=== PATIENT | female | born 1940 | race Caucasian/White ===

== ENCOUNTER 2017-12-30 12:26 | Inpatient (IN) | payer MEDICARE ==
[2017-12-30] MEDS ORDERED: cefTRIAXone IN SWFI 1,000 MG/10 ML SYRINGE IVP STA (12:41)
[2017-12-30] MEDS ORDERED: ACETAMINOPHEN TAB 500 MG TAB PO STA (12:41)
[2017-12-30] MEDS ORDERED: VANCOMYCIN IV PER PHARMACY 1 EACH MISC MISCELLANE PRN (12:41)
--- NOTE | 2017-12-30 13:04 | ED ---
General Adult HPI - General Chief complaint: Weakness Stated complaint: Leg Redness/Swelling Time Seen by Provider: 12/30/17 12:34 Source: patient, RN notes reviewed, old records reviewed Mode of arrival: wheelchair Limitations: no limitations - History of Present Illness Initial comments: 77-year-old female history of atrial fibrillation, diabetes presents with right lower extremity pain and swelling. Patient has history of cellulitis in her right leg. According to her and her legs have been doing quite well, on Sunday there was no sign of redness or swelling. Over the past 24 hours there has been significant erythema and pain in her right lower extremity traveling up her thigh. She has also had shaking chills and subjective fever. Patient is found to be febrile in the emergency department. Denies cough or URI symptoms. Denies abdominal pain. Denies nausea vomiting or diarrhea. - Related Data Home Medications Medication Instructions Recorded Confirmed Furosemide [Lasix] 20 mg PO DAILY 10/02/17 12/30/17 Insulin Glargine,Hum.rec.anlog 45 unit SQ HS 10/02/17 12/30/17 [Lantus Solostar] Lisinopril-Hctz 20-25 mg 1 tab PO DAILY 10/02/17 12/30/17 [Zestoretic 20-25] cloNIDine HCL [Catapres] 0.1 mg PO BID 10/02/17 12/30/17 metFORMIN HCL 1,000 mg PO BID 10/02/17 12/30/17 Insulin Lispro [humaLOG Kwikpen] 15 unit SQ AC-BRKFST 10/03/17 12/30/17 Insulin Lispro [humaLOG Kwikpen] 30 unit SQ AC-SUPPER 10/03/17 12/30/17 Calcium/Magnesium 1 tab PO DAILY 12/30/17 12/30/17 Cholecalciferol [Vitamin D3] 1,000 unit PO DAILY 12/30/17 12/30/17 Previous Rx's Medication Instructions Recorded Apixaban [Eliquis] 5 mg PO BID #0 tab 10/06/17 Diltiazem Cd [Cardizem CD] 240 mg PO DAILY #90 cap.er.24h 10/06/17 Insulin Lispro [humaLOG Kwikpen] 20 unit SQ AC-LUNCH #1 insuln.pen 10/06/17 Nadolol [Corgard] 20 mg PO BID #180 tab 10/06/17 Allergies Allergy/AdvReac Type Severity Reaction Status Date / Time Penicillins Allergy Rash/Hives Verified 12/30/17 13:15 Review of Systems ROS Statement: Those systems with pertinent positive or pertinent negative responses have been documented in the HPI. ROS Other: All systems not noted in ROS Statement are negative. Past Medical History Past Medical History: Atrial Fibrillation, Diabetes Mellitus, Hypertension Additional Past Medical History / Comment(s): Current "head cold", IDDM type II , lymphedema R lower leg. History of Any Multi-Drug Resistant Organisms: None Reported Past Surgical History: Section, Cholecystectomy, Hernia Repair Additional Past Surgical History / Comment(s): Abdominal hernia repair with mesh , benign lump removed right breast, bilateral cataract removal with lens implants. Past Anesthesia/Blood Transfusion Reactions: No Reported Reaction Past Psychological History: No Psychological Hx Reported Smoking Status: Former smoker Past Alcohol Use History: None Reported Past Drug Use History: None Reported - Past Family History Father Family Medical History: Coronary Artery Disease (CAD), Myocardial Infarction ([place] ) Additional Family Medical History / Comment(s): Father had several MIs with the first time being while he was in his 50s. He of a [place] at the age of 75 yrs. Mother Family Medical History: No Reported History Additional Family Medical History / Comment(s): Mother was healthy and lived to be 91 yrs old. General Exam Limitations: no limitations General appearance: alert, in no apparent distress, obese Head exam: Present: atraumatic, normocephalic Eye exam: Present: normal appearance, PERRL, EOMI ENT exam: Present: normal exam Neck exam: Present: normal inspection. Absent: tenderness, meningismus Respiratory exam: Present: decreased breath sounds. Absent: respiratory distress Cardiovascular Exam: Present: regular rate, normal rhythm GI/Abdominal exam: Present: soft. Absent: distended, tenderness, guarding, rebound Extremities exam: Present: pedal edema (Bilateral pedal edema), other (There is erythema in the right lower extremity, tracking up the medial thigh. There is induration below the knee. No focal fluctuance. No crepitus) Neurological exam: Present: alert, oriented X3, CN II-XII intact. Absent: motor sensory deficit Psychiatric exam: Present: normal affect, normal mood Skin exam: Present: warm. Absent: cyanosis, diaphoretic Course Vital Signs 12/30/17 12/30/17 12/30/17 12:28 12:49 13:40 Temperature 101.6 F H 101.1 F H Pulse Rate 61 75 64 Respiratory 24 16 16 Rate Blood Pressure 133/57 179/74 158/57 O2 Sat by Pulse 97 94 L 95 Oximetry 12/30/17 12/30/17 14:30 14:54 Temperature 98.8 F Pulse Rate 62 Respiratory 16 Rate Blood Pressure 128/58 O2 Sat by Pulse 95 Oximetry EKG Findings - EKG Comments: EKG Findings:: EKG normal sinus rhythm, minimal voltage criteria for LVH ventricular rate 69, MI interval 186, QRS duration 78, QTC [address] segment elevation Medical Decision Making - Medical Decision Making 77 yo female presenting with weakness, fever, and pain and swelling in her right lower extremity. Patient is febrile on initial presentation, blood pressure is stable. Patient has hot swollen right lower extremity with tenderness to palpation, beginning at the ankle and progressing to the proximal medial thigh. Laboratory studies are obtained, there is severe leukocytosis at 34.7, acute kidney injury with creatinine 1.4, lactic acidosis 5.0. CT is obtained to evaluate underlying structures, there is no evidence soft tissue gas , no focal abscess, there is soft tissue inflammation consistent with cellulitis. Ultrasound negative for DVT, chest x-ray negative for focal pneumonia. Patient is started on broad-spectrum antibiotics, she is given a dose ceftriaxone and started on vancomycin. Ceftriaxone and vancomycin. Blood cultures are pending. Patient will be admitted, infectious disease will be placed on consult. Lactic acid is down trending after fluid resuscitation. 5.0-3.3. - Lab Data Result diagrams: 12/30/17 13:00 12/30/17 13:00 Lab Results 12/30/17 12/30/17 12/30/17 Range/Units 13:00 13:00 13:00 WBC 34.7 H* (3.8-10.6) k/uL RBC 4.92 (3.80-5.40) m/uL Hgb 12.5 (11.4-16.0) gm/dL Hct 39.7 (34.0-46.0) % MCV 80.7 (80.0-100.0) fL MCH 25.5 (25.0-35.0) pg MCHC 31.6 (31.0-37.0) g/dL RDW 14.4 (11.5-15.5) % Plt Count 160 (150-450) k/uL Neutrophils % (Manual) 89 % Band Neutrophils % 5 % Lymphocytes % (Manual) 3 % Monocytes % (Manual) 3 % Neutrophils # (Manual) 32.60 H (1.3-7.7) k/uL Lymphocytes # (Manual) 1.04 (1.0-4.8) k/uL Monocytes # (Manual) 1.04 H (0-1.0) k/uL Nucleated RBCs 0 (0-0) /100 WBC Polychromasia Present PT (9.0-12.0) sec INR (<1.2) APTT (22.0-30.0) sec Sodium 138 (137-145) mmol/L Potassium 5.1 (3.5-5.1) mmol/L Chloride 97 L (98-107) mmol/L Carbon Dioxide 25 (22-30) mmol/L Anion Gap 16 mmol/L BUN 32 H (7-17) mg/dL Creatinine 1.40 H (0.52-1.04) mg/dL Est GFR (CKD-EPI)AfAm 42 (>60 ml/min/1.73 sqM) Est GFR (CKD-EPI)NonAf 36 (>60 ml/min/1.73 sqM) Glucose 296 H (74-99) mg/dL Plasma Lactic Acid Nacho 5.0 H* (0.7-2.0) mmol/L Calcium 9.9 (8.4-10.2) mg/dL Total Bilirubin 1.4 H (0.2-1.3) mg/dL AST 46 H (14-36) U/L ALT 13 (9-52) U/L Alkaline Phosphatase 98 (38-126) U/L Total Protein 7.9 (6.3-8.2) g/dL Albumin 4.2 (3.5-5.0) g/dL Urine Color Urine Appearance (Clear) Urine pH (5.0-8.0) Ur Specific Gipsy (1.001-1.035) Urine Protein (Negative) Urine Glucose (UA) (Negative) Urine Ketones (Negative) Urine Blood (Negative) Urine Nitrite (Negative) Urine Bilirubin (Negative) Urine Urobilinogen (<2.0) mg/dL Ur Leukocyte Esterase (Negative) Urine RBC (0-5) /hpf Urine WBC (0-5) /hpf Ur Squamous Epith Cells (0-4) /hpf Urine Mucus (None) /hpf 12/30/17 12/30/17 12/30/17 Range/Units 13:00 14:45 15:34 WBC (3.8-10.6) k/uL RBC (3.80-5.40) m/uL Hgb (11.4-16.0) gm/dL Hct (34.0-46.0) % MCV (80.0-100.0) fL MCH (25.0-35.0) pg MCHC (31.0-37.0) g/dL RDW (11.5-15.5) % Plt Count (150-450) k/uL Neutrophils % (Manual) % Band Neutrophils % % Lymphocytes % (Manual) % Monocytes % (Manual) % Neutrophils # (Manual) (1.3-7.7) k/uL Lymphocytes # (Manual) (1.0-4.8) k/uL Monocytes # (Manual) (0-1.0) k/uL Nucleated RBCs (0-0) /100 WBC Polychromasia PT 11.4 (9.0-12.0) sec INR 1.2 H (<1.2) APTT 20.8 L (22.0-30.0) sec Sodium (137-145) mmol/L Potassium (3.5-5.1) mmol/L Chloride (98-107) mmol/L Carbon Dioxide (22-30) mmol/L Anion Gap mmol/L BUN (7-17) mg/dL Creatinine (0.52-1.04) mg/dL Est GFR (CKD-EPI)AfAm (>60 ml/min/1.73 sqM) Est GFR (CKD-EPI)NonAf (>60 ml/min/1.73 sqM) Glucose (74-99) mg/dL Plasma Lactic Acid Nacho 3.3 H* (0.7-2.0) mmol/L Calcium (8.4-10.2) mg/dL Total Bilirubin (0.2-1.3) mg/dL AST (14-36) U/L ALT (9-52) U/L Alkaline Phosphatase (38-126) U/L Total Protein (6.3-8.2) g/dL Albumin (3.5-5.0) g/dL Urine Color Yellow Urine Appearance Clear (Clear) Urine pH 5.5 (5.0-8.0) Ur Specific Gipsy 1.016 (1.001-1.035) Urine Protein 1+ H (Negative) Urine Glucose (UA) Trace H (Negative) Urine Ketones Negative (Negative) Urine Blood Trace H (Negative) Urine Nitrite Negative (Negative) Urine Bilirubin Negative (Negative) Urine Urobilinogen <2.0 (<2.0) mg/dL Ur Leukocyte Esterase Negative (Negative) Urine RBC 4 (0-5) /hpf Urine WBC 2 (0-5) /hpf Ur Squamous Epith Cells 3 (0-4) /hpf Urine Mucus Rare H (None) /hpf Critical Care Time Critical Care Time: Yes Total Critical Care Time: 35 Disposition Clinical Impression: Sepsis, Cellulitis of right lower extremity Disposition: ADMITTED IP TO THIS [facility] Condition: Serious Referrals: Armaan Snyder MD [Primary Care Provider] - 1-2 days Decision to Admit Reason: Admit from EC Decision Date: 12/30/17 Decision Time: 15:06
[2017-12-30 13:22] LABS: HCT 39.7 % (34.0-46.0); HGB 12.5 gm/dL (11.4-16.0); MCH 25.5 pg (25.0-35.0); MCHC 31.6 g/dL (31.0-37.0); MCV 80.7 fL (80.0-100.0); Mean Platelet Volume 9.3; Platelet Count 160 k/uL (150-450); RBC 4.92 m/uL (3.80-5.40); RDW 14.4 % (11.5-15.5)
[2017-12-30 13:23] LABS: WBC 34.7 k/uL (3.8-10.6)
[2017-12-30 13:24] LABS: INR 1.2 (<1.2); Prothrombin Time 11.4 sec (9.0-12.0)
[2017-12-30] MEDS ORDERED: VANCOMYCIN 2,000 MG in SODIUM CHLORIDE 0.9% 500 ML IVPB ONE (13:30)
[2017-12-30 13:31] LABS: Albumin 4.2 g/dL (3.5-5.0); Band Neutrophils % 5 %; Calcium 9.9 mg/dL (8.4-10.2); Lymphocytes # (M) 1.04 k/uL (1.0-4.8); Monocytes # (M) 1.04 k/uL (0-1.0); Neutrophils % (M) 89 %; Nucleated Red Blood Cells 0 /100 WBC (0-0); Polychromasia Present; Potassium 5.1 mmol/L (3.5-5.1); Total Bilirubin 1.4 mg/dL (0.2-1.3); Total Cells Counted 100; Total Protein 7.9 g/dL (6.3-8.2)
[2017-12-30] MEDS ORDERED: SODIUM CHLORIDE 0.9% 2,000 ML IV ONE (13:32)
[2017-12-30] MEDS ORDERED: LEVOFLOXACIN 500MG-D5W PMX 500 MG in DEXTROSE/WATER 1 100ML.BAG IVPB STA (13:33)
[2017-12-30 13:42] LABS: Partial Thromboplastin Time 20.8 sec (22.0-30.0)
--- NOTE | 2017-12-30 14:15 | XR ---
EXAMINATION TYPE: XR chest 1V portable DATE OF EXAM: 12/30/2017 COMPARISON: 10/02/2017 HISTORY: Fever TECHNIQUE: Single frontal view of the chest is obtained. FINDINGS: There is no focal air space opacity, pleural effusion, or pneumothorax seen. The cardiac silhouette size is enlarged as seen on the prior. The osseous structures are intact. There is mild acromio clavicular arthropathy. IMPRESSION: No acute cardiopulmonary process.
--- NOTE | 2017-12-30 14:17 | US ---
EXAMINATION TYPE: US venous doppler duplex LE RT DATE OF EXAM: 12/30/2017 2:09 PM COMPARISON: NONE CLINICAL HISTORY: Pain. Redness that started last night. Swelling. On blood thinners. No hx of DVT. SIDE PERFORMED: Right TECHNIQUE: The lower extremity deep venous system is examined utilizing real time linear array sonog agnes with graded compression, doppler sonography and color-flow sonography. VESSELS IMAGED: External Iliac Vein (EIV) Common Femoral Vein Deep Femoral Vein Greater Saphenous Vein * Femoral Vein Popliteal Vein Small Saphenous Vein * Proximal Calf Veins (* superficial vessels) Limited exam due to patient body habitus and patient unable to tolerate exam well due to pain. Right Leg: Negative for DVT Grayscale, color doppler, spectral doppler imaging performed of the deep veins of the lower extremiti es. There is normal flow, compressibility, vascular waveforms. IMPRESSION: Slightly limited examination due to patient body habitus and inability to tolerate the ex am. However there is no gross evidence of deep venous thrombosis of the right lower extremity..
[2017-12-30] MEDS: SODIUM CHLORIDE 0.9% 1,000 ML IV SCH (14:30)
--- NOTE | 2017-12-30 14:55 | CT ---
EXAMINATION TYPE: CT lower extremity RT wo con DATE OF EXAM: 12/30/2017 COMPARISON: NONE HISTORY: Rt leg sepsis CT DLP: [id number] mGycm Automated exposure control for dose reduction was used. TECHNIQUE: Contiguous axial CT slices were obtained of the right lower extremity without intravenous contrast. This limits evaluation for abscess and other vasculature. FINDINGS: There is generalized subcutaneous edema of the visualized bilateral lower extremities, partially visu alized on the left aren't visualized on the right. This is right greater than left and extensive on t he right below the knee and only mild above the knee with no edema seen near the hip joint. There is no evidence of acute fracture or dislocation. Mild generalized extensor muscular atrophy. Trace supra patellar joint effusion is seen. No focal fluid collection. No subcutaneous emphysema as questioned c linically. There is partial visualization of a large ventral hernia. Visualized bowel is nonenlarged. Lack of intravenous contrast limits evaluation of the vascular structures. There is mild medial compartment joint space narrowing of the knee and of the femoral acetabular join t and cephalad location. Small acetabular osteophytes are also seen. No suspicious osseous lesion. No evidence of dislocation of the hip or knee. IMPRESSION: 1. NO EVIDENCE OF SUBCUTANEOUS EMPHYSEMA QUESTIONED CLINICALLY. 2. NO EVIDENCE OF ACUTE FRACTURE OR DISLOCATION OF THE RIGHT LOWER EXTREMITY. 3. GENERALIZED LOWER EXTREMITY EDEMA, SEVERE BELOW THE KNEE AND ONLY MILD ABOVE THE KNEE WITHOUT FOCA L FLUID COLLECTION TO SUGGEST ABSCESS. 4. MILD FEMORAL ACETABULAR ARTHROPATHY AND MEDIAL COMPARTMENT ARTHROPATHY OF THE RIGHT KNEE.
[2017-12-30 15:14] LABS: Appearance,Urine Clear (Clear); Bilirubin,Urine Negative (Negative); Blood,Urine Trace (Negative); Color,Urine Yellow; Glucose,Urine (UA) Trace (Negative); Ketones,Urine Negative (Negative); Leukocyte Esterase,Urine Negative (Negative); Mucus,Urine Rare /hpf; Nitrite,Urine Negative (Negative); PH, Urine 5.5 (5.0-8.0); Protein,Urine 1+ (Negative); RBC,Urine 4 /hpf (0-5); Specific Gravity,Urine 1.016 (1.001-1.035); Squamous Epithelial Cell,Urine 3 /hpf (0-4); Urobilinogen,Urine <2.0 mg/dL (<2.0); WBC,Urine 2 /hpf (0-5)
[2017-12-30] MEDS ORDERED: NALOXONE 0.4 MG/ML 1 ML VIAL IV PRN (15:53)
[2017-12-30] MEDS ORDERED: ACETAMINOPHEN TAB 325 MG TAB PO PRN (15:53)
[2017-12-30] MEDS ORDERED: MORPHINE SULFATE 4 MG/ML SYRINGE IV PRN (15:53)
[2017-12-30] MEDS ORDERED: SODIUM CHLORIDE 0.9% 1,000 ML IV ONE (15:55)
--- NOTE | 2017-12-30 20:47 | P.HPIM ---
History of Present Illness Chief complaint Increased redness of the right lower extremity. History of present illness The patient is a 77-year-old female who is a patient of Dr. Snyder for whom I am covering. Patient apparently late yesterday noticed increasing erythema of the leg and continued to develop fever and chills. Presented to the emergency room the temperature up 101.6. Apparently on Sunday she had some problem with her middle toe of the right foot and according to the patient had some antibiotic cream placed on the area. Otherwise everything was doing well until yesterday evening according to patient and . Patient did have a similar episode though back in September of last year. She has had problems with chronic lymphedema of the right lower extremity. Past medical history Positive for the lymphedema of the right lower extremity. Atrial fibrillation. Long history of hypertension History of type 2 diabetes with chronic kidney disease stage III History of obesity Past surgical history from records includes a previous cholecystectomy, section and hernia repair. ALLERGIES to penicillin with rash and hives. Home medications Metformin 1000 mg twice a day Catapres 0.1 mg twice a day Corgard 20 mg twice a day Lisinopril-hydrochlorothiazide 20-25 mg 1 daily Insulin lispro 20 units subcu before meals lunch Insulin lispro 30 units before meals supper Insulin and lispro 15 units before meals breakfast Lantus 45 units at at bedtime Lasix 20 mg daily Cardizem CD 240 mg daily Vitamin D3 at thousand units daily Calcium/magnesium 1 tablet daily Eliquis 5 mg twice a day Review of systems As mentioned in history present illness. No unusual headache or visual disturbances. No nausea or vomiting. No chest pain or shortness of breath. No unusual abdominal pain. No new urinary or bowel symptomatology. Family history Noncontributory. From records she has history of one son that of a malignancy. Unknown etiology. Social history A former smoker. Lives locally with her . Physical examination Patient sitting up in the chair at side of bed. Alert and oriented in no acute distress. Temperature in the emergency room was up to 101.6 but is presently down to 98.5 after receiving some Tylenol. Pulse of 54, respirations of 16, blood pressure 123/52, percent saturation 98 on room air. Head and neck exam unremarkable. Neck is supple without adenopathy or thyromegaly detected. Lungs clear to auscultation Heart tones were distant and slightly irregular but rate controlled. Abdomen obese. Breast and pelvic exam deferred. Right lower extremity is markedly edematous. Lymphedema. Middle toes are swollen with some bogginess but no definite discharge or drainage noted. There is a shade of erythema around most of the lower extremity with extension medially up into the left thigh. Neurologically she is alert and oriented. No cranial nerve deficits. No focal weakness noted. Laboratory White count was elevated at 34.7 with a hemoglobin 12.5 and a platelet count of 160. Left shifted with 32% neutrophils. INR 1.2 with a PTT of 20.8 Sodium 138 with potassium 5.1. CO2 content was 25. BUN of 32 with creatinine 1.4 giving her a GFR of 36. Blood sugar was 296. Initial lactic acid level was 5.0 and did decreased down to 3.3 but is presently 4.0. Total bilirubin is 1.4 with a AST of 46. Alk phos normal at 98. Albumin 4.2. Urinalysis revealed negative leukocyte esterase Chest x-ray revealed no acute process. Cardiomegaly. EKG showed a normal sinus rhythm no definite ischemic changes noted. In the emergency room patient had a venous Doppler study performed which was negative for DVT Also in the emergency room a CAT scan of the right lower extremity showed no evidence of subcu emphysema or acute fracture. Impressions 1. Acute cellulitis of the right lower extremity with indications for sepsis with presentation of fever and markedly elevated white count. This is superimposed on chronic lymphedema and venous stasis along with previous cellulitis secondary to previous methicillin sensitive staph aureus and strep infection. 2. Morbid obesity 3. Type 2 diabetes 4. Chronic kidney disease stage III 5. Atrial fibrillation 6. Other past medical history as stated above in the past medical history section. Plans Patient received antibiotics presently in the form of vancomycin and Rocephin. Continue with IV fluid administration. We will hold metformin in the face of her sepsis and acidosis. Continue her insulin administrations. Consultation with infectious disease. Further recommendations and treatment pending clinical response and results of above. Dr. Snyder to resume care of this patient tomorrow. Case discussed with patient and along with nursing staff at bedside this evening. Past Medical History Past Medical History: Atrial Fibrillation, Diabetes Mellitus, Hypertension Additional Past Medical History / Comment(s): Current "head cold", IDDM type II , lymphedema R lower leg. History of Any Multi-Drug Resistant Organisms: None Reported Past Surgical History: Section, Cholecystectomy, Hernia Repair Additional Past Surgical History / Comment(s): Abdominal hernia repair with mesh , benign lump removed right breast, bilateral cataract removal with lens implants. Past Anesthesia/Blood Transfusion Reactions: No Reported Reaction Past Psychological History: No Psychological Hx Reported Additional Psychological History / Comment(s): Pt resides with her spouse. She uses a cane or a walker when out. She drives. Smoking Status: Former smoker Past Alcohol Use History: None Reported Additional Past Alcohol Use History / Comment(s): Pt states she started smoking in and quit in 1967. Past Drug Use History: None Reported - Past Family History Father Family Medical History: Coronary Artery Disease (CAD), Myocardial Infarction ([place] ) Additional Family Medical History / Comment(s): Father had several MIs with the first time being while he was in his 50s. He of a [place] at the age of 75 yrs. Mother Family Medical History: No Reported History Additional Family Medical History / Comment(s): Mother was healthy and lived to be 91 yrs old. Medications and Allergies Home Medications Medication Instructions Recorded Confirmed Type Furosemide [Lasix] 20 mg PO DAILY 10/02/17 12/30/17 History Insulin Glargine,Hum.rec.anlog 45 unit SQ HS 10/02/17 12/30/17 History [Lantus Solostar] Lisinopril-Hctz 20-25 mg 1 tab PO DAILY 10/02/17 12/30/17 History [Zestoretic 20-25] cloNIDine HCL [Catapres] 0.1 mg PO BID 10/02/17 12/30/17 History metFORMIN HCL 1,000 mg PO BID 10/02/17 12/30/17 History Insulin Lispro [humaLOG Kwikpen] 15 unit SQ AC-BRKFST 10/03/17 12/30/17 History Insulin Lispro [humaLOG Kwikpen] 30 unit SQ AC-SUPPER 10/03/17 12/30/17 History Apixaban [Eliquis] 5 mg PO BID #0 tab 10/06/17 12/30/17 Rx Diltiazem Cd [Cardizem CD] 240 mg PO DAILY #90 cap.er.24h 10/06/17 12/30/17 Rx Insulin Lispro [humaLOG Kwikpen] 20 unit SQ AC-LUNCH #1 insuln.pen 10/06/1709/08 Rx Nadolol [Corgard] 20 mg PO BID #180 tab 10/06/17 12/30/17 Rx Calcium/Magnesium 1 tab PO DAILY 12/30/17 12/30/17 History Cholecalciferol [Vitamin D3] 1,000 unit PO DAILY 12/30/17 12/30/17 History Allergies Allergy/AdvReac Type Severity Reaction Status Date / Time Penicillins Allergy Rash/Hives Verified 12/30/17 13:15 Physical Exam Vitals: Vital Signs Temp Pulse Pulse Resp BP BP Pulse Ox 12/30/17 19:50 97.8 F 54 L 16 123/52 98 12/30/17 19:05 56 L 16 124/63 94 L 12/30/17 14:54 62 16 128/58 95 12/30/17 14:30 98.8 F 12/30/17 13:40 64 16 158/57 95 12/30/17 12:49 101.1 F H 75 16 179/74 94 L 12/30/17 12:28 101.6 F H 61 24 133/57 97 Intake and Output 12/30/17 12/30/17 12/30/17 06:59 14:59 22:59 Other: Weight 127.006 kg Patient Weight 12/31/17 06:59 Weight 127.006 kg Results CBC & Chem 7: 12/30/17 13:00 12/30/17 13:00 Labs: Abnormal Lab Results - Last 24 Hours (Table) 12/30/17 12/30/17 12/30/17 Range/Units 13:00 13:00 13:00 WBC 34.7 H* (3.8-10.6) k/uL Neutrophils # (Manual) 32.60 H (1.3-7.7) k/uL Monocytes # (Manual) 1.04 H (0-1.0) k/uL INR (<1.2) APTT (22.0-30.0) sec Chloride 97 L (98-107) mmol/L BUN 32 H (7-17) mg/dL Creatinine 1.40 H (0.52-1.04) mg/dL Glucose 296 H (74-99) mg/dL Plasma Lactic Acid Nacho 5.0 H* (0.7-2.0) mmol/L Total Bilirubin 1.4 H (0.2-1.3) mg/dL AST 46 H (14-36) U/L Urine Protein (Negative) Urine Glucose (UA) (Negative) Urine Blood (Negative) Urine Mucus (None) /hpf 12/30/17 12/30/17 12/30/17 Range/Units 13:00 14:45 15:34 WBC (3.8-10.6) k/uL Neutrophils # (Manual) (1.3-7.7) k/uL Monocytes # (Manual) (0-1.0) k/uL INR 1.2 H (<1.2) APTT 20.8 L (22.0-30.0) sec Chloride (98-107) mmol/L BUN (7-17) mg/dL Creatinine (0.52-1.04) mg/dL Glucose (74-99) mg/dL Plasma Lactic Acid Nacho 3.3 H* (0.7-2.0) mmol/L Total Bilirubin (0.2-1.3) mg/dL AST (14-36) U/L Urine Protein 1+ H (Negative) Urine Glucose (UA) Trace H (Negative) Urine Blood Trace H (Negative) Urine Mucus Rare H (None) /hpf 12/30/17 Range/Units 19:30 WBC (3.8-10.6) k/uL Neutrophils # (Manual) (1.3-7.7) k/uL Monocytes # (Manual) (0-1.0) k/uL INR (<1.2) APTT (22.0-30.0) sec Chloride (98-107) mmol/L BUN (7-17) mg/dL Creatinine (0.52-1.04) mg/dL Glucose (74-99) mg/dL Plasma Lactic Acid Nacho 4.0 H* (0.7-2.0) mmol/L Total Bilirubin (0.2-1.3) mg/dL AST (14-36) U/L Urine Protein (Negative) Urine Glucose (UA) (Negative) Urine Blood (Negative) Urine Mucus (None) /hpf Thrombosis Risk Factor Assmnt - Choose All That Apply Any of the Below Risk Factors Present?: Yes Each Factor Represents 1 point: Medical pt on bed rest, Obesity (BMI >25), Swollen legs (current) Other Risk Factors: Yes Other congenital or acquired thrombophilia - If yes, enter type in comment: No Thrombosis Risk Factor Assessment Total Risk Factor Score: 3 Thrombosis Risk Factor Assessment Level: Moderate Risk
[2017-12-30 20:56] LABS: Glucose,Whole Blood 284 mg/dL (75-99)
[2017-12-30] MEDS ORDERED: INSULIN DETEMIR 100 UNIT/ML 10 ML VIAL SQ SCH (21:00)
[2017-12-30] MEDS: INSULIN ASPART 100 UNIT/ML 1 ML 10 ML VIAL SQ SCH (21:19)
[2017-12-30] MEDS: APIXABAN 5 MG TAB PO SCH (22:09)
[2017-12-30] MEDS: cloNIDine HCL 0.1 MG TAB PO SCH (22:10)
[2017-12-30] MEDS: NADOLOL 20 MG TAB PO SCH (22:10)
[2017-12-31] MEDS: SODIUM CHLORIDE 0.9% 1,000 ML IV SCH ×2 (01:00→08:25)
[2017-12-31 07:28] LABS: Glucose,Whole Blood 184 mg/dL (75-99)
[2017-12-31] MEDS: cloNIDine HCL 0.1 MG TAB PO SCH ×2 (08:24→21:29)
[2017-12-31] MEDS: INSULIN ASPART 100 UNIT/ML 1 ML 10 ML VIAL SQ SCH ×3 (08:24→18:13)
[2017-12-31] MEDS: cefTRIAXone IN SWFI 1,000 MG/10 ML SYRINGE IVP SCH (08:24)
[2017-12-31] MEDS: FUROSEMIDE 20 MG TAB PO SCH (08:24)
[2017-12-31] MEDS: DILTIAZEM CD 240 MG CAP.ER.24H PO SCH (08:24)
[2017-12-31] MEDS: APIXABAN 5 MG TAB PO SCH ×2 (08:24→21:29)
[2017-12-31] MEDS: NADOLOL 20 MG TAB PO SCH ×3 (08:25→21:28)
[2017-12-31] MEDS: metFORMIN 500 MG TAB PO SCH ×2 (08:45→21:28)
[2017-12-31] MEDS: CHOLECALCIFEROL 1,000 UNIT TAB PO SCH (08:45)
[2017-12-31] MEDS: LISINOPRIL-HCTZ 20-25 MG 1 EACH TAB PO SCH (08:45)
[2017-12-31] MEDS ORDERED: NON-FORMULARY DRUG (Calcium/Magnesium 1 TAB) PO SCH (09:00)
[2017-12-31 09:56] LABS: Basophils % (A) 0 %; Eosinophils % (A) 0 %; HCT 30.8 % (34.0-46.0); Lymphocytes # (A) 0.8 k/uL (1.0-4.8); Lymphocytes % (A) 5 %; MCH 26.3 pg (25.0-35.0); MCHC 32.2 g/dL (31.0-37.0); MCV 81.8 fL (80.0-100.0); Mean Platelet Volume 8.4; Monocytes # (A) 0.5 k/uL (0-1.0); Monocytes % (A) 3 %; Neutrophils # (A) 15.6 k/uL (1.3-7.7); Neutrophils % (A) 91 %; Platelet Count 180 k/uL (150-450); RBC 3.76 m/uL (3.80-5.40); RDW 14.5 % (11.5-15.5); WBC 17.1 k/uL (3.8-10.6)
[2017-12-31 10:01] LABS: HGB 9.9 gm/dL (11.4-16.0)
[2017-12-31 10:09] LABS: Albumin 2.9 g/dL (3.5-5.0); Calcium 8.2 mg/dL (8.4-10.2); Magnesium 1.5 mg/dL (1.6-2.3); Potassium 3.9 mmol/L (3.5-5.1); Total Bilirubin 0.5 mg/dL (0.2-1.3); Total Protein 5.8 g/dL (6.3-8.2)
[2017-12-31] MEDS: MAGNESIUM SULFATE-D5W PMX 1 GM in DEXTROSE/WATER 1 100ML.BAG IVPB SCH ×2 (12:27→13:33)
[2017-12-31 12:28] LABS: Glucose,Whole Blood 166 mg/dL (75-99)
[2017-12-31] MEDS ORDERED: MORPHINE ORAL SOLN 10 MG/5 ML CUP PO PRN (13:54)
[2017-12-31 17:22] LABS: Glucose,Whole Blood 110 mg/dL (75-99)
[2017-12-31 20:50] LABS: Glucose,Whole Blood 136 mg/dL (75-99)
[2017-12-31] MEDS: INSULIN DETEMIR 100 UNIT/ML 10 ML VIAL SQ SCH (21:28)
--- NOTE | 2017-12-31 22:03 | PN ---
PROGRESS NOTE ATTENDING PHYSICIAN: Dr. Natalia Snyder. CHIEF COMPLAINT: Re-evaluation. HISTORY OF PRESENT ILLNESS: This elderly female, 77 years of age, was admitted on the weekend with complaints of fever, and swollen right leg. The patient said she did not feel too bad. However, due to the family's insistence, she presented to the emergency room. The patient noted to have evidence of chronic venous stasis on the right leg. I did see the patient on Sunday for a small ulcerated callus at the tip of his right 3rd toe. The patient had no evidence of cellulitis at that time. She had no tenderness, pain, swelling, or erythema. The patient was given Bactroban to apply to the ulcerated callus and instructed to call if she develops fever or progressive redness in the leg. She was seen in the emergency room in view of this, and subsequently admitted to the hospital. She does have underlying history of diabetes mellitus with chronic kidney disease, obesity, and hypertension. She had recently been hospitalized with cellulitis of the right lower leg and sepsis. At that time, she had both Staph aureus, methicillin sensitive and strep. The patient was treated with treatment with good resolution of her ailment. REVIEW OF SYSTEMS: NEURO: Denies any headaches or dizziness. Psych: No anxiety. Cardiovascular: No chest pain, angina or palpitations. Respiratory: No shortness of breath, cough. GI denies any nausea, vomiting, abdominal pain, diarrhea. : No symptoms of dysuria or hematuria. Extremities: Swelling right lower leg with no pain. The patient has a chronic edema. Constitutional: Fever and the patient did have chills and fever. Skin chronic stasis changes. Third toe ulcerative callus. PHYSICAL EXAMINATION: Pleasant female present in no distress. She is in a recliner chair, feeling fairly well. VITAL SIGNS: Temperature 99.5, pulse 52, respirations 16, blood pressure 123/60, pulse ox of 94% on room air. HEENT: Normocephalic. NECK: Supple. No JVD. CHEST: Clear to auscultation. Cardiac: Normal S1, S2 with no gallop. Systolic murmur 2/6 left sternal border. Irregularly, irregular rhythm. ABDOMEN: Soft. No palpable masses. Bowel sounds normal. No organomegaly. Obese. Extremities revealed edema chronic. Non pitting. Right lower leg edema is more significant. The patient also has chronic venous and lymphangitic stasis, right lower leg. Ulcerated callus dry. Neurological awake, alert, oriented x3 with well- coordinated movements. LABORATORY DATA: CT scan of the leg, which revealed no abscess. Patient's white count is markedly elevated at 34,700 at the time of admission. This morning is down to 17.1. Renal function is stable. Electrolytes normal. Blood sugars adequately controlled. ASSESSMENT: 1. Cellulitis right lower leg. 2. Chronic venous stasis and lymphangitic stasis, right lower leg. 3. Chronic kidney disease stage 3. 4. Diabetes mellitus with renal disease. 5. Obesity. 6. Hypertension. PLAN: Continue present medical regimen. The patient is on Rocephin. The patient's condition discussed with the patient. Prognosis guarded. We will await the culture results. MMODL / IJN: [id number] /
[2017-12-31 22:33] LABS: Hemoglobin A1C 6.7 % (4.0-6.0)
[2018-01-01] MEDS: SODIUM CHLORIDE 0.9% 1,000 ML IV SCH ×2 (05:04→08:14)
[2018-01-01 07:25] LABS: Glucose,Whole Blood 93 mg/dL (75-99)
[2018-01-01] MEDS: INSULIN ASPART 100 UNIT/ML 1 ML 10 ML VIAL SQ SCH ×3 (07:29→17:47)
[2018-01-01] MEDS ORDERED: VANCOMYCIN 2,000 MG in SODIUM CHLORIDE 0.9% 500 ML IVPB SCH (08:00)
[2018-01-01] MEDS: CHOLECALCIFEROL 1,000 UNIT TAB PO SCH (08:19)
[2018-01-01] MEDS: APIXABAN 5 MG TAB PO SCH ×2 (08:19→21:22)
[2018-01-01] MEDS: cefTRIAXone IN SWFI 1,000 MG/10 ML SYRINGE IVP SCH (08:19)
[2018-01-01] MEDS: cloNIDine HCL 0.1 MG TAB PO SCH ×2 (08:20→21:22)
[2018-01-01] MEDS: metFORMIN 500 MG TAB PO SCH ×2 (08:21→21:23)
[2018-01-01] MEDS: LISINOPRIL-HCTZ 20-25 MG 1 EACH TAB PO SCH (08:21)
[2018-01-01] MEDS: FUROSEMIDE 20 MG TAB PO SCH (08:21)
[2018-01-01] MEDS: NADOLOL 20 MG TAB PO SCH ×2 (08:21→21:23)
--- NOTE | 2018-01-01 09:52 | P.CONS ---
History of Present Illness - Reason for Consult Consult date: 12/31/17 - Chief Complaint fever - History of Present Illness 77-year-old female who suffers superobesity and a dislike of medical care is a history of significant cellulitis to her right leg in September 2017. At that time she benefited with avoiding going up to [place]. During the driveup entering the first day she was feeling very poorly that she was having chills and rigors. Her teeth were chattering and she really did not feel well. However did not understand that that was signs and symptoms of underlying significant infection. Eventually got so weak that her drove home from [place] imparted to the hospital. She was admitted with a significant cellulitis to the right lower extremity and was treated and had some improvement. At home and attempting to wrap the leg. The patient is somewhat uncooperative. She will not wear a stocking it's quite a bit of work for the asthma get it on and because Tio wrap or so much easier they've been utilize. Patient again started to have symptoms within the last few days of some chills and rigor and wasn't feeling very well. was concerned because the swelling to the right lower extremity but again it was a source of infection. The patient was resistant to medical care and eventually several family members and to convince her to come to Hospital, EMS was called and she refused to come to Hospital by EMS. They assisted her into the 's car so that she could be brought to hospital. She was found evidence of temperature 101.6 with chills and evidence of early sepsis and that she did have an elevated lactic acid and constantly she agreed to admission treatment of underlying cellulitis to her right leg. All data shows evidence of MSSA and strep on the leg and current ceftriaxone therapy is adequate. Review of Systems Somewhat cantankerous 77-year-old woman has superobesity, dislike for medical care HEENT:Denies headache or acute visual change. Denies sinus or mouth discomforts. Denies neck stiffness or pain. Denies significant oral cavity pain. Denies difficulty on swallowing. Lungs: Denies significant shortness of breath, cough, sputum production, or hemoptysis. Cardiovascular: Denies significant shortness of breath, chest pain, chest wall pain, orthopnea, dyspnea on exertion, syncope Gastrointestinal:Denies nausea, vomiting, diarrhea, constipation, hematemesis, melena, hematochezia. No no significant change of bowel habit noticed. Musculoskeletal: Has chronic difficulties with walking with her superobesity and chronic joint pains. No new joint swelling. Denies new back pain. Skin: As per the HPI has evidence of a significant swelling to the right lower extremity with the redness and tenderness especially posterior and anterior. She has very dry skin for which they apply some moisturizer Neuro: Denies headache or visual change. Denies any new onset weakness or difficulty with ambulation. Denies falls or seizures. Psychiatric:Denies anxiety or depression. Endocrine: Fatigue and continuous weight gain Past Medical History Past Medical History: Atrial Fibrillation, Diabetes Mellitus, Hypertension Additional Past Medical History / Comment(s): Current "head cold", IDDM type II , lymphedema R lower leg. History of Any Multi-Drug Resistant Organisms: None Reported Past Surgical History: Section, Cholecystectomy, Hernia Repair Additional Past Surgical History / Comment(s): Abdominal hernia repair with mesh , benign lump removed right breast, bilateral cataract removal with lens implants. Past Anesthesia/Blood Transfusion Reactions: No Reported Reaction Past Psychological History: No Psychological Hx Reported Additional Psychological History / Comment(s): Pt resides with her spouse. She uses a cane or a walker when out. She drives. 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 Stopped smoking in her early 20s. No alcohol use. experience. No current pets in the home. Only travel was to the [facility] in [place] no international travel Smoking Status: Former smoker Past Alcohol Use History: None Reported Additional Past Alcohol Use History / Comment(s): Pt states she started smoking in 89 and quit in 1967. Past Drug Use History: None Reported - Past Family History Father Family Medical History: Coronary Artery Disease (CAD), Myocardial Infarction (CA ) Additional Family Medical History / Comment(s): Father had several MIs with the first time being while he was in his 50s. He of a CA at the age of 75 yrs. Mother Family Medical History: No Reported History Additional Family Medical History / Comment(s): Mother was healthy and lived to be 91 yrs old. Medications and Allergies Home Medications and Allergies Comment(s): Current Medications Acetaminophen (Tylenol Tab) 650 mg PO Q6HR PRN PRN Reason: Mild Pain or Fever > 100.5 Last Admin: 12/30/17 23:48 Dose: 650 mg Apixaban (Eliquis) 5 mg PO BID [facility] Last Admin: 01/01/18 08:19 Dose: 5 mg Ceftriaxone Sodium (Rocephin) 1,000 mg IVP Q24HR [facility] Last Admin: 01/01/18 08:19 Dose: 1,000 mg Cholecalciferol (Vitamin D3) 1,000 unit PO DAILY [facility] Last Admin: 01/01/18 08:19 Dose: 1,000 unit Clonidine (Catapres) 0.1 mg PO BID [facility] Last Admin: 01/01/18 08:20 Dose: 0.1 mg Diltiazem HCl (Cardizem Cd) 240 mg PO DAILY [facility] Last Admin: 12/31/17 08:24 Dose: 240 mg Furosemide (Lasix) 20 mg PO DAILY [facility] Last Admin: 01/01/18 08:21 Dose: 20 mg Lisinopril/HCTZ (Zestoretic 20-25) 1 each PO DAILY [facility] Last Admin: 01/01/18 08:21 Dose: 1 each Sodium Chloride (Saline 0.9%) 1,000 mls @ 100 mls/hr IV .Q10H [facility] Last Admin: 01/01/18 08:14 Dose: Not Given Insulin Aspart (Novolog) 15 unit SQ AC-BRKFST [facility] Last Admin: 01/01/18 07:29 Dose: Not Given Insulin Aspart (Novolog) 20 unit SQ AC-LUNCH [facility] Last Admin: 12/31/17 13:33 Dose: 20 unit Insulin Aspart (Novolog) 30 unit SQ AC-SUPPER [facility] Last Admin: 12/31/17 18:13 Dose: 30 unit Insulin Detemir (Levemir) 45 unit SQ HS [facility] Last Admin: 12/31/17 21:28 Dose: 45 unit Metformin HCl (Glucophage) 1,000 mg PO BID [facility] Last Admin: 01/01/18 08:21 Dose: 1,000 mg Morphine Sulfate (Morphine Oral Tosin 2mg/Ml) 12 mg PO Q4HR PRN PRN Reason: Severe Pain Nadolol (Corgard) 20 mg PO BID [facility] Last Admin: 01/01/18 08:21 Dose: 20 mg Naloxone HCl (Narcan) 0.2 mg IV Q2M PRN PRN Reason: Opioid Reversal Silver Sulfadiazine (Silvadene Cream) 1 applic TOPICAL BID [facility] Last Admin: 01/01/18 08:22 Dose: 1 applic Home Medications Medication Instructions Recorded Confirmed Type Furosemide [Lasix] 20 mg PO DAILY 10/02/17 12/30/17 History Insulin Glargine,Hum.rec.anlog 45 unit SQ HS 10/02/17 12/30/17 History [Lantus Solostar] Lisinopril-Hctz 20-25 mg 1 tab PO DAILY 10/02/17 12/30/17 History [Zestoretic 20-25] cloNIDine HCL [Catapres] 0.1 mg PO BID 10/02/17 12/30/17 History metFORMIN HCL 1,000 mg PO BID 10/02/17 12/30/17 History Insulin Lispro [humaLOG Kwikpen] 15 unit SQ AC-BRKFST 10/03/17 12/30/17 History Insulin Lispro [humaLOG Kwikpen] 30 unit SQ AC-SUPPER 10/03/17 12/30/17 History Apixaban [Eliquis] 5 mg PO BID #0 tab 10/06/17 12/30/17 Rx Diltiazem Cd [Cardizem CD] 240 mg PO DAILY #90 cap.er.24h 10/06/17 12/30/17 Rx Insulin Lispro [humaLOG Kwikpen] 20 unit SQ AC-LUNCH #1 insuln.pen 10/06/1709/08 Rx Nadolol [Corgard] 20 mg PO BID #180 tab 10/06/17 12/30/17 Rx Calcium/Magnesium 1 tab PO DAILY 12/30/17 12/30/17 History Cholecalciferol [Vitamin D3] 1,000 unit PO DAILY 12/30/17 12/30/17 History Allergies Allergy/AdvReac Type Severity Reaction Status Date / Time Penicillins Allergy Rash/Hives Verified 12/30/17 13:15 Physical Exam Vitals: Vital Signs Temp Pulse Pulse Resp BP Pulse Ox 01/01/18 08:38 71 01/01/18 07:00 97.1 F L 46 L 16 155/85 96 12/31/17 23:00 99.3 F 72 20 139/74 96 12/31/17 14:51 96.7 F L 66 16 140/62 97 Intake and Output 12/31/17 01/01/1801/01/18 22:59 06:59 14:59 Other: # Voids 2 2 77-year-old female with superobesity HEENT: Anicteric conjunctiva are pink and moist nasal mucosa grossly intact without significant lesions, there is no thrush. Neck: The neck is supple without significant lymphadenopathy or thyromegaly. Lungs: Good bilateral air entry without significant crackles or wheezing. There is no significant bronchial sounds. There is no egophony or dullness. Heart: Mildly irregular with audible S1 and S2 soft S4 2/6 systolic murmur left sternal border PMI nondisplaced Abdomen: Obese with a large pannus Positive bowel sounds soft and nontender without palpable masses or organomegaly. There was no guarding or rebound. Extremities: The upper extremities have excellent pulses they are symmetric, no significant petechiae or telangiectasia. No splinter hemorrhages were noted. Lower extremities have the changes in her chronic venous stasis and chronic lipedema right lower extremity is much more involved than the left. She denies any history of deep venous thrombosis. Right lower extremity has evidence of the dense erythema dorsum of the foot all the way up to the medial aspect of the thigh tenderness in the area especially posterior and anterior in the lower part of the calf there are no blisters. The skin is dry peeling and she has poor nail care to the toes with some onychomycosis. Neuro: Awake alert oriented to person place and time. There are no acute new gross focal sensory motor deficits. Results CBC & Chem 7: 12/31/17 09:07 12/31/17 09:07 Labs: Abnormal Lab Results - Last 24 Hours (Table) 12/31/17 12/31/17 12/31/17 Range/Units 09:07 09:07 09:07 WBC 17.1 H (3.8-10.6) k/uL RBC 3.76 L (3.80-5.40) m/uL Hgb 9.9 L D (11.4-16.0) gm/dL Hct 30.8 L (34.0-46.0) % Neutrophils # 15.6 H (1.3-7.7) k/uL Lymphocytes # 0.8 L (1.0-4.8) k/uL BUN 31 H (7-17) mg/dL Creatinine 1.20 H (0.52-1.04) mg/dL Glucose 213 H (74-99) mg/dL POC Glucose (mg/dL) (75-99) mg/dL Hemoglobin A1c 6.7 H (4.0-6.0) % Calcium 8.2 L (8.4-10.2) mg/dL Magnesium 1.5 L (1.6-2.3) mg/dL Total Protein 5.8 L (6.3-8.2) g/dL Albumin 2.9 L (3.5-5.0) g/dL 12/31/17 12/31/17 12/31/17 Range/Units 11:45 17:11 20:49 WBC (3.8-10.6) k/uL RBC (3.80-5.40) m/uL Hgb (11.4-16.0) gm/dL Hct (34.0-46.0) % Neutrophils # (1.3-7.7) k/uL Lymphocytes # (1.0-4.8) k/uL BUN (7-17) mg/dL Creatinine (0.52-1.04) mg/dL Glucose (74-99) mg/dL POC Glucose (mg/dL) 166 H 110 H 136 H (75-99) mg/dL Hemoglobin A1c (4.0-6.0) % Calcium (8.4-10.2) mg/dL Magnesium (1.6-2.3) mg/dL Total Protein (6.3-8.2) g/dL Albumin (3.5-5.0) g/dL Microbiology - Last 24 Hours (Table) 12/30/17 14:45 Urine Culture - Final Urine,Voided 12/30/17 13:00 Blood Culture - Preliminary Blood No Growth after 24 hours Laboratory Results WBC 17.1 k/uL (3.8-10.6) H 12/31/17 09:07 RBC 3.76 m/uL (3.80-5.40) L 12/31/17 09:07 Hgb 9.9 gm/dL (11.4-16.0) L D 12/31/17 09:07 Hct 30.8 % (34.0-46.0) L 12/31/17 09:07 MCV 81.8 fL (80.0-100.0) 12/31/17 09:07 MCH 26.3 pg (25.0-35.0) 12/31/17 09:07 MCHC 32.2 g/dL (31.0-37.0) 12/31/17 09:07 RDW 14.5 % (11.5-15.5) 12/31/17 09:07 Plt Count 180 k/uL (150-450) 12/31/17 09:07 Neutrophils % 91 % 12/31/17 09:07 Neutrophils % (Manual) 89 % 12/30/17 13:00 Band Neutrophils % 5 % 12/30/17 13:00 Lymphocytes % 5 % 12/31/17 09:07 Lymphocytes % (Manual) 3 % 12/30/17 13:00 Monocytes % 3 % 12/31/17 09:07 Monocytes % (Manual) 3 % 12/30/17 13:00 Eosinophils % 0 % 12/31/17 09:07 Basophils % 0 % 12/31/17 09:07 Neutrophils # 15.6 k/uL (1.3-7.7) H 12/31/17 09:07 Neutrophils # (Manual) 32.60 k/uL (1.3-7.7) H 12/30/17 13:00 Lymphocytes # 0.8 k/uL (1.0-4.8) L 12/31/17 09:07 Lymphocytes # (Manual) 1.04 k/uL (1.0-4.8) 12/30/17 13:00 Monocytes # 0.5 k/uL (0-1.0) 12/31/17 09:07 Monocytes # (Manual) 1.04 k/uL (0-1.0) H 12/30/17 13:00 Eosinophils # 0.0 k/uL (0-0.7) 12/31/17 09:07 Basophils # 0.0 k/uL (0-0.2) 12/31/17 09:07 Nucleated RBCs 0 /100 WBC (0-0) 12/30/17 13:00 Polychromasia Present 12/30/17 13:00 PT 11.4 sec (9.0-12.0) 12/30/17 13:00 INR 1.2 (<1.2) H 12/30/17 13:00 APTT 20.8 sec (22.0-30.0) L 12/30/17 13:00 Sodium 138 mmol/L (137-145) 12/31/17 09:07 Potassium 3.9 mmol/L (3.5-5.1) 12/31/17 09:07 Chloride 103 mmol/L (98-107) 12/31/17 09:07 Carbon Dioxide 24 mmol/L (22-30) 12/31/17 09:07 Anion Gap 11 mmol/L 12/31/17 09:07 BUN 31 mg/dL (7-17) H 12/31/17 09:07 Creatinine 1.20 mg/dL (0.52-1.04) H 12/31/17 09:07 Est GFR (CKD-EPI)AfAm 51 (>60 ml/min/1.73 sqM) 12/31/17 09:07 Est GFR (CKD-EPI)NonAf 44 (>60 ml/min/1.73 sqM) 12/31/17 09:07 Glucose 213 mg/dL (74-99) H 12/31/17 09:07 POC Glucose (mg/dL) 93 mg/dL (75-99) 01/01/18 07:24 POC Glu [employer] ID Sariah Fernandez 01/01/18 07:[address] Glu mg/dL 146 12/31/17 09:07 Hemoglobin A1c 6.7 % (4.0-6.0) H 12/31/17 09:07 Lactic Ac Sepsis Rflx Y 12/30/17 15:50 Plasma Lactic Acid Nacho 1.8 mmol/L (0.7-2.0) 12/31/17 09:13 Calcium 8.2 mg/dL (8.4-10.2) L 12/31/17 09:07 Magnesium 1.5 mg/dL (1.6-2.3) L 12/31/17 09:07 Total Bilirubin 0.5 mg/dL (0.2-1.3) 12/31/17 09:07 AST 26 U/L (14-36) 12/31/17 09:07 ALT 24 U/L (9-52) 12/31/17 09:07 Alkaline Phosphatase 70 U/L (38-126) 12/31/17 09:07 Total Protein 5.8 g/dL (6.3-8.2) L 12/31/17 09:07 Albumin 2.9 g/dL (3.5-5.0) L 12/31/17 09:07 Urine Color Yellow 12/30/17 14:45 Urine Appearance Clear (Clear) 12/30/17 14:45 Urine pH 5.5 (5.0-8.0) 12/30/17 14:45 Ur Specific [place] 1.016 (1.001-1.035) 12/30/17 14:45 Urine Protein 1+ (Negative) H 12/30/17 14:45 Urine Glucose (UA) Trace (Negative) H 12/30/17 14:45 Urine Ketones Negative (Negative) 12/30/17 14:45 Urine Blood Trace (Negative) H 12/30/17 14:45 Urine Nitrite Negative (Negative) 12/30/17 14:45 Urine Bilirubin Negative (Negative) 12/30/17 14:45 Urine Urobilinogen <2.0 mg/dL (<2.0) 12/30/17 14:45 Ur Leukocyte Esterase Negative (Negative) 12/30/17 14:45 Urine RBC 4 /hpf (0-5) 12/30/17 14:45 Urine WBC 2 /hpf (0-5) 12/30/17 14:45 Ur Squamous Epith Cells 3 /hpf (0-4) 12/30/17 14:45 Urine Mucus Rare /hpf (None) H 12/30/17 14:45 Microbiology 12/30/17 14:45 Urine,Voided Urine Culture - Final 12/30/17 13:00 Blood Blood Culture - Preliminary No Growth after 24 hours Comments: Venous Doppler lower extremity without evidence of deep venous thrombosis, computed tomography scan lower extremity shows evidence of the cutaneous infection but no deep infection evidence of infection at the fascial planes. No abscess seen Assessment and Plan (1) Cellulitis of right lower extremity Narrative/Plan: 77-year-old woman presents to Hospital was taken fever and chills required significant coaxing to come to Hospital although similar episode in September 2010 she was quite ill. We discussed the cellulitis the right lower extremity and the fact that it is a serious infection involves a large area of her skin. Untreated results and sepsis which can result in septic shock and . Her is well aware that we'll hopefully be able to have further influence on her in the future if she has further events. At this time seems very dry and a Silvadene wrap will be applied from the foot to the knee with an Tio wrap for the whole area. She does not sleep in a bed she sleeps in a chair which we discussed is certainly part of her problems. The reason she can't lay flat is from her superobesity in the difficulties that he has on her pulmonary system. Possibly a hospital bed can be utilized that she would be able to have her head up and also have her legs up when she is trying to rest. She is not receptive to much change. For now and back therapy with Rocephin will be continued, local extremity care with elevation wrap. We discussed some options other than stockings at discharge was CircAid which may be somewhat more possible given her size and resistance to treatment. Her fever is starting to improve. Leukocytosis will be monitored. Multivitamin will be added to try to help her healing. Current Visit: Yes Status: Acute Code(s): L03.115 - CELLULITIS OF RIGHT LOWER LIMB SNOMED Code(s): 070387149 (2) Sepsis Current Visit: Yes Status: Acute Code(s): A41.9 - SEPSIS, UNSPECIFIED ORGANISM SNOMED Code(s): 51255755 (3) Obesity, Class III, BMI 40-49.9 (morbid obesity) Current Visit: Yes Status: Acute Code(s): E66.01 - MORBID (SEVERE) OBESITY DUE TO EXCESS CALORIES SNOMED Code(s): 058049448
[2018-01-01] MEDS ORDERED: cefTRIAXone IN SWFI 1,000 MG/10 ML SYRINGE IVP STA (09:53)
[2018-01-01] MEDS: DILTIAZEM CD 240 MG CAP.ER.24H PO SCH (10:48)
[2018-01-01 12:31] LABS: Glucose,Whole Blood 120 mg/dL (75-99)
[2018-01-01] MEDS: MULTIVITAMINS, THERA 1 EACH TAB PO SCH (13:32)
[2018-01-01 14:04] LABS: HGB 11.1 gm/dL (11.4-16.0); Hypochromasia Slight; MCH 26.1 pg (25.0-35.0); MCHC 31.7 g/dL (31.0-37.0); MCV 82.3 fL (80.0-100.0); Mean Platelet Volume 9.5; Platelet Count 102 k/uL (150-450); RBC 4.25 m/uL (3.80-5.40)
[2018-01-01 14:18] LABS: Magnesium 1.7 mg/dL (1.6-2.3); Potassium 3.8 mmol/L (3.5-5.1)
[2018-01-01 17:19] LABS: Glucose,Whole Blood 154 mg/dL (75-99)
--- NOTE | 2018-01-01 18:38 | P.PN ---
Subjective Progress Note Date: 01/01/18 Principal diagnosis: History present illness: This 77-year-old female admitted to the hospital for recurrent cellulitis right lower leg. Abscess has been ruled out. The patient fevers down white count is improved and she is feeling better. Patient denies any other associated symptoms. She has history of diabetes mellitus with adequately. Sugar control. She has chronic venous stasis and lymphangitic status right lower leg. Patient's been seen by ID. They have recommended Rocephin 2 g daily # white count is down to 11,000 today REVIEW OF SYSTEMS: Neuro: Denies any headaches dizziness. Psych: Denies anxiety depression feels oriented. Cardiac: Denies chest pain and angina palpitations. Respiratory: Denies shortness of breath cough. GI: Denies nausea vomiting or abdominal pain. No diarrhea or constipation, no bowel movement yet. : Denies dysuria hematuria. Extremities: Denies pain. Right lower leg edema. Skin: Chronic changes both lower legs right more than left. Dry ulcerated callus right third toe. Constitutional: No fever, chills. Endocrine: Blood sugars adequately controlled Objective - Vital Signs Vital signs: Vital Signs Temp 96.6 F L 01/01/18 15:00 Pulse 68 01/01/18 15:00 Resp 16 01/01/18 15:00 BP 123/75 01/01/18 15:00 Pulse Ox 95 01/01/18 15:00 Intake & Output 12/31/17 01/01/18 01/01/18 18:59 06:59 18:59 Other: # Voids 2 2 5 # Bowel Movements 1 PHYSICAL EXAMINATION: Cooperative, at present in no acute distress. HEENT: Neck supple. No JVD. Chest: Clear to auscultation percussion. Cardiac: Normal S1-S2, irregularly irregular heart rhythm with rate controlled no gallops no murmur . Abdomen: Soft bowel sounds present. Abdominal wall hernia nontender Extremities: Chronic edema bilateral lower extremities right greater than left still significant increased warmth right lower leg no tenderness Neurologically: Awake, alert, oriented with well-coordinated movements. - Labs CBC & Chem 7: 01/01/18 13:42 01/01/18 13:42 Labs: Abnormal Lab Results - Last 24 Hours (Table) 12/31/17 12/31/17 01/01/18 Range/Units 09:07 20:49 12:28 WBC (3.8-10.6) k/uL Hgb (11.4-16.0) gm/dL Plt Count (150-450) k/uL BUN (7-17) mg/dL Creatinine (0.52-1.04) mg/dL Glucose (74-99) mg/dL POC Glucose (mg/dL) 136 H 120 H (75-99) mg/dL Hemoglobin A1c 6.7 H (4.0-6.0) % 01/01/18 01/01/18 01/01/18 Range/Units 13:42 13:42 17:14 WBC 11.0 H (3.8-10.6) k/uL Hgb 11.1 L (11.4-16.0) gm/dL Plt Count 102 L (150-450) k/uL BUN 24 H (7-17) mg/dL Creatinine 1.10 H (0.52-1.04) mg/dL Glucose 150 H (74-99) mg/dL POC Glucose (mg/dL) 154 H (75-99) mg/dL Hemoglobin A1c (4.0-6.0) % Microbiology - Last 24 Hours (Table) 12/30/17 13:00 Blood Culture - Preliminary Blood No Growth after 48 hours 12/30/17 14:45 Urine Culture - Final Urine,Voided Assessment and Plan Assessment: ASSESSMENT: 1. Acute cellulitis right lower leg. 2. Chronic venous and lymphangitic status is right lower leg. 3. Diabetes mellitus with chronic kidney disease. 4. Chronic kidney disease stage III. 5. Hypertension, essential. 6. Obesity. 7. Chronic atrial fibrillation. 8. Anticoagulated status. 9. Ulcerated callus right third toe tip PLAN: Continue present medical regimen. Elevation and Tio wraps. Patient condition discussed with patient prognosis remains guarded potential discharge by or Sunday.
[2018-01-01 20:53] LABS: Glucose,Whole Blood 135 mg/dL (75-99)
[2018-01-01] MEDS: INSULIN DETEMIR 100 UNIT/ML 10 ML VIAL SQ SCH (21:23)
[2018-01-01] MEDS: SILVER sulfADIAZINE Cream 400 GM 1 APPLIC APPLIC TOPICAL SCH (23:31)
[2018-01-02 07:41] LABS: Glucose,Whole Blood 79 mg/dL (75-99)
[2018-01-02] MEDS: INSULIN ASPART 100 UNIT/ML 1 ML 10 ML VIAL SQ SCH ×3 (07:54→17:37)
[2018-01-02] MEDS: LISINOPRIL-HCTZ 20-25 MG 1 EACH TAB PO SCH (07:57)
[2018-01-02] MEDS: cloNIDine HCL 0.1 MG TAB PO SCH ×2 (07:57→21:24)
[2018-01-02] MEDS: metFORMIN 500 MG TAB PO SCH ×2 (07:57→22:10)
[2018-01-02] MEDS: NADOLOL 20 MG TAB PO SCH ×2 (07:57→21:24)
[2018-01-02] MEDS: FUROSEMIDE 20 MG TAB PO SCH (07:57)
[2018-01-02] MEDS: CHOLECALCIFEROL 1,000 UNIT TAB PO SCH (07:57)
[2018-01-02] MEDS: APIXABAN 5 MG TAB PO SCH ×2 (07:57→21:24)
[2018-01-02] MEDS: DILTIAZEM CD 240 MG CAP.ER.24H PO SCH (07:57)
[2018-01-02] MEDS: cefTRIAXone IN SWFI 2,000 MG/20 ML SYRINGE IVP SCH (07:59)
[2018-01-02] MEDS: SILVER sulfADIAZINE Cream 400 GM 1 APPLIC APPLIC TOPICAL SCH ×2 (08:05→21:24)
[2018-01-02] MEDS: MULTIVITAMINS, THERA 1 EACH TAB PO SCH (11:26)
[2018-01-02 11:41] VITALS: BMI 49.6
[2018-01-02 12:07] LABS: Glucose,Whole Blood 137 mg/dL (75-99)
[2018-01-02 17:02] LABS: Glucose,Whole Blood 172 mg/dL (75-99)
--- NOTE | 2018-01-02 21:23 | PN ---
PROGRESS NOTE ATTENDING PHYSICIAN: Dr. Natalia Snyder. CHIEF COMPLAINT: Re-evaluation. HISTORY OF PRESENT ILLNESS: This 77-year-old was admitted to the hospital with cellulitis right lower leg. The patient is on IV Rocephin. She is doing well with no fever, chills. The patient does still have significant increased warmth and erythema, which seems to be receding. The patient has had chronic venous and lymphangitic stasis lower legs. REVIEW OF SYSTEMS: NEURO: Denies any headaches, dizziness. Psych: No anxiety. Cardiac: No chest pain, angina or palpitation. Respiratory: Denies shortness of breath, cough. GI no nausea, vomiting, abdominal pain, diarrhea. : No symptoms of dysuria, hematuria. Extremities no pain, edema. Constitutional: No fever or chills. PHYSICAL EXAMINATION: Pleasant female in no distress. Vital signs revealed temperature 97.4, pulse 78, respirations 17, blood pressure 155/77, pulse ox 95% on room air. HEENT: Normocephalic. Neck no JVD. CHEST: Clear to auscultation. Cardiac: Normal S1, S2 with no gallops, murmurs. ABDOMEN: Soft. No palpable masses. Bowel sounds normal. No organomegaly. No abdominal bruits. Extremities revealed chronic edema right lower leg. Neurological awake, alert, oriented with well-coordinated movements. LABORATORY ASSESSMENT: Blood sugar is under adequate control. ASSESSMENT: 1. Cellulitis right lower leg. 2. Chronic venous and lymphangitic stasis. 3. Diabetes mellitus. 4. Chronic kidney disease. 5. Hypertension. 6. Obesity. 7. Chronic atrial fibrillation. PLAN: Continue present medical regimen. Patient's condition discussed with the patient. Prognosis is guarded. Potential discharge home by Sunday. MMODL / IJN: [id number] /
[2018-01-02] MEDS: INSULIN DETEMIR 100 UNIT/ML 10 ML VIAL SQ SCH (22:10)
[2018-01-02 22:15] LABS: Glucose,Whole Blood 73 mg/dL (75-99)
[2018-01-02 23:52] LABS: Glucose,Whole Blood 101 mg/dL (75-99)
--- NOTE | 2018-01-03 00:01 | P.PN ---
Subjective Progress Note Date: 01/02/18 77-year-old female who suffers superobesity and a dislike of medical care is a history of significant cellulitis to her right leg in September 2017. At that time she benefited with avoiding going up to [place]. During the driveup entering the first day she was feeling very poorly that she was having chills and rigors. Her teeth were chattering and she really did not feel well. However did not understand that that was signs and symptoms of underlying significant infection. Eventually got so weak that her drove home from [place] imparted to the hospital. She was admitted with a significant cellulitis to the right lower extremity and was treated and had some improvement. At home and attempting to wrap the leg. The patient is somewhat uncooperative. She will not wear a stocking it's quite a bit of work for the asthma get it on and because Tio wrap or so much easier they've been utilize. Patient again started to have symptoms within the last few days of some chills and rigor and wasn't feeling very well. was concerned because the swelling to the right lower extremity but again it was a source of infection. The patient was resistant to medical care and eventually several family members and to convince her to come to Hospital, EMS was called and she refused to come to Hospital by EMS. They assisted her into the 's car so that she could be brought to hospital. She was found evidence of temperature 101.6 with chills and evidence of early sepsis and that she did have an elevated lactic acid and constantly she agreed to admission treatment of underlying cellulitis to her right leg. All data shows evidence of MSSA and strep on the leg and current ceftriaxone therapy is adequate. 01/02/2018 reveals the patient to be feeling somewhat better. Her fevers improved. Leukocytosis is improving. Her pain and discomfort and improved. She has some difficulty with IV access was obtained by Dr. Snyder this morning. She denying diarrhea or other new skin lesions at this time. Objective - Vital Signs Vital signs: Vital Signs Temp 97.6 F 01/02/18 16:07 Pulse 95 01/02/18 16:07 Resp 16 01/02/18 16:07 BP 138/73 01/02/18 16:07 Pulse Ox 95 01/02/18 15:00 Intake & Output 01/02/18 01/02/1801/03/18 06:59 18:59 06:59 Intake Total 200 Balance 200 Weight 127.006 kg Intake: Oral 200 Other: Voiding Method Bedside Commode # Voids 5 1 # Bowel Movements 1 - Exam 77-year-old female with superobesity HEENT: Anicteric conjunctiva are pink and moist nasal mucosa grossly intact without significant lesions, there is no thrush. Neck: The neck is supple without significant lymphadenopathy or thyromegaly. Lungs: Good bilateral air entry without significant crackles or wheezing. There is no significant bronchial sounds. There is no egophony or dullness. Heart: Mildly irregular with audible S1 and S2 soft S4 2/6 systolic murmur left sternal border PMI nondisplaced Abdomen: Obese with a large pannus Positive bowel sounds soft and nontender without palpable masses or organomegaly. There was no guarding or rebound. Extremities: The upper extremities have excellent pulses they are symmetric, no significant petechiae or telangiectasia. No splinter hemorrhages were noted. Lower extremities have the changes in her chronic venous stasis and chronic lipedema right lower extremity is much more involved than the left. She denies any history of deep venous thrombosis. Right lower extremity has evidence of the improved erythema from the dorsum of the foot to the medial aspect of the thigh tenderness in the area especially posterior and anterior in the lower part of the calf there are no blisters. The skin is dry peeling and she has poor nail care to the toes with some onychomycosis. Neuro: Awake alert oriented to person place and time. There are no acute new gross focal sensory motor deficits. - Labs CBC & Chem 7: 01/01/18 13:42 01/01/18 13:42 Labs: Abnormal Lab Results - Last 24 Hours (Table) 01/02/18 01/02/18 01/02/18 Range/Units 11:56 16:59 22:06 POC Glucose (mg/dL) 137 H 172 H 73 L (75-99) mg/dL 01/02/18 Range/Units 23:31 POC Glucose (mg/dL) 101 H (75-99) mg/dL Microbiology - Last 24 Hours (Table) 12/30/17 13:00 Blood Culture - Preliminary Blood No Growth after 72 hours Laboratory Results WBC 11.0 k/uL (3.8-10.6) H 01/01/18 13:42 RBC 4.25 m/uL (3.80-5.40) 01/01/18 13:42 Hgb 11.1 gm/dL (11.4-16.0) L 01/01/18 13:42 Hct 35.0 % (34.0-46.0) 01/01/18 13:42 MCV 82.3 fL (80.0-100.0) 01/01/18 13:42 MCH 26.1 pg (25.0-35.0) 01/01/18 13:42 MCHC 31.7 g/dL (31.0-37.0) 01/01/18 13:42 RDW 15.0 % (11.5-15.5) 01/01/18 13:42 Plt Count 102 k/uL (150-450) L 01/01/18 13:42 Neutrophils % 91 % 12/31/17 09:07 Neutrophils % (Manual) 89 % 12/30/17 13:00 Band Neutrophils % 5 % 12/30/17 13:00 Lymphocytes % 5 % 12/31/17 09:07 Lymphocytes % (Manual) 3 % 12/30/17 13:00 Monocytes % 3 % 12/31/17 09:07 Monocytes % (Manual) 3 % 12/30/17 13:00 Eosinophils % 0 % 12/31/17 09:07 Basophils % 0 % 12/31/17 09:07 Neutrophils # 15.6 k/uL (1.3-7.7) H 12/31/17 09:07 Neutrophils # (Manual) 32.60 k/uL (1.3-7.7) H 12/30/17 13:00 Lymphocytes # 0.8 k/uL (1.0-4.8) L 12/31/17 09:07 Lymphocytes # (Manual) 1.04 k/uL (1.0-4.8) 12/30/17 13:00 Monocytes # 0.5 k/uL (0-1.0) 12/31/17 09:07 Monocytes # (Manual) 1.04 k/uL (0-1.0) H 12/30/17 13:00 Eosinophils # 0.0 k/uL (0-0.7) 12/31/17 09:07 Basophils # 0.0 k/uL (0-0.2) 12/31/17 09:07 Nucleated RBCs 0 /100 WBC (0-0) 12/30/17 13:00 Polychromasia Present 12/30/17 13:00 Hypochromasia Slight 01/01/18 13:42 PT 11.4 sec (9.0-12.0) 12/30/17 13:00 INR 1.2 (<1.2) H 12/30/17 13:00 APTT 20.8 sec (22.0-30.0) L 12/30/17 13:00 Sodium 139 mmol/L (137-145) 01/01/18 13:42 Potassium 3.8 mmol/L (3.5-5.1) 01/01/18 13:42 Chloride 100 mmol/L (98-107) 01/01/18 13:42 Carbon Dioxide 28 mmol/L (22-30) 01/01/18 13:42 Anion Gap 11 mmol/L 01/01/18 13:42 BUN 24 mg/dL (7-17) H 01/01/18 13:42 Creatinine 1.10 mg/dL (0.52-1.04) H 01/01/18 13:42 Est GFR (CKD-EPI)AfAm 56 (>60 ml/min/1.73 sqM) 01/01/18 13:42 Est GFR (CKD-EPI)NonAf 49 (>60 ml/min/1.73 sqM) 01/01/18 13:42 Glucose 150 mg/dL (74-99) H 01/01/18 13:42 POC Glucose (mg/dL) 101 mg/dL (75-99) H 01/02/18 23:31 POC Glu Tie Puller ID Vane Walker 01/02/18 23:[address] Glu mg/dL 146 12/31/17 09:07 Hemoglobin A1c 6.7 % (4.0-6.0) H 12/31/17 09:07 Lactic Ac Sepsis Rflx Y 12/30/17 15:50 Plasma Lactic Acid Nacho 1.8 mmol/L (0.7-2.0) 12/31/17 09:13 Calcium 9.0 mg/dL (8.4-10.2) 01/01/18 13:42 Magnesium 1.7 mg/dL (1.6-2.3) 01/01/18 13:42 Total Bilirubin 0.5 mg/dL (0.2-1.3) 12/31/17 09:07 AST 26 U/L (14-36) 12/31/17 09:07 ALT 24 U/L (9-52) 12/31/17 09:07 Alkaline Phosphatase 70 U/L (38-126) 12/31/17 09:07 Total Protein 5.8 g/dL (6.3-8.2) L 12/31/17 09:07 Albumin 2.9 g/dL (3.5-5.0) L 12/31/17 09:07 Urine Color Yellow 12/30/17 14:45 Urine Appearance Clear (Clear) 12/30/17 14:45 Urine pH 5.5 (5.0-8.0) 12/30/17 14:45 Ur Specific [place] 1.016 (1.001-1.035) 12/30/17 14:45 Urine Protein 1+ (Negative) H 12/30/17 14:45 Urine Glucose (UA) Trace (Negative) H 12/30/17 14:45 Urine Ketones Negative (Negative) 12/30/17 14:45 Urine Blood Trace (Negative) H 12/30/17 14:45 Urine Nitrite Negative (Negative) 12/30/17 14:45 Urine Bilirubin Negative (Negative) 12/30/17 14:45 Urine Urobilinogen <2.0 mg/dL (<2.0) 12/30/17 14:45 Ur Leukocyte Esterase Negative (Negative) 12/30/17 14:45 Urine RBC 4 /hpf (0-5) 12/30/17 14:45 Urine WBC 2 /hpf (0-5) 12/30/17 14:45 Ur Squamous Epith Cells 3 /hpf (0-4) 12/30/17 14:45 Urine Mucus Rare /hpf (None) H 12/30/17 14:45 Microbiology 12/30/17 13:00 Blood Blood Culture - Preliminary No Growth after 72 hours 12/30/17 14:45 Urine,Voided Urine Culture - Final Assessment and Plan (1) Cellulitis of right lower extremity Narrative/Plan: 77-year-old woman presents to Hospital was taken fever and chills required significant coaxing to come to Hospital although similar episode in September 2010 she was quite ill. We discussed the cellulitis the right lower extremity and the fact that it is a serious infection involves a large area of her skin. Untreated results and sepsis which can result in septic shock and . Her is well aware that we'll hopefully be able to have further influence on her in the future if she has further events. At this time seems very dry and a Silvadene wrap will be applied from the foot to the knee with an Tio wrap for the whole area. She does not sleep in a bed she sleeps in a chair which we discussed is certainly part of her problems. The reason she can't lay flat is from her superobesity in the difficulties that he has on her pulmonary system. Possibly a hospital bed can be utilized that she would be able to have her head up and also have her legs up when she is trying to rest. She is not receptive to much change. For now and back therapy with Rocephin will be continued, local extremity care with elevation wrap. We discussed some options other than stockings at discharge was CircAid which may be somewhat more possible given her size and resistance to treatment. Her fever is starting to improve. Leukocytosis will be monitored. Multivitamin will be added to try to help her healing. 01/02/2018 reveals this 77-year-old patient to much more comfortable. Pain swelling and erythema have improved. Her leukocytosis is improved from 34 to 11. Her fever has reduced down to 97.6. She fortunately is having an adequate response to treatment. Cultures are in process and the blood culture is negative so far. The importance of elevation is again stated. She however will not sleep in a bed but apparently will raise her legs with the recliner that she is in when she is trying to rest. The seriousness of her infection is again related and that she had significant sepsis at admission and if untreated could result in her . She seems to have some reluctant understanding. Current Visit: Yes Status: Acute Code(s): L03.115 - CELLULITIS OF RIGHT LOWER LIMB SNOMED Code(s): 174701564 (2) Sepsis Current Visit: Yes Status: Acute Code(s): A41.9 - SEPSIS, UNSPECIFIED ORGANISM SNOMED Code(s): 84079369 (3) Obesity, Class III, BMI 40-49.9 (morbid obesity) Current Visit: Yes Status: Acute Code(s): E66.01 - MORBID (SEVERE) OBESITY DUE TO EXCESS CALORIES SNOMED Code(s): 780258491
[2018-01-03 07:37] LABS: Glucose,Whole Blood 86 mg/dL (75-99)
[2018-01-03] MEDS: INSULIN ASPART 100 UNIT/ML 1 ML 10 ML VIAL SQ SCH ×3 (07:50→17:38)
[2018-01-03] MEDS: NADOLOL 20 MG TAB PO SCH ×2 (07:52→21:11)
[2018-01-03] MEDS: FUROSEMIDE 20 MG TAB PO SCH (07:53)
[2018-01-03] MEDS: cloNIDine HCL 0.1 MG TAB PO SCH ×2 (07:53→21:11)
[2018-01-03] MEDS: CHOLECALCIFEROL 1,000 UNIT TAB PO SCH (07:53)
[2018-01-03] MEDS: metFORMIN 500 MG TAB PO SCH ×2 (07:53→21:11)
[2018-01-03] MEDS: APIXABAN 5 MG TAB PO SCH (07:53)
[2018-01-03] MEDS: LISINOPRIL-HCTZ 20-25 MG 1 EACH TAB PO SCH (07:53)
[2018-01-03] MEDS: DILTIAZEM CD 240 MG CAP.ER.24H PO SCH (07:53)
[2018-01-03] MEDS: SILVER sulfADIAZINE Cream 400 GM 1 APPLIC APPLIC TOPICAL SCH ×2 (07:53→21:16)
[2018-01-03] MEDS: cefTRIAXone IN SWFI 2,000 MG/20 ML SYRINGE IVP SCH (08:54)
[2018-01-03] MEDS: MULTIVITAMINS, THERA 1 EACH TAB PO SCH (11:52)
[2018-01-03 12:35] LABS: Glucose,Whole Blood 163 mg/dL (75-99)
[2018-01-03 17:03] LABS: Glucose,Whole Blood 196 mg/dL (75-99)
[2018-01-03 21:44] LABS: Glucose,Whole Blood 104 mg/dL (75-99)
[2018-01-03] MEDS: INSULIN DETEMIR 100 UNIT/ML 10 ML VIAL SQ SCH (21:55)
--- NOTE | 2018-01-03 23:34 | P.PN ---
Subjective Progress Note Date: 01/03/18 77-year-old female who suffers superobesity and a dislike of medical care is a history of significant cellulitis to her right leg in September 2017. At that time she benefited with avoiding going up to [place]. During the driveup entering the first day she was feeling very poorly that she was having chills and rigors. Her teeth were chattering and she really did not feel well. However did not understand that that was signs and symptoms of underlying significant infection. Eventually got so weak that her drove home from [place] imparted to the hospital. She was admitted with a significant cellulitis to the right lower extremity and was treated and had some improvement. At home and attempting to wrap the leg. The patient is somewhat uncooperative. She will not wear a stocking it's quite a bit of work for the asthma get it on and because Tio wrap or so much easier they've been utilize. Patient again started to have symptoms within the last few days of some chills and rigor and wasn't feeling very well. was concerned because the swelling to the right lower extremity but again it was a source of infection. The patient was resistant to medical care and eventually several family members and to convince her to come to Hospital, EMS was called and she refused to come to Hospital by EMS. They assisted her into the 's car so that she could be brought to hospital. She was found evidence of temperature 101.6 with chills and evidence of early sepsis and that she did have an elevated lactic acid and constantly she agreed to admission treatment of underlying cellulitis to her right leg. All data shows evidence of MSSA and strep on the leg and current ceftriaxone therapy is adequate. 01/02/2018 reveals the patient to be feeling somewhat better. Her fevers improved. Leukocytosis is improving. Her pain and discomfort and improved. She has some difficulty with IV access was obtained by Dr. Snyder this morning. She denying diarrhea or other new skin lesions at this time. 01/03/2018 reveals the patient to be considerably improved. She is denying intermittent troubles at this time. Legs are feeling better. Her leukocytosis improving and she is looking forward to potential discharge home in a days' time. She has no other new acute complaints. No diarrhea or other difficulties related to the antimicrobial therapy. Objective - Vital Signs Vital signs: Vital Signs Temp 97.0 F L 01/03/18 15:00 Pulse 64 01/03/18 15:00 Resp 16 01/03/18 15:00 BP 140/69 01/03/18 15:00 Pulse Ox 97 01/03/18 15:00 Intake & Output 01/03/18 01/03/18 01/04/18 06:59 18:59 06:59 Intake Total 700 Balance 700 Intake: Oral 700 Other: # Voids 2 2 # Bowel Movements 1 - Exam 77-year-old female with superobesity HEENT: Anicteric conjunctiva are pink and moist nasal mucosa grossly intact without significant lesions, there is no thrush. Neck: The neck is supple without significant lymphadenopathy or thyromegaly. Lungs: Good bilateral air entry without significant crackles or wheezing. There is no significant bronchial sounds. There is no egophony or dullness. Heart: Mildly irregular with audible S1 and S2 soft S4 2/6 systolic murmur left sternal border PMI nondisplaced Abdomen: Obese with a large pannus Positive bowel sounds soft and nontender without palpable masses or organomegaly. There was no guarding or rebound. Extremities: The upper extremities have excellent pulses they are symmetric, no significant petechiae or telangiectasia. No splinter hemorrhages were noted. Lower extremities have the changes in her chronic venous stasis and chronic lipedema right lower extremity is much more involved than the left. She denies any history of deep venous thrombosis. Right lower extremity has evidence of the improved erythema from the dorsum of the foot to the medial aspect of the thigh tenderness in the area especially posterior and anterior in the lower part of the calf there are no blisters. The skin is dry peeling and she has poor nail care to the toes with some onychomycosis. Neuro: Awake alert oriented to person place and time. There are no acute new gross focal sensory motor deficits. - Labs CBC & Chem 7: 01/01/18 13:42 01/01/18 13:42 Labs: Abnormal Lab Results - Last 24 Hours (Table) 01/02/18 01/03/18 01/03/18 Range/Units 23:31 12:32 16:56 POC Glucose (mg/dL) 101 H 163 H 196 H (75-99) mg/dL 01/03/18 Range/Units 21:40 POC Glucose (mg/dL) 104 H (75-99) mg/dL Microbiology - Last 24 Hours (Table) 12/30/17 13:00 Blood Culture - Preliminary Blood No Growth after 96 hours Laboratory Results WBC 11.0 k/uL (3.8-10.6) H 01/01/18 13:42 RBC 4.25 m/uL (3.80-5.40) 01/01/18 13:42 Hgb 11.1 gm/dL (11.4-16.0) L 01/01/18 13:42 Hct 35.0 % (34.0-46.0) 01/01/18 13:42 MCV 82.3 fL (80.0-100.0) 01/01/18 13:42 MCH 26.1 pg (25.0-35.0) 01/01/18 13:42 MCHC 31.7 g/dL (31.0-37.0) 01/01/18 13:42 RDW 15.0 % (11.5-15.5) 01/01/18 13:42 Plt Count 102 k/uL (150-450) L 01/01/18 13:42 Neutrophils % 91 % 12/31/17 09:07 Neutrophils % (Manual) 89 % 12/30/17 13:00 Band Neutrophils % 5 % 12/30/17 13:00 Lymphocytes % 5 % 12/31/17 09:07 Lymphocytes % (Manual) 3 % 12/30/17 13:00 Monocytes % 3 % 12/31/17 09:07 Monocytes % (Manual) 3 % 12/30/17 13:00 Eosinophils % 0 % 12/31/17 09:07 Basophils % 0 % 12/31/17 09:07 Neutrophils # 15.6 k/uL (1.3-7.7) H 12/31/17 09:07 Neutrophils # (Manual) 32.60 k/uL (1.3-7.7) H 12/30/17 13:00 Lymphocytes # 0.8 k/uL (1.0-4.8) L 12/31/17 09:07 Lymphocytes # (Manual) 1.04 k/uL (1.0-4.8) 12/30/17 13:00 Monocytes # 0.5 k/uL (0-1.0) 12/31/17 09:07 Monocytes # (Manual) 1.04 k/uL (0-1.0) H 12/30/17 13:00 Eosinophils # 0.0 k/uL (0-0.7) 12/31/17 09:07 Basophils # 0.0 k/uL (0-0.2) 12/31/17 09:07 Nucleated RBCs 0 /100 WBC (0-0) 12/30/17 13:00 Polychromasia Present 12/30/17 13:00 Hypochromasia Slight 01/01/18 13:42 PT 11.4 sec (9.0-12.0) 12/30/17 13:00 INR 1.2 (<1.2) H 12/30/17 13:00 APTT 20.8 sec (22.0-30.0) L 12/30/17 13:00 Sodium 139 mmol/L (137-145) 01/01/18 13:42 Potassium 3.8 mmol/L (3.5-5.1) 01/01/18 13:42 Chloride 100 mmol/L (98-107) 01/01/18 13:42 Carbon Dioxide 28 mmol/L (22-30) 01/01/18 13:42 Anion Gap 11 mmol/L 01/01/18 13:42 BUN 24 mg/dL (7-17) H 01/01/18 13:42 Creatinine 1.10 mg/dL (0.52-1.04) H 01/01/18 13:42 Est GFR (CKD-EPI)AfAm 56 (>60 ml/min/1.73 sqM) 01/01/18 13:42 Est GFR (CKD-EPI)NonAf 49 (>60 ml/min/1.73 sqM) 01/01/18 13:42 Glucose 150 mg/dL (74-99) H 01/01/18 13:42 POC Glucose (mg/dL) 104 mg/dL (75-99) H 01/03/18 21:40 POC Glu It Business Process Architect ID Vane Walker 01/03/18 21:[address] Glu mg/dL 146 12/31/17 09:07 Hemoglobin A1c 6.7 % (4.0-6.0) H 12/31/17 09:07 Lactic Ac Sepsis Rflx Y 03/11/18 15:50 Plasma Lactic Acid Nacho 1.8 mmol/L (0.7-2.0) 12/31/17 09:13 Calcium 9.0 mg/dL (8.4-10.2) 01/01/18 13:42 Magnesium 1.7 mg/dL (1.6-2.3) 01/01/18 13:42 Total Bilirubin 0.5 mg/dL (0.2-1.3) 12/31/17 09:07 AST 26 U/L (14-36) 12/31/17 09:07 ALT 24 U/L (9-52) 12/31/17 09:07 Alkaline Phosphatase 70 U/L (38-126) 12/31/17 09:07 Total Protein 5.8 g/dL (6.3-8.2) L 12/31/17 09:07 Albumin 2.9 g/dL (3.5-5.0) L 12/31/17 09:07 Urine Color Yellow 12/30/17 14:45 Urine Appearance Clear (Clear) 12/30/17 14:45 Urine pH 5.5 (5.0-8.0) 12/30/17 14:45 Ur Specific [place] 1.016 (1.001-1.035) 12/30/17 14:45 Urine Protein 1+ (Negative) H 12/30/17 14:45 Urine Glucose (UA) Trace (Negative) H 12/30/17 14:45 Urine Ketones Negative (Negative) 12/30/17 14:45 Urine Blood Trace (Negative) H 12/30/17 14:45 Urine Nitrite Negative (Negative) 12/30/17 14:45 Urine Bilirubin Negative (Negative) 12/30/17 14:45 Urine Urobilinogen <2.0 mg/dL (<2.0) 12/30/17 14:45 Ur Leukocyte Esterase Negative (Negative) 12/30/17 14:45 Urine RBC 4 /hpf (0-5) 12/30/17 14:45 Urine WBC 2 /hpf (0-5) 12/30/17 14:45 Ur Squamous Epith Cells 3 /hpf (0-4) 12/30/17 14:45 Urine Mucus Rare /hpf (None) H 12/30/17 14:45 Microbiology 12/30/17 13:00 Blood Blood Culture - Preliminary No Growth after 96 hours 12/30/17 14:45 Urine,Voided Urine Culture - Final Assessment and Plan (1) Cellulitis of right lower extremity Narrative/Plan: 77-year-old woman presents to Hospital was taken fever and chills required significant coaxing to come to Hospital although similar episode in September 2010 she was quite ill. We discussed the cellulitis the right lower extremity and the fact that it is a serious infection involves a large area of her skin. Untreated results and sepsis which can result in septic shock and . Her is well aware that we'll hopefully be able to have further influence on her in the future if she has further events. At this time seems very dry and a Silvadene wrap will be applied from the foot to the knee with an Tio wrap for the whole area. She does not sleep in a bed she sleeps in a chair which we discussed is certainly part of her problems. The reason she can't lay flat is from her superobesity in the difficulties that he has on her pulmonary system. Possibly a hospital bed can be utilized that she would be able to have her head up and also have her legs up when she is trying to rest. She is not receptive to much change. For now and back therapy with Rocephin will be continued, local extremity care with elevation wrap. We discussed some options other than stockings at discharge was CircAid which may be somewhat more possible given her size and resistance to treatment. Her fever is starting to improve. Leukocytosis will be monitored. Multivitamin will be added to try to help her healing. 01/02/2018 reveals this 77-year-old patient to much more comfortable. Pain swelling and erythema have improved. Her leukocytosis is improved from 34 to 11. Her fever has reduced down to 97.6. She fortunately is having an adequate response to treatment. Cultures are in process and the blood culture is negative so far. The importance of elevation is again stated. She however will not sleep in a bed but apparently will raise her legs with the recliner that she is in when she is trying to rest. The seriousness of her infection is again related and that she had significant sepsis at admission and if untreated could result in her . She seems to have some reluctant understanding. 01/03/2018 reveals this patient to be considered more comfortable. The swelling erythema and tenderness in the leg is much improved. The sitting erythema on the thigh is now much improved and is no longer tender. She's had a marked improvement with the current antibiotic therapy of Rocephin. If she is ready for discharged home to be transitioned to cefuroxime 500 mg every 12 hours for 7 days to quit the treatment of her significant cellulitis. Current Visit: Yes Status: Acute Code(s): L03.115 - CELLULITIS OF RIGHT LOWER LIMB SNOMED Code(s): 388296997 (2) Sepsis Current Visit: Yes Status: Acute Code(s): A41.9 - SEPSIS, UNSPECIFIED ORGANISM SNOMED Code(s): 28153739 (3) Obesity, Class III, BMI 40-49.9 (morbid obesity) Current Visit: Yes Status: Acute Code(s): E66.01 - MORBID (SEVERE) OBESITY DUE TO EXCESS CALORIES SNOMED Code(s): 650191153
--- NOTE | 2018-01-03 23:39 | PN ---
PROGRESS NOTE CHIEF COMPLAINT: Re-evaluation. HISTORY OF PRESENT ILLNESS: This is a 77-year-old who was admitted to the hospital with significant cellulitis of her right lower leg. The patient has recurrent cellulitis. The patient has had a previous methicillin-sensitive Staph aureus. The patient is on Rocephin. She is doing well; has not had any fevers since admission. White count has been normal. The patient's erythema is decreasing. The warmth is decreasing. The patient does have an Tio wrap to the knee. Patient feels well. REVIEW OF SYSTEMS: NEURO: Denies any headaches, dizziness. PSYCH: No anxiety. CARDIAC: No chest pain, angina, palpitations. RESPIRATORY: No shortness of breath, cough. GI: No nausea, vomiting, abdominal pain, diarrhea. : No symptoms of dysuria or hematuria. EXTREMITIES: Denies pain. CONSTITUTIONAL: No fever or chills. PHYSICAL EXAMINATION: Pleasant female in no distress. Vital signs reveal temperature 96.3, pulse 64, respirations 16, blood pressure 162/74, pulse ox 97% on room air. HEENT: Normocephalic. NECK: No JVD. CHEST: Clear to auscultation. CARDIAC: Normal S1, S2 with no gallops or murmurs. ABDOMEN: Soft, protuberant, obese. Bowel sounds present. Extremities reveal edema, right greater than left. The patient has significant erythema but resolving. The patient has no tenderness. ASSESSMENT: 1. Cellulitis. 2. Diabetes mellitus. 3. Chronic kidney disease, stage III. 4. Hypertension. 5. Chronic atrial fibrillation. 6. Anticoagulated status. PLAN: Continue present medical regimen. Patient's condition discussed with the patient. Prognosis guarded. Potential discharge home tomorrow. MMODL / IJN: [id number] /
[2018-01-04 07:37] LABS: Glucose,Whole Blood 80 mg/dL (75-99)
[2018-01-04 07:44] VITALS: BP 148/73; PULSE 67; RESP 18; TEMP 97
[2018-01-04] MEDS: cefTRIAXone IN SWFI 2,000 MG/20 ML SYRINGE IVP SCH (07:58)
[2018-01-04] MEDS: INSULIN ASPART 100 UNIT/ML 1 ML 10 ML VIAL SQ SCH (07:58)
[2018-01-04] MEDS: LISINOPRIL-HCTZ 20-25 MG 1 EACH TAB PO SCH (07:59)
[2018-01-04] MEDS: NADOLOL 20 MG TAB PO SCH (07:59)
[2018-01-04] MEDS: FUROSEMIDE 20 MG TAB PO SCH (07:59)
[2018-01-04] MEDS: metFORMIN 500 MG TAB PO SCH (07:59)
[2018-01-04] MEDS: cloNIDine HCL 0.1 MG TAB PO SCH (07:59)
[2018-01-04] MEDS: CHOLECALCIFEROL 1,000 UNIT TAB PO SCH (07:59)
[2018-01-04] MEDS: DILTIAZEM CD 240 MG CAP.ER.24H PO SCH (07:59)
[2018-01-04] MEDS: SILVER sulfADIAZINE Cream 400 GM 1 APPLIC APPLIC TOPICAL SCH (10:56)
== END 2018-01-04 11:47 | disposition home health service (06) | DRG 872 ==
LOC: EC 12:26 → 4MS4W 15:53
PROVIDERS: ADMIT Internal Medicine; ATTEND Internal Medicine
DX: A41.9 Sepsis, unspecified organism (principal); E11.22 Type 2 diabetes mellitus with diabetic chronic kidney disease; E87.2 Acidosis; I48.2 Chronic atrial fibrillation; L03.115 Cellulitis of right lower limb; E66.01 Morbid (severe) obesity due to excess calories; I12.9 Hypertensive chronic kidney disease with stage 1 through stage 4 chronic kidney disease, or unspecified chronic kidney disease; I87.8 Other specified disorders of veins; I89.0 Lymphedema, not elsewhere classified; L84 Corns and callosities; N18.3 Chronic kidney disease, stage 3 (moderate); Z79.01 Long term (current) use of anticoagulants; Z79.4 Long term (current) use of insulin; Z82.49 Family history of ischemic heart disease and other diseases of the circulatory system; Z87.891 Personal history of nicotine dependence; Z88.0 Allergy status to penicillin; Z90.49 Acquired absence of other specified parts of digestive tract; Z96.1 Presence of intraocular lens; Z98.41 Cataract extraction status, right eye; Z98.42 Cataract extraction status, left eye
CPT/HCPCS: 36415; 71045; 80048; 80053; 81001; 83036; 83605; 83735; 85025; 85027; 85610; 85730; 87040; 87086; 93005; 96365; 96366; 96367; 96375; 99291

== ENCOUNTER 2018-05-24 13:54 | Inpatient (IN) | payer MEDICARE ==
--- NOTE | 2018-05-24 14:25 | ED ---
General Adult HPI - General Chief complaint: Recheck/Abnormal Lab/Rx Stated complaint: Leg Pain Time Seen by Provider: 05/24/18 14:24 Source: patient, RN notes reviewed, old records reviewed Mode of arrival: wheelchair Limitations: physical limitation - History of Present Illness Initial comments: This is a 70-year-old female the ER for evaluation. Patient is a for evaluation in regards to altered mental status and right lower extremity swelling redness and pain. Patient has multiple medical comorbidities. Patient 's brought in by son who states patient is significantly altered not acting appropriately. Patient is not currently taking Avelox, was given a Keflex prior to arrival she does get recurrent cellulitis of her lower right lower extremity and will take Keflex to try and keep it from getting worse but it is best that point is significantly swollen red and patient has been significantly altered this morning - Related Data Home Medications Medication Instructions Recorded Confirmed Furosemide [Lasix] 20 mg PO Q48H 10/02/17 05/24/18 Insulin Glargine,Hum.rec.anlog 45 unit SQ HS 10/02/17 05/24/18 [Lantus Solostar] Lisinopril-Hctz 20-25 mg 1 tab PO DAILY 10/02/17 05/24/18 [Zestoretic 20-25] cloNIDine HCL [Catapres] 0.1 mg PO BID 10/02/17 05/24/18 metFORMIN HCL 1,000 mg PO BID 10/02/17 05/24/18 Insulin Lispro [humaLOG Kwikpen] 15 unit SQ AC-BRKFST 10/03/17 05/24/18 Insulin Lispro [humaLOG Kwikpen] 30 unit SQ AC-SUPPER 10/03/17 05/24/18 Calcium/Magnesium 1 tab PO DAILY 12/30/17 05/24/18 Cholecalciferol [Vitamin D3] 1,000 unit PO DAILY 12/30/17 05/24/18 Furosemide [Lasix] 40 mg PO Q48H 05/24/18 05/24/18 Multivitamins, Thera [Multivitamin 1 tab PO DAILY 05/24/18 05/24/18 (formulary)] Previous Rx's Medication Instructions Recorded Apixaban [Eliquis] 5 mg PO BID #0 tab 10/06/17 Diltiazem Cd [Cardizem CD] 240 mg PO DAILY #90 cap.er.24h 10/06/17 Insulin Lispro [humaLOG Kwikpen] 20 unit SQ AC-LUNCH #1 insuln.pen 10/06/17 Nadolol [Corgard] 20 mg PO BID #180 tab 10/06/17 Allergies Allergy/AdvReac Type Severity Reaction Status Date / Time Penicillins Allergy Rash/Hives Verified 05/24/18 14:58 Review of Systems ROS Statement: Those systems with pertinent positive or pertinent negative responses have been documented in the HPI. ROS Other: All systems not noted in ROS Statement are negative. Past Medical History Past Medical History: Atrial Fibrillation, Diabetes Mellitus, Hypertension Additional Past Medical History / Comment(s): , IDDM type II, lymphedema R lower leg. History of Any Multi-Drug Resistant Organisms: None Reported Past Surgical History: Section, Cholecystectomy, Hernia Repair Additional Past Surgical History / Comment(s): Abdominal hernia repair with mesh , benign lump removed right breast, bilateral cataract removal with lens implants. Past Anesthesia/Blood Transfusion Reactions: No Reported Reaction Past Psychological History: No Psychological Hx Reported Smoking Status: Former smoker Past Alcohol Use History: None Reported Past Drug Use History: None Reported - Past Family History Father Family Medical History: Coronary Artery Disease (CAD), Myocardial Infarction ([place] ) Additional Family Medical History / Comment(s): Father had several MIs with the first time being while he was in his 50s. He of a [place] at the age of 75 yrs. Mother Family Medical History: No Reported History Additional Family Medical History / Comment(s): Mother was healthy and lived to be 91 yrs old. General Exam - General Exam Comments Initial Comments: Right lower extremity is significantly swollen and erythematous, warm to touch Limitations: physical limitation General appearance: alert, in no apparent distress Head exam: Present: atraumatic, normocephalic, normal inspection Eye exam: Present: normal appearance, PERRL, EOMI. Absent: scleral icterus, conjunctival injection, periorbital swelling ENT exam: Present: normal exam, mucous membranes moist Neck exam: Present: normal inspection. Absent: tenderness, meningismus, lymphadenopathy Respiratory exam: Present: normal lung sounds bilaterally. Absent: respiratory distress, wheezes, rales, rhonchi, stridor Cardiovascular Exam: Present: regular rate, normal rhythm, normal heart sounds. Absent: systolic murmur, diastolic murmur, rubs, gallop, clicks GI/Abdominal exam: Present: soft, normal bowel sounds. Absent: distended, tenderness, guarding, rebound, rigid Extremities exam: Present: normal inspection, full ROM, normal capillary refill. Absent: tenderness, pedal edema, joint swelling, calf tenderness Back exam: Present: normal inspection Neurological exam: Present: alert, oriented X3, CN II-XII intact Psychiatric exam: Present: normal affect, normal mood Skin exam: Present: warm, dry, intact, normal color. Absent: rash Course Vital Signs 05/24/18 05/24/18 14:11 16:57 Temperature 99.0 F Pulse Rate 76 70 Respiratory 19 18 Rate Blood Pressure 126/61 130/76 O2 Sat by Pulse 96 98 Oximetry - Reevaluation(s) Reevaluation #1: 05/24/18 15:09 Medical record is reviewed with multiple hospital admissions for similar complaint Medical Decision Making - Medical Decision Making 78 female the ER for evaluation she presents today for evaluation of altered mental state and cellulitis will be admitted for IV antibiotics Disposition Clinical Impression: Cellulitis of right lower extremity, Altered mental status Disposition: ADMITTED IP TO THIS HOSP Condition: Fair Is patient prescribed a controlled substance at d/c from ED?: No
[2018-05-24] MEDS ORDERED: SODIUM CHLORIDE 0.9% 1,000 ML IV STA (15:07)
[2018-05-24] MEDS ORDERED: cefTRIAXone 2,000 MG in SODIUM CHLORIDE 0.9% 100 ML IVPB STA (16:24)
[2018-05-24] MEDS ORDERED: cefTRIAXone IN SWFI 2,000 MG/20 ML SYRINGE IVP STA (16:28)
[2018-05-24 17:16] LABS: Appearance,Urine Clear (Clear); Bilirubin,Urine Negative (Negative); Blood,Urine Negative (Negative); Color,Urine Yellow; Glucose,Urine (UA) Negative (Negative); Ketones,Urine Negative (Negative); Leukocyte Esterase,Urine Negative (Negative); Nitrite,Urine Negative (Negative); Protein,Urine Negative (Negative); Urobilinogen,Urine <2.0 mg/dL (<2.0)
[2018-05-24 17:26] LABS: Albumin 4.2 g/dL (3.5-5.0); Calcium 9.8 mg/dL (8.4-10.2); Magnesium 1.4 mg/dL (1.6-2.3); Phosphorus 1.9 mg/dL (2.5-4.5); Potassium 4.4 mmol/L (3.5-5.1); Total Bilirubin 1.2 mg/dL (0.2-1.3); Total Protein 7.4 g/dL (6.3-8.2)
[2018-05-24] MEDS ORDERED: SODIUM CHLORIDE 0.9% 2,000 ML IV ONE (17:34)
[2018-05-24 17:36] LABS: Creatine Kinase 30 U/L (30-135)
[2018-05-24 17:48] LABS: Creatine Kinase MB 0.2 ng/mL (0.0-2.4); Troponin I <0.012 ng/mL (0.000-0.034)
[2018-05-24 17:57] LABS: HCT 42.8 % (34.0-46.0); HGB 13.2 gm/dL (11.4-16.0); MCH 25.1 pg (25.0-35.0); MCHC 30.9 g/dL (31.0-37.0); MCV 81.4 fL (80.0-100.0); Platelet Count 160 k/uL (150-450); RBC 5.26 m/uL (3.80-5.40); RDW 15.9 % (11.5-15.5); WBC 20.1 k/uL (3.8-10.6)
[2018-05-24 18:16] LABS: Band Neutrophils % 7 %; Lymphocytes # (M) 1.01 k/uL (1.0-4.8); Neutrophils % (M) 83 %; Nucleated Red Blood Cells 0 /100 WBC (0-0); Total Cells Counted 100; Toxic Granulation Present; Toxic Vacuolation Present
[2018-05-24 18:17] LABS: Polychromasia Present
[2018-05-24 20:35] LABS: Glucose,Whole Blood 139 mg/dL (75-99)
[2018-05-24] MEDS: cloNIDine HCL 0.1 MG TAB PO SCH (22:06)
[2018-05-24] MEDS: APIXABAN 5 MG TAB PO SCH (22:06)
[2018-05-24] MEDS: metFORMIN 500 MG TAB PO SCH (22:06)
[2018-05-24] MEDS: FUROSEMIDE 20 MG TAB PO SCH (22:06)
[2018-05-24] MEDS: INSULIN DETEMIR 100 UNIT/ML 10 ML VIAL SQ SCH (22:06)
[2018-05-24] MEDS: NADOLOL 20 MG TAB PO SCH (22:10)
[2018-05-24] MEDS ORDERED: SODIUM CHLORIDE 0.9% 1,000 ML IV ONE (22:24)
--- NOTE | 2018-05-24 22:59 | HP ---
HISTORY AND PHYSICAL CHIEF COMPLAINT: Chills and pain, right leg. HISTORY OF PRESENT ILLNESS: This is a 78-year-old female who started feeling unwell with sudden-onset chills, increased swelling and pain and redness of the right lower leg. She also had some increased confusion, according to her spouse. The patient actually this morning when her spouse left was in fairly good status. She suddenly started having some chills and noted increasing swelling in the right lower leg. The patient's when he returned home saw her in this status, gave her one Keflex. The patient had an episode of nausea and vomiting. He subsequently brought her into the emergency room. The patient has evidence of cellulitis, right leg. This is a recurrent episode, number 3. The patient has significant chronic venostasis. Last time the cultures were positive for methicillin-sensitive Staph aureus and enterococcus group D. The patient had been on Duricef. Her last admission was in January of this year. PAST MEDICAL HISTORY: 1. Chronic venostasis. 2. Diabetes mellitus. 3. Hypertension. 4. Obesity. 5. As mentioned above, previously at least 2 episodes of cellulitis, right lower leg. PAST SURGICAL HISTORY: 1. Cholecystectomy. 2. . 3. Abdominal hernia repair with still persistent hernia. PERSONAL HISTORY: Never a smoker. No alcohol. ALLERGIES: PENICILLIN, which causes a rash and hives. FAMILY MEDICAL HISTORY: The patient had a son who of malignancy. Other son is in good health. MEDICATIONS AT PRESENT: 1. Metformin 1000 mg b.i.d. 2. Catapres 0.1 mg b.i.d. 3. Cozaar 20 mg b.i.d. 4. Multivitamins daily. 5. Lisinopril/hydrochlorothiazide 20/25 one daily. 6. Insulin Humalog 20 units before lunch, 30 units before supper and 15 units before breakfast. 7. Lantus 45 units at bedtime. 8. Lasix 40 mg every other day, 20 mg every other day. 9. Cardizem CD 240 mg daily. 10.Vitamin D3 daily. 11.Calcium/magnesium 1 daily. 12.Eliquis 5 mg b.i.d. SOCIAL HISTORY: The patient is , lives with her spouse. REVIEW OF SYSTEMS: NEURO: Denies any headaches, dizziness. PSYCH: No anxiety, depression. CARDIAC: No chest pain, angina, palpitation. RESPIRATORY: No shortness of breath, cough, hemoptysis. GI: One episode of nausea, vomiting. No diarrhea, constipation. : No symptoms of dysuria, hematuria, urgency, frequency. EXTREMITIES: Present complaint of pain and swelling in right leg. CONSTITUTIONAL: Low-grade fever. Had chills. SKIN: Chronic venostasis, lower leg. PHYSICAL EXAMINATION: Pleasant female who is awake, alert, oriented but at times appears mildly confused, according to the nursing staff in the emergency room. Vital signs revealed temperature 99, pulse 76, respiration 19, blood pressure 126/61, pulse ox 96% on room air. HEENT: Normocephalic. Neck is supple. Pupils reactive. Nostrils clear. Oral cavity is moist. Ears reveal no drainage. Neck reveals no JVD, carotid bruits or thyromegaly. CHEST: Clear to auscultation and percussion. CARDIAC: Normal S1, S2 with no gallops. Systolic murmur 2/6, left sternal border. Regular rhythm. ABDOMEN: Soft, protuberant. Bowel sounds are active. Extremities reveal chronic edema of both lower legs with some chronic venostasis changes of the skin on the right leg. The patient has erythema, warmth, redness on the right leg extending to just above the knee. She has a callus on the third right toe at the tip which is dry with no drainage. NEUROLOGIC: Awake, alert, oriented, but as mentioned above, intermittently per Nursing she has shown some confusion. She moves both upper and lower extremities adequately. LABORATORY ASSESSMENT: Lactic acid of 3.1. White count 20,100, hemoglobin normal at 13.2, BUN 28, creatinine 1.2. Rest of the chemistry was unremarkable. Urinalysis unremarkable. ASSESSMENT: 1. Cellulitis, right lower leg. 2. Sepsis. 3. Diabetes mellitus. 4. Toxic encephalopathy. 5. Obesity. 6. Diabetes mellitus. PLAN: Continue present medical regimen. Patient's condition discussed with the patient and spouse. Prognosis guarded. MMODL / IJN: [id number] /
[2018-05-25 07:25] LABS: Glucose,Whole Blood 174 mg/dL (75-99)
[2018-05-25] MEDS ORDERED: VANCOMYCIN IV PER PHARMACY 1 EACH MISC MISCELLANE PRN (07:38)
[2018-05-25] MEDS ORDERED: ACETAMINOPHEN IV (For NPO) 1,000 MG in EMPTY BAG 1 BAG IVPB STA (07:40)
[2018-05-25 07:59] LABS: ABG Base Excess 3.3 mmol/L; ABG HCO3 27 mmol/L (21-25); ABG Oxygen Saturation 96.7 % (94-97); ABG PCO2 40 mmHg (35-45); ABG PH 7.44 (7.35-7.45); ABG PO2 80 mmHg (83-108); ABG TCO2 29 mmol/L (19-24)
[2018-05-25] MEDS ORDERED: VANCOMYCIN 2,250 MG in SODIUM CHLORIDE 0.9% 500 ML IVPB ONE (08:00)
[2018-05-25 08:24] LABS: Calcium 8.5 mg/dL (8.4-10.2); Potassium 3.5 mmol/L (3.5-5.1)
[2018-05-25 08:31] LABS: Anisocytosis Slight; HCT 34.5 % (34.0-46.0); HGB 11.1 gm/dL (11.4-16.0); Hypochromasia Slight; MCHC 32.3 g/dL (31.0-37.0); MCV 83.5 fL (80.0-100.0); Mean Platelet Volume 9.5; RBC 4.13 m/uL (3.80-5.40); RDW 16.1 % (11.5-15.5)
[2018-05-25 08:34] LABS: WBC 28.2 k/uL (3.8-10.6)
[2018-05-25 08:35] LABS: Appearance,Urine Clear (Clear); Bacteria,Urine Rare /hpf; Bilirubin,Urine Negative (Negative); Blood,Urine Negative (Negative); Color,Urine Yellow; Glucose,Urine (UA) Negative (Negative); Hyaline Casts,Urine 1 /lpf (0-2); Ketones,Urine Negative (Negative); Leukocyte Esterase,Urine Negative (Negative); Mucus,Urine Rare /hpf; Nitrite,Urine Negative (Negative); PH, Urine 5.5 (5.0-8.0); Protein,Urine 1+ (Negative); RBC,Urine 3 /hpf (0-5); Specific Gravity,Urine 1.014 (1.001-1.035); Squamous Epithelial Cell,Urine <1 /hpf (0-4); Urobilinogen,Urine <2.0 mg/dL (<2.0); WBC,Urine 1 /hpf (0-5)
[2018-05-25 08:47] LABS: Glucose,Whole Blood 156 mg/dL (75-99)
[2018-05-25] MEDS ORDERED: cefTRIAXone IN SWFI 2,000 MG/20 ML SYRINGE IVP SCH (09:00)
--- NOTE | 2018-05-25 09:08 | XR ---
EXAMINATION TYPE: XR chest 1V portable DATE OF EXAM: 05/25/2018 HISTORY: respiratory distress. REFERENCE: Previous study dated 12/30/2017. FINDINGS: The heart is enlarged. The lungs are clear. Pleural spaces are clear. IMPRESSION: CARDIOMEGALY.
[2018-05-25 09:14] LABS: Lymphocytes # (M) 0.28 k/uL (1.0-4.8); Monocytes # (M) 0.56 k/uL (0-1.0); Neutrophils # (M) 27.35 k/uL (1.3-7.7); Neutrophils % (M) 97 %; Nucleated Red Blood Cells 0 /100 WBC (0-0); Polychromasia Present; Total Cells Counted 100
[2018-05-25] MEDS: INSULIN ASPART 100 UNIT/ML 1 ML 10 ML VIAL SQ SCH ×3 (09:31→17:57)
[2018-05-25] MEDS: DILTIAZEM CD 240 MG CAP.ER.24H PO SCH (10:05)
[2018-05-25] MEDS: metFORMIN 500 MG TAB PO SCH ×2 (10:05→20:36)
[2018-05-25] MEDS: APIXABAN 5 MG TAB PO SCH ×2 (10:05→20:35)
[2018-05-25] MEDS: CHOLECALCIFEROL 1,000 UNIT TAB PO SCH (10:19)
[2018-05-25] MEDS: LISINOPRIL-HCTZ 20-25 MG 1 EACH TAB PO SCH (10:19)
[2018-05-25] MEDS: cloNIDine HCL 0.1 MG TAB PO SCH ×2 (10:19→20:35)
[2018-05-25] MEDS: NADOLOL 20 MG TAB PO SCH ×2 (10:20→20:35)
[2018-05-25 11:35] LABS: Glucose,Whole Blood 164 mg/dL (75-99)
--- NOTE | 2018-05-25 11:42 | P.CNPUL ---
History of Present Illness Consult date: 05/25/18 Chief complaint: Cellulitis of the right lower extremity History of present illness: A 78-year-old here patient was hospitalized yesterday because of recurrent Celexa the right lower extremity. Earlier this morning and emergency team was called as the patient was found to have still elevation in her lactic acid level which was up to 4.9. Also the white cell count was at 28.2. The patient was also having some diminished level of consciousness. At that point the patient got transferred to the intensive care unit. The patient was overall given a total of 3 L of IV fluids and currently she is on saline infusion rate of 1 50 mL an hour. She is on Rocephin 2 g every 24 hours. She had a follow- up lactic gas level and showed a drop in the lactic acid down to 1.8. She did improve here in the intensive care unit and she is alert and awake and following commands and answering questions. She is in nature fibrillation with a controlled rate. She is on Eliquis for long-term anticoagulation. She denies having any DVTs in the right lower extremity. She has had previous cellulitis involving the same leg with infections related to MSSA and enterococcus group D. The blood gas shows no significant metabolic acidosis. Function is stable to the creatinine of 1.1. Electrodes are all within normal limits. No respiratory distress. Blood sugars are well-controlled. No angina. No focal neurological deficits. No other complaints otherwise for now. Review of Systems Constitutional: Reports fatigue, Reports lethargy Eyes: denies blurred vision, denies bulging eye, denies decreased vision Ears: deny: decreased hearing, ear discharge, earache Ears, nose, mouth and throat: Denies headache, Denies sore throat Cardiovascular: Reports irregular heart beat Respiratory: Denies cough Gastrointestinal: Denies abdominal pain, Denies diarrhea, Denies nausea, Denies vomiting Genitourinary: Denies dysuria, Denies hematuria Musculoskeletal: Denies myalgias Musculoskeletal: right: ankle swelling, absent: ankle pain, ankle stiffness Integumentary: Reports as per HPI, Reports color changes, Reports darkening of skin, Reports dryness Neurological: Denies numbness, Denies weakness Psychiatric: Denies anxiety, Denies depression Past Medical History Past Medical History: Atrial Fibrillation, Diabetes Mellitus, Hypertension Additional Past Medical History / Comment(s): Obesity with a BMI of 49.6, hypertension, chronic atrial fibrillation, diabetes mellitus, recurrent Celexa the right lower extremity, lymphedema of the right lower extremity, osteoarthritis History of Any Multi-Drug Resistant Organisms: None Reported Past Surgical History: Section, Cholecystectomy, Hernia Repair Additional Past Surgical History / Comment(s): Abdominal hernia repair with mesh , benign lump removed right breast, bilateral cataract removal with lens implants. Past Anesthesia/Blood Transfusion Reactions: No Reported Reaction Past Psychological History: No Psychological Hx Reported Smoking Status: Former smoker Past Alcohol Use History: None Reported Past Drug Use History: None Reported - Past Family History Father Family Medical History: Coronary Artery Disease (CAD), Myocardial Infarction ([place] ) Additional Family Medical History / Comment(s): Father had several MIs with the first time being while he was in his 50s. He of a [place] at the age of 75 yrs. Mother Family Medical History: No Reported History Additional Family Medical History / Comment(s): Mother was healthy and lived to be 91 yrs old. Medications and Allergies Home Medications Medication Instructions Recorded Confirmed Type Furosemide [Lasix] 20 mg PO Q48H 10/02/17 05/24/18 History Insulin Glargine,Hum.rec.anlog 45 unit SQ HS 10/02/17 05/24/18 History [Lantus Solostar] Lisinopril-Hctz 20-25 mg 1 tab PO DAILY 10/02/17 05/24/18 History [Zestoretic 20-25] cloNIDine HCL [Catapres] 0.1 mg PO BID 10/02/17 05/24/18 History metFORMIN HCL 1,000 mg PO BID 10/02/17 05/24/18 History Insulin Lispro [humaLOG Kwikpen] 15 unit SQ AC-BRKFST 10/03/17 05/24/18 History Insulin Lispro [humaLOG Kwikpen] 30 unit SQ AC-SUPPER 10/03/17 05/24/18 History Apixaban [Eliquis] 5 mg PO BID #0 tab 10/06/17 05/24/18 Rx Diltiazem Cd [Cardizem CD] 240 mg PO DAILY #90 cap.er.24h 10/06/17 05/24/18 Rx Insulin Lispro [humaLOG Kwikpen] 20 unit SQ AC-LUNCH #1 insuln.pen 10/06/1701/06 Rx Nadolol [Corgard] 20 mg PO BID #180 tab 10/06/17 05/24/18 Rx Calcium/Magnesium 1 tab PO DAILY 12/30/17 05/24/18 History Cholecalciferol [Vitamin D3] 1,000 unit PO DAILY 12/30/17 05/24/18 History Furosemide [Lasix] 40 mg PO Q48H 05/24/18 05/24/18 History Multivitamins, Thera [Multivitamin 1 tab PO DAILY 05/24/18 05/24/18 History (formulary)] Allergies Allergy/AdvReac Type Severity Reaction Status Date / Time Penicillins Allergy Rash/Hives Verified 05/24/18 14:58 Physical Exam Vitals: Vital Signs Temp Pulse Pulse Resp BP BP Pulse Ox 05/25/18 10:00 60 22 109/37 100 05/25/18 09:30 54 L 23 108/46 99 05/25/18 09:20 55 L 31 H 108/46 99 05/25/18 09:10 68 21 114/53 100 05/25/18 09:00 56 L 30 H 122/46 99 05/25/18 08:50 99.4 F 63 29 H 122/46 99 05/25/18 08:41 68 34 H 05/25/18 07:40 95 05/25/18 05:00 98.0 F 78 16 154/69 91 L 05/24/18 22:55 99.0 F 75 16 135/95 92 L 05/24/18 19:11 99.0 F 71 22 147/63 97 05/24/18 18:51 71 22 147/63 97 05/24/18 18:40 71 22 147/63 97 05/24/18 18:01 73 18 158/65 99 05/24/18 16:57 70 18 130/76 98 05/24/18 14:11 99.0 F 76 19 126/61 96 Intake and Output 05/24/18 05/25/18 05/25/18 22:59 06:59 14:59 Intake Total 1190 800 Output Total 60 Balance 1190 740 Intake: IV 300 Sodium Chloride 0.9% 1, 300 000 ml @ 150 mls/hr IV . Q6H40M [facility] Rx#:[id number] Amount of Fluid Infused ( 600 ml) Intake, IV Titration 500 Amount Vancomycin 2,500 mg In 500 Sodium Chloride 0.9% 500 ml @ 167 mls/hr IVPB Q36H [facility] Rx#:[id number] Oral 590 Output: Urine 60 Other: Voiding Method Toilet # Voids 1 1 Obese, comfortable BMI 49.6 Head exam was generally normal. There was no scleral icterus or corneal arcus. Mucous membranes were moist. Neck was supple and without jugular venous distension, thyromegaly, or carotid bruits. Carotids were easily palpable bilaterally. There was no adenopathy. Lungs were clear to auscultation and percussion, and with normal diaphragmatic excursion. No wheezes or rales were noted. Heart sounds are irregular S1-S2, faint murmur grade 2/6 heard throughout the precordium Abdomen is obese soft nontender. There is a scar over the anterior abdominal wall related to previous abdominal surgery. No direct tenderness or rebound tensile guarding. Extremities revealed cellulitis of the right lower extremity extending below the knee involving the ankle along with +1 pitting edema. There is also trace edema in left lower extremity. Neurologically awake and alert and there is no focal neurological deficit Skin revealed cellulitis of the right lower extremity are discussed. No open wounds or sores or ulceration. Results - Laboratory Findings CBC and BMP: 05/25/18 08:04 05/25/18 08:04 ABG ABG pH 7.44 (7.35-7.45) 05/25/18 07:55 ABG pCO2 40 mmHg (35-45) 05/25/18 07:55 ABG pO2 80 mmHg (83-108) L 05/25/18 07:55 ABG O2 Saturation 96.7 % (94-97) 05/25/18 07:55 Abnormal lab findings: Abnormal Labs 05/24/18 05/24/18 05/24/18 16:50 16:50 16:50 WBC 20.1 H Hgb MCHC 30.9 L RDW 15.9 H Neutrophils # (Manual) 18.00 H Lymphocytes # (Manual) ABG pO2 ABG HCO3 ABG Total CO2 BUN 28 H Creatinine 1.20 H Glucose 140 H POC Glucose (mg/dL) Plasma Lactic Acid Nacho 3.1 H* Phosphorus 1.9 L Magnesium 1.4 L AST 74 H Urine Protein Urine Bacteria Urine Mucus 05/24/18 05/24/18 05/25/18 20:34 21:03 07:18 WBC Hgb MCHC RDW Neutrophils # (Manual) Lymphocytes # (Manual) ABG pO2 ABG HCO3 ABG Total CO2 BUN Creatinine Glucose POC Glucose (mg/dL) 139 H 174 H Plasma Lactic Acid Nacho 4.9 H* Phosphorus Magnesium AST Urine Protein Urine Bacteria Urine Mucus 05/25/18 05/25/18 05/25/18 07:55 08:00 08:04 WBC 28.2 H* Hgb 11.1 L MCHC RDW 16.1 H Neutrophils # (Manual) 27.35 H Lymphocytes # (Manual) 0.28 L ABG pO2 80 L ABG HCO3 27 H ABG Total CO2 29 H BUN Creatinine Glucose POC Glucose (mg/dL) Plasma Lactic Acid Nacho Phosphorus Magnesium AST Urine Protein 1+ H Urine Bacteria Rare H Urine Mucus Rare H 05/25/18 05/25/18 08:04 08:46 WBC Hgb MCHC RDW Neutrophils # (Manual) Lymphocytes # (Manual) ABG pO2 ABG HCO3 ABG Total CO2 BUN 25 H Creatinine 1.18 H Glucose 162 H POC Glucose (mg/dL) 156 H Plasma Lactic Acid Nacho Phosphorus Magnesium AST Urine Protein Urine Bacteria Urine Mucus Assessment and Plan Plan: Assessment 1 acute cellulitis of the right lower extremity. This is a recurrent event as the patient is chronic lymphedema involving the right lower extremity. Patient presented with leukocytosis, lactic acidosis, some altered mental status or related to sepsis probably just from underlying cellulitis. The patient was resuscitated IV fluids pH is also on IV Rocephin. Lactic acid level is on the decline and she is hemodynamically stable at this point. 2 lactic acidosis improving 3 leukocytosis secondary to above 4 diabetes mellitus on long-acting insulin 5 obesity with a BMI of 49 6 chronic atrial fibrillation maintained on anticoagulation with Eliquis on outpatient basis. 7 history of hypertension Plan Continue IV fluids with normal state rate of 150 mL an hour. No pressors. IV Rocephin. Awaiting blood cultures. Apply Tio wrap to the right lower extremity. Monitor cellulitis. Mental status is normalized. Lactic acid level has dropped. No significant metabolic acidosis this point. Hemodynamically stable. Atrial fibrillation is under good control. The patient can be transferred back to [facility] with telemetry monitoring. She is stable for the time being.
[2018-05-25] MEDS: MULTIVITAMINS, THERA 1 EACH TAB PO SCH (13:30)
[2018-05-25 17:32] LABS: Glucose,Whole Blood 98 mg/dL (75-99)
[2018-05-25] MEDS: ceFAZolin IN SWFI 2 GM/20 ML SYRINGE IVP SCH (18:33)
--- NOTE | 2018-05-25 19:45 | CONS ---
CONSULTATION DATE OF SERVICE: 05/25/2018 REASON FOR CONSULTATION: Right lower extremity cellulitis. HISTORY OF PRESENT ILLNESS: The patient is a 78-year-old female with past medical history significant for recurrent cellulitis, right lower extremity. She did have an episode in September and the 2nd one in November of 2017. The patient is presenting to the [facility] ER on yesterday morning with chief complaints of right lower extremity swelling and redness that apparently started that morning and has progressively increased throughout the day. With these symptoms, the patient presented to the hospital. On arrival to the ER, the patient did have a low-grade fever of 99. The patient did have elevated white count of 20,000. The patient has been diagnosed with right lower extremity cellulitis. She was started on vancomycin, Rocephin. The patient did have elevated white count 3.1, subsequent up to 4.9, and the patient was noticed to be less responsive. The patient subsequently has been admitted to ICU. She did receive 3 L of IV fluid and subsequent the lactic acid about 1.6. The patient has been out of the ICU. Infectious disease was consulted for further recommendation of antibiotic therapy. Currently on Rocephin and did receive a dose of vancomycin. The patient has been complaining of pain into the right leg, more of a dull aching pain about 3 to 4/10, and no radiation. Patient currently does not have any open wounds or any ulcers or any drainage. REVIEW OF SYSTEMS: Constitutional: Positive for weakness and low-grade fever. Eyes: No complaint. ENT no complaint. Respiratory no complaint. Cardiovascular no complaint. Genitourinary: No complaint. Gastrointestinal: No complaint. Musculoskeletal no complaint. Integumentary as per HPI. Psychological: No complaint. Endocrine no complaint. Neurological no complaint. PAST MEDICAL HISTORY: Significant for hypertension, diabetes mellitus, atrial fibrillation, obesity, and recurrent cellulitis of right lower extremity. PAST SURGICAL HISTORY: , cholecystectomy and hernia repair, abdominal repair with mesh, benign lump removed from the right breast, bilateral cataract surgery. SOCIAL HISTORY: Remote history of smoking. No drinking or drug use. FAMILY HISTORY: Father history of coronary artery disease. Mother was healthy and lived to be 91 years old. ALLERGY: TO PENICILLIN WITH A RASH. No history of anaphylaxis. Tolerated Rocephin without any problem. MEDICATION: Currently include the patient is on Eliquis, Rocephin, vitamin D3, Catapres, Cardizem, Lasix, lisinopril, hydrochlorothiazide, NovoLog, Levemir, Glucophage, Theragran, and vancomycin that was discussed subsequently. EXAMINATION: Blood pressure is 115/58 with a pulse of 55. Temperature 97.7, she is 98% on 3 L nasal cannula. General description is an elderly female up in the chair in no distress. No tachypnea or accessory muscles of respiration use. HEENT: Shows no pallor or scleral icterus. Oral mucosa membranes dry. No pharyngeal erythema or thrush. Neck trachea central. No thyromegaly. Lungs unlabored breathing. Clear to auscultation anteriorly. No wheeze or crackles. Heart S1, S2. Regular rate and rhythm. ABDOMEN: Soft, no tenderness. No guarding. No rigidity. Right leg with swelling and diffuse erythema. No blisters. No open wound. No drainage. The patient did have evidence of athlete's foot between the toes. Neurological: Patient is awake, alert, oriented times three. Mood and affect normal. LABS: BUN of 25, creatinine is 1.18, hemoglobin 11.9, white count 28.2. Electrolytes have been normal. Urine was negative. Chest x-ray negative for pneumonia. DIAGNOSTIC IMPRESSION AND PLAN: 1. Patient with acute right lower extremity cellulitis. The patient did have diffuse swelling and redness with evidence of athlete's foot likely pointing towards a streptococcal cellulitis. 2. Patient who does have a PENICILLIN ALLERGY that will limit the number of antibiotics that could be safely used. PLAN: 1. Discontinue the Rocephin. 2. Start the patient on cefazolin 2 g q.8 hours. 3. Nystatin cream in between the toes. 4. We will follow up on clinical condition and culture to further adjust medication if needed. Thank you for this consultation. We will follow the patient along with you. MMODL / IJN: [id number] /
[2018-05-25 20:08] LABS: Glucose,Whole Blood 126 mg/dL (75-99)
[2018-05-25] MEDS: INSULIN DETEMIR 100 UNIT/ML 10 ML VIAL SQ SCH (20:35)
[2018-05-25] MEDS: FUROSEMIDE 40 MG TAB PO SCH (20:35)
[2018-05-25] MEDS ORDERED: Acetaminophen-Codeine 300-30mg TAB PO PRN (20:39)
[2018-05-25] MEDS ORDERED: ACETAMINOPHEN TAB 325 MG TAB PO PRN (20:42)
[2018-05-25] MEDS: NYSTATIN 100,000UNIT/GM CREAM 30 GM TUBE TOPICAL SCH (22:05)
--- NOTE | 2018-05-25 23:54 | PN ---
PROGRESS NOTE ATTENDING PHYSICIAN: Dr. Emerson Snyder. CHIEF COMPLAINT: Re-evaluation. HISTORY OF PRESENT ILLNESS: This 78-year-old female was admitted to the hospital with cellulitis, right lower leg. The patient has had evidence of sepsis with an elevated lactic acid, which with fluids has improved. The patient this morning became febrile and tachypneic. In view of this, the A team decided to transfer the patient to the ICU. The patient has been in the ICU, doing fairly well. She is hemodynamically stable. The patient's temperature is down. She is feeling fairly well. The patient's cellulitis, the erythema and swelling has regressed from the demarcation line marked. The patient denies any other major symptoms. She has some mild confusional episodes, which is what happens whenever the patient gets febrile. REVIEW OF SYSTEMS: NEURO: Denies any headaches, dizziness. PSYCH: No anxiety. CARDIAC: Denies chest pain, angina, palpitation. RESPIRATORY: Denies shortness of breath, cough, hemoptysis. GI: Denies any nausea, vomiting, abdominal pain, diarrhea. : Denies symptoms of dysuria, hematuria, urgency, frequency. EXTREMITIES: Pain in the right leg. CONSTITUTIONAL: Fever and chills. PHYSICAL EXAMINATION: Pleasant female in no distress. VITAL SIGNS: Temperature is 99.4, pulse 66, respirations 29, blood pressure 122/46, pulse ox 95% on 3L. High-grade temperature was 103 degrees Fahrenheit. HEENT: Normocephalic. NECK: Supple. No JVD. Pupils are reactive. Nostrils clear. Oral cavity is moist. Lungs are clear to auscultation and percussion. CARDIAC: Normal S1, S2 with no gallops or murmurs. Abdomen is soft. Bowel sounds present. Extremities reveal receding erythema, tenderness with no point fluctuance on the stasis dermatitis she has. Adequate pulses. Neurologically, awake, alert, oriented, though mild lethargy than usual. Well-coordinated movements. LABORATORY ASSESSMENT: White count was 28.2, hemoglobin 11.1. Electrolytes normal. BUN 25, creatinine 1.18, glucose 162. ASSESSMENT: 1. Cellulitis, right lower leg. 2. Sepsis. 3. Chronic kidney disease stage 3. 4. Diabetes mellitus. PLAN: Continue present medical regimen. Patient's condition discussed with the patient. Prognosis guarded. ID to see the patient. MMODL / IJN: [id number] /
[2018-05-26] MEDS: ceFAZolin IN SWFI 2 GM/20 ML SYRINGE IVP SCH ×4 (00:20→23:51)
[2018-05-26 07:35] LABS: Glucose,Whole Blood 109 mg/dL (75-99)
[2018-05-26] MEDS: metFORMIN 500 MG TAB PO SCH ×2 (07:41→20:24)
[2018-05-26] MEDS: LISINOPRIL-HCTZ 20-25 MG 1 EACH TAB PO SCH (07:41)
[2018-05-26] MEDS: NYSTATIN 100,000UNIT/GM CREAM 30 GM TUBE TOPICAL SCH ×2 (07:41→20:20)
[2018-05-26] MEDS: NADOLOL 20 MG TAB PO SCH ×2 (07:41→20:20)
[2018-05-26] MEDS: DILTIAZEM CD 240 MG CAP.ER.24H PO SCH (07:41)
[2018-05-26] MEDS: cloNIDine HCL 0.1 MG TAB PO SCH ×2 (07:42→20:20)
[2018-05-26] MEDS: APIXABAN 5 MG TAB PO SCH ×2 (07:42→20:20)
[2018-05-26] MEDS: CHOLECALCIFEROL 1,000 UNIT TAB PO SCH (07:42)
[2018-05-26] MEDS: INSULIN ASPART 100 UNIT/ML 1 ML 10 ML VIAL SQ SCH ×4 (07:43→17:52)
[2018-05-26] MEDS ORDERED: VANCOMYCIN 2,500 MG in SODIUM CHLORIDE 0.9% 500 ML IVPB SCH (09:00)
[2018-05-26 11:46] LABS: Glucose,Whole Blood 128 mg/dL (75-99)
[2018-05-26] MEDS: SODIUM CHLORIDE 0.9% 1,000 ML IV SCH ×2 (12:17→23:51)
[2018-05-26] MEDS: MULTIVITAMINS, THERA 1 EACH TAB PO SCH (12:17)
--- NOTE | 2018-05-26 12:43 | P.PN ---
Subjective Progress Note Date: 05/26/18 A 78-year-old here patient was hospitalized yesterday because of recurrent Celexa the right lower extremity. Earlier this morning and emergency team was called as the patient was found to have still elevation in her lactic acid level which was up to 4.9. Also the white cell count was at 28.2. The patient was also having some diminished level of consciousness. At that point the patient got transferred to the intensive care unit. The patient was overall given a total of 3 L of IV fluids and currently she is on saline infusion rate of 1 50 mL an hour. She is on Rocephin 2 g every 24 hours. She had a follow- up lactic gas level and showed a drop in the lactic acid down to 1.8. She did improve here in the intensive care unit and she is alert and awake and following commands and answering questions. She is in nature fibrillation with a controlled rate. She is on Eliquis for long-term anticoagulation. She denies having any DVTs in the right lower extremity. She has had previous cellulitis involving the same leg with infections related to MSSA and enterococcus group D. The blood gas shows no significant metabolic acidosis. Function is stable to the creatinine of 1.1. Electrodes are all within normal limits. No respiratory distress. Blood sugars are well-controlled. No angina. No focal neurological deficits. No other complaints otherwise for now. This patient is being seen in follow-up on 05/26/2018. She is hemodynamic is stable. No hypotension. She is still on antibiotics. She is being treated for right lower axilla cellulitis. The right lower extremity is wrapped. No leg pain. No altered mentation. Producing adequate amount of urine output. Review blood work from today is pending. Blood cultures of been negative thus far. The patient is currently out of the intensive care unit. She is receiving normal saline at the rate of 75 mL an hour. She is on IV 2 g every 8 hours. Objective - Vital Signs Vital signs: Vital Signs Temp 97.0 F L 05/26/18 05:00 Pulse 50 L 05/26/18 05:00 Resp 16 05/26/18 05:00 BP 137/55 05/26/18 05:00 Pulse Ox 100 05/26/18 05:00 Intake & Output 05/25/18 05/26/18 05/26/18 18:59 06:59 18:59 Intake Total 950 590 Output Total 60 Balance 890 590 Intake: IV 450 Sodium Chloride 0.9% 1, 450 000 ml @ 150 mls/hr IV . Q6H40M [facility] Rx#:[id number] Intake, IV Titration 500 Amount Vancomycin 2,500 mg In 500 Sodium Chloride 0.9% 500 ml @ 167 mls/hr IVPB Q36H [facility] Rx#:[id number] Oral 590 Output: Urine 60 Other: Voiding Method Indwelling Catheter Bedside Commode Bedside Commode # Voids 1 - Exam Obese, comfortable BMI 49.6 Head exam was generally normal. There was no scleral icterus or corneal arcus. Mucous membranes were moist. Neck was supple and without jugular venous distension, thyromegaly, or carotid bruits. Carotids were easily palpable bilaterally. There was no adenopathy. Lungs were clear to auscultation and percussion, and with normal diaphragmatic excursion. No wheezes or rales were noted. Heart sounds are irregular S1-S2, faint murmur grade 2/6 heard throughout the precordium Abdomen is obese soft nontender. There is a scar over the anterior abdominal wall related to previous abdominal surgery. No direct tenderness or rebound tensile guarding. Extremities revealed cellulitis of the right lower extremity extending below the knee involving the ankle along with +1 pitting edema. There is also trace edema in left lower extremity. Neurologically awake and alert and there is no focal neurological deficit Skin revealed cellulitis of the right lower extremity are discussed. No open wounds or sores or ulceration. - Labs CBC & Chem 7: 05/25/18 08:04 05/25/18 08:04 Labs: Abnormal Lab Results - Last 24 Hours (Table) 05/25/18 05/26/18 05/26/18 Range/Units 20:07 07:33 11:39 POC Glucose (mg/dL) 126 H 109 H 128 H (75-99) mg/dL Microbiology - Last 24 Hours (Table) 05/25/18 07:45 Blood Culture - Preliminary Blood No Growth after 24 hours 05/25/18 07:59 Blood Culture - Preliminary Blood No Growth after 24 hours 05/25/18 08:00 Urine Culture - Preliminary Urine,Catheterized Assessment and Plan Plan: Assessment 1 acute cellulitis of the right lower extremity. This is a recurrent event as the patient is chronic lymphedema involving the right lower extremity. Patient presented with leukocytosis, lactic acidosis, some altered mental status or related to sepsis probably just from underlying cellulitis. The patient was resuscitated IV fluids pH is also on IV Kefzol. Hemodynamically stable. Lactic acidosis recovered. 2 lactic acidosis improving 3 leukocytosis secondary to above 4 diabetes mellitus on long-acting insulin 5 obesity with a BMI of 49 6 chronic atrial fibrillation maintained on anticoagulation with Eliquis on outpatient basis. 7 history of hypertension Plan Continue IV Kefzol. Monitor hemodynamics. Keep the leg wrapped. Follow-up on the cellulitis. Pulmonary critical care services we'll sign off and the rest of the management will be done by medicine.
[2018-05-26 17:19] LABS: Glucose,Whole Blood 77 mg/dL (75-99)
[2018-05-26] MEDS: FUROSEMIDE 20 MG TAB PO SCH (20:20)
[2018-05-26 20:35] LABS: Glucose,Whole Blood 69 mg/dL (75-99)
[2018-05-26] MEDS: INSULIN DETEMIR 100 UNIT/ML 10 ML VIAL SQ SCH (20:42)
[2018-05-26 20:56] LABS: Glucose,Whole Blood 70 mg/dL (75-99)
[2018-05-26 22:58] LABS: Glucose,Whole Blood 126 mg/dL (75-99)
--- NOTE | 2018-05-26 23:31 | PN ---
PROGRESS NOTE DATE OF SERVICE: 05/26/2018. REASON FOR FOLLOWUP: Acute right lower extremity cellulitis. INTERVAL HISTORY: The patient is currently afebrile. She is breathing comfortably. Denies having any chest pain or shortness of breath or cough. No abdominal pain. Right leg still have some swelling and redness, but no drainage. EXAMINATION: Blood pressure 145/63 with a pulse of 76, temperature 97.6, he is 98% on room air. GENERAL DESCRIPTION: Elderly female up in the bed in no distress. RESPIRATORY SYSTEM: Unlabored breathing. Clear to auscultation anteriorly. HEART: S1, S2. Regular rate and rhythm. ABDOMEN: Bowel sounds positive. EXTREMITIES: Redness but no drainage. LABS: No new labs been obtained today. Blood culture has been negative. DIAGNOSTIC IMPRESSION AND PLAN: Patient with acute right lower extremity cellulitis with diffuse swelling, redness, and evidence of athlete's foot, likely streptococcal disease. Detailed discussion with the patient. Tio wrap to keep the swelling down. We will give the patient Cefazolin. Repeat CBC tomorrow. Continue supportive care. MMODL / IJN: [id number] /
--- NOTE | 2018-05-26 23:55 | PN ---
PROGRESS NOTE DATE OF SERVICE: 05/26/2018. ATTENDING PHYSICIAN: Dr. Emerson Snyder. CHIEF COMPLAINT: Re-evaluation. HISTORY OF PRESENT ILLNESS: A 78-year-old female was admitted to the hospital with cellulitis of the right lower leg with septicemia. The patient is feeling much better. She is back to her baseline status. She is not confused. She is alert and feeling much stronger today. REVIEW OF SYSTEMS: NEURO: Denies any headaches or dizziness. PSYCH: No anxiety. CARDIAC: No chest pain, angina, palpitation. RESPIRATORY: No shortness of breath, cough, hemoptysis. GI: No nausea or vomiting, no abdominal pain or diarrhea. : No symptoms of dysuria, hematuria, urgency, frequency. EXTREMITIES: Decreased pain in the right leg. CONSTITUTIONAL: Did have a temperature yesterday, but feels much better today. PHYSICAL EXAMINATION: GENERAL: Pleasant elderly female, 78 years of age, in no distress at present. Alert, oriented. VITAL SIGNS: Temperature of 97, pulse 58, respirations 16, blood pressure 137/55, pulse ox of 100% on 3 L. HEENT: Normocephalic. NECK: No JVD. CHEST: Clear to auscultation. CARDIAC: Normal S1, S2 with no gallops. Regular rhythm. ABDOMEN: Soft, protuberant. Bowel sounds present. Abdominal wall hernia. EXTREMITIES: Edema bilateral, decreasing cellulitis right leg. No tenderness today. NEUROLOGIC: Awake, alert, oriented with well-coordinated movements. LABORATORY ASSESSMENT: Blood sugars which are in adequate range. ASSESSMENT: 1. Cellulitis, right lower leg. 2. Septicemia, improved. 3. Diabetes mellitus. 4. Morbid obesity. 5. Chronic venous stasis and venous hypertension with stasis dermatitis. 6. Hypertension. 7. Chronic kidney disease stage 3. PLAN: The patient is stable. Continue present medical regimen. Patient's condition discussed with the patient. Prognosis guarded. MMODL / IJN: [id number] /
[2018-05-27 07:02] LABS: Anisocytosis Slight; HCT 36.7 % (34.0-46.0); HGB 11.4 gm/dL (11.4-16.0); MCH 25.4 pg (25.0-35.0); Mean Platelet Volume 9.7; Platelet Count 111 k/uL (150-450); RBC 4.48 m/uL (3.80-5.40); WBC 10.7 k/uL (3.8-10.6)
[2018-05-27 07:10] LABS: Calcium 8.7 mg/dL (8.4-10.2); Potassium 3.1 mmol/L (3.5-5.1)
[2018-05-27 07:19] LABS: Glucose,Whole Blood 129 mg/dL (75-99)
[2018-05-27] MEDS: cloNIDine HCL 0.1 MG TAB PO SCH ×2 (07:41→21:02)
[2018-05-27] MEDS: LISINOPRIL-HCTZ 20-25 MG 1 EACH TAB PO SCH (07:41)
[2018-05-27] MEDS: NADOLOL 20 MG TAB PO SCH ×2 (07:41→21:05)
[2018-05-27] MEDS: NYSTATIN 100,000UNIT/GM CREAM 30 GM TUBE TOPICAL SCH ×2 (07:41→21:06)
[2018-05-27] MEDS: DILTIAZEM CD 240 MG CAP.ER.24H PO SCH (07:41)
[2018-05-27] MEDS: metFORMIN 500 MG TAB PO SCH ×2 (07:41→21:01)
[2018-05-27] MEDS: APIXABAN 5 MG TAB PO SCH ×2 (07:42→21:02)
[2018-05-27] MEDS: ceFAZolin IN SWFI 2 GM/20 ML SYRINGE IVP SCH ×2 (07:42→17:18)
[2018-05-27] MEDS: CHOLECALCIFEROL 1,000 UNIT TAB PO SCH (07:42)
[2018-05-27] MEDS: INSULIN ASPART 100 UNIT/ML 1 ML 10 ML VIAL SQ SCH ×3 (07:45→18:29)
[2018-05-27] MEDS ORDERED: NADOLOL 20 MG TAB PO SCH (09:00)
[2018-05-27] MEDS ORDERED: POTASSIUM CHLORIDE ER 20 MEQ TAB.ER PO STA (11:50)
[2018-05-27 12:02] LABS: Glucose,Whole Blood 110 mg/dL (75-99)
[2018-05-27] MEDS: MULTIVITAMINS, THERA 1 EACH TAB PO SCH (12:43)
[2018-05-27 16:35] LABS: Glucose,Whole Blood 116 mg/dL (75-99)
[2018-05-27 20:23] LABS: Glucose,Whole Blood 136 mg/dL (75-99)
[2018-05-27] MEDS: INSULIN DETEMIR 100 UNIT/ML 10 ML VIAL SQ SCH (21:02)
[2018-05-27] MEDS: FUROSEMIDE 40 MG TAB PO SCH (21:02)
--- NOTE | 2018-05-28 00:17 | PN ---
PROGRESS NOTE DATE OF SERVICE: 05/27/2018. REASON FOR FOLLOWUP: Acute right lower extremity cellulitis, athlete's foot. INTERVAL HISTORY: The patient is currently afebrile. She is breathing comfortably. Denies having any chest pain, cough, or abdominal pain. Unfortunately the patient has developed a blister on the right posterior thigh from moving around. EXAMINATION: Blood pressure 119/57, pulse of 65, temperature 97.9, 98% on room air. GENERAL DESCRIPTION: Elderly female up in the chair in no distress. RESPIRATORY SYSTEM: Unlabored breathing. Clear to auscultation anteriorly. HEART: S1, S2. Regular rate and rhythm. ABDOMEN: Bowel sounds positive. EXTREMITIES: Right leg swelling. Posterior thigh with superficial wound and minimal redness. DIAGNOSTIC IMPRESSION AND PLAN: Patient with acute right lower extremity cellulitis with diffuse swelling and redness, likely streptococcal disease. At this time the patient is to continue with Cefazolin. Will apply Aquacel silver dressing to the right posterior thigh followed by Tio to keep the swelling down. Continue supportive care. MMODL / IJN: [id number] /
[2018-05-28] MEDS: ceFAZolin IN SWFI 2 GM/20 ML SYRINGE IVP SCH ×4 (00:30→23:44)
--- NOTE | 2018-05-28 00:59 | PN ---
PROGRESS NOTE DATE OF SERVICE: 05/27/2018. ATTENDING PHYSICIAN: Dr. Natalia Snyder. CHIEF COMPLAINT: Re-evaluation. HISTORY OF PRESENT ILLNESS: This 78-year-old female was admitted to the hospital with fever and sepsis. The patient has cellulitis right lower leg, recurrent. The patient generally has methicillin staph as well as strep enterococcus previously. No drainage. The patient has no fluctuance. Pain is improved. Patient feels much better. REVIEW OF SYSTEMS: NEURO: Denies any headaches dizziness. PSYCH: No anxiety. CARDIAC: No chest pain, angina, palpitations. RESPIRATORY: No shortness of breath, cough, hemoptysis. GI: No nausea, vomiting, abdominal pain, diarrhea. : No symptoms of hematuria, urgency, frequency. EXTREMITIES: No pain. Some edema right leg. CONSTITUTIONAL: No fevers or chills. PHYSICAL EXAMINATION: Pleasant female in no distress. Vital signs reveal temperature 98, pulse is 75, respirations 16, blood pressure 150/85. HEENT: Normocephalic. NECK: No JVD. CHEST: Clear to auscultation and percussion. CARDIAC: Normal S1, S2 with no gallops or murmurs. ABDOMEN: Soft. Bowel sounds present. EXTREMITIES: Mild edema, right lower leg, with resolving erythema. NEUROLOGIC: Awake, alert, oriented, with well-coordinated movements. The patient's mental status is back to normal. LABORATORY ASSESSMENT: White count down to 10.7, hemoglobin 11.4, platelets 111,000, potassium down to 3.1. BUN 25, creatinine 0.95. ASSESSMENT: 1. Cellulitis, right lower leg. 2. Sepsis, improving. 3. Chronic thrombocytopenia. 4. Acute on chronic kidney failure. 5. Diabetes mellitus. 6. Obesity. 7. Chronic venous hypertension with venous stasis dermatitis, both lower legs, with no ulcerations. PLAN: Continue present medical regimen. Patient's condition discussed with the patient. Prognosis guarded. Potential discharge home tomorrow. MMODL / IJN: [id number] /
[2018-05-28 07:43] LABS: Glucose,Whole Blood 79 mg/dL (75-99)
[2018-05-28] MEDS ORDERED: FUROSEMIDE 10 MG/ML 2 ML VIAL IV ONE (08:02)
[2018-05-28] MEDS: INSULIN ASPART 100 UNIT/ML 1 ML 10 ML VIAL SQ SCH ×3 (09:21→18:47)
[2018-05-28] MEDS: APIXABAN 5 MG TAB PO SCH ×2 (09:35→21:21)
[2018-05-28] MEDS: NADOLOL 20 MG TAB PO SCH ×2 (09:35→21:20)
[2018-05-28] MEDS: CHOLECALCIFEROL 1,000 UNIT TAB PO SCH (09:35)
[2018-05-28] MEDS: cloNIDine HCL 0.1 MG TAB PO SCH ×2 (09:35→21:20)
[2018-05-28] MEDS: DILTIAZEM CD 240 MG CAP.ER.24H PO SCH (09:35)
[2018-05-28] MEDS: metFORMIN 500 MG TAB PO SCH ×2 (09:35→21:20)
[2018-05-28] MEDS: LISINOPRIL-HCTZ 20-25 MG 1 EACH TAB PO SCH (09:35)
[2018-05-28 12:45] LABS: Glucose,Whole Blood 138 mg/dL (75-99)
[2018-05-28] MEDS: MULTIVITAMINS, THERA 1 EACH TAB PO SCH (13:16)
[2018-05-28] MEDS: NYSTATIN 100,000UNIT/GM CREAM 30 GM TUBE TOPICAL SCH ×2 (13:17→21:22)
[2018-05-28 17:21] LABS: Glucose,Whole Blood 150 mg/dL (75-99)
[2018-05-28] MEDS: FUROSEMIDE 20 MG TAB PO SCH (18:47)
[2018-05-28] MEDS: INSULIN DETEMIR 100 UNIT/ML 10 ML VIAL SQ SCH (21:19)
[2018-05-28 22:17] LABS: Glucose,Whole Blood 70 mg/dL (75-99)
[2018-05-28 22:42] LABS: Glucose,Whole Blood 72 mg/dL (75-99)
--- NOTE | 2018-05-28 23:30 | PN ---
PROGRESS NOTE ATTENDING PHYSICIAN: Dr. Emerson Snyder. CHIEF COMPLAINT: Re-evaluation. HISTORY OF PRESENT ILLNESS: A 78-year-old female was admitted to the hospital for cellulitis right leg. The patient has significant edema in the leg and associated with that, she has some blistering. The patient has significant fluid drainage from that. The patient is no longer febrile and her mentation is back to normal. White count is back to normal. She is feeling much improved. REVIEW OF SYSTEMS: NEURO: Denies any headaches, dizziness. PSYCH: No anxiety, depression. CARDIAC: No chest pain, angina, palpitation. RESPIRATORY: No shortness of breath, cough. GI: No nausea, vomiting, abdominal pain, diarrhea. : No symptoms of dysuria, hematuria. EXTREMITIES: No pain. Does have edema of both lower legs, right much greater than left. The erythema is reduced. CONSTITUTIONAL: No fever or chills. SKIN: Blistering of the right lower leg. PHYSICAL EXAMINATION: Pleasant female, at present in no distress. Vital signs reveal temperature 97.3, pulse 79, respirations 18, blood pressure 141/76, pulse ox of 97% room air. HEENT: Normocephalic. NECK: Supple. No JVD. CHEST: Clear to auscultation and percussion. CARDIAC: Regular rhythm. Systolic murmur 2/6 left sternal border. ABDOMEN: Obese, soft. Bowel sounds present. Extremities reveal edema both lower legs, right leg more than the left. The patient's erythema is pretty much gone. The patient does have some chronic venous stasis changes in the skin, blisters with oozing clear fluid. The patient does have significant edema in the foot. There is no crepitus palpable. LABORATORY ASSESSMENT: Blood sugars which are well controlled. Sugar 79 this morning. It was 136 last night. ASSESSMENT: 1. Cellulitis, right lower leg. 2. Chronic venous stasis dermatitis. 3. Chronic venous hypertension, both lower legs. 4. Paroxysmal atrial fibrillation. 5. Diabetes mellitus with chronic kidney disease stage 3. 6. Chronic kidney disease stage 3. 7. Hypertension. 8. Obesity. PLAN: The patient is stable. Continue present medical regimen. Will continue the patient today. We will give Lasix IV. The patient potentially will be discharged home tomorrow. MMODL / IJN: [id number] /
[2018-05-29 01:50] LABS: Glucose,Whole Blood 130 mg/dL (75-99)
[2018-05-29 01:56] VITALS: TEMP 97.7
--- NOTE | 2018-05-29 06:58 | PN ---
PROGRESS NOTE DATE OF SERVICE: 05/28/2018. REASON FOR FOLLOWUP: Right lower extremity cellulitis. INTERVAL HISTORY: The patient is afebrile. She is breathing comfortably. Denies significant chest pain or cough. The patient's leg swelling and redness improved. with the right posterior thigh area with some new drainage. PHYSICAL EXAMINATION: On examination, blood pressure 135/68 with the pulse of 53, temperature of 97.5. She is 95% on room air. General description is an elderly female up in the chair in no distress. RESPIRATORY SYSTEM: Unlabored breathing, clear to auscultation anteriorly. HEART: S1, S2. Regular rate and rhythm. ABDOMEN: Soft, no tenderness. LABS: Wound culture so far negative. Blood culture negative. DIAGNOSTIC IMPRESSION AND PLAN: Patient with right lower extremity cellulitis in a patient who did have blister ruptured from the right posterior thigh. RN has been advised to apply Aquacel Silver dressing and Tio wrap to the area to keep the swelling down. Continue with cefazolin. Her white count has already normalized with the plan to finish therapy with oral antibiotics if the patient continued to improve. Continue supportive care. MMODL / IJN: [id number] /
[2018-05-29 07:46] LABS: Glucose,Whole Blood 107 mg/dL (75-99)
[2018-05-29 08:05] VITALS: BP 131/75; PULSE 59; RESP 16
[2018-05-29] MEDS ORDERED: FUROSEMIDE 10 MG/ML 2 ML VIAL IV ONE (08:05)
[2018-05-29] MEDS: metFORMIN 500 MG TAB PO SCH (08:22)
[2018-05-29] MEDS: MULTIVITAMINS, THERA 1 EACH TAB PO SCH (08:22)
[2018-05-29] MEDS: NADOLOL 20 MG TAB PO SCH (08:23)
[2018-05-29] MEDS: cloNIDine HCL 0.1 MG TAB PO SCH (08:23)
[2018-05-29] MEDS: CHOLECALCIFEROL 1,000 UNIT TAB PO SCH (08:23)
[2018-05-29] MEDS: LISINOPRIL-HCTZ 20-25 MG 1 EACH TAB PO SCH (08:23)
[2018-05-29] MEDS: APIXABAN 5 MG TAB PO SCH (08:23)
[2018-05-29] MEDS: DILTIAZEM CD 240 MG CAP.ER.24H PO SCH (08:23)
[2018-05-29] MEDS: INSULIN ASPART 100 UNIT/ML 1 ML 10 ML VIAL SQ SCH ×2 (08:23→14:47)
--- NOTE | 2018-05-29 14:31 | PN ---
PROGRESS NOTE DATE OF SERVICE: 06/08/2018 REASON FOR FOLLOWUP: Right lower extremity cellulitis. INTERVAL HISTORY: The patient is currently afebrile. She is breathing comfortably. Denies having any chest pain or shortness of breath. No cough. No abdominal pain. Did mention that the right leg overall swelling and drainage has decreased. She did receive and no diarrhea. PHYSICAL EXAMINATION: Blood pressure is 131/75, pulse of 59, temperature is 97.7, she is 96% on room air. General description is an elderly female, up in the chair in no distress. RESPIRATORY SYSTEM: Unlabored breathing, clear to auscultation anteriorly. HEART: S1, S2. Regular rate and rhythm. ABDOMEN: Soft, no tenderness. Right leg aspiration thigh, redness has decreased and no drainage was noticed. LABS: No new labs have been obtained today. DIAGNOSTIC IMPRESSION AND PLAN: Patient with right lower extremity cellulitis, more likely a streptococcal cellulitis responded very well to Cefazolin, Keflex 500 mg t.i.d. for 10 days. There have been no edema, no discharge. Local wound care continue with the Aquacel Silver and Tio wrap to keep the swelling down. MMODL / IJN: [id number] /
[2018-05-29] MEDS: NYSTATIN 100,000UNIT/GM CREAM 30 GM TUBE TOPICAL SCH (14:47)
[2018-05-29] MEDS: ceFAZolin IN SWFI 2 GM/20 ML SYRINGE IVP SCH (14:47)
== END 2018-05-29 14:52 | disposition home health service (06) | DRG 871 ==
LOC: EC 13:54 → 5MS5E 15:07 → 6ICU 05-25 08:29 → 5MS5E 05-25 13:00 → 4MS4W 05-27 21:43
PROVIDERS: ADMIT Internal Medicine; ATTEND Internal Medicine
DX: A40.9 Streptococcal sepsis, unspecified (principal); G92 Toxic encephalopathy; L03.115 Cellulitis of right lower limb; E87.2 Acidosis; Z68.42 Body mass index [BMI] 45.0-49.9, adult; N17.9 Acute kidney failure, unspecified; B35.3 Tinea pedis; D69.6 Thrombocytopenia, unspecified; E11.22 Type 2 diabetes mellitus with diabetic chronic kidney disease; E66.01 Morbid (severe) obesity due to excess calories; I12.9 Hypertensive chronic kidney disease with stage 1 through stage 4 chronic kidney disease, or unspecified chronic kidney disease; I48.2 Chronic atrial fibrillation; I87.2 Venous insufficiency (chronic) (peripheral); N18.3 Chronic kidney disease, stage 3 (moderate); I87.309 Chronic venous hypertension (idiopathic) without complications of unspecified lower extremity; I89.0 Lymphedema, not elsewhere classified; Z79.01 Long term (current) use of anticoagulants; Z79.4 Long term (current) use of insulin; Z82.49 Family history of ischemic heart disease and other diseases of the circulatory system; Z87.891 Personal history of nicotine dependence; Z88.0 Allergy status to penicillin; Z98.42 Cataract extraction status, left eye; Z98.41 Cataract extraction status, right eye; Z96.1 Presence of intraocular lens; Z79.899 Other long term (current) drug therapy; Z90.49 Acquired absence of other specified parts of digestive tract
CPT/HCPCS: 36600; 71045; 80048; 80053; 81001; 81003; 82550; 82553; 82805; 83605; 83735; 84100; 84484; 85025; 85027; 87040; 87070; 87086; 87205; 94760; 96361; 96374; 99284

== ENCOUNTER 2020-01-29 13:54 | Inpatient (IN) | payer MEDICARE ==
[2020-01-29] MEDS ORDERED: SODIUM CHLORIDE 0.9% 500 ML 500 ML IV STA (14:38)
[2020-01-29] MEDS ORDERED: ACETAMINOPHEN TAB 500 MG TAB PO STA (14:41)
--- NOTE | 2020-01-29 14:49 | ED ---
General Adult HPI - General Chief complaint: Extremity Problem,Nontraumatic Stated complaint: Leg pain Time Seen by Provider: 01/29/20 14:04 Source: patient, RN notes reviewed, old records reviewed Mode of arrival: EMS Limitations: no limitations - History of Present Illness Initial comments: 79-year-old female patient past history of atrial fibrillation, type 2 diabetes, hypertension, anticoagulated on [facility] ED for chief complaint of 2 days of right lower extremity erythema, cellulitis. Patient does also report that she has had a dry cough for the last 2 weeks. Denies any chest pain or shortness of breath. Denies any other complaints. Systemic: Pt denies fatigue, fever/chills, rash. Pt denies weakness, night sweats, weight loss. Neuro: Pt denies headache, visual disturbances, syncope or pre-syncope. HEENT: Pt denies ocular discharge or irritation, otalgia, rhinorrhea, pharyngitis or notable lymphadenopathy. Cardiopulmonary: Pt denies chest pain, SOB, heart palpitations, dyspnea on exertion. Abdominal/GI: Pt denies abdominal pain, n/v/d. : Pt denies dysuria, burning w/ urination, frequency/urgency. Denies new onset urinary or bowel incontinence. MSK: Pt denies myalgia, loss of strength or function in extremities. Neuro: Pt denies new onset weakness, paresthesias. - Related Data Home Medications Medication Instructions Recorded Confirmed Furosemide [Lasix] 20 mg PO Q48H 10/02/17 01/29/20 Insulin Glargine,Hum.rec.anlog 45 unit SQ HS 10/02/17 01/29/20 [Lantus Solostar] Lisinopril-Hctz 20-25 mg 1 tab PO DAILY 10/02/17 01/29/20 [Zestoretic 20-25] cloNIDine HCL [Catapres] 0.1 mg PO BID 10/02/17 01/29/20 Furosemide [Lasix] 40 mg PO Q48H 05/24/18 01/29/20 Multivitamins, Thera [Multivitamin 1 tab PO DAILY 05/24/18 01/29/20 (formulary)] Insulin Aspart [NovoLOG Flexpen] 15 units SQ W/BRKFST 01/29/20 01/29/20 Insulin Aspart [NovoLOG Flexpen] 20 units SQ W/LUNCH 01/29/20 01/29/20 Insulin Aspart [NovoLOG Flexpen] 25 units SQ W/SUPPER 01/29/20 01/29/20 Previous Rx's Medication Instructions Recorded Apixaban [Eliquis] 5 mg PO BID #0 tab 10/06/17 Diltiazem Cd [Cardizem CD] 240 mg PO DAILY #90 cap.er.24h 10/06/17 Nadolol [Corgard] 20 mg PO BID #180 tab 10/06/17 Allergies Allergy/AdvReac Type Severity Reaction Status Date / Time Penicillins Allergy Rash/Hives Verified 01/29/20 17:16 Review of Systems ROS Statement: Those systems with pertinent positive or pertinent negative responses have been documented in the HPI. ROS Other: All systems not noted in ROS Statement are negative. Past Medical History Past Medical History: Atrial Fibrillation, Diabetes Mellitus, Hypertension Additional Past Medical History / Comment(s): Obesity with a BMI of 49.6, hypertension, chronic atrial fibrillation, diabetes mellitus, recurrent Celexa the right lower extremity, lymphedema of the right lower extremity, osteoarthritis History of Any Multi-Drug Resistant Organisms: None Reported Past Surgical History: Section, Cholecystectomy, Hernia Repair Additional Past Surgical History / Comment(s): Abdominal hernia repair with mesh, benign lump removed right breast, bilateral cataract removal with lens implants. Past Anesthesia/Blood Transfusion Reactions: No Reported Reaction Past Psychological History: No Psychological Hx Reported Smoking Status: Former smoker Past Alcohol Use History: None Reported Past Drug Use History: None Reported - Past Family History Father Family Medical History: Coronary Artery Disease (CAD), Myocardial Infarction (ME) Additional Family Medical History / Comment(s): Father had several MIs with the first time being while he was in his 50s. He of a ME at the age of 75 yrs. Mother Family Medical History: No Reported History Additional Family Medical History / Comment(s): Mother was healthy and lived to be 91 yrs old. General Exam - General Exam Comments Initial Comments: Constitutional: NAD, AOX3, Pt has pleasant affect. HEENT: NC/AT, trachea midline, neck supple, no lymphadenopathy. Posterior pharynx non erythematous, without exudates. External ears appear normal, without discharge. Mucous membranes moist. Eyes PERRLA, EOM intact. There is no scleral icterus. No pallor noted. Cardiopulmonary: RRR, no murmurs, rubs or gallops, no JVD noted. Lungs CTAB in anterior and posterior manuel. No peripheral edema. Abdominal exam: Abdomen soft and non-distended. Abdomen non-tender to palpation in all 4 quadrants. Bowel sounds active in LLQ. No hepatosplenomegaly. No ecchy mosis Neuro: CN II-XII grossly intact. No nuchal rigidity. No raccon eyes, no ford sign, no hemotympanum. No cervical spinal tenderness. MSK: No posterior calf tenderness bilaterally, homans sign negative bilaterally. Posterior tibialis and radial pulse +2 bilaterally. Sensation intact in upper a nd lower extremities. Cellulitis noted anterior aspect of right lower extremity, no crepitus. Limitations: no limitations Course Vital Signs 01/29/20 01/29/20 01/29/20 14:00 16:31 18:01 Temperature 101.4 F H 100.2 F H 99.9 F H Pulse Rate 67 67 60 Respiratory 18 20 18 Rate Blood Pressure 118/45 112/48 98/55 O2 Sat by Pulse 98 96 96 Oximetry Medical Decision Making - Medical Decision Making 79-year-old female patient presents to ED for evaluation of right lower extremity cellulitis. Reports of vomiting last 2 days. Denies any other complaints. Patient vital signs displayed fever, patient administered antipyretic. Laboratory investigations revealed lekocytosis of 32.5, lactic acid of 4.2, anion gap of 16, CXR revealed minimal pulmonary vascular congestion. Coronavirus is negative. Pt will be admitted, started on ceftriaxone and vancomycin. Case discussed with Dr. Wahl. - Lab Data Result diagrams: 01/29/20 14:25 01/29/20 14:25 Lab Results 01/29/20 01/29/20 01/29/20 Range/Units 14:25 14:25 14:25 WBC 32.5 H (3.8-10.6) k/uL RBC 4.60 (3.80-5.40) m/uL Hgb 12.4 (11.4-16.0) gm/dL Hct 38.5 (34.0-46.0) % MCV 83.7 (80.0-100.0) fL MCH 26.9 (25.0-35.0) pg MCHC 32.2 (31.0-37.0) g/dL RDW 14.3 (11.5-15.5) % Plt Count 179 (150-450) k/uL Neutrophils % Not Reportable Neutrophils % (Manual) 85 % Band Neutrophils % 7 % Lymphocytes % Not Reportable Lymphocytes % (Manual) 4 % Monocytes % Not Reportable Monocytes % (Manual) 4 % Eosinophils % Not Reportable Basophils % Not Reportable Neutrophils # Not Reportable Neutrophils # (Manual) 29.90 H (1.3-7.7) k/uL Lymphocytes # Not Reportable Lymphocytes # (Manual) 1.30 (1.0-4.8) k/uL Monocytes # Not Reportable Monocytes # (Manual) 1.30 H (0-1.0) k/uL Eosinophils # Not Reportable Basophils # Not Reportable Nucleated RBCs 0 (0-0) /100 WBC Manual Slide Review Performed Toxic Granulation Present RBC Morphology Normal Sodium 132 L (137-145) mmol/L Potassium 4.4 (3.5-5.1) mmol/L Chloride 88 L (98-107) mmol/L Carbon Dioxide 28 (22-30) mmol/L Anion Gap 16 mmol/L BUN 34 H (7-17) mg/dL Creatinine 1.80 H (0.52-1.04) mg/dL Est GFR (CKD-EPI)AfAm 30 (>60 ml/min/1.73 sqM) Est GFR (CKD-EPI)NonAf 26 (>60 ml/min/1.73 sqM) Glucose 261 H (74-99) mg/dL Plasma Lactic Acid Nacho 4.2 H* (0.7-2.0) mmol/L Calcium 10.7 H (8.4-10.2) mg/dL Total Bilirubin 2.0 H (0.2-1.3) mg/dL AST 65 H (14-36) U/L ALT 21 (4-34) U/L Alkaline Phosphatase 130 H (38-126) U/L Total Protein 7.4 (6.3-8.2) g/dL Albumin 4.0 (3.5-5.0) g/dL Coronavirus (PCR) (Not Detectd) 01/29/20 Range/Units 16:50 WBC (3.8-10.6) k/uL RBC (3.80-5.40) m/uL Hgb (11.4-16.0) gm/dL Hct (34.0-46.0) % MCV (80.0-100.0) fL MCH (25.0-35.0) pg MCHC (31.0-37.0) g/dL RDW (11.5-15.5) % Plt Count (150-450) k/uL Neutrophils % Neutrophils % (Manual) % Band Neutrophils % % Lymphocytes % Lymphocytes % (Manual) % Monocytes % Monocytes % (Manual) % Eosinophils % Basophils % Neutrophils # Neutrophils # (Manual) (1.3-7.7) k/uL Lymphocytes # Lymphocytes # (Manual) (1.0-4.8) k/uL Monocytes # Monocytes # (Manual) (0-1.0) k/uL Eosinophils # Basophils # Nucleated RBCs (0-0) /100 WBC Manual Slide Review Toxic Granulation RBC Morphology Sodium (137-145) mmol/L Potassium (3.5-5.1) mmol/L Chloride (98-107) mmol/L Carbon Dioxide (22-30) mmol/L Anion Gap mmol/L BUN (7-17) mg/dL Creatinine (0.52-1.04) mg/dL Est GFR (CKD-EPI)AfAm (>60 ml/min/1.73 sqM) Est GFR (CKD-EPI)NonAf (>60 ml/min/1.73 sqM) Glucose (74-99) mg/dL Plasma Lactic Acid Nacho (0.7-2.0) mmol/L Calcium (8.4-10.2) mg/dL Total Bilirubin (0.2-1.3) mg/dL AST (14-36) U/L ALT (4-34) U/L Alkaline Phosphatase (38-126) U/L Total Protein (6.3-8.2) g/dL Albumin (3.5-5.0) g/dL Coronavirus (PCR) Not Detected (Not Detectd) - EKG Data -: EKG Interpreted by Me EKG Comments: Ventricular rate 71 SD interval 146, QRS 80, QT/QTC 414/449. Sats rhythm with marked sinus arrhythmia. Nonspecific T-wave abnormalities. Disposition Clinical Impression: Cellulitis Disposition: ADMITTED IP TO THIS HOSP Condition: Stable Is patient prescribed a controlled substance at d/c from ED?: No Referrals: Armaan Snyder MD [Primary Care Provider] - 1-2 days
[2020-01-29 15:14] LABS: HCT 38.5 % (34.0-46.0); HGB 12.4 gm/dL (11.4-16.0); MCH 26.9 pg (25.0-35.0); MCHC 32.2 g/dL (31.0-37.0); MCV 83.7 fL (80.0-100.0); Mean Platelet Volume 10.1; Platelet Count 179 k/uL (150-450); RDW 14.3 % (11.5-15.5); WBC 32.5 k/uL (3.8-10.6)
[2020-01-29 15:18] LABS: Calcium 10.7 mg/dL (8.4-10.2); Total Protein 7.4 g/dL (6.3-8.2)
[2020-01-29 15:22] LABS: Potassium 4.4 mmol/L (3.5-5.1)
[2020-01-29] MEDS ORDERED: SODIUM CHLORIDE 0.9% 1,000 ML IV ONE (15:24)
[2020-01-29] MEDS ORDERED: VANCOMYCIN IV PER PHARMACY 1 EACH MISC MISCELLANE PRN (15:27)
[2020-01-29 15:31] LABS: Band Neutrophils % 7 %; Neutrophils % (M) 85 %; Nucleated Red Blood Cells 0 /100 WBC (0-0); Total Cells Counted 100; Toxic Granulation Present
[2020-01-29] MEDS ORDERED: VANCOMYCIN 2,000 MG in SODIUM CHLORIDE 0.9% 500 ML 500 ML IVPB ONE (16:00)
--- NOTE | 2020-01-29 16:22 | XR ---
EXAMINATION TYPE: XR chest 2V DATE OF EXAM: 01/29/2020 COMPARISON: 05/25/2018 HISTORY: Abdominal pain TECHNIQUE: Frontal and lateral views of the chest are obtained. FINDINGS: There is a trace left pleural effusion. The cardiac silhouette size is enlarged. Minima l pulmonary vascular congestion in comparison to the prior. The osseous structures are intact. Modera te multilevel degenerative change of the spine. IMPRESSION: Trace left pleural effusion, cardiomegaly and minimal new pulmonary vascular congestion. Consider congestive heart failure.
[2020-01-29] MEDS ORDERED: SODIUM CHLORIDE 0.9% 500 ML 500 ML IV ONE (16:31)
[2020-01-29] MEDS ORDERED: NALOXONE 0.4 MG/ML 1 ML VIAL IV PRN (18:05)
[2020-01-29] MEDS ORDERED: ACETAMINOPHEN TAB 325 MG TAB PO PRN (18:05)
[2020-01-29] MEDS ORDERED: HEPARIN SODIUM,PORCINE 5,000 UNIT/ML 1 ML VIAL SQ SCH (21:00)
--- NOTE | 2020-01-29 21:39 | P.HPIM ---
History of Present Illness H&P Date: 01/29/20 The patient is a 79 yo F with a PMH of type II DM, afib (on Eliquis), hypertension, chronic venous stasis with multiple episodes of right lower extremity cellulitis, and morbid obesity who presented to the ED with complaints of 2 days of right lower extremity swelling, redness, and pain. The patient notes that her symptoms started gradually, and was in line with her previous episodes of cellulitis. The patient also reports that she has been having a non-productive cough for "this entire winter", though denied shortness of breath, fever, chills, or sore throat. She further denied abdominal pain, diarrhea, or chest pain. She underwent an extensive evaluation in the emergency room with chest x-ray consistent with pulmonary venous congestion, and laboratory evaluation showing WBC count 32.5, sodium 132, potassium 4.4, BNP 11,900, BUN 34, creatinine 1.8 (baseline 1.0), lactic acid 4.2, and coronavirus PCR negative. She was given Vancomycin and Ceftriaxone and is admitted to the medicine service for further management. Review of Systems Pertinent positives and negatives as discussed in HPI, a complete review of systems was performed and all other systems are negative. Past Medical History Past Medical History: Atrial Fibrillation, Diabetes Mellitus, Hypertension Additional Past Medical History / Comment(s): Obesity with a BMI of 49.6, hypertension, chronic atrial fibrillation, diabetes mellitus, recurrent Celexa the right lower extremity, lymphedema of the right lower extremity, osteo arthritis History of Any Multi-Drug Resistant Organisms: None Reported Past Surgical History: Section, Cholecystectomy, Hernia Repair Additional Past Surgical History / Comment(s): Abdominal hernia repair with mesh, benign lump removed right breast, bilateral cataract removal with lens implants. Past Anesthesia/Blood Transfusion Reactions: No Reported Reaction Past Psychological History: No Psychological Hx Reported Additional Psychological History / Comment(s): Pt resides with her spouse. She uses a cane or a walker when out. She does'nt drive/spouse takes to [employer]. 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 Stopped smoking in her early 20s. No alcohol use. experience. No current pets in the home. Only travel was to the [facility] in [place] no international travel Smoking Status: Former smoker Past Alcohol Use History: None Reported Additional Past Alcohol Use History / Comment(s): Pt states she started smoking age 16 and quit in 1967.less than 1 ppd Past Drug Use History: None Reported - Past Family History Father Family Medical History: Coronary Artery Disease (CAD), Myocardial Infarction (W[place]) Additional Family Medical History / Comment(s): Father had several MIs with the first time being while he was in his 50s. He of a [place] at the age of 75 yrs. Mother Family Medical History: No Reported History Additional Family Medical History / Comment(s): Mother was healthy and lived to be 91 yrs old. Medications and Allergies Home Medications Medication Instructions Recorded Confirmed Type Furosemide [Lasix] 20 mg PO Q48H 10/02/17 01/29/20 History Insulin Glargine,Hum.rec.anlog 45 unit SQ HS 10/02/17 01/29/20 History [Lantus Solostar] Lisinopril-Hctz 20-25 mg 1 tab PO DAILY 10/02/17 01/29/20 History [Zestoretic 20-25] cloNIDine HCL [Catapres] 0.1 mg PO BID 10/02/17 01/29/20 History Apixaban [Eliquis] 5 mg PO BID #0 tab 10/06/17 01/29/20 Rx Diltiazem Cd [Cardizem CD] 240 mg PO DAILY #90 cap.er.24h 10/06/17 01/29/20 Rx Nadolol [Corgard] 20 mg PO BID #180 tab 10/06/17 01/29/20 Rx Furosemide [Lasix] 40 mg PO Q48H 05/24/18 01/29/20 History Multivitamins, Thera [Multivitamin 1 tab PO DAILY 05/24/18 01/29/20 History (formulary)] Insulin Aspart [NovoLOG Flexpen] 15 units SQ W/BRKFST 01/29/20 01/29/20 History Insulin Aspart [NovoLOG Flexpen] 20 units SQ W/LUNCH 01/29/20 01/29/20 History Insulin Aspart [NovoLOG Flexpen] 25 units SQ W/SUPPER 01/29/20 01/29/20 History Allergies Allergy/AdvReac Type Severity Reaction Status Date / Time Penicillins Allergy Rash/Hives Verified 01/29/20 17:16 Physical Exam Vitals: Vital Signs Temp Pulse Pulse Resp BP BP Pulse Ox 01/29/20 19:54 97.9 F 56 L 18 93/47 95 01/29/20 18:43 57 L 18 100/48 96 01/29/20 18:01 99.9 F H 60 18 98/55 96 01/29/20 16:31 100.2 F H 67 20 112/48 96 01/29/20 14:00 101.4 F H 67 18 118/45 98 Intake and Output 01/29/20 01/29/20 01/29/20 06:59 14:59 22:59 Other: Weight 127.006 kg 127.006 kg General: non toxic, no distress, appears at stated age, morbidly obese Derm: RLE erythema and some induration, tenderness to palpation, warm, dry Head: atraumatic, normocephalic, symmetric Eyes: EOMI, no lid lag, anicteric sclera, pupils equal round reactive to light ENT: Nose and ears atraumatic, no thrush, no pharyngeal erythema Neck: No thyromegaly, no cervical lymphadenopathy, trachea midline, supple Mouth: no lip lesion, mucus membranes moist Cardiovascular: S1S2 reg, no murmur, positive posterior tibial pulse bilateral, capillary refill less than 2 seconds Lungs: Bibasilar rales, no rhonchi, no accessory muscle use Abdominal: soft, nontender to palpation, no guarding, no appreciable or ganomegaly, normal bowel sounds Ext: no gross muscle atrophy, muscle strength 4 out of 5 in all 4 extremities grossly, no contractures Neuro: CN II-XI grossly intact, light touch intact all 4 extremities, finger to nose within normal limits, Psych: Alert, oriented, appropriate affect Results CBC & Chem 7: 01/29/20 14:25 01/29/20 14:25 Labs: Abnormal Lab Results - Last 24 Hours (Table) 01/29/20 01/29/20 01/29/20 Range/Units 14:25 14:25 14:25 WBC 32.5 H (3.8-10.6) k/uL Neutrophils # (Manual) 29.90 H (1.3-7.7) k/uL Monocytes # (Manual) 1.30 H (0-1.0) k/uL Sodium 132 L (137-145) mmol/L Chloride 88 L (98-107) mmol/L BUN 34 H (7-17) mg/dL Creatinine 1.80 H (0.52-1.04) mg/dL Glucose 261 H (74-99) mg/dL Plasma Lactic Acid Nacho 4.2 H* (0.7-2.0) mmol/L Calcium 10.7 H (8.4-10.2) mg/dL Total Bilirubin 2.0 H (0.2-1.3) mg/dL AST 65 H (14-36) U/L Alkaline Phosphatase 130 H (38-126) U/L Thrombosis Risk Factor Assmnt - Choose All That Apply Each Factor Represents 1 point: Swollen legs (current) Other congenital or acquired thrombophilia - If yes, enter type in comment: No Thrombosis Risk Factor Assessment Total Risk Factor Score: 1 Thrombosis Risk Factor Assessment Level: Low Risk Assessment and Plan Plan: Severe sepsis secondary to RLE cellulitis in setting of chronic venous stasis -Blood cultures previous grew MSSA and GBS -C/w Ceftriaxone and Vancomycin for now -F/u blood cultures Lactic acidosis -Resolved NATE -S/p 3L of NS -C/w gentle hydration in setting of elevated BNP and signs of fluid overload Hypochloremic hyponatremia -Possibly due to dehydration and poor oral intake -Monitor BMP for now -Gentle hydration Elevated total bilirubin -Likely due to acute illness -Monitor for now Fluid overload -No previous diagnosis of CHF -Obtain Echo Chronic Afib, on Eliquis -C/w home meds: Tian Nolasco Type 2 DM -Obtain A1C -C/w Insulin Levemir 35 U (takes 45 U qhs at home) -C/w Lispro 15 U TIDAC (takes 15 U breakfast, 20 U lunch, and 25 U w/ supper) -Blood glucose monitoring -OANH HTN -Hold Lisinopril and HCTZ in setting of NATE -C/w Clonidine DVT prophylaxis -Eliquis The patient is admitted with an anticipated more than 2 midnight stay for evaluation of RLE cellulitis CODE STATUS: No Code Discussed with: Patient Anticipated discharge date: 2-[address]: Home A total of 45 minutes was spent on the care of this complex patient more than 50% of the time was spent in counseling and care coordination.
--- NOTE | 2020-01-29 21:42 | P.PN ---
Progress Note - Text Progress Note Date: 01/29/20 Advanced Care Planning Active Diagnosis: Severe sepsis from RLE cellulitis Persons present: Patient Summary: Discussed the patient's goals of care with her in great detail. The patient noted that she previously has filled out a power of consumer attorney and living will paperwork, and she had expressed her wishes to be a DO NOT RESUSCITATE/DO NOT INTUBATE. She reported that in the event of cardiac arrest, she would not wish to undergo CPR or be placed on most forms of life support including mechanical ventilation or dialysis. She may consent to IV pressor support if need be. She notes that she has lived a long life and that her priority is comfort if her time does come. Time spent: Total time spent face to face in education and discussion directly related to advanced care plannin minutes
[2020-01-29 22:04] LABS: Glucose,Whole Blood 277 mg/dL (75-99)
[2020-01-29] MEDS: INSULIN DETEMIR (LEVEMIR) 100 UNIT/ML SYR SQ SCH (22:24)
[2020-01-30 06:57] LABS: Glucose,Whole Blood 176 mg/dL (75-99)
[2020-01-30 07:02] LABS: Calcium 9.8 mg/dL (8.4-10.2); Potassium 3.6 mmol/L (3.5-5.1)
[2020-01-30 07:05] LABS: Basophils % (A) 0 %; Eosinophils # (A) 0.1 k/uL (0-0.7); Eosinophils % (A) 1 %; HCT 35.5 % (34.0-46.0); HGB 11.2 gm/dL (11.4-16.0); Hypochromasia Slight; Lymphocytes # (A) 0.6 k/uL (1.0-4.8); Lymphocytes % (A) 3 %; MCH 26.8 pg (25.0-35.0); MCHC 31.6 g/dL (31.0-37.0); MCV 84.7 fL (80.0-100.0); Mean Platelet Volume 8.9; Monocytes # (A) 0.5 k/uL (0-1.0); Monocytes % (A) 3 %; Neutrophils # (A) 15.9 k/uL (1.3-7.7); Neutrophils % (A) 92 %; Platelet Count 201 k/uL (150-450); RBC 4.19 m/uL (3.80-5.40); WBC 17.3 k/uL (3.8-10.6)
[2020-01-30] MEDS: MULTIVITAMINS, THERA 1 EACH TAB PO SCH (08:22)
[2020-01-30] MEDS: DILTIAZEM CD 240 MG CAP.ER.24H PO SCH (08:22)
[2020-01-30] MEDS: NADOLOL 20 MG TAB PO SCH ×2 (08:22→22:12)
[2020-01-30] MEDS: APIXABAN 5 MG TAB PO SCH ×2 (08:23→22:12)
[2020-01-30] MEDS: cloNIDine HCL 0.1 MG TAB PO SCH ×2 (08:23→22:12)
[2020-01-30] MEDS: INSULIN ASPART (NovoLOG) 100 UNIT/ML VIAL SQ SCH ×7 (08:23→22:13)
--- NOTE | 2020-01-30 10:00 | ECHOF ---
Referral Reason:Fluid overload MEASUREMENTS -------- HEIGHT: 160.0 cm WEIGHT: 127.0 kg BP: 96/46 RVIDd: 3.4 cm (< 3.3) IVSd: 1.5 cm (0.6 - 1.1) LVIDd: 5.0 cm (3.9 - 5.3) LVPWd: 1.4 cm (0.6 - 1.1) IVSs: 2.2 cm LVIDs: 3.3 cm LVPWs: 1.9 cm LAESV Index (A-L): 27.37 ml/m Ao Diam: 2.9 cm (2.0 - 3.7) AV Cusp: 1.7 cm (1.5 - 2.6) RAP: 15.00 mmHg RVSP: 47.23 mmHg FINDINGS -------- Atrial fibrillation. This was a technically difficult study with suboptimal views. The left ventricular size is normal. There is moderate concentric left ventricular hypertrophy. O verall left ventricular systolic function is low-normal with, an EF between 50 - 55 %. The right ventricle is mildly enlarged. Normal LA size by volume 22+/-6 ml/m2. The right atrial size is normal. 5.0mg of Lumason was utilized for enhancement of images The aortic valve was not well visualized. Mild mitral annular calcification present. Mild mitral regurgitation is present. Mild tricuspid regurgitation present. There is mild to moderate pulmonary hypertension. The right ventricular systolic pressure, as measured by Doppler, is 47.23mmHg. The pulmonic valve was not well visualized. There is no pulmonic regurgitation present. The aortic root size is normal. The inferior vena cava is dilated with no significant inspiratory collapse which is consistent estima tez right atrial pressure of >15 mmHg. There is no pericardial effusion. CONCLUSIONS -------- 1. This was a technically difficult study with suboptimal views. 2. There is moderate concentric left ventricular hypertrophy. 3. Overall left ventricular systolic function is low-normal with, an EF between 50 - 55 %. 4. The right ventricle is mildly enlarged. 5. Normal LA size by volume 22+/-6 ml/m2. 6. 5.0mg of Lumason was utilized for enhancement of images 7. The aortic valve was not well visualized. 8. Mild mitral annular calcification present. 9. Mild mitral regurgitation is present. 10. Mild tricuspid regurgitation present. 11. There is mild to moderate pulmonary hypertension. 12. The inferior vena cava is dilated with no significant inspiratory collapse which is consistent es timated right atrial pressure of >15 mmHg. APPLICATION PACKAGER: Ivette Maldonado RDCS
[2020-01-30] MEDS ORDERED: SODIUM CHLORIDE 0.9% 1,000 ML IV STA (10:01)
--- NOTE | 2020-01-30 10:06 | P.PN ---
Subjective Progress Note Date: 01/30/20 Principal diagnosis: RLE cellulitis Patient was seen today, she denied having any shortness of breath, no fevers or chills. No pain in the right leg. No nausea or vomiting. No diarrhea. Objective - Vital Signs Vital signs: Vital Signs Temp 98.3 F 01/30/20 07:00 Pulse 79 01/30/20 07:00 Resp 15 01/30/20 07:00 BP 104/64 01/30/20 07:00 Pulse Ox 93 L 01/30/20 07:00 Intake & Output 01/29/20 01/30/20 01/30/20 18:59 06:59 18:59 Intake Total 0 140 Output Total 0 Balance 0 140 Weight 127.006 kg Intake: Oral 0 140 Output: Urine 0 Other: # Voids 1 - Exam Constitutional: No acute distress, conversant, pleasant Eyes:Anicteric sclerae, moist conjunctiva, no lid-lag, PERRLA, ENMT: Oropharynx clear, no erythema, exudates Neck: Supple, FROM, no masses, or JVD, No carotid bruits, No thyromegaly Lungs: Clear to auscultation, Clear to percussion, Normal respiratory effort, no accessory muscle use Cardiovascular: Heart regular in rate and rhythm, No murmurs, gallops, or rubs, trace peripheral edema Abdominal: Soft, Nontender, no guarding, rebound or rigidity, Normoactive bowel sounds, No hepatomegaly, No splenomegaly, No palpable mass Skin: Normal temperature, tone, texture, turgor, no induration, No subcutaneous nodules, No rash, lesions, No ulcers Extremities: Right leg erythema up to the knee. No digital cyanosis, No clubbing, Pedal pulses intact and symmetrical, Radial pulses intact and sy mmetrical, No calf tenderness Psychiatric: Alert and oriented to person, place and time, appropriate affect, intact judgement Neuro: Muscles Strength 5/5 in all 4 extremities, Sensation to light touch grossly present throughout, Cranial nerves II-XII grossly intact, no focal sensory deficits - Labs CBC & Chem 7: 01/30/20 06:12 01/30/20 06:12 Labs: Abnormal Lab Results - Last 24 Hours (Table) 01/29/20 01/29/20 01/29/20 Range/Units 14:25 14:25 14:25 WBC 32.5 H (3.8-10.6) k/uL Hgb (11.4-16.0) gm/dL Neutrophils # (1.3-7.7) k/uL Neutrophils # (Manual) 29.90 H (1.3-7.7) k/uL Lymphocytes # (1.0-4.8) k/uL Monocytes # (Manual) 1.30 H (0-1.0) k/uL Sodium 132 L (137-145) mmol/L Chloride 88 L (98-107) mmol/L BUN 34 H (7-17) mg/dL Creatinine 1.80 H (0.52-1.04) mg/dL Glucose 261 H (74-99) mg/dL POC Glucose (mg/dL) (75-99) mg/dL Plasma Lactic Acid Nacho 4.2 H* (0.7-2.0) mmol/L Calcium 10.7 H (8.4-10.2) mg/dL Total Bilirubin 2.0 H (0.2-1.3) mg/dL AST 65 H (14-36) U/L Alkaline Phosphatase 130 H (38-126) U/L 01/29/20 01/30/20 01/30/20 Range/Units 22:03 06:12 06:12 WBC 17.3 H (3.8-10.6) k/uL Hgb 11.2 L (11.4-16.0) gm/dL Neutrophils # 15.9 H (1.3-7.7) k/uL Neutrophils # (Manual) (1.3-7.7) k/uL Lymphocytes # 0.6 L (1.0-4.8) k/uL Monocytes # (Manual) (0-1.0) k/uL Sodium 134 L (137-145) mmol/L Chloride 94 L (98-107) mmol/L BUN 43 H (7-17) mg/dL Creatinine 2.03 H (0.52-1.04) mg/dL Glucose 173 H (74-99) mg/dL POC Glucose (mg/dL) 277 H (75-99) mg/dL Plasma Lactic Acid Nacho (0.7-2.0) mmol/L Calcium (8.4-10.2) mg/dL Total Bilirubin (0.2-1.3) mg/dL AST (14-36) U/L Alkaline Phosphatase (38-126) U/L 01/30/20 Range/Units 06:55 WBC (3.8-10.6) k/uL Hgb (11.4-16.0) gm/dL Neutrophils # (1.3-7.7) k/uL Neutrophils # (Manual) (1.3-7.7) k/uL Lymphocytes # (1.0-4.8) k/uL Monocytes # (Manual) (0-1.0) k/uL Sodium (137-145) mmol/L Chloride (98-107) mmol/L BUN (7-17) mg/dL Creatinine (0.52-1.04) mg/dL Glucose (74-99) mg/dL POC Glucose (mg/dL) 176 H (75-99) mg/dL Plasma Lactic Acid Nacho (0.7-2.0) mmol/L Calcium (8.4-10.2) mg/dL Total Bilirubin (0.2-1.3) mg/dL AST (14-36) U/L Alkaline Phosphatase (38-126) U/L Assessment and Plan Plan: Severe sepsis secondary to RLE cellulitis in setting of chronic venous stasis -C/w Ceftriaxone and Vancomycin -Awaiting culture results NATE on CKD 3 -S/p 3L of NS in the emergency department -Gentle hydration in setting of elevated BNP and signs of fluid overload -Repeat creatinine in a.m. Hypochloremic hyponatremia -Improved -Possibly due to dehydration and poor oral intake -Monitor BMP for now -Gentle hydration Fluid overload -No previous diagnosis of CHF -Echo done pending Chronic Afib, on Eliquis -C/w home meds: Tian Nolasco Type 2 DM -A1C -C/w Insulin Levemir 35 U (takes 45 U qhs at home) -C/w Lispro 15 U TIDAC (takes 15 U breakfast, 20 U lunch, and 25 U w/ supper) -Blood glucose monitoring -OANH HTN -Holding Lisinopril and HCTZ in setting of NATE -C/w Clonidine DVT prophylaxis -Eliquis CODE STATUS: No Code Discussed with: Patient Anticipated discharge date: 1-[address]: Home A total of 45 minutes was spent on the care of this complex patient more than 50% of the time was spent in counseling and care coordination.
[2020-01-30] MEDS ORDERED: VANCOMYCIN 2,000 MG in SODIUM CHLORIDE 0.9% 500 ML 500 ML IVPB ONE (12:00)
[2020-01-30 12:17] LABS: Glucose,Whole Blood 133 mg/dL (75-99)
[2020-01-30 14:05] LABS: Hemoglobin A1C 9.4 % (4.0-6.0)
[2020-01-30 16:46] LABS: Glucose,Whole Blood 92 mg/dL (75-99)
[2020-01-30 18:18] LABS: Amorphous Sediment,Urine Rare /hpf; Appearance,Urine Cloudy (Clear); Bacteria,Urine Rare /hpf; Bilirubin,Urine Negative (Negative); Blood,Urine Small (Negative); Color,Urine Yellow; Glucose,Urine (UA) Negative (Negative); Hyaline Casts,Urine 10 /lpf (0-2); Ketones,Urine Negative (Negative); Leukocyte Esterase,Urine Moderate (Negative); Mucus,Urine Rare /hpf; Nitrite,Urine Negative (Negative); Protein,Urine 1+ (Negative); RBC,Urine 17 /hpf (0-5); Squamous Epithelial Cell,Urine 12 /hpf (0-4); Urobilinogen,Urine <2.0 mg/dL (<2.0); WBC,Urine 22 /hpf (0-5)
[2020-01-30 20:50] LABS: Glucose,Whole Blood 144 mg/dL (75-99)
[2020-01-30] MEDS: INSULIN DETEMIR (LEVEMIR) 100 UNIT/ML SYR SQ SCH (22:13)
[2020-01-31 07:05] LABS: Glucose,Whole Blood 95 mg/dL (75-99)
[2020-01-31] MEDS: APIXABAN 5 MG TAB PO SCH ×2 (08:28→21:05)
[2020-01-31] MEDS: DILTIAZEM CD 240 MG CAP.ER.24H PO SCH (08:28)
[2020-01-31] MEDS: MULTIVITAMINS, THERA 1 EACH TAB PO SCH (08:28)
[2020-01-31] MEDS: NADOLOL 20 MG TAB PO SCH ×2 (08:29→21:05)
[2020-01-31] MEDS: cloNIDine HCL 0.1 MG TAB PO SCH ×2 (08:29→21:05)
[2020-01-31] MEDS: INSULIN ASPART (NovoLOG) 100 UNIT/ML VIAL SQ SCH ×7 (08:29→22:41)
[2020-01-31 10:19] LABS: Basophils # (A) 0.1 k/uL (0-0.2); Basophils % (A) 0 %; Eosinophils # (A) 0.4 k/uL (0-0.7); Eosinophils % (A) 4 %; HCT 36.7 % (34.0-46.0); HGB 11.6 gm/dL (11.4-16.0); Hypochromasia Slight; Lymphocytes # (A) 0.5 k/uL (1.0-4.8); Lymphocytes % (A) 4 %; MCH 26.8 pg (25.0-35.0); MCHC 31.5 g/dL (31.0-37.0); MCV 85.2 fL (80.0-100.0); Mean Platelet Volume 9.1; Monocytes # (A) 0.4 k/uL (0-1.0); Monocytes % (A) 4 %; Neutrophils # (A) 9.8 k/uL (1.3-7.7); Neutrophils % (A) 86 %; Platelet Count 211 k/uL (150-450); RBC 4.31 m/uL (3.80-5.40); RDW 13.9 % (11.5-15.5); WBC 11.4 k/uL (3.8-10.6)
[2020-01-31 10:26] LABS: Albumin 3.2 g/dL (3.5-5.0); Calcium 9.9 mg/dL (8.4-10.2); Magnesium 1.7 mg/dL (1.6-2.3); Phosphorus 2.4 mg/dL (2.5-4.5); Total Bilirubin 0.5 mg/dL (0.2-1.3); Total Protein 6.4 g/dL (6.3-8.2)
[2020-01-31 10:31] LABS: Vancomycin,Random 23.4 ug/mL
[2020-01-31 11:48] LABS: Glucose,Whole Blood 142 mg/dL (75-99)
[2020-01-31 13:59] VITALS: BMI 49.6
[2020-01-31 17:01] LABS: Glucose,Whole Blood 179 mg/dL (75-99)
--- NOTE | 2020-01-31 18:39 | P.PN ---
Subjective Progress Note Date: 01/31/20 (delayed charting seen at 1030) Principal diagnosis: Right lower extremity redness Patient is a 79-year-old female with a past medical history of diabetes mellitus type 2 insulin requiring, atrial fibrillation on Eliquis, hypertension, and chronic peripheral vascular disease with multiple episodes of right lower extremity cellulitis who presented to the emergency department state 2 days of right lower extremity swelling, redness, and pain. In the ER she underwent an extensive evaluation. She was subsequently diagnosed with cellulitis with sepsis. She will had been planning of a cough and was found to be coping 19 PCR negative. She was started on vancomycin and Rocephin. After 24 hours of IV antibiotics her white blood cell count went from 32.5-17.3. Overnight on 01/30 she did have extravasation of her vancomycin resulting in an area of necrosis. Seen and examined at bedside. She denies any pain in her left upper extremity though it appears swollen and there is an area of white central marking and significant edema. She states that her right lower extremity is much less red, less painful, and less swollen. She denies any chest pain, shortness breath, nausea, vomiting, or diarrhea. Objective - Vital Signs Vital signs: Vital Signs Temp 97.3 F L 01/31/20 15:00 Pulse 67 01/31/20 15:00 Resp 17 01/31/20 15:00 BP 119/80 01/31/20 15:00 Pulse Ox 96 01/31/20 15:00 Intake & Output 01/30/20 01/31/20 01/31/20 18:59 06:59 18:59 Intake Total 280 850 Output Total 0 Balance 280 850 Weight 127.006 kg Intake: Oral 280 850 Output: Urine 0 Other: Voiding Method Bedpan # Voids 3 1 1 - Exam General: Ill-appearing, no distress, appears at stated age Derm: warm, dry Head: atraumatic, normocephalic, symmetric Eyes: EOMI, no lid lag, anicteric sclera Mouth: no lip lesion, mucus membranes moist Cardiovascular: S1S2 reg, no murmur, positive posterior tibial pulse bilateral, Lungs: Decreased breath sounds bilateral, no rhonchi, no rales , no accessory muscle use Abdominal: soft, nontender to palpation, no guarding, no appreciable organomegaly Ext: no gross muscle atrophy, 2+ edema with redness and warmth the right lower extremity, no contractures left upper arm with significant edema with fluctuance, central area of slight necrosis Neuro: CN II-XI grossly intact, no focal neuro deficits Psych: Alert, oriented, appropriate affect - Labs CBC & Chem 7: 01/31/20 09:30 01/31/20 09:30 Labs: Abnormal Lab Results - Last 24 Hours (Table) 01/29/20 01/30/20 01/31/20 Range/Units 17:30 20:48 09:30 WBC (3.8-10.6) k/uL Neutrophils # (1.3-7.7) k/uL Lymphocytes # (1.0-4.8) k/uL Sodium 135 L (137-145) mmol/L Chloride 96 L (98-107) mmol/L Carbon Dioxide 33 H (22-30) mmol/L BUN 41 H (7-17) mg/dL Creatinine 1.81 H (0.52-1.04) mg/dL Glucose 149 H (74-99) mg/dL POC Glucose (mg/dL) 144 H (75-99) mg/dL Phosphorus 2.4 L (2.5-4.5) mg/dL AST 44 H (14-36) U/L Albumin 3.2 L (3.5-5.0) g/dL Urine Appearance Cloudy H (Clear) Urine Protein 1+ H (Negative) Urine Blood Small H (Negative) Ur Leukocyte Esterase Moderate H (Negative) Urine RBC 17 H (0-5) /hpf Urine WBC 22 H (0-5) /hpf Ur Squamous Epith Cells 12 H (0-4) /hpf Amorphous Sediment Rare H (None) /hpf Urine Bacteria Rare H (None) /hpf Hyaline Casts 10 H (0-2) /lpf Urine Mucus Rare H (None) /hpf 01/31/20 01/31/20 01/31/20 Range/Units 09:30 11:46 16:59 WBC 11.4 H (3.8-10.6) k/uL Neutrophils # 9.8 H (1.3-7.7) k/uL Lymphocytes # 0.5 L (1.0-4.8) k/uL Sodium (137-145) mmol/L Chloride (98-107) mmol/L Carbon Dioxide (22-30) mmol/L BUN (7-17) mg/dL Creatinine (0.52-1.04) mg/dL Glucose (74-99) mg/dL POC Glucose (mg/dL) 142 H 179 H (75-99) mg/dL Phosphorus (2.5-4.5) mg/dL AST (14-36) U/L Albumin (3.5-5.0) g/dL Urine Appearance (Clear) Urine Protein (Negative) Urine Blood (Negative) Ur Leukocyte Esterase (Negative) Urine RBC (0-5) /hpf Urine WBC (0-5) /hpf Ur Squamous Epith Cells (0-4) /hpf Amorphous Sediment (None) /hpf Urine Bacteria (None) /hpf Hyaline Casts (0-2) /lpf Urine Mucus (None) /hpf Microbiology - Last 24 Hours (Table) 01/29/20 15:23 Blood Culture - Preliminary Blood No Growth after 48 hours 01/29/20 17:30 Urine Culture - Final Urine,Voided Assessment and Plan Assessment: Right lower extremity cellulitis with sepsis -Vancomycin, Rocephin -IV fluids -Blood cultures negative for 48 hours Left upper extremity area of central necrosis -Secondary to Vanco extravasation -Cold compress applied -Continue to monitor -IV moved in then restarted Diabetes mellitus type 2 with hyperglycemia -A1c 9.4 -Continue with long-acting and sliding scale and fixed dose -Follow blood sugars Morbid obesity with BMI 49.6 -Structured outpatient weight loss Chronic atrial fibrillation -Rate controlled -Continue with Eliquis -Continue with nadolol and Cardizem Hypertension, controlled -Continue current medications -Follow blood pressures Hypercalcemia, resolved DVT prophylaxis: Eliquis Discussed with: Patient, nursing, pharmacy Anticipated discharge: 2-[address]: Home A total of 35 minutes was spent on the care of this complex patient more than 50% of the time was spent in counseling and care coordination.
[2020-01-31 20:15] LABS: Glucose,Whole Blood 252 mg/dL (75-99)
[2020-01-31] MEDS: INSULIN DETEMIR (LEVEMIR) 100 UNIT/ML SYR SQ SCH (21:05)
[2020-02-01 07:02] LABS: Glucose,Whole Blood 74 mg/dL (75-99)
[2020-02-01 07:40] LABS: HCT 35.3 % (34.0-46.0); HGB 11.3 gm/dL (11.4-16.0); Hypochromasia Slight; MCH 26.9 pg (25.0-35.0); MCHC 31.9 g/dL (31.0-37.0); MCV 84.3 fL (80.0-100.0); Mean Platelet Volume 9.6; RBC 4.19 m/uL (3.80-5.40); RDW 13.9 % (11.5-15.5); WBC 10.6 k/uL (3.8-10.6)
[2020-02-01 07:51] LABS: Calcium 9.5 mg/dL (8.4-10.2); Potassium 3.3 mmol/L (3.5-5.1)
[2020-02-01 07:56] LABS: Vancomycin,Random 13.2 ug/mL
[2020-02-01 08:35] LABS: Band Neutrophils % 1 %; Eosinophils # (M) 0.32 k/uL (0-0.7); Lymphocytes # (M) 0.74 k/uL (1.0-4.8); Monocytes # (M) 1.06 k/uL (0-1.0); Myelocytes # (M) 0.11 k/uL (0); Myelocytes % 1 %; Neutrophils % (M) 79 %; Nucleated Red Blood Cells 0 /100 WBC (0-0); Total Cells Counted 200
[2020-02-01 08:36] LABS: Poikilocytosis (M) Present
[2020-02-01] MEDS ORDERED: VANCOMYCIN 2,000 MG in SODIUM CHLORIDE 0.9% 500 ML 500 ML IVPB ONE (09:00)
[2020-02-01] MEDS: NADOLOL 20 MG TAB PO SCH ×2 (09:06→21:53)
[2020-02-01] MEDS: cloNIDine HCL 0.1 MG TAB PO SCH ×2 (09:06→21:07)
[2020-02-01] MEDS: APIXABAN 5 MG TAB PO SCH ×2 (09:06→21:07)
[2020-02-01] MEDS: MULTIVITAMINS, THERA 1 EACH TAB PO SCH (09:06)
[2020-02-01] MEDS: DILTIAZEM CD 240 MG CAP.ER.24H PO SCH (09:06)
[2020-02-01] MEDS: INSULIN ASPART (NovoLOG) 100 UNIT/ML VIAL SQ SCH ×7 (09:07→21:08)
[2020-02-01 11:55] LABS: Glucose,Whole Blood 214 mg/dL (75-99)
[2020-02-01] MEDS ORDERED: FUROSEMIDE 40 MG TAB PO ONE (12:15)
[2020-02-01] MEDS: LISINOPRIL-HCTZ 20-25 MG 1 EACH TAB PO SCH (16:06)
[2020-02-01 17:12] LABS: Glucose,Whole Blood 210 mg/dL (75-99)
--- NOTE | 2020-02-01 17:14 | US ---
EXAMINATION TYPE: US venous doppler duplex LE RT DATE OF EXAM: 02/01/2020 5:05 PM COMPARISON: US 2018 CLINICAL HISTORY: edema, ? DVT. Right leg swelling x 4 days, patient on blood thinners, exam done por table. SIDE PERFORMED: Right TECHNIQUE: The lower extremity deep venous system is examined utilizing real time linear array sonog agnes with graded compression, doppler sonography and color-flow sonography. VESSELS IMAGED: External Iliac Vein (EIV) Common Femoral Vein Deep Femoral Vein Greater Saphenous Vein * Femoral Vein Popliteal Vein Small Saphenous Vein * Proximal Calf Veins (* superficial vessels) Difficult and limited study due to patient body habitus Right Leg: Appears negative for DVT IMPRESSION: No evidence for DVT at this time.
--- NOTE | 2020-02-01 19:55 | P.PN ---
Subjective Progress Note Date: 02/01/20 (delayed charting seen at 11am) Principal diagnosis: Right lower extremity redness Patient is a 79-year-old female with a past medical history of diabetes mellitus type 2 insulin requiring, atrial fibrillation on Eliquis, hypertension, and chronic peripheral vascular disease with multiple episodes of right lower extremity cellulitis who presented to the emergency department state 2 days of right lower extremity swelling, redness, and pain. In the ER she underwent an extensive evaluation. She was subsequently diagnosed with cellulitis with sepsis. She will had been planning of a cough and was found to be coping 19 PCR negative. She was started on vancomycin and Rocephin. After 24 hours of IV antibiotics her white blood cell count went from 32.5-17.3. Overnight on 01/30 she did have extravasation of her vancomycin resulting in an area of necrosis. Her WBC normalized on 02/01/2020. She was noted to have increasing lower extremity edema and her diuretics were restarted. Seen and examined at bedside. She is worried that her right leg is more red and swollen today. She denies any chest pain, shortness breath, nausea, or vomiting. She states that her left upper extremity is not painful. We discussed that her diuretics were held secondary to her CARLOTTA and that may be why her edema is worse. Objective - Vital Signs Vital signs: Vital Signs Temp 97.6 F 02/01/20 00:40 Pulse 72 02/01/20 08:00 Resp 15 02/01/20 08:00 BP 134/66 02/01/20 00:40 Pulse Ox 97 02/01/20 00:40 Intake & Output 01/31/20 02/01/20 02/01/20 18:59 06:59 18:59 Intake Total 250 Output Total 0 Balance 250 0 Weight 127.006 kg Intake: Oral 250 Output: Urine 0 Other: # Voids 1 1 2 - Exam General: non-toxic, no distress, appears at stated age Derm: warm, dry Head: atraumatic, normocephalic, symmetric Eyes: EOMI, no lid lag, anicteric sclera Mouth: no lip lesion, mucus membranes moist Cardiovascular: S1S2 reg, no murmur, positive posterior tibial pulse bilateral, Lungs: Decreased breath sounds bilateral, no rhonchi, no rales , no accessory muscle use Abdominal: soft, nontender to palpation, no guarding, no appreciable organomegaly Ext: no gross muscle atrophy, 3+ edema with redness without warmth the right lower extremity, left upper arm with decreasing edema and central area of white tissue Neuro: CN II-XI grossly intact, no focal neuro deficits Psych: Alert, oriented, appropriate affect - Labs CBC & Chem 7: 02/01/20 06:51 02/01/20 06:51 Labs: Abnormal Lab Results - Last 24 Hours (Table) 01/31/20 01/31/20 02/01/20 Range/Units 16:59 20:13 06:51 Hgb (11.4-16.0) gm/dL Neutrophils # (Manual) (1.3-7.7) k/uL Lymphocytes # (Manual) (1.0-4.8) k/uL Monocytes # (Manual) (0-1.0) k/uL Myelocytes # (Manual) (0) k/uL Sodium 135 L (137-145) mmol/L Potassium 3.3 L (3.5-5.1) mmol/L BUN 34 H (7-17) mg/dL Creatinine 1.38 H (0.52-1.04) mg/dL Glucose 66 L (74-99) mg/dL POC Glucose (mg/dL) 179 H 252 H (75-99) mg/dL 02/01/20 02/01/20 02/01/20 Range/Units 06:51 06:59 11:51 Hgb 11.3 L (11.4-16.0) gm/dL Neutrophils # (Manual) 8.40 H (1.3-7.7) k/uL Lymphocytes # (Manual) 0.74 L (1.0-4.8) k/uL Monocytes # (Manual) 1.06 H (0-1.0) k/uL Myelocytes # (Manual) 0.11 H (0) k/uL Sodium (137-145) mmol/L Potassium (3.5-5.1) mmol/L BUN (7-17) mg/dL Creatinine (0.52-1.04) mg/dL Glucose (74-99) mg/dL POC Glucose (mg/dL) 74 L 214 H (75-99) mg/dL Microbiology - Last 24 Hours (Table) 01/29/20 15:23 Blood Culture - Preliminary Blood No Growth after 48 hours 01/29/20 17:30 Urine Culture - Final Urine,Voided Assessment and Plan Assessment: Right lower extremity cellulitis with sepsis -Vancomycin, Rocephin -IV fluids -Blood cultures negative to date Left upper extremity area of central necrosis -Secondary to Vanco extravasation -Cold compress applied -Continue to monitor -IV moved in then restarted Diabetes mellitus type 2 with hyperglycemia -A1c 9.4 -Continue with long-acting and sliding scale and fixed dose which was decreased -Follow blood sugars Morbid obesity with BMI 49.6 -Structured outpatient weight loss Chronic atrial fibrillation -Rate controlled -Continue with Eliquis -Continue with nadolol and Cardizem Hypertension, controlled -Continue current medications -Follow blood pressures CKD 3 - resume Lasix, ACEI - Follow Cr Hypercalcemia, resolved NATE, resolved DVT prophylaxis: Eliquis Discussed with: Patient, nursing Anticipated discharge: 1-[address]: Home A total of 35 minutes was spent on the care of this complex patient more than 50% of the time was spent in counseling and care coordination.
[2020-02-01 20:27] LABS: Glucose,Whole Blood 245 mg/dL (75-99)
[2020-02-01] MEDS: INSULIN DETEMIR (LEVEMIR) 100 UNIT/ML SYR SQ SCH (21:07)
[2020-02-02 07:04] LABS: Glucose,Whole Blood 178 mg/dL (75-99)
[2020-02-02] MEDS: INSULIN ASPART (NovoLOG) 100 UNIT/ML VIAL SQ SCH ×7 (07:43→21:48)
[2020-02-02] MEDS: LISINOPRIL-HCTZ 20-25 MG 1 EACH TAB PO SCH (08:02)
[2020-02-02] MEDS: NADOLOL 20 MG TAB PO SCH ×2 (08:03→21:49)
[2020-02-02] MEDS: cloNIDine HCL 0.1 MG TAB PO SCH ×2 (08:03→21:49)
[2020-02-02] MEDS: MULTIVITAMINS, THERA 1 EACH TAB PO SCH (08:03)
[2020-02-02] MEDS: FUROSEMIDE 20 MG TAB PO SCH (08:03)
[2020-02-02] MEDS: APIXABAN 5 MG TAB PO SCH ×2 (08:03→21:49)
[2020-02-02] MEDS: DILTIAZEM CD 240 MG CAP.ER.24H PO SCH (08:03)
[2020-02-02 09:16] LABS: Calcium 9.9 mg/dL (8.4-10.2); Potassium 3.6 mmol/L (3.5-5.1)
[2020-02-02 09:19] LABS: HCT 37.2 % (34.0-46.0); HGB 11.6 gm/dL (11.4-16.0); Hypochromasia Slight; MCHC 31.2 g/dL (31.0-37.0); MCV 86.5 fL (80.0-100.0); Mean Platelet Volume 9.5; Platelet Count 132 k/uL (150-450); WBC 11.1 k/uL (3.8-10.6)
[2020-02-02 11:50] LABS: Glucose,Whole Blood 155 mg/dL (75-99)
[2020-02-02] MEDS ORDERED: VANCOMYCIN 2,000 MG in SODIUM CHLORIDE 0.9% 500 ML 500 ML IVPB SCH (12:00)
[2020-02-02 16:37] LABS: Glucose,Whole Blood 218 mg/dL (75-99)
--- NOTE | 2020-02-02 17:41 | P.PN ---
Subjective Progress Note Date: 02/02/20 (delayed charting seen at 1100) Principal diagnosis: Right lower extremity redness Patient is a 79-year-old female with a past medical history of diabetes mellitus type 2 insulin requiring, atrial fibrillation on Eliquis, hypertension, and chronic peripheral vascular disease with multiple episodes of right lower extremity cellulitis who presented to the emergency department state 2 days of right lower extremity swelling, redness, and pain. In the ER she underwent an extensive evaluation. She was subsequently diagnosed with cellulitis with sepsis. She will had been planning of a cough and was found to be coping 19 PCR negative. She was started on vancomycin and Rocephin. After 24 hours of IV antibiotics her white blood cell count went from 32.5-17.3. Overnight on 01/30 she did have extravasation of her vancomycin resulting in an area of necrosis. Her WBC normalized on 02/01/2020. She was noted to have increasing lower extremity edema and her diuretics were restarted. She had some improvement in edema. Seen and examined at bedside. Feeling better today, states wear CHRISTOPHER wrap at home daily. No chest pain, SOB, or nausea. Objective - Vital Signs Vital signs: Vital Signs Temp 97.6 F 02/02/20 15:00 Pulse 59 L 02/02/20 15:00 Resp 18 02/02/20 15:00 BP 117/76 02/02/20 15:00 Pulse Ox 99 02/02/20 15:00 Intake & Output 02/01/20 02/02/20 02/02/20 18:59 06:59 18:59 Output Total 0 Balance 0 Output: Urine 0 Other: Voiding Method Toilet # Voids 1 1 2 - Exam General: non-toxic, no distress, appears at stated age Derm: warm, dry Head: atraumatic, normocephalic, symmetric Cardiovascular: S1S2 reg, no murmur, positive posterior tibial pulse bilateral, Lungs: Decreased breath sounds bilateral, no rhonchi, no rales , no accessory muscle use Abdominal: soft, nontender to palpation, no guarding, no appreciable organomegaly Ext: no gross muscle atrophy, 3+ edema with redness without warmth the right lower extremity, left upper arm with decreasing edema and central area of white tissue Neuro: CN II-XI grossly intact, no focal neuro deficits Psych: Alert, oriented, appropriate affect - Labs CBC & Chem 7: 02/02/20 07:06 02/02/20 07:06 Labs: Abnormal Lab Results - Last 24 Hours (Table) 02/01/20 02/02/20 02/02/20 Range/Units 20:24 07:02 07:06 WBC 11.1 H (3.8-10.6) k/uL Plt Count 132 L (150-450) k/uL Sodium (137-145) mmol/L BUN (7-17) mg/dL Creatinine (0.52-1.04) mg/dL Glucose (74-99) mg/dL POC Glucose (mg/dL) 245 H 178 H (75-99) mg/dL 02/02/20 02/02/20 02/02/20 Range/Units 07:06 11:49 16:36 WBC (3.8-10.6) k/uL Plt Count (150-450) k/uL Sodium 135 L (137-145) mmol/L BUN 31 H (7-17) mg/dL Creatinine 1.22 H (0.52-1.04) mg/dL Glucose 167 H (74-99) mg/dL POC Glucose (mg/dL) 155 H 218 H (75-99) mg/dL Microbiology - Last 24 Hours (Table) 01/29/20 15:23 Blood Culture - Preliminary Blood No Growth after 72 hours Assessment and Plan Assessment: Right lower extremity cellulitis with sepsis -Vancomycin, Rocephin -Blood cultures negative to date - CHRISTOPHER wrap to help with edema - back on oral diuretics Left upper extremity area of central necrosis -Secondary to Vanco extravasation -Cold compress applied -Continue to monitor -IV moved in then restarted Diabetes mellitus type 2 with hyperglycemia -A1c 9.4 -Continue with long-acting and sliding scale and fixed dose which was decreased -Follow blood sugars Morbid obesity with BMI 49.6 -Structured outpatient weight loss Chronic atrial fibrillation -Rate controlled -Continue with Eliquis -Continue with nadolol and Cardizem Hypertension, controlled -Continue current medications -Follow blood pressures CKD 3 - Lasix, ACEI - Follow Cr Hyponatremia, likely reactive - suspect due to medications - follow CBC Hypercalcemia, resolved NATE, resolved DVT prophylaxis: Eliquis Discussed with: Patient, nursing Anticipated discharge: 1-[address]: Home A total of 35 minutes was spent on the care of this complex patient more than 50% of the time was spent in counseling and care coordination.
[2020-02-02 20:52] LABS: Glucose,Whole Blood 264 mg/dL (75-99)
[2020-02-02] MEDS: INSULIN DETEMIR (LEVEMIR) 100 UNIT/ML SYR SQ SCH (21:47)
[2020-02-03 06:48] LABS: HCT 36.6 % (34.0-46.0); HGB 11.5 gm/dL (11.4-16.0); Hypochromasia Slight; MCH 26.5 pg (25.0-35.0); MCHC 31.3 g/dL (31.0-37.0); MCV 84.8 fL (80.0-100.0); Mean Platelet Volume 8.8; Platelet Count 263 k/uL (150-450); RBC 4.32 m/uL (3.80-5.40); WBC 14.4 k/uL (3.8-10.6)
[2020-02-03 06:57] LABS: Calcium 9.6 mg/dL (8.4-10.2); Potassium 3.7 mmol/L (3.5-5.1)
[2020-02-03 07:04] LABS: Glucose,Whole Blood 152 mg/dL (75-99)
[2020-02-03] MEDS: INSULIN ASPART (NovoLOG) 100 UNIT/ML VIAL SQ SCH ×7 (07:26→22:10)
[2020-02-03] MEDS: NADOLOL 20 MG TAB PO SCH ×2 (07:27→22:11)
[2020-02-03] MEDS: DILTIAZEM CD 240 MG CAP.ER.24H PO SCH (07:27)
[2020-02-03] MEDS: LISINOPRIL-HCTZ 20-25 MG 1 EACH TAB PO SCH (07:27)
[2020-02-03] MEDS: APIXABAN 5 MG TAB PO SCH ×2 (07:27→22:11)
[2020-02-03] MEDS: cloNIDine HCL 0.1 MG TAB PO SCH ×2 (07:27→22:11)
[2020-02-03] MEDS: MULTIVITAMINS, THERA 1 EACH TAB PO SCH (07:28)
[2020-02-03] MEDS ORDERED: FUROSEMIDE 40 MG TAB PO SCH (09:00)
[2020-02-03 12:06] LABS: Glucose,Whole Blood 164 mg/dL (75-99)
--- NOTE | 2020-02-03 13:53 | XR ---
EXAMINATION TYPE: XR foot complete RT DATE OF EXAM: 02/03/2020 COMPARISON: NONE HISTORY: 79-year-old female third toe ulcer, pain, possible cellulitis TECHNIQUE: 3 views FINDINGS: Moderate degenerative change first MTP joint with hallux valgus deformity and bunion formation. No di screte lytic destruction is identified. Hammertoe deformity second toe. Lateral view limited due to excessive osseous overlap. Large plantar calcaneal spur. Bulky degenerative spurring dorsal talonavicular joint. Generalized and dorsal soft t issue swelling. IMPRESSION: 1. No convincing evidence for osteomyelitis at this time. Radiographic follow-up should include a lat eral view with the toes for better visualization. 2. 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 3. Generalized soft tissue swelling, greatest dorsally. 4. Large plantar calcaneal spur and additional degenerative spurring talonavicular joint.
[2020-02-03 16:29] LABS: Glucose,Whole Blood 198 mg/dL (75-99)
--- NOTE | 2020-02-03 16:36 | P.PN ---
Subjective Progress Note Date: 02/03/20 (delayed charting seen at 1130am) Principal diagnosis: Right lower extremity redness Patient is a 79-year-old female with a past medical history of diabetes mellitus type 2 insulin requiring, atrial fibrillation on Eliquis, hypertension, and chronic peripheral vascular disease with multiple episodes of right lower extremity cellulitis who presented to the emergency department state 2 days of right lower extremity swelling, redness, and pain. In the ER she underwent an extensive evaluation. She was subsequently diagnosed with cellulitis with sepsis. She will had been planning of a cough and was found to be coping 19 PCR negative. She was started on vancomycin and Rocephin. After 24 hours of IV antibiotics her white blood cell count went from 32.5-17.3. Talat rnight on 01/30 she did have extravasation of her vancomycin resulting in an area of necrosis. Her WBC normalized on 02/01/2020. She was noted to have increasing lower extremity edema and her diuretics were restarted. She had some improvement in edema. Her WBC increased on 02/02 and she was noted to have an ulcer on her right 3rd toe. Seen and examined at bedside. Swelling better with CHRISTOPHER wrap. No nausea, no vomiting, no diarrhea, no chest pain, No shortness of breath. Objective - Vital Signs Vital signs: Vital Signs Temp 98.3 F 02/03/20 14:46 Pulse 54 L 02/03/20 14:46 Resp 17 02/03/20 14:46 BP 99/63 02/03/20 14:46 Pulse Ox 96 02/03/20 14:46 Intake & Output 02/02/20 02/03/20 02/03/20 18:59 06:59 18:59 Intake Total 200 420 Balance 200 420 Weight 127.006 kg Intake: Intake, IV Titration 100 Amount cefTRIAXone 1 gm In 100 Sodium Chloride 0.9% 50 ml @ 100 mls/hr IVPB Q24HR [facility] Rx#:[id number] Oral 200 320 Other: Voiding Method Toilet # Voids 2 3 2 - Exam General: non toxic , no distress, appears at stated age Derm: callous on right 3rd toe without warmth or drainage, warm, dry Head: atraumatic, normocephalic, symmetric Cardiovascular: S1S2 reg, no murmur, positive posterior tibial pulse bilateral, Lungs: Decreased breath sounds bilateral, no rhonchi, no rales , no accessory muscle use Abdominal: soft, nontender to palpation, no guarding, no appreciable organomegaly Ext: no gross muscle atrophy, 2+ edema with redness without warmth the right lower extremity, left upper arm with decreasing edema and central area of white tissue Neuro: CN II-XI grossly intact, no focal neuro deficits Psych: Alert, oriented, appropriate affect - Labs CBC & Chem 7: 02/03/20 06:22 02/03/20 06:22 Labs: Abnormal Lab Results - Last 24 Hours (Table) 02/02/20 02/02/20 02/03/20 Range/Units 16:36 20:50 06:22 WBC 14.4 H (3.8-10.6) k/uL Sodium (137-145) mmol/L Chloride (98-107) mmol/L Carbon Dioxide (22-30) mmol/L BUN (7-17) mg/dL Creatinine (0.52-1.04) mg/dL Glucose (74-99) mg/dL POC Glucose (mg/dL) 218 H 264 H (75-99) mg/dL 02/03/20 02/03/20 02/03/20 Range/Units 06:22 07:01 12:03 WBC (3.8-10.6) k/uL Sodium 136 L (137-145) mmol/L Chloride 96 L (98-107) mmol/L Carbon Dioxide 32 H (22-30) mmol/L BUN 28 H (7-17) mg/dL Creatinine 1.36 H (0.52-1.04) mg/dL Glucose 149 H (74-99) mg/dL POC Glucose (mg/dL) 152 H 164 H (75-99) mg/dL 02/03/20 Range/Units 16:28 WBC (3.8-10.6) k/uL Sodium (137-145) mmol/L Chloride (98-107) mmol/L Carbon Dioxide (22-30) mmol/L BUN (7-17) mg/dL Creatinine (0.52-1.04) mg/dL Glucose (74-99) mg/dL POC Glucose (mg/dL) 198 H (75-99) mg/dL Microbiology - Last 24 Hours (Table) 01/29/20 15:23 Blood Culture - Preliminary Blood No Growth after 96 hours Assessment and Plan Assessment: Right lower extremity cellulitis with sepsis - Vancomycin, Rocephin -Blood cultures negative to date - CHRISTOPHER wrap to help with edema - Await ID recs Callous right 3rd toe - XRay to assess for osteo - ID recs Left upper extremity area of central necrosis, improving -Secondary to Vanco extravasation -S/P Cold compress -Continue to monitor -IV moved in then restarted Diabetes mellitus type 2 with hyperglycemia -A1c 9.4 -Continue with long-acting and sliding scale and fixed dose increased slightly -Follow blood sugars Morbid obesity with BMI 49.6 -Structured outpatient weight loss Chronic atrial fibrillation -Rate controlled -Continue with Eliquis -Continue with nadolol and Cardizem Hypertension, controlled -Continue current medications -Follow blood pressures CKD 3 - Lasix, ACEI - Follow Cr THrombocytopenia , likely reactive - suspect due to medications - follow CBC Hypercalcemia, resolved NATE, resolved Hyponatremia, resolved DVT prophylaxis: Eliquis Discussed with: Patient, nursing Anticipated discharge: 1-[address]: Home A total of 25 minutes was spent on the care of this complex patient more than 50% of the time was spent in counseling and care coordination.
[2020-02-03 21:43] LABS: Glucose,Whole Blood 190 mg/dL (75-99)
[2020-02-03] MEDS: INSULIN DETEMIR (LEVEMIR) 100 UNIT/ML SYR SQ SCH (22:10)
--- NOTE | 2020-02-03 23:23 | CONS ---
CONSULTATION DATE OF SERVICE: 02/03/2020 REASON FOR CONSULTATION: Right lower extremity cellulitis with worsening leukocytosis. HISTORY OF PRESENT ILLNESS: The patient is a 79-year-old female who presented to hospital about 5 days ago on 01/29/2020. This patient presented to the hospital with increasing swelling and redness of the right lower extremity that had been getting worse for about 2 days before the patient presented to the hospital. The patient did have diffuse swelling and redness and did have mild dull aching pain to the leg, intensity about 4 to 5 over 10, and no radiation. The patient did not have any blisters or any open wound. Denies any history of any trauma. The patient on presentation to the hospital did have a fever of 101.4 degrees Fahrenheit. No significant tachycardia, though the patient did have elevated white count of 32,000. She also had elevated BUN and creatinine and UA was positive as well. The patient's COVID-19 PCR was negative. Chest x-ray with trace left pleural effusion, cardiomegaly and pulmonary vascular congestion. She has been treated with vancomycin and Rocephin. She was noticed to have her white count improving, normalizing on 01/31 to 10.6; however, since then the white count is slowly trending up and is up to 14.4 today. That has prompted this infectious disease consultation. The patient currently denies having any headache. No chest pain or shortness of breath or cough. No nausea, no vomiting. No abdominal pain or diarrhea. Overall swelling redness to the right leg has slightly decreased and pain has improved. REVIEW OF SYSTEMS: Positive points have been mentioned in HPI. Rest of the systems are negative. PAST MEDICAL HISTORY: Atrial fibrillation, diabetes mellitus, hypertension, morbid obesity, recurrent lower extremity cellulitis and chronic lymphedema of the right lower extremity. PAST SURGICAL HISTORY: , cholecystectomy, hernia repair. SOCIAL HISTORY: Remote history of smoking. Denies drinking or drug use. FAMILY HISTORY: Father with history of [place] and coronary artery disease. Mother lived to be healthy up to 91 years of age. ALLERGIES: PENICILLIN. Tolerated cephalosporin without any problem. CURRENT MEDICATIONS: The patient is currently on Tylenol, Eliquis, Rocephin 1 gram daily. She is on vancomycin, Pharmacy to dose, Catapres, Cardizem, Lasix, Zestoretic, NovoLog, Levemir, Theragran, Corgard, Narcan and vancomycin. PHYSICAL EXAMINATION: Blood pressure is 109/56, pulse of 57, temperature 98.2. She is 96% on room air. General description is an elderly female lying in bed in no distress. No tachypnea or accessory muscle of respiration use. HEENT examination shows no pallor or scleral icterus. Oral mucosa membrane is dry. No pharyngeal erythema or thrush. NECK: Trachea is central. No thyromegaly. LUNGS: Unlabored breathing. Decreased breath sounds in the bases. No wheeze or crackle. HEART: S1, S2. Regular rate and rhythm. No added sound. ABDOMEN: Soft. No tenderness. No guarding or rigidity. EXTREMITIES: Diffuse swelling. The right leg did have more swelling and had minimal erythema, warm to touch. It did have evidence of athlete's between the toes. Neurologically patient is awake, alert, oriented x3. Mood and affect normal. LABS: Hemoglobin 11.5, white count 14.4 with a BUN of 28, creatinine 1.36. Lower extremity Doppler has been negative for DVT. She did have x-rays of the right foot; negative for any evidence of osteomyelitis or bone involvement. DIAGNOSTIC IMPRESSION AND PLAN: Patient admitted to hospital with sepsis in this patient who did have a fever and elevated white count. Source is acute right lower extremity cellulitis in this patient who did have diffuse swelling and redness and evidence of athlete's foot, likely representing acute streptococcal cellulitis. Clinically doubt Gram-negative or a MRSA infection. PLAN: 1. We will discontinue vancomycin and Rocephin. 2. Will start the patient on cefazolin 2 grams q.8 hours. 3. Nystatin cream between the toes twice a day. 4. Will see the response to cefazolin. However, if there is any further worsening of the white count, may recommend CT to make sure no evidence of any abscess, though clinically not behaving as an abscess. We will monitor clinical course closely. Thank you for this consultation. Will follow this patient along with you. MMODL / IJN: [id number] /
[2020-02-04 06:44] LABS: Glucose,Whole Blood 122 mg/dL (75-99)
[2020-02-04] MEDS: INSULIN ASPART (NovoLOG) 100 UNIT/ML VIAL SQ SCH ×4 (07:17→12:43)
[2020-02-04] MEDS: APIXABAN 5 MG TAB PO SCH (07:19)
[2020-02-04] MEDS: FUROSEMIDE 20 MG TAB PO SCH (07:19)
[2020-02-04] MEDS: cloNIDine HCL 0.1 MG TAB PO SCH (07:19)
[2020-02-04] MEDS: MULTIVITAMINS, THERA 1 EACH TAB PO SCH (07:19)
[2020-02-04] MEDS: DILTIAZEM CD 240 MG CAP.ER.24H PO SCH (07:20)
[2020-02-04] MEDS: LISINOPRIL-HCTZ 20-25 MG 1 EACH TAB PO SCH (07:20)
[2020-02-04] MEDS: NADOLOL 20 MG TAB PO SCH (07:20)
[2020-02-04 07:36] VITALS: BP 115/72; PULSE 60; RESP 15; TEMP 97.9
[2020-02-04 08:16] LABS: HCT 35.5 % (34.0-46.0); HGB 11.3 gm/dL (11.4-16.0); Hypochromasia Slight; MCH 26.9 pg (25.0-35.0); MCHC 31.9 g/dL (31.0-37.0); MCV 84.5 fL (80.0-100.0); Mean Platelet Volume 10.5; RDW 14.1 % (11.5-15.5); WBC 8.6 k/uL (3.8-10.6)
[2020-02-04 08:19] LABS: Calcium 9.2 mg/dL (8.4-10.2); Potassium 3.1 mmol/L (3.5-5.1)
[2020-02-04 08:22] LABS: Platelet Count 117 k/uL (150-450)
[2020-02-04] MEDS ORDERED: NYSTATIN 100,000UNIT/GM CREAM 30 GM TUBE TOPICAL SCH (09:00)
[2020-02-04 11:10] LABS: Glucose,Whole Blood 114 mg/dL (75-99)
--- NOTE | 2020-02-04 14:21 | P.DS ---
Providers Date of admission: 01/29/20 17:49 Expected date of discharge: 02/04/20 Attending physician: Anh Fitzpatrick MD Consults: 02/03/20 08:27 Consult Physician Routine Consulting Provider: Young Bird Consult Reason/Comments: cellulitis, worsening WBC despite treatment Do you want consulting provider notified?: Yes Primary care physician: Armaan Snyder Hospital Course: Discharge Diagnosis: Right lower extremity cellulitis with sepsis Callous right 3rd toe left upper extremity area of central necrosis Diabetes mellitus type II insulin requiring with hyper and hypoglyucemia, A1C 9.4 Morbid obesity with BMI 49.6 Chronic A fib HTN CKD 3 Thrombocytopenia Hypercalcemia NATE Hyponatremia Hospital Course: Patient is a 79-year-old female with a past medical history of diabetes mellitus type 2 insulin requiring, atrial fibrillation on Eliquis, hypertension, and chronic peripheral vascular disease with multiple episodes of right lower extremity cellulitis who presented to the emergency department state 2 days of right lower extremity swelling, redness, and pain. In the ER she underwent an extensive evaluation. She was subsequently diagnosed with cellulitis with sepsis. She will had been planning of a cough and was found to be coping 19 PCR negative. She was started on vancomycin and Rocephin. After 24 hours of IV antibiotics her white blood cell count went from 32.5-17.3. Overnight on 01/30 she did have extravasation of her vancomycin resulting in an area of necrosis. Her WBC normalized on 02/01/2020. She was noted to have increasing lower extremity edema and her diuretics were restarted. She had some improvement in edema. Her WBC increased on 02/02 and she was noted to have an ulcer on her right 3rd toe. She was seen by ID due to increasing WBC count and antibiotics were changed to keflex. Her WBC normalized and she was determined stable for discharge home. She will complete 10 days of keflex. Her blood sugars were low here and we reduced her insulin. I asked her to base her meal time insulin on the percentage of her normal intake and she under stands and will do so. Patient seen and examined at bedside. Feeling well, wants to go home, no cough, runny nose, stuffy nose, chest pain, leg pain. Edema in better. Vital signs reviewed and stable. General: non toxic, no distress, appears at stated age Derm: red joanne, not warm edema decreasing, warm, dry Head: atraumatic, normocephalic, symmetric Eyes: EOMI, no lid lag, anicteric sclera Mouth: no lip lesion, mucus membranes moist Cardiovascular: S1S2 reg, no murmur, positive posterior tibial pulse bilateral, Lungs: CTA bilateral, no rhonchi, no rales , no accessory muscle use Abdominal: soft, nontender to palpation, no guarding, no appreciable organomegaly Ext: no gross muscle atrophy, 2+ edema bilateral, no contractures Neuro: CN II-XI grossly intact, no focal neuro deficits Psych: Alert, oriented, appropriate affect A total of 35 minutes of time were spent preparing this complex discharge summary . Patient Condition at Discharge: Stable Plan - Discharge Summary Discharge Rx Participant: No New Discharge Prescriptions: New Cephalexin [Keflex] 500 mg PO Q8HR 10 Days #30 cap Nystatin 100,000Unit/gm Cream [Mycostatin Cream] 1 applic TOPICAL BID 14 Days #1 tube Continue Furosemide [Lasix] 20 mg PO Q48H cloNIDine HCL [Catapres] 0.1 mg PO BID Insulin Glargine,Hum.rec.anlog [Lantus Solostar] 45 unit SQ HS Lisinopril-Hctz 20-25 mg [Zestoretic 20-25] 1 tab PO DAILY Diltiazem Cd [Cardizem CD] 240 mg PO DAILY #90 cap.er.24h Nadolol [Corgard] 20 mg PO BID #180 tab Apixaban [Eliquis] 5 mg PO BID #0 tab Multivitamins, Thera [Multivitamin (formulary)] 1 tab PO DAILY Furosemide [Lasix] 40 mg PO Q48H Insulin Aspart [NovoLOG Flexpen] 25 units SQ W/SUPPER Insulin Aspart [NovoLOG Flexpen] 20 units SQ W/LUNCH Insulin Aspart [NovoLOG Flexpen] 15 units SQ W/BRKFST Discharge Medication List Furosemide [Lasix] 20 mg PO Q48H 10/02/17 [History] Insulin Glargine,Hum.rec.anlog [Lantus Solostar] 45 unit SQ HS 10/02/17 [History] Lisinopril-Hctz 20-25 mg [Zestoretic 20-25] 1 tab PO DAILY 10/02/17 [History] cloNIDine HCL [Catapres] 0.1 mg PO BID 10/02/17 [History] Apixaban [Eliquis] 5 mg PO BID #0 tab 10/06/17 [Rx] Diltiazem Cd [Cardizem CD] 240 mg PO DAILY #90 cap.er.24h 10/06/17 [Rx] Nadolol [Corgard] 20 mg PO BID #180 tab 10/06/17 [Rx] Furosemide [Lasix] 40 mg PO Q48H 05/24/18 [History] Multivitamins, Thera [Multivitamin (formulary)] 1 tab PO DAILY 05/24/18 [History] Insulin Aspart [NovoLOG Flexpen] 15 units SQ W/BRKFST 01/29/20 [History] Insulin Aspart [NovoLOG Flexpen] 20 units SQ W/LUNCH 01/29/20 [History] Insulin Aspart [NovoLOG Flexpen] 25 units SQ W/SUPPER 01/29/20 [History] Cephalexin [Keflex] 500 mg PO Q8HR 10 Days #30 cap 02/04/20 [Rx] Nystatin 100,000Unit/gm Cream [Mycostatin Cream] 1 applic TOPICAL BID 14 Days #1 tube 02/04/20 [Rx] Follow up Appointment(s)/Referral(s): Armaan Snyder MD [Primary Care Provider] - 1-2 days [facility], [NON-STAFF] - Activity/Diet/Wound Care/Special Instructions: Activity: As tolerated Diet: Carb consistent Wound Care: CHRISTOPHER wrap to both lower extremities daily Special Instructions: Check blood sugar 4 times daily. Take Lantus 30 units this evening. If morning blood sugar before eating is greater than 200 return to your 45 units tomorrow evening. Remember if you are still consuming less than normal you need to decrease your insulin with meals. If you are eating half your normal amount you should decrease your insulin dose by half. Discharge Disposition: HOME SELF-CARE
--- NOTE | 2020-02-04 16:23 | PN ---
PROGRESS NOTE DATE OF SERVICE: 02/04/2020 REASON FOR FOLLOWUP: Right lower extremity cellulitis. INTERVAL HISTORY: The patient is currently afebrile. The patient has been breathing comfortably. The patient denies having any chest pain or cough. No nausea, vomiting or abdominal pain. Overall swelling and redness of the leg have improved. PHYSICAL EXAMINATION: Blood pressure 115/72 with a pulse of 60, temperature 97.9. She is 98% on room air. General description is an elderly female lying in bed in no distress. RESPIRATORY SYSTEM: Unlabored breathing. Clear to auscultation anteriorly. HEART: S1, S2. Regular rate and rhythm. ABDOMEN: Soft. No tenderness. Right leg overall swelling and redness have improved. LABS: Hemoglobin is 11.3, white count 8.7, BUN of 31, creatinine 1.46. DIAGNOSTIC IMPRESSION AND PLAN: Patient with acute right lower extremity cellulitis. Patient seems to have shown clinical improvement on cefazolin. Finish therapy with oral Keflex and close outpatient followup. Plan of care was discussed with the admitting physician working on discharge. MMODL / IJN: [id number] /
--- NOTE | 2020-02-05 09:26 | CDI ---
Documentation Clarification Form Date: 02/05/20 From: Aracelis Rao Phone: If you have a question about this query, please contact Damari Zayas Photo Producer at [phone] between 8am and 5pm. Admit Date: 01/29/20 Discharge Date:02/04/20 Patient Name: Dalila Kennedy Visit Number: [id number] ATTENTION: The Clinical Documentation Specialists (CDI) and [facility] Coding Staff appreciate your assistance in clarifying documentation. Please respond to the clarification below the line at the bottom and electronically sign. The CDI & [facility] Coding staff will review the response and follow-up if needed. Please note: Queries are made part of the Legal Health Record. If you have any questions, please contact the author of this message via ITS. Dear Dr. Miranda Cellulitis of the right lower extremity is documented throughout the chart. Patient history/risk factors: Diabetes, peripheral vascular disease, chronic venous stasis, chronic lymphedema of the right lower extremity, morbid obesity Clinical Indicators: Swelling, redness, pain, glucose 261 Radiology: No osteomyelitis, soft tissue swelling Labs: Glucose 261 Vital Signs: T. 101.4, P. 67, R. 18, BP 118/45 Treatment: Medication: IV Vancomycin, IV Kefzol In your professional opinion, can cellulitis be further specified as one of the following? Associated with Diabetes Mellitus Not Associated with Diabetes Mellitus Other, please specify: Unable to determine Not Associated with Diabetes Mellitus MTDD
--- NOTE | 2020-02-05 09:34 | CDI ---
Documentation Clarification Form Date: 02/05/20 From: Aracelis Rao Phone: If you have a question about this query, please contact Damari Zayas Auto Painter at [phone] between 8am and 5pm. Admit Date: 01/29/20 Discharge Date:02/04/20 Patient Name: Dalila Kennedy Visit Number: [id number] ATTENTION: The Clinical Documentation Specialists (CDI) and [facility] Coding Staff appreciate your assistance in clarifying documentation. Please respond to the clarification below the line at the bottom and electronically sign. The CDI & [facility] Coding staff will review the response and follow-up if needed. Please note: Queries are made part of the Legal Health Record. If you have any questions, please contact the author of this message via ITS. Dear Dr. Miranda Documentation states: Dr. Bird documented that the patient's UA was positive History/Risk Factors: Diabetes, acute renal failure, CKD 3, sepsis, right lower extremity cellulitis Clinical indicators: Abnormal UA UA: Cloudy, leukocyte esterase moderate, RBC 17, WBC 22, bacteria rare, mucus rare Vital signs: T. 101.4, P. 67, R. 18, BP 118/45 Treatment: Patient was getting IV Vancomycin, IV Kefzol Clinical significance of diagnostic testing and treatment CANNOT be assumed or coded without physician documentation of significance if any. Please clarify what the UA positive abnormal laboratory signifies: UTI Ruled Out UTI Ruled In Abnormal Lab Value Unable to determine Other, please specify UTI Ruled Out MTDD
== END 2020-02-04 17:05 | disposition home health service (06) | DRG 872 ==
LOC: EC 13:54 → 4SSUR 17:49
PROVIDERS: ADMIT Internal Medicine; ATTEND Internal Medicine
DX: A41.9 Sepsis, unspecified organism (principal); E87.1 Hypo-osmolality and hyponatremia; I48.20 Chronic atrial fibrillation, unspecified; N17.9 Acute kidney failure, unspecified; I96 Gangrene, not elsewhere classified; Z68.42 Body mass index [BMI] 45.0-49.9, adult; L03.115 Cellulitis of right lower limb; R65.20 Severe sepsis without septic shock; D69.6 Thrombocytopenia, unspecified; L97.519 Non-pressure chronic ulcer of other part of right foot with unspecified severity; N18.3 Chronic kidney disease, stage 3 (moderate); E11.22 Type 2 diabetes mellitus with diabetic chronic kidney disease; E11.621 Type 2 diabetes mellitus with foot ulcer; E87.8 Other disorders of electrolyte and fluid balance, not elsewhere classified; E11.51 Type 2 diabetes mellitus with diabetic peripheral angiopathy without gangrene; Z20.828 Contact with and (suspected) exposure to other viral communicable diseases; E11.65 Type 2 diabetes mellitus with hyperglycemia; B35.3 Tinea pedis; E66.01 Morbid (severe) obesity due to excess calories; E83.52 Hypercalcemia; E87.70 Fluid overload, unspecified; I12.9 Hypertensive chronic kidney disease with stage 1 through stage 4 chronic kidney disease, or unspecified chronic kidney disease; I87.8 Other specified disorders of veins; T36.8X5A Adverse effect of other systemic antibiotics, initial encounter; I89.0 Lymphedema, not elsewhere classified; M19.90 Unspecified osteoarthritis, unspecified site; Z66 Do not resuscitate; Z90.49 Acquired absence of other specified parts of digestive tract; Z98.42 Cataract extraction status, left eye; Z98.41 Cataract extraction status, right eye; Z96.1 Presence of intraocular lens; Z79.01 Long term (current) use of anticoagulants; Z79.4 Long term (current) use of insulin; Z79.899 Other long term (current) drug therapy; Z88.0 Allergy status to penicillin; Z87.891 Personal history of nicotine dependence; Z90.11 Acquired absence of right breast and nipple; Z82.49 Family history of ischemic heart disease and other diseases of the circulatory system
CPT/HCPCS: 36415; 71046; 80048; 80053; 80202; 81001; 83036; 83605; 83735; 83880; 84100; 85025; 85027; 87040; 87086; 87635; 93005; 93306; 96365; 96366; 96367; 99285

== ENCOUNTER → 2020-04-06 | Outpatient (CLI) | payer MEDICARE ==
--- NOTE | 2020-04-06 14:46 | US ---
EXAMINATION TYPE: US kidneys/renal and bladder DATE OF EXAM: 04/06/2020 COMPARISON: NONE CLINICAL HISTORY: N18.5 Kidney disease stage 5. abn labs, diabetic, morbid obesity, prolapsed bladder EXAM MEASUREMENTS: Right Kidney: 10.2 x 4.6 x 5.4 cm Left Kidney: 13.0 x 5.2 x 5.9 cm patient scanned in her wheelchair, she cannot get on scan table, morbidly obese Right Kidney: cortical thinning Left Kidney: cortical thinning, large in size Bladder: pt states bladder is prolapsed There is no evidence for hydronephrosis at this point in time. No nephrolithiasis is seen. No jim s are identified. The urinary bladder is poorly visualized. IMPRESSION: No parenchymal thinning noted bilaterally.
== END | disposition home or self-care (01) ==
LOC: RADUSWWP 14:01
PROVIDERS: ATTEND Internal Medicine
DX: N28.9 Disorder of kidney and ureter, unspecified (principal); N18.5 Chronic kidney disease, stage 5
CPT/HCPCS: 76770

== ENCOUNTER 2020-04-14 01:17 | Inpatient (IN) | payer MEDICARE ==
[2020-04-14] MEDS ORDERED: ACETAMINOPHEN TAB 500 MG TAB PO STA (01:30)
[2020-04-14] MEDS ORDERED: SODIUM CHLORIDE 0.9% 1,000 ML IV STA ×2 (01:30)
--- NOTE | 2020-04-14 01:34 | ED ---
Weakness HPI - General Chief complaint: Skin/Abscess/Foreign Body Stated complaint: Leg Swelling Time Seen by Provider: 04/14/20 01:20 Source: EMS, RN notes reviewed, old records reviewed Mode of arrival: EMS Limitations: no limitations - History of Present Illness Initial comments: This is an 80-year-old female to the ER for evaluation she presents today for evaluation regards to not feeling well patient is weak feverish sweaty feeling she can't catch her breath significant lower extremity edema history of severe cellulitis legs being red and swollen significant pain redness significant worse on the left MD Complaint: generalized weakness, difficulty walking (Left leg pain) -: days(s) Location: LLE Severity: severe Severity scale (1-10): 8 Quality: aching Consistency: constant Improves with: none Worsens with: none Context: recent illness, history of similar Associated Symptoms: confusion, fever/chills, nausea/vomiting, shortness of breath - Related Data Home Medications Medication Instructions Recorded Confirmed Furosemide [Lasix] 20 mg PO Q48H 10/02/17 04/14/20 Insulin Glargine,Hum.rec.anlog 45 unit SQ HS 10/02/17 04/14/20 [Lantus Solostar] Lisinopril-Hctz 20-25 mg 1 tab PO DAILY 10/02/17 04/14/20 [Zestoretic 20-25] cloNIDine HCL [Catapres] 0.1 mg PO BID 10/02/17 04/14/20 Furosemide [Lasix] 40 mg PO Q48H 05/24/18 04/14/20 Multivitamins, Thera [Multivitamin 1 tab PO DAILY 05/24/18 04/14/20 (formulary)] Insulin Aspart [NovoLOG Flexpen] 15 units SQ W/BRKFST 01/29/20 04/14/20 Insulin Aspart [NovoLOG Flexpen] 20 units SQ W/LUNCH 01/29/20 04/14/20 Insulin Aspart [NovoLOG Flexpen] 30 units SQ W/SUPPER 01/29/20 04/14/20 Calcium Carbonate [Calcium] 600 mg PO DAILY 04/14/20 04/14/20 Cholecalciferol [Vitamin D3 (25 1,000 unit PO DAILY 04/14/20 04/14/20 Mcg = 1000 Iu)] Magnesium Oxide [Mag-Ox] 400 mg PO DAILY 04/14/20 04/14/20 Previous Rx's Medication Instructions Recorded Apixaban [Eliquis] 5 mg PO BID #0 tab 10/06/17 Diltiazem Cd [Cardizem CD] 240 mg PO DAILY #90 cap.er.24h 10/06/17 Nadolol [Corgard] 20 mg PO BID #180 tab 10/06/17 Nystatin 100,000Unit/gm Cream 1 applic TOPICAL BID 14 Days #1 02/04/20 [Mycostatin Cream] tube Allergies Allergy/AdvReac Type Severity Reaction Status Date / Time Penicillins Allergy Rash/Hives Verified 04/14/20 07:45 Review of Systems ROS Statement: Those systems with pertinent positive or pertinent negative responses have been documented in the HPI. ROS Other: All systems not noted in ROS Statement are negative. Past Medical History Past Medical History: Atrial Fibrillation, Diabetes Mellitus, Hypertension Additional Past Medical History / Comment(s): Obesity with a BMI of 49.6, hypertension, chronic atrial fibrillation, diabetes mellitus, recurrent Celexa the right lower extremity, lymphedema of the right lower extremity, osteoarthritis History of Any Multi-Drug Resistant Organisms: None Reported Past Surgical History: Section, Cholecystectomy, Hernia Repair Additional Past Surgical History / Comment(s): Abdominal hernia repair with mesh, benign lump removed right breast, bilateral cataract removal with lens implants. Past Anesthesia/Blood Transfusion Reactions: No Reported Reaction Past Psychological History: No Psychological Hx Reported Smoking Status: Former smoker Past Alcohol Use History: None Reported Past Drug Use History: None Reported - Past Family History Father Family Medical History: Coronary Artery Disease (CAD), Myocardial Infarction (SD) Additional Family Medical History / Comment(s): Father had several MIs with the first time being while he was in his 50s. He of a SD at the age of 75 yrs. Mother Family Medical History: No Reported History Additional Family Medical History / Comment(s): Mother was healthy and lived to be 91 yrs old. General Exam Limitations: no limitations General appearance: alert, in no apparent distress Head exam: Present: atraumatic, normocephalic, normal inspection Eye exam: Present: normal appearance, PERRL, EOMI. Absent: scleral icterus, conjunctival injection, periorbital swelling ENT exam: Present: normal exam, mucous membranes moist Neck exam: Present: normal inspection. Absent: tenderness, meningismus, lymphadenopathy Respiratory exam: Present: normal lung sounds bilaterally. Absent: respiratory distress, wheezes, rales, rhonchi, stridor Cardiovascular Exam: Present: regular rate, normal rhythm, normal heart sounds. Absent: systolic murmur, diastolic murmur, rubs, gallop, clicks GI/Abdominal exam: Present: soft, normal bowel sounds. Absent: distended, tenderness, guarding, rebound, rigid Extremities exam: Present: normal inspection, full ROM, normal capillary refill, other (Lower extremity with/left is significantly swollen edematous erythematous tender). Absent: tenderness, pedal edema, joint swelling, calf tenderness Back exam: Present: normal inspection Neurological exam: Present: alert, oriented X3, CN II-XII intact Psychiatric exam: Present: normal affect, normal mood Skin exam: Present: warm, dry, intact, normal color. Absent: rash Course Vital Signs 04/14/20 04/14/20 04/14/20 01:18 02:29 03:26 Temperature 102.9 F H 99.5 F 99.4 F Pulse Rate 77 80 67 Respiratory 18 18 18 Rate Blood Pressure 123/53 107/46 116/55 O2 Sat by Pulse 97 98 96 Oximetry 04/14/20 04/14/20 04/14/20 04:28 06:26 07:26 Temperature 98.3 F 98.4 F 98.1 F Pulse Rate 72 64 67 Respiratory 18 18 18 Rate Blood Pressure 116/55 116/55 122/70 O2 Sat by Pulse 96 94 L 95 Oximetry 04/14/20 04/14/20 16:00 19:09 Temperature 98 F 98 F Pulse Rate 68 69 Respiratory 18 18 Rate Blood Pressure 119/69 128/62 O2 Sat by Pulse 96 96 Oximetry - Reevaluation(s) Reevaluation #1: 04/14/20 03:57 Medical record is reviewed Reevaluation #2: 04/14/20 03:57 Sepsis bolus based on IV fluid due to ideal body weight of 54 kg Patient given IV antibiotics, symptoms are improved with fever control and synthetic therapy - Consultations Consultation #1: Patient to be admitted, spoke with sound were agreeable for admission EKG Findings - EKG Comments: EKG Findings:: EKG shows A. fib of 86, QRS 90, QTC 459 Medical Decision Making - Medical Decision Making 80 female Krish with significant laboratory cellulitis causing sepsis with fever, patient be admitted for IV antibiotics - Lab Data Result diagrams: 04/18/20 07:13 04/18/20 07:13 Lab Results 04/14/20 04/14/20 04/14/20 Range/Units 01:36 01:36 01:36 WBC 28.9 H (3.8-10.6) k/uL RBC 4.30 (3.80-5.40) m/uL Hgb 11.8 (11.4-16.0) gm/dL Hct 36.7 (34.0-46.0) % MCV 85.3 (80.0-100.0) fL MCH 27.4 (25.0-35.0) pg MCHC 32.1 (31.0-37.0) g/dL RDW 15.7 H (11.5-15.5) % Plt Count 227 (150-450) k/uL Neutrophils % Not Reportable Neutrophils % (Manual) 71 % Band Neutrophils % 22 % Lymphocytes % Not Reportable Lymphocytes % (Manual) 5 % Monocytes % Not Reportable Monocytes % (Manual) 3 % Eosinophils % Not Reportable Eosinophils % (Manual) 1 % Basophils % Not Reportable Neutrophils # Not Reportable Neutrophils # (Manual) 26.80 H (1.3-7.7) k/uL Lymphocytes # Not Reportable Lymphocytes # (Manual) 1.45 (1.0-4.8) k/uL Monocytes # Not Reportable Monocytes # (Manual) 0.87 (0-1.0) k/uL Eosinophils # Not Reportable Eosinophils # (Manual) 0.29 (0-0.7) k/uL Basophils # Not Reportable Nucleated RBCs 0 (0-0) /100 WBC Manual Slide Review Performed Toxic Vacuolation Present Large Platelets Present Polychromasia Present Hypochromasia Slight Poikilocytosis (manual Present Anisocytosis (manual) Present PT 11.0 (9.0-12.0) sec INR 1.1 (<1.2) APTT 22.7 (22.0-30.0) sec Sodium 134 L (137-145) mmol/L Potassium 4.0 (3.5-5.1) mmol/L Chloride 97 L (98-107) mmol/L Carbon Dioxide 28 (22-30) mmol/L Anion Gap 9 mmol/L BUN 37 H (7-17) mg/dL Creatinine 2.29 H (0.52-1.04) mg/dL Est GFR (CKD-EPI)AfAm 23 (>60 ml/min/1.73 sqM) Est GFR (CKD-EPI)NonAf 20 (>60 ml/min/1.73 sqM) Glucose 89 (74-99) mg/dL Estimated Ave Glu mg/dL Hemoglobin A1c (4.0-6.0) % Plasma Lactic Acid Nacho (0.7-2.0) mmol/L Calcium 10.2 (8.4-10.2) mg/dL Phosphorus 2.6 (2.5-4.5) mg/dL Magnesium 1.8 (1.6-2.3) mg/dL Total Bilirubin 1.2 (0.2-1.3) mg/dL AST 37 H (14-36) U/L ALT 13 (4-34) U/L Alkaline Phosphatase 119 (38-126) U/L Creatine Kinase 25 L (30-135) U/L CK-MB (CK-2) (0.0-2.4) ng/mL Troponin I (0.000-0.034) ng/mL NT-Pro-B Natriuret Pep pg/mL Total Protein 6.6 (6.3-8.2) g/dL Albumin 3.2 L (3.5-5.0) g/dL Urine Color Urine Appearance (Clear) Urine pH (5.0-8.0) Ur Specific [place] (1.001-1.035) Urine Protein (Negative) Urine Glucose (UA) (Negative) Urine Ketones (Negative) Urine Blood (Negative) Urine Nitrite (Negative) Urine Bilirubin (Negative) Urine Urobilinogen (<2.0) mg/dL Ur Leukocyte Esterase (Negative) Urine RBC (0-5) /hpf Urine WBC (0-5) /hpf Ur Squamous Epith Cells (0-4) /hpf Urine Bacteria (None) /hpf Coronavirus (PCR) (Not Detected) 04/14/20 04/14/20 04/14/20 Range/Units 01:36 01:36 01:36 WBC (3.8-10.6) k/uL RBC (3.80-5.40) m/uL Hgb (11.4-16.0) gm/dL Hct (34.0-46.0) % MCV (80.0-100.0) fL MCH (25.0-35.0) pg MCHC (31.0-37.0) g/dL RDW (11.5-15.5) % Plt Count (150-450) k/uL Neutrophils % Neutrophils % (Manual) % Band Neutrophils % % Lymphocytes % Lymphocytes % (Manual) % Monocytes % Monocytes % (Manual) % Eosinophils % Eosinophils % (Manual) % Basophils % Neutrophils # Neutrophils # (Manual) (1.3-7.7) k/uL Lymphocytes # Lymphocytes # (Manual) (1.0-4.8) k/uL Monocytes # Monocytes # (Manual) (0-1.0) k/uL Eosinophils # Eosinophils # (Manual) (0-0.7) k/uL Basophils # Nucleated RBCs (0-0) /100 WBC Manual Slide Review Toxic Vacuolation Large Platelets Polychromasia Hypochromasia Poikilocytosis (manual Anisocytosis (manual) PT (9.0-12.0) sec INR (<1.2) APTT (22.0-30.0) sec Sodium (137-145) mmol/L Potassium (3.5-5.1) mmol/L Chloride (98-107) mmol/L Carbon Dioxide (22-30) mmol/L Anion Gap mmol/L BUN (7-17) mg/dL Creatinine (0.52-1.04) mg/dL Est GFR (CKD-EPI)AfAm (>60 ml/min/1.73 sqM) Est GFR (CKD-EPI)NonAf (>60 ml/min/1.73 sqM) Glucose (74-99) mg/dL Estimated Ave Glu mg/dL Hemoglobin A1c (4.0-6.0) % Plasma Lactic Acid Nacho 1.7 (0.7-2.0) mmol/L Calcium (8.4-10.2) mg/dL Phosphorus (2.5-4.5) mg/dL Magnesium (1.6-2.3) mg/dL Total Bilirubin (0.2-1.3) mg/dL AST (14-36) U/L ALT (4-34) U/L Alkaline Phosphatase (38-126) U/L Creatine Kinase (30-135) U/L CK-MB (CK-2) <0.2 (0.0-2.4) ng/mL Troponin I 0.017 (0.000-0.034) ng/mL NT-Pro-B Natriuret Pep 4480 pg/mL Total Protein (6.3-8.2) g/dL Albumin (3.5-5.0) g/dL Urine Color Urine Appearance (Clear) Urine pH (5.0-8.0) Ur Specific [place] (1.001-1.035) Urine Protein (Negative) Urine Glucose (UA) (Negative) Urine Ketones (Negative) Urine Blood (Negative) Urine Nitrite (Negative) Urine Bilirubin (Negative) Urine Urobilinogen (<2.0) mg/dL Ur Leukocyte Esterase (Negative) Urine RBC (0-5) /hpf Urine WBC (0-5) /hpf Ur Squamous Epith Cells (0-4) /hpf Urine Bacteria (None) /hpf Coronavirus (PCR) (Not Detected) 04/14/20 04/14/20 04/14/20 Range/Units 01:36 02:32 02:54 WBC (3.8-10.6) k/uL RBC (3.80-5.40) m/uL Hgb (11.4-16.0) gm/dL Hct (34.0-46.0) % MCV (80.0-100.0) fL MCH (25.0-35.0) pg MCHC (31.0-37.0) g/dL RDW (11.5-15.5) % Plt Count (150-450) k/uL Neutrophils % Neutrophils % (Manual) % Band Neutrophils % % Lymphocytes % Lymphocytes % (Manual) % Monocytes % Monocytes % (Manual) % Eosinophils % Eosinophils % (Manual) % Basophils % Neutrophils # Neutrophils # (Manual) (1.3-7.7) k/uL Lymphocytes # Lymphocytes # (Manual) (1.0-4.8) k/uL Monocytes # Monocytes # (Manual) (0-1.0) k/uL Eosinophils # Eosinophils # (Manual) (0-0.7) k/uL Basophils # Nucleated RBCs (0-0) /100 WBC Manual Slide Review Toxic Vacuolation Large Platelets Polychromasia Hypochromasia Poikilocytosis (manual Anisocytosis (manual) PT (9.0-12.0) sec INR (<1.2) APTT (22.0-30.0) sec Sodium (137-145) mmol/L Potassium (3.5-5.1) mmol/L Chloride (98-107) mmol/L Carbon Dioxide (22-30) mmol/L Anion Gap mmol/L BUN (7-17) mg/dL Creatinine (0.52-1.04) mg/dL Est GFR (CKD-EPI)AfAm (>60 ml/min/1.73 sqM) Est GFR (CKD-EPI)NonAf (>60 ml/min/1.73 sqM) Glucose (74-99) mg/dL Estimated Ave Glu mg/dL 148 Hemoglobin A1c 6.8 H (4.0-6.0) % Plasma Lactic Acid Nacho (0.7-2.0) mmol/L Calcium (8.4-10.2) mg/dL Phosphorus (2.5-4.5) mg/dL Magnesium (1.6-2.3) mg/dL Total Bilirubin (0.2-1.3) mg/dL AST (14-36) U/L ALT (4-34) U/L Alkaline Phosphatase (38-126) U/L Creatine Kinase (30-135) U/L CK-MB (CK-2) (0.0-2.4) ng/mL Troponin I (0.000-0.034) ng/mL NT-Pro-B Natriuret Pep pg/mL Total Protein (6.3-8.2) g/dL Albumin (3.5-5.0) g/dL Urine Color Yellow Urine Appearance Clear (Clear) Urine pH 8.0 (5.0-8.0) Ur Specific [place] 1.015 (1.001-1.035) Urine Protein 2+ H (Negative) Urine Glucose (UA) Negative (Negative) Urine Ketones Negative (Negative) Urine Blood Moderate H (Negative) Urine Nitrite Negative (Negative) Urine Bilirubin Negative (Negative) Urine Urobilinogen <2.0 (<2.0) mg/dL Ur Leukocyte Esterase Negative (Negative) Urine RBC 79 H (0-5) /hpf Urine WBC 4 (0-5) /hpf Ur Squamous Epith Cells 2 (0-4) /hpf Urine Bacteria Rare H (None) /hpf Coronavirus (PCR) Not Detected (Not Detected) - Radiology Data Radiology results: report reviewed (Chest x-ray x-ray of tib-fib and foot are negative for acute disease), image reviewed Disposition Clinical Impression: Cellulitis of right lower extremity, Sepsis, Cellulitis Disposition: ADMITTED IP TO THIS HOSP Condition: Serious Is patient prescribed a controlled substance at d/c from ED?: No
[2020-04-14 01:53] LABS: HCT 36.7 % (34.0-46.0); HGB 11.8 gm/dL (11.4-16.0); Hypochromasia Slight; MCH 27.4 pg (25.0-35.0); MCHC 32.1 g/dL (31.0-37.0); MCV 85.3 fL (80.0-100.0); Mean Platelet Volume 8.2; Platelet Count 227 k/uL (150-450); RDW 15.7 % (11.5-15.5); WBC 28.9 k/uL (3.8-10.6)
[2020-04-14 01:58] LABS: INR 1.1 (<1.2); Partial Thromboplastin Time 22.7 sec (22.0-30.0)
--- NOTE | 2020-04-14 02:15 | XR ---
EXAMINATION TYPE: XR chest 2V DATE OF EXAM: 04/14/2020 COMPARISON: 01/29/2020 HISTORY: Leg pain TECHNIQUE: 2 views FINDINGS: Heart appears slightly enlarged. There is no heart failure. There is some blunting of the p osterior costophrenic angles. There are no hilar masses. There are chest leads. Bony thorax appears i ntact. Thoracic aorta is atheromatous. IMPRESSION: Cardiomegaly with small pleural effusions. No significant change compared to last exam. N o heart failure seen.
[2020-04-14 02:16] LABS: Albumin 3.2 g/dL (3.5-5.0); Calcium 10.2 mg/dL (8.4-10.2); Magnesium 1.8 mg/dL (1.6-2.3); Phosphorus 2.6 mg/dL (2.5-4.5); Total Bilirubin 1.2 mg/dL (0.2-1.3); Total Protein 6.6 g/dL (6.3-8.2)
--- NOTE | 2020-04-14 02:31 | XR ---
EXAMINATION TYPE: XR foot complete RT DATE OF EXAM: 04/14/2020 COMPARISON: NONE HISTORY: Pain and swelling TECHNIQUE: 3 views FINDINGS: There is diffuse soft tissue swelling of the foot. There is no evidence of bony destructive process. Metatarsals are intact. There is soft tissue swelling of the toes. There is large plantar c alcaneal spur. There is spurring at the anterior talonavicular joint. IMPRESSION: Extensive soft tissue swelling. No sign of osteomyelitis. No fracture.
[2020-04-14 02:32] LABS: Creatine Kinase MB <0.2 ng/mL (0.0-2.4); Troponin I 0.017 ng/mL (0.000-0.034)
--- NOTE | 2020-04-14 02:32 | XR ---
EXAMINATION TYPE: XR tibia fibula RT DATE OF EXAM: 04/14/2020 COMPARISON: NONE HISTORY: Pain and swelling TECHNIQUE: 3 views FINDINGS: There is subcutaneous edema around the lower leg. The tibia and fibula appear intact. I see no fracture. Knee joint and ankle joint appear anatomic. There is no significant joint space narrowi ng. IMPRESSION: Subcutaneous edema. No fracture seen.
[2020-04-14] MEDS ORDERED: VANCOMYCIN IV PER PHARMACY 1 EACH MISC MISCELLANE PRN (02:46)
[2020-04-14 03:12] LABS: Appearance,Urine Clear (Clear); Bacteria,Urine Rare /hpf; Bilirubin,Urine Negative (Negative); Blood,Urine Moderate (Negative); Color,Urine Yellow; Glucose,Urine (UA) Negative (Negative); Ketones,Urine Negative (Negative); Leukocyte Esterase,Urine Negative (Negative); Nitrite,Urine Negative (Negative); Protein,Urine 2+ (Negative); RBC,Urine 79 /hpf (0-5); Specific Gravity,Urine 1.015 (1.001-1.035); Squamous Epithelial Cell,Urine 2 /hpf (0-4); Urobilinogen,Urine <2.0 mg/dL (<2.0); WBC,Urine 4 /hpf (0-5)
[2020-04-14 03:27] LABS: Band Neutrophils % 22 %; Eosinophils # (M) 0.29 k/uL (0-0.7); Lymphocytes # (M) 1.45 k/uL (1.0-4.8); Monocytes # (M) 0.87 k/uL (0-1.0); Neutrophils % (M) 71 %; Nucleated Red Blood Cells 0 /100 WBC (0-0); Total Cells Counted 200
[2020-04-14 03:28] LABS: Anisocytosis (M) Present; Polychromasia Present
[2020-04-14 03:29] LABS: Toxic Vacuolation Present
[2020-04-14 03:30] LABS: Poikilocytosis (M) Present
[2020-04-14 03:31] LABS: Large Platelets Present
[2020-04-14] MEDS: SODIUM CHLORIDE 0.9% 1,000 ML IV SCH (03:59)
[2020-04-14] MEDS ORDERED: VANCOMYCIN 1,500 MG in SODIUM CHLORIDE 0.9% 250 ML IVPB ONE (04:00)
--- NOTE | 2020-04-14 04:20 | P.HPIM ---
History of Present Illness H&P Date: 04/14/20 The patient was seen and examined in the emergency room at 2:30 AM on 04/14 The patient is an 80-year-old female with a PMH of type II DM, hypertension, chronic venous stasis with recurrent episodes of right lower extremity cellulitis, A. fib on Eliquis who presented to the ED with complaints of right leg swelling and pain. The patient notes that her visiting nurse saw her leg today and became concerned since it had gradually been getting worse and prompted her to come to the ED. She reports some chills at home now otherwise denied any additional complaints. Patient denied chest pain, shortness of breath, nausea, vomiting, diarrhea, dizziness, or headaches. She ambulates at home with a walker. In the ED the patient had a T-max of 102.9 with a chest x- ray that was unremarkable, with right foot x-ray showing soft tissue swelling, and a right tibia fibula x-ray showing subcutaneous edema. EKG revealed A. fib at 86 bpm. Laboratory evaluation revealed WBC count of 28.9, hemoglobin 11.8, palates 227, sodium 134, potassium 4.0, chloride 97, BUN 37, creatinine 2.09, troponin 0.017, and glucose of 89. Review of Systems Pertinent positives and negatives as discussed in HPI, a complete review of systems was performed and all other systems are negative. Past Medical History Past Medical History: Atrial Fibrillation, Diabetes Mellitus, Hypertension Additional Past Medical History / Comment(s): Obesity with a BMI of 49.6, hypertension, chronic atrial fibrillation, diabetes mellitus, recurrent Celexa the right lower extremity, lymphedema of the right lower extremity, osteoarthritis History of Any Multi-Drug Resistant Organisms: None Reported Past Surgical History: Section, Cholecystectomy, Hernia Repair Additional Past Surgical History / Comment(s): Abdominal hernia repair with mesh, benign lump removed right breast, bilateral cataract removal with lens implants. Past Anesthesia/Blood Transfusion Reactions: No Reported Reaction Past Psychological History: No Psychological Hx Reported Smoking Status: Former smoker Past Alcohol Use History: None Reported Past Drug Use History: None Reported - Past Family History Father Family Medical History: Coronary Artery Disease (CAD), Myocardial Infarction (MA) Additional Family Medical History / Comment(s): Father had several MIs with the first time being while he was in his 50s. He of a MA at the age of 75 yrs. Mother Family Medical History: No Reported History Additional Family Medical History / Comment(s): Mother was healthy and lived to be 91 yrs old. Medications and Allergies Home Medications Medication Instructions Recorded Confirmed Type Furosemide [Lasix] 20 mg PO Q48H 10/02/17 01/29/20 History Insulin Glargine,Hum.rec.anlog 45 unit SQ HS 10/02/17 01/29/20 History [Lantus Solostar] Lisinopril-Hctz 20-25 mg 1 tab PO DAILY 10/02/17 01/29/20 History [Zestoretic 20-25] cloNIDine HCL [Catapres] 0.1 mg PO BID 10/02/17 01/29/20 History Apixaban [Eliquis] 5 mg PO BID #0 tab 10/06/17 01/29/20 Rx Diltiazem Cd [Cardizem CD] 240 mg PO DAILY #90 cap.er.24h 10/06/17 01/29/20 Rx Nadolol [Corgard] 20 mg PO BID #180 tab 10/06/17 01/29/20 Rx Furosemide [Lasix] 40 mg PO Q48H 05/24/18 01/29/20 History Multivitamins, Thera [Multivitamin 1 tab PO DAILY 05/24/18 01/29/20 History (formulary)] Insulin Aspart [NovoLOG Flexpen] 15 units SQ W/BRKFST 01/29/20 01/29/20 History Insulin Aspart [NovoLOG Flexpen] 20 units SQ W/LUNCH 01/29/20 01/29/20 History Insulin Aspart [NovoLOG Flexpen] 25 units SQ W/SUPPER 01/29/20 01/29/20 History Cephalexin [Keflex] 500 mg PO Q8HR 10 Days #30 cap 02/04/20 Rx Nystatin 100,000Unit/gm Cream 1 applic TOPICAL BID 14 Days #1 02/04/20 Rx [Mycostatin Cream] tube Allergies Allergy/AdvReac Type Severity Reaction Status Date / Time Penicillins Allergy Rash/Hives Verified 04/14/20 01:29 Physical Exam Vitals: Vital Signs Temp Pulse Resp BP Pulse Ox 04/14/20 03:26 99.4 F 67 18 116/55 96 04/14/20 02:29 99.5 F 80 18 107/46 98 04/14/20 01:18 102.9 F H 77 18 123/53 97 Intake and Output 04/13/20 04/13/20 04/14/20 14:59 22:59 06:59 Other: Weight 124.738 kg General: non toxic, no distress, appears at stated age, normal weight Derm: Right lower extremity chronic venous stasis changes with erythema, i nduration, and tenderness Head: atraumatic, normocephalic, symmetric Eyes: EOMI, no lid lag, anicteric sclera, pupils equal round reactive to light ENT: Nose and ears atraumatic, no thrush, no pharyngeal erythema Neck: No thyromegaly, no cervical lymphadenopathy, trachea midline, supple Mouth: no lip lesion, mucus membranes moist Cardiovascular: S1S2 reg, no murmur, positive posterior tibial pulse bilateral, no edema, capillary refill less than 2 seconds Lungs: CTA bilateral, no rhonchi, no rales , no accessory muscle use Abdominal: soft, nontender to palpation, no guarding, no appreciable o rganomegaly, normal bowel sounds Ext: no gross muscle atrophy, no focal neuro deficits, no contractures, Neuro: CN II-XI grossly intact, light touch intact all 4 extremities, finger to nose within normal limits, Psych: Alert, oriented, appropriate affect Results CBC & Chem 7: 04/14/20 01:36 04/14/20 01:36 Labs: Abnormal Lab Results - Last 24 Hours (Table) 04/14/20 04/14/20 04/14/20 Range/Units 01:36 01:36 02:32 WBC 28.9 H (3.8-10.6) k/uL RDW 15.7 H (11.5-15.5) % Neutrophils # (Manual) 26.80 H (1.3-7.7) k/uL Sodium 134 L (137-145) mmol/L Chloride 97 L (98-107) mmol/L BUN 37 H (7-17) mg/dL Creatinine 2.29 H (0.52-1.04) mg/dL AST 37 H (14-36) U/L Creatine Kinase 25 L (30-135) U/L Albumin 3.2 L (3.5-5.0) g/dL Urine Protein 2+ H (Negative) Urine Blood Moderate H (Negative) Urine RBC 79 H (0-5) /hpf Urine Bacteria Rare H (None) /hpf Assessment and Plan Plan: Sepsis secondary to right lower extremity cellulitis -Continue with ceftriaxone and vancomycin for now -Follow up blood cultures -Continue with IV fluids -Continue with home diuretic dose -Encourage leg raising NATE on chronic kidney disease -Monitor BMP -Continue with IV fluids Type II DM -Lispro insulin sliding scale blood glucose monitoring -Continue with home insulin doses Chronic conditions: A. fib, hypertension -Continue with home meds DVT prophylaxis -Eliquis The patient is admitted with an anticipated less than 2 midnight stay for evaluation of sepsis from cellulitis CODE STATUS: Full Code Discussed with: Patient Anticipated discharge date: 2-[address]: Home A total of 40 minutes was spent on the care of this complex patient more than 50% of the time was spent in counseling and care coordination.
[2020-04-14] MEDS: SODIUM CHLORIDE 0.9% 500 ML 500 ML IV SCH ×3 (04:41→07:26)
[2020-04-14 12:57] LABS: Hemoglobin A1C 6.8 % (4.0-6.0)
--- NOTE | 2020-04-14 14:42 | P.PN ---
Progress Note - Text Progress Note Date: 04/14/20 Patient seen and examined, stop IV fluids, resume home Lasix. Hold HCTZ and lisinopril due to renal failure. RLE ultrasound done last admission without DVT, no need to repeat now. Continue ceftriaxone and vancomycin for now.
[2020-04-14] MEDS ORDERED: FUROSEMIDE 20 MG TAB PO ONE (15:00)
[2020-04-14 17:36] LABS: Glucose,Whole Blood 189 mg/dL (75-99)
[2020-04-14] MEDS: INSULIN ASPART (NovoLOG) 100 UNIT/ML VIAL SQ SCH (17:45)
[2020-04-14 21:32] LABS: Glucose,Whole Blood 180 mg/dL (75-99)
[2020-04-14] MEDS: APIXABAN 5 MG TAB PO SCH (22:51)
[2020-04-14] MEDS: cloNIDine HCL 0.1 MG TAB PO SCH (22:51)
[2020-04-14] MEDS: INSULIN DETEMIR (LEVEMIR) 100 UNIT/ML SYR SQ SCH (23:19)
[2020-04-15] MEDS: SODIUM CHLORIDE 0.9% 1,000 ML IV SCH (00:04)
[2020-04-15] MEDS ORDERED: VANCOMYCIN 2,000 MG in SODIUM CHLORIDE 0.9% 500 ML 500 ML IVPB ONE (06:00)
[2020-04-15 07:37] LABS: Glucose,Whole Blood 118 mg/dL (75-99)
[2020-04-15] MEDS: INSULIN ASPART (NovoLOG) 100 UNIT/ML VIAL SQ SCH ×3 (08:20→17:38)
[2020-04-15] MEDS: cloNIDine HCL 0.1 MG TAB PO SCH ×2 (08:25→22:14)
[2020-04-15] MEDS: MAGNESIUM OXIDE 400 MG TAB PO SCH (08:25)
[2020-04-15] MEDS: FUROSEMIDE 40 MG TAB PO SCH (08:25)
[2020-04-15] MEDS: CHOLECALCIFEROL 1,000 UNIT TAB PO SCH (08:25)
[2020-04-15] MEDS: APIXABAN 5 MG TAB PO SCH ×2 (08:25→22:14)
[2020-04-15] MEDS: CALCIUM CARBONATE 500 MG CHEWABLE PO SCH (08:26)
[2020-04-15] MEDS: DILTIAZEM CD 240 MG CAP.ER.24H PO SCH (08:26)
[2020-04-15] MEDS ORDERED: LISINOPRIL-HCTZ 20-25 MG 1 EACH TAB PO SCH (09:00)
[2020-04-15 11:33] LABS: Glucose,Whole Blood 131 mg/dL (75-99)
--- NOTE | 2020-04-15 12:25 | P.PN ---
Subjective Progress Note Date: 04/15/20 Principal diagnosis: Right leg cellulitis Patient is feeling the same, he denied having right leg pain. No fevers or chills. Eating okay. Having bowel movements. No nausea or vomiting. Objective - Vital Signs Vital signs: Vital Signs Temp 97.5 F L 04/15/20 07:00 Pulse 80 04/15/20 08:00 Resp 16 04/15/20 08:00 BP 143/70 04/15/20 07:00 Pulse Ox 97 04/15/20 07:00 Intake & Output 04/14/20 04/15/20 04/15/20 18:59 06:59 18:59 Intake Total 560 200 Balance 560 200 Weight 124.738 kg Intake: Intake, IV Titration 500 Amount Vancomycin 2,000 mg In 500 Sodium Chloride 0.9% 500 ml 500 ml @ 167 mls/hr IVPB ONCE ONE Rx#: [id number] Oral 60 200 Other: Voiding Method Bedside Commode Bedside Commode # Voids 2 - Exam Constitutional: No acute distress, conversant, pleasant Eyes:Anicteric sclerae, moist conjunctiva, no lid-lag, PERRLA, ENMT: Oropharynx clear, no erythema, exudates Neck: Supple, FROM, no masses, or JVD, No carotid bruits, No thyromegaly Lungs: Clear to auscultation, Clear to percussion, Normal respiratory effort, no accessory muscle use Cardiovascular: Heart regular in rate and rhythm, No murmurs, gallops, or rubs, 1+ peripheral edema Abdominal: Soft, Nontender, no guarding, rebound or rigidity, Normoactive bowel sounds, No hepatomegaly, No splenomegaly, No palpable mass Skin: Normal temperature, tone, texture, turgor, no induration, No subcutaneous nodules, No rash, lesions, No ulcers Extremities: Right leg erythema starting from the foot up to the right knee. No digital cyanosis, No clubbing, Pedal pulses intact and symmetrical, Radial pulses intact and symmetrical, No calf tenderness Psychiatric: Alert and oriented to person, place and time, appropriate affect, intact judgement Neuro: Muscles Strength 5/5 in all 4 extremities, Sensation to light touch grossly present throughout, Cranial nerves II-XII grossly intact, no focal sensory deficits - Labs CBC & Chem 7: 04/14/20 01:36 04/15/20 09:58 Labs: Abnormal Lab Results - Last 24 Hours (Table) 04/14/20 04/14/20 04/14/20 Range/Units 01:36 17:35 21:31 Creatinine (0.52-1.04) mg/dL POC Glucose (mg/dL) 189 H 180 H (75-99) mg/dL Hemoglobin A1c 6.8 H (4.0-6.0) % 04/15/20 04/15/20 04/15/20 Range/Units 07:33 09:58 11:25 Creatinine 2.06 H (0.52-1.04) mg/dL POC Glucose (mg/dL) 118 H 131 H (75-99) mg/dL Hemoglobin A1c (4.0-6.0) % Microbiology - Last 24 Hours (Table) 04/14/20 02:03 Blood Culture - Preliminary Blood No Growth after 24 hours Assessment and Plan Plan: Sepsis secondary to right lower extremity cellulitis -Continue with ceftriaxone and vancomycin for now -Follow up blood cultures -Continue with IV fluids -Continue with home diuretic dose -Encourage leg raising NATE on chronic kidney disease sec to above -Improved Type II DM -Lispro insulin sliding scale blood glucose monitoring -Continue with home insulin doses Morbid obesity -Structured outpatient weight loss Chronic conditions: A. fib, hypertension -Continue with home meds DVT prophylaxis -Eliquis Anticipated discharge date: [address]: Home
[2020-04-15 17:26] LABS: Glucose,Whole Blood 119 mg/dL (75-99)
[2020-04-15 20:49] LABS: Glucose,Whole Blood 84 mg/dL (75-99)
[2020-04-15] MEDS: INSULIN DETEMIR (LEVEMIR) 100 UNIT/ML SYR SQ SCH (22:14)
[2020-04-16 02:36] LABS: Glucose,Whole Blood 49 mg/dL (75-99)
[2020-04-16 03:00] LABS: Glucose,Whole Blood 60 mg/dL (75-99)
[2020-04-16 03:59] LABS: Glucose,Whole Blood 106 mg/dL (75-99)
[2020-04-16 07:49] LABS: Glucose,Whole Blood 110 mg/dL (75-99)
[2020-04-16] MEDS: INSULIN ASPART (NovoLOG) 100 UNIT/ML VIAL SQ SCH ×3 (08:26→17:44)
[2020-04-16] MEDS: DILTIAZEM CD 240 MG CAP.ER.24H PO SCH (08:27)
[2020-04-16] MEDS: CALCIUM CARBONATE 500 MG CHEWABLE PO SCH ×2 (08:27→08:29)
[2020-04-16] MEDS: MAGNESIUM OXIDE 400 MG TAB PO SCH (08:27)
[2020-04-16] MEDS: FUROSEMIDE 20 MG TAB PO SCH (08:27)
[2020-04-16] MEDS: APIXABAN 5 MG TAB PO SCH ×2 (08:27→20:39)
[2020-04-16] MEDS: CHOLECALCIFEROL 1,000 UNIT TAB PO SCH (08:27)
[2020-04-16] MEDS: cloNIDine HCL 0.1 MG TAB PO SCH ×2 (08:27→20:39)
[2020-04-16 10:06] LABS: Calcium 8.8 mg/dL (8.4-10.2); Magnesium 1.8 mg/dL (1.6-2.3); Potassium 3.8 mmol/L (3.5-5.1)
[2020-04-16 10:46] LABS: Basophils % (A) 0 %; Eosinophils # (A) 0.5 k/uL (0-0.7); Eosinophils % (A) 4 %; HCT 38.3 % (34.0-46.0); HGB 11.8 gm/dL (11.4-16.0); Hypochromasia Moderate; Lymphocytes # (A) 0.8 k/uL (1.0-4.8); Lymphocytes % (A) 6 %; MCH 26.5 pg (25.0-35.0); MCHC 30.8 g/dL (31.0-37.0); MCV 85.9 fL (80.0-100.0); Mean Platelet Volume 9.3; Monocytes # (A) 1.6 k/uL (0-1.0); Monocytes % (A) 12 %; Neutrophils # (A) 10.1 k/uL (1.3-7.7); Neutrophils % (A) 76 %; RBC 4.45 m/uL (3.80-5.40); WBC 13.3 k/uL (3.8-10.6)
[2020-04-16] MEDS ORDERED: VANCOMYCIN 2,000 MG in SODIUM CHLORIDE 0.9% 500 ML 500 ML IVPB ONE (11:00)
--- NOTE | 2020-04-16 11:35 | P.PN ---
Subjective Progress Note Date: 04/16/20 Principal diagnosis: Right leg cellulitis Patient was hypoglycemic last night her blood sugar went down to as low as 49. She was given some sugary food and her blood glucose did come back up. She told me that she does not check her blood sugar during the nighttime usually at home. No pain, no other overnight issues. Objective - Vital Signs Vital signs: Vital Signs Temp 97.7 F 04/16/20 07:00 Pulse 67 04/16/20 07:00 Resp 20 04/16/20 07:00 BP 129/104 04/16/20 07:00 Pulse Ox 94 L 04/16/20 07:00 Intake & Output 04/15/20 04/16/20 04/16/20 18:59 06:59 18:59 Intake Total 200 500 200 Balance 200 500 200 Intake: Intake, IV Titration 100 Amount cefTRIAXone 1 gm In 100 Sodium Chloride 0.9% 50 ml @ 100 mls/hr IVPB Q24H [facility] Rx#:[id number] Oral 200 400 200 Other: Voiding Method Bedside Commode Bedside Commode Bedside Commode # Voids 2 2 - Exam Constitutional: No acute distress, conversant, pleasant Eyes:Anicteric sclerae, moist conjunctiva, no lid-lag, PERRLA, ENMT: Oropharynx clear, no erythema, exudates Neck: Supple, FROM, no masses, or JVD, No carotid bruits, No thyromegaly Lungs: Clear to auscultation, Clear to percussion, Normal respiratory effort, no accessory muscle use Cardiovascular: Heart regular in rate and rhythm, No murmurs, gallops, or rubs, 1+ peripheral edema Abdominal: Soft, Nontender, no guarding, rebound or rigidity, Normoactive bowel sounds, No hepatomegaly, No splenomegaly, No palpable mass Skin: Normal temperature, tone, texture, turgor, no induration, No subcutaneous nodules, No rash, lesions, No ulcers Extremities: Right leg erythema starting from the foot up to the right knee. No digital cyanosis, No clubbing, Pedal pulses intact and symmetrical, Radial pulses intact and symmetrical, No calf tenderness Psychiatric: Alert and oriented to person, place and time, appropriate affect, intact judgement Neuro: Muscles Strength 5/5 in all 4 extremities, Sensation to light touch grossly present throughout, Cranial nerves II-XII grossly intact, no focal sensory deficits - Labs CBC & Chem 7: 04/16/20 09:13 04/16/20 09:13 Labs: Abnormal Lab Results - Last 24 Hours (Table) 04/15/20 04/15/20 04/16/20 Range/Units 11:25 17:23 02:33 WBC (3.8-10.6) k/uL MCHC (31.0-37.0) g/dL RDW (11.5-15.5) % Plt Count (150-450) k/uL Sodium (137-145) mmol/L BUN (7-17) mg/dL Creatinine (0.52-1.04) mg/dL Glucose (74-99) mg/dL POC Glucose (mg/dL) 131 H 119 H 49 L (75-99) mg/dL 04/16/20 04/16/20 04/16/20 Range/Units 02:57 03:56 07:42 WBC (3.8-10.6) k/uL MCHC (31.0-37.0) g/dL RDW (11.5-15.5) % Plt Count (150-450) k/uL Sodium (137-145) mmol/L BUN (7-17) mg/dL Creatinine (0.52-1.04) mg/dL Glucose (74-99) mg/dL POC Glucose (mg/dL) 60 L 106 H 110 H (75-99) mg/dL 04/16/20 04/16/20 Range/Units 09:13 09:13 WBC 13.3 H (3.8-10.6) k/uL MCHC 30.8 L (31.0-37.0) g/dL RDW 16.0 H (11.5-15.5) % Plt Count 85 L D (150-450) k/uL Sodium 132 L (137-145) mmol/L BUN 38 H (7-17) mg/dL Creatinine 1.66 H (0.52-1.04) mg/dL Glucose 141 H (74-99) mg/dL POC Glucose (mg/dL) (75-99) mg/dL Microbiology - Last 24 Hours (Table) 04/14/20 02:03 Blood Culture - Preliminary Blood No Growth after 48 hours Assessment and Plan Plan: Sepsis secondary to right lower extremity cellulitis, chronic bilateral lower extremities lymphedema -Redness is a extending behind the line that was drawn on the borders of the cellulitis -Discontinue ceftriaxone and start cefepime for broader gram-negative coverage especially that patient is diabetic. Continue vancomycin for now. -Blood cultures negative so far, check for MRSA -Continue with home diuretic dose -Encourage leg raising, discussed with nursing NATE on chronic kidney disease sec to above -Resolved Type II DM with hypoglycemia -Since hypoglycemia occurred during the nighttime will decrease the prandial insulin at suppertime to 20 units from 30. -Continue same dose of Lantus for now Morbid obesity -Structured outpatient weight loss General weakness Consult PT Chronic conditions: A. fib, hypertension -Continue with home meds DVT prophylaxis -Eliquis Anticipated discharge date: [address]: Home
[2020-04-16 12:08] LABS: Glucose,Whole Blood 112 mg/dL (75-99)
[2020-04-16] MEDS: CEFEPIME 1 GM in SODIUM CHLORIDE 0.9% 50 ML IVPB SCH (12:28)
[2020-04-16 17:40] LABS: Glucose,Whole Blood 138 mg/dL (75-99)
[2020-04-16 20:36] LABS: Glucose,Whole Blood 192 mg/dL (75-99)
[2020-04-16] MEDS: INSULIN DETEMIR (LEVEMIR) 100 UNIT/ML SYR SQ SCH (20:38)
[2020-04-17 02:39] LABS: Glucose,Whole Blood 141 mg/dL (75-99)
[2020-04-17 07:18] LABS: Glucose,Whole Blood 111 mg/dL (75-99)
[2020-04-17] MEDS: CALCIUM CARBONATE 500 MG CHEWABLE PO SCH ×2 (08:19→08:56)
[2020-04-17] MEDS: MAGNESIUM OXIDE 400 MG TAB PO SCH (08:19)
[2020-04-17] MEDS: APIXABAN 5 MG TAB PO SCH ×2 (08:19→20:21)
[2020-04-17] MEDS: cloNIDine HCL 0.1 MG TAB PO SCH ×2 (08:19→20:21)
[2020-04-17] MEDS: FUROSEMIDE 40 MG TAB PO SCH (08:19)
[2020-04-17] MEDS: CHOLECALCIFEROL 1,000 UNIT TAB PO SCH (08:19)
[2020-04-17] MEDS: INSULIN ASPART (NovoLOG) 100 UNIT/ML VIAL SQ SCH ×3 (08:20→16:56)
[2020-04-17] MEDS: CEFEPIME 1 GM in SODIUM CHLORIDE 0.9% 50 ML IVPB SCH (08:20)
[2020-04-17] MEDS: DILTIAZEM CD 240 MG CAP.ER.24H PO SCH (08:20)
[2020-04-17 09:59] LABS: Vancomycin,Random 24.2 ug/mL
--- NOTE | 2020-04-17 11:30 | P.PN ---
Subjective Progress Note Date: 04/17/20 Principal diagnosis: Right leg cellulitis Patient has been doing well, no overnight issues. She has been lifting her legs up while sitting in a chair. No pain, no fevers or chills. Objective - Vital Signs Vital signs: Vital Signs Temp 97.6 F 04/17/20 07:08 Pulse 58 L 04/17/20 07:08 Resp 16 04/17/20 07:08 BP 142/89 04/17/20 07:08 Pulse Ox 97 04/17/20 07:08 Intake & Output 04/16/20 04/17/20 04/17/20 18:59 06:59 18:59 Intake Total 200 Balance 200 Intake: Oral 200 Other: Voiding Method Bedside Commode Bedside Commode # Voids 3 4 - Exam Constitutional: No acute distress, conversant, pleasant Eyes:Anicteric sclerae, moist conjunctiva, no lid-lag, PERRLA, ENMT: Oropharynx clear, no erythema, exudates Neck: Supple, FROM, no masses, or JVD, No carotid bruits, No thyromegaly Lungs: Clear to auscultation, Clear to percussion, Normal respiratory effort, no accessory muscle use Cardiovascular: Heart regular in rate and rhythm, No murmurs, gallops, or rubs, 1+ peripheral edema Abdominal: Soft, Nontender, no guarding, rebound or rigidity, Normoactive bowel sounds, No hepatomegaly, No splenomegaly, No palpable mass Skin: Normal temperature, tone, texture, turgor, no induration, No subcutaneous nodules, No rash, lesions, No ulcers Extremities: Right leg erythema starting from the foot up to the right knee. No digital cyanosis, No clubbing, Pedal pulses intact and symmetrical, Radial pulses intact and symmetrical, No calf tenderness Psychiatric: Alert and oriented to person, place and time, appropriate affect, intact judgement Neuro: Muscles Strength 5/5 in all 4 extremities, Sensation to light touch grossly present throughout, Cranial nerves II-XII grossly intact, no focal sensory deficits - Labs CBC & Chem 7: 04/16/20 09:13 04/17/20 08:52 Labs: Abnormal Lab Results - Last 24 Hours (Table) 04/16/20 04/16/20 04/16/20 Range/Units 09:13 12:04 16:59 WBC 13.3 H (3.8-10.6) k/uL MCHC 30.8 L (31.0-37.0) g/dL RDW 16.0 H (11.5-15.5) % Neutrophils # 10.1 H (1.3-7.7) k/uL Lymphocytes # 0.8 L (1.0-4.8) k/uL Monocytes # 1.6 H (0-1.0) k/uL Creatinine (0.52-1.04) mg/dL POC Glucose (mg/dL) 112 H 138 H (75-99) mg/dL 04/16/20 04/17/20 04/17/20 Range/Units 20:34 02:37 07:08 WBC (3.8-10.6) k/uL MCHC (31.0-37.0) g/dL RDW (11.5-15.5) % Neutrophils # (1.3-7.7) k/uL Lymphocytes # (1.0-4.8) k/uL Monocytes # (0-1.0) k/uL Creatinine (0.52-1.04) mg/dL POC Glucose (mg/dL) 192 H 141 H 111 H (75-99) mg/dL 04/17/20 Range/Units 08:52 WBC (3.8-10.6) k/uL MCHC (31.0-37.0) g/dL RDW (11.5-15.5) % Neutrophils # (1.3-7.7) k/uL Lymphocytes # (1.0-4.8) k/uL Monocytes # (0-1.0) k/uL Creatinine 1.54 H (0.52-1.04) mg/dL POC Glucose (mg/dL) (75-99) mg/dL Microbiology - Last 24 Hours (Table) 04/14/20 02:03 Blood Culture - Preliminary Blood No Growth after 72 hours 04/16/20 14:25 Nasal Screen MRSA/MSSA - Preliminary Nasal Swab Assessment and Plan Plan: Sepsis secondary to right lower extremity cellulitis, on top of chronic bilateral lower extremities lymphedema -Continue cefepime and vancomycin for now. 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 -Continue same dose of Lantus for now Morbid obesity -Structured outpatient weight loss General weakness Consult PT Chronic conditions: A. fib, hypertension -Continue with home meds DVT prophylaxis -Gaurav Anticipated discharge date: [address]: Home
[2020-04-17 11:43] LABS: Glucose,Whole Blood 113 mg/dL (75-99)
[2020-04-17 16:46] LABS: Glucose,Whole Blood 87 mg/dL (75-99)
[2020-04-17] MEDS: INSULIN DETEMIR (LEVEMIR) 100 UNIT/ML SYR SQ SCH (20:21)
[2020-04-17 20:22] LABS: Glucose,Whole Blood 148 mg/dL (75-99)
[2020-04-18 02:10] LABS: Glucose,Whole Blood 107 mg/dL (75-99)
[2020-04-18 06:55] LABS: Glucose,Whole Blood 75 mg/dL (75-99)
[2020-04-18] MEDS: INSULIN ASPART (NovoLOG) 100 UNIT/ML VIAL SQ SCH ×3 (06:58→16:49)
[2020-04-18] MEDS: CEFEPIME 1 GM in SODIUM CHLORIDE 0.9% 50 ML IVPB SCH (07:35)
[2020-04-18] MEDS: MAGNESIUM OXIDE 400 MG TAB PO SCH (07:37)
[2020-04-18] MEDS: APIXABAN 5 MG TAB PO SCH ×2 (07:37→21:40)
[2020-04-18] MEDS: DILTIAZEM CD 240 MG CAP.ER.24H PO SCH (07:37)
[2020-04-18] MEDS: FUROSEMIDE 20 MG TAB PO SCH (07:37)
[2020-04-18] MEDS: cloNIDine HCL 0.1 MG TAB PO SCH ×2 (07:37→21:40)
[2020-04-18] MEDS: CALCIUM CARBONATE 500 MG CHEWABLE PO SCH (07:38)
[2020-04-18] MEDS: CHOLECALCIFEROL 1,000 UNIT TAB PO SCH (07:38)
[2020-04-18] MEDS ORDERED: VANCOMYCIN 2,000 MG in SODIUM CHLORIDE 0.9% 500 ML 500 ML IVPB ONE (09:00)
[2020-04-18 09:01] LABS: Calcium 8.8 mg/dL (8.4-10.2); Potassium 4.2 mmol/L (3.5-5.1)
[2020-04-18 09:36] LABS: HGB 12.4 gm/dL (11.4-16.0); Hypochromasia Moderate; MCH 27.1 pg (25.0-35.0); MCHC 31.8 g/dL (31.0-37.0); MCV 85.2 fL (80.0-100.0); Mean Platelet Volume 8.8; Platelet Count 212 k/uL (150-450); RBC 4.57 m/uL (3.80-5.40); RDW 15.6 % (11.5-15.5)
[2020-04-18 11:21] LABS: Glucose,Whole Blood 162 mg/dL (75-99)
--- NOTE | 2020-04-18 11:46 | P.PN ---
Subjective Progress Note Date: 04/18/20 Principal diagnosis: Right leg cellulitis Patient is doing well, no pain, no sob. No other overnight events. Objective - Vital Signs Vital signs: Vital Signs Temp 97.5 F L 04/18/20 08:48 Pulse 57 L 04/18/20 08:48 Resp 16 04/18/20 08:48 BP 130/66 04/18/20 08:48 Pulse Ox 96 04/18/20 08:48 Intake & Output 04/17/20 04/18/20 04/18/20 18:59 06:59 18:59 Intake Total 1130 550 Output Total 1 Balance 1130 -1 550 Intake: IV 50 50 Cefepime 1 gm In Sodium 50 50 Chloride 0.9% 50 ml @ 100 mls/hr IVPB DAILY [facility] Rx #:[id number] Intake, IV Titration 500 Amount Vancomycin 2,000 mg In 500 Sodium Chloride 0.9% 500 ml 500 ml @ 167 mls/hr IVPB ONCE ONE Rx#: [id number] Oral 1080 Output: Urine 1 Other: Voiding Method Bedside Commode # Voids 2 2 - Exam Constitutional: No acute distress, conversant, pleasant Eyes:Anicteric sclerae, moist conjunctiva, no lid-lag, PERRLA, ENMT: Oropharynx clear, no erythema, exudates Neck: Supple, FROM, no masses, or JVD, No carotid bruits, No thyromegaly Lungs: Clear to auscultation, Clear to percussion, Normal respiratory effort, no accessory muscle use Cardiovascular: Heart regular in rate and rhythm, No murmurs, gallops, or rubs, 1+ peripheral edema Abdominal: Soft, Nontender, no guarding, rebound or rigidity, Normoactive bowel sounds, No hepatomegaly, No splenomegaly, No palpable mass Skin: Normal temperature, tone, texture, turgor, no induration, No subcutaneous nodules, No rash, lesions, No ulcers Extremities: Right leg erythema starting from the foot up to the right knee. No digital cyanosis, No clubbing, Pedal pulses intact and symmetrical, Radial pulses intact and symmetrical, No calf tenderness Psychiatric: Alert and oriented to person, place and time, appropriate affect, intact judgement Neuro: Muscles Strength 5/5 in all 4 extremities, Sensation to light touch grossly present throughout, Cranial nerves II-XII grossly intact, no focal sensory deficits - Labs CBC & Chem 7: 04/18/20 07:13 04/18/20 07:13 Labs: Abnormal Lab Results - Last 24 Hours (Table) 04/17/20 04/18/20 04/18/20 Range/Units 20:20 02:09 07:13 RDW (11.5-15.5) % Sodium 133 L (137-145) mmol/L Carbon Dioxide 19 L (22-30) mmol/L BUN 33 H (7-17) mg/dL Creatinine 1.50 H (0.52-1.04) mg/dL Glucose 57 L (74-99) mg/dL POC Glucose (mg/dL) 148 H 107 H (75-99) mg/dL 04/18/20 04/18/20 Range/Units 07:13 11:20 RDW 15.6 H (11.5-15.5) % Sodium (137-145) mmol/L Carbon Dioxide (22-30) mmol/L BUN (7-17) mg/dL Creatinine (0.52-1.04) mg/dL Glucose (74-99) mg/dL POC Glucose (mg/dL) 162 H (75-99) mg/dL Microbiology - Last 24 Hours (Table) 04/14/20 02:03 Blood Culture - Preliminary Blood No Growth after 96 hours 04/16/20 14:25 Nasal Screen MRSA/MSSA - Final Nasal Swab Assessment and Plan Plan: Sepsis secondary to right lower extremity cellulitis -Continue cefepime, d/c vancomycin as MRSA screen negative. 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 -Continue same dose of Lantus for now Morbid obesity -Structured outpatient weight loss General weakness Consult PT Chronic conditions: A. fib, hypertension -Continue with home meds DVT prophylaxis -Brittneyquis Anticipated discharge date: [address]: Home
[2020-04-18 16:39] LABS: Glucose,Whole Blood 106 mg/dL (75-99)
[2020-04-18] MEDS ORDERED: bisacodyL 5 MG TABLET.DR PO PRN (17:33)
[2020-04-18 20:26] LABS: Glucose,Whole Blood 75 mg/dL (75-99)
[2020-04-18] MEDS: INSULIN DETEMIR (LEVEMIR) 100 UNIT/ML SYR SQ SCH (21:40)
[2020-04-19] MEDS: INSULIN ASPART (NovoLOG) 100 UNIT/ML VIAL SQ SCH ×3 (07:33→17:05)
[2020-04-19 07:34] LABS: Glucose,Whole Blood 47 mg/dL (75-99)
[2020-04-19 08:11] LABS: Glucose,Whole Blood 72 mg/dL (75-99)
[2020-04-19 08:11] LABS: Glucose,Whole Blood 52 mg/dL (75-99)
[2020-04-19] MEDS: CEFEPIME 1 GM in SODIUM CHLORIDE 0.9% 50 ML IVPB SCH (08:23)
[2020-04-19] MEDS: FUROSEMIDE 40 MG TAB PO SCH (08:23)
[2020-04-19] MEDS: cloNIDine HCL 0.1 MG TAB PO SCH (08:23)
[2020-04-19] MEDS: DILTIAZEM CD 240 MG CAP.ER.24H PO SCH (08:23)
[2020-04-19] MEDS: CHOLECALCIFEROL 1,000 UNIT TAB PO SCH (08:23)
[2020-04-19] MEDS: MAGNESIUM OXIDE 400 MG TAB PO SCH (08:23)
[2020-04-19] MEDS: CALCIUM CARBONATE 500 MG CHEWABLE PO SCH (08:24)
[2020-04-19] MEDS: APIXABAN 5 MG TAB PO SCH ×2 (08:24→21:36)
[2020-04-19 08:58] LABS: Vancomycin,Random 25.6 ug/mL
[2020-04-19 10:47] LABS: Calcium 8.9 mg/dL (8.4-10.2); Potassium 4.2 mmol/L (3.5-5.1)
--- NOTE | 2020-04-19 11:03 | P.CRDCN ---
History of Present Illness History of present illness: HISTORY OF PRESENTING ILLNESS This is a pleasant 80-year-old female past medical history significant for paroxysmal atrial fibrillation on long-term anticoagulation, diabetes nikai tus, hypertension, chronic lower extremity cellulitis him a chronic kidney disease and morbid obesity. She follows in the office with Dr. Oscar. We have been asked to see in consultation for bradycardia. She presented to the hospital with symptoms of right lower extremity redness, swelling and fever. She has been diagnosed with right lower extremity cellulitis and started on IV antibiotics. Vital signs documentation indicates her heart rate is fluctuating between mid 40s and 50s. EKG on admission revealed atrial fibrillation with a heart rate of 86. Telemetry tracings indicate she is in atrial fibrillation and having frequent pauses. She is currently maintained on several rate lowering medications including nadolol 20 mg twice a day, diltiazem 240 mg daily and clonidine 0.1 mg twice a day. She is also on Lasix 40 mg every other day and 20 mg on the alternating day, Eliquis 5 mg twice a day and lisinopril/HCTZ 20/25 mg daily. She is seen and examined sitting up in the chair in no acute distress. She denies symptoms of chest pain, dizziness or palpitations. She states she does feel short of breath at times with no specific exacerbating factor. It is not associated with activity or exertion. Laboratory data reviewed, creatinine 1.47, WBC 9.0, hemoglobin 12.4, platelets 212, sodium 133, potassium 4.2 and magnesium on April 16 was 1.8. Most recent echocardiogram obtained in January 2020 revealed reserved LV systolic function with ejection fraction 50-55%, right ventricle mildly enlarged, mild MR, mild TR and mild to moderate pulmonary hypertension with an RVSP of 47 mmHg. In 2016 she was admitted to the hospital with elevated troponin. She did follow up in the office with Dr. Oscar as an outpatient and underwent a Lexiscan stress test that revealed evidence of rev ersibility in the apical lateral wall. At that time the patient opted for maximum medical therapy and did not want further testing including cardiac catheterization. REVIEW OF SYSTEMS At the time of my exam: CONSTITUTIONAL: Denies fever or chills. CARDIOVASCULAR: Denies chest pain, shortness of breath, orthopnea, PND or palpitations. RESPIRATORY: Denies cough. GASTROINTESTINAL: Denies abdominal pain, diarrhea, constipation, nausea or vomiting. MUSCULOSKELETAL: Denies myalgias. NEUROLOGIC: Denies numbness, tingling or weakness. ENDOCRINE: Denies fatigue, weight change, polydipsia or polyurina. GENITOURINARY: Denies burning, hematuria or urgency with micturation. HEMATOLOGIC: Denies history of anemia or bleeding. PHYSICAL EXAMINATION Blood pressure 108/67 heart rate 51 afebrile and maintaining oxygen saturation on room air. CONSTITUTIONAL: No apparent distress. Morbid obesity. HEENT: Head is normocephalic. Pupils are equal, round. Sclerae anicteric. Mucous membranes of the mouth are moist. No JVD. No carotid bruit. CHEST EXAMINATION: Lungs are clear to auscultation. No chest wall tenderness is noted on palpation or with deep breathing. HEART EXAMINATION: Irregular rate and rhythm. S1, S2 heard. Systolic ejection murmur at the left sternal border, no gallops or rub. ABDOMEN: Soft, nontender. Positive bowel sounds. EXTREMITIES: 2+ peripheral pulses, bilateral lower extremity edema and significant erythema on the right and no calf tenderness. NEUROLOGIC EXAMINATION: Patient is awake, alert and oriented x3. ASSESSMENT Atrial fibrillation with variable ventricular rates Right lower extremity cellulitis Chronic kidney disease Hypertension Diabetes mellitus PLAN Diltiazem has been discontinued per primary care team. Would also hold the clonidine. Check TSH, BMP and magnesium. Repeat chest xray. 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 Thank you kindly for this consultation. Nurse Practitioner note has been reviewed, I agree with a documented findings and plan of care. Patient was seen and examined. Past Medical History Past Medical History: Atrial Fibrillation, Diabetes Mellitus, Hypertension Additional Past Medical History / Comment(s): Obesity with a BMI of 49.6, hypertension, chronic atrial fibrillation, diabetes mellitus, recurrent Celexa the right lower extremity, lymphedema of the right lower extremity, osteoarthritis History of Any Multi-Drug Resistant Organisms: None Reported Past Surgical History: Section, Cholecystectomy, Hernia Repair Additional Past Surgical History / Comment(s): Abdominal hernia repair with mesh, benign lump removed right breast, bilateral cataract removal with lens implants. Past Anesthesia/Blood Transfusion Reactions: No Reported Reaction Past Psychological History: No Psychological Hx Reported Smoking Status: Former smoker Past Alcohol Use History: None Reported Past Drug Use History: None Reported - Past Family History Father Family Medical History: Coronary Artery Disease (CAD), Myocardial Infarction (IL) Additional Family Medical History / Comment(s): Father had several MIs with the first time being while he was in his 50s. He of a IL at the age of 75 yrs. Mother Family Medical History: No Reported History Additional Family Medical History / Comment(s): Mother was healthy and lived to be 91 yrs old. Medications and Allergies Home Medications Medication Instructions Recorded Confirmed Type Furosemide [Lasix] 20 mg PO Q48H 10/02/17 04/14/20 History Insulin Glargine,Hum.rec.anlog 45 unit SQ HS 10/02/17 04/14/20 History [Lantus Solostar] Lisinopril-Hctz 20-25 mg 1 tab PO DAILY 10/02/17 04/14/20 History [Zestoretic 20-25] cloNIDine HCL [Catapres] 0.1 mg PO BID 10/02/17 04/14/20 History Apixaban [Eliquis] 5 mg PO BID #0 tab 10/06/17 04/14/20 Rx Diltiazem Cd [Cardizem CD] 240 mg PO DAILY #90 cap.er.24h 10/06/17 04/14/20 Rx Nadolol [Corgard] 20 mg PO BID #180 tab 10/06/17 04/14/20 Rx Furosemide [Lasix] 40 mg PO Q48H 05/24/18 04/14/20 History Multivitamins, Thera [Multivitamin 1 tab PO DAILY 05/24/18 04/14/20 History (formulary)] Insulin Aspart [NovoLOG Flexpen] 15 units SQ W/BRKFST 01/29/20 04/14/20 History Insulin Aspart [NovoLOG Flexpen] 20 units SQ W/LUNCH 01/29/20 04/14/20 History Insulin Aspart [NovoLOG Flexpen] 30 units SQ W/SUPPER 01/29/20 04/14/20 History Nystatin 100,000Unit/gm Cream 1 applic TOPICAL BID 14 Days #1 02/04/20 04/14/20 Rx [Mycostatin Cream] tube Calcium Carbonate [Calcium] 600 mg PO DAILY 04/14/20 04/14/20 History Cholecalciferol [Vitamin D3 (25 1,000 unit PO DAILY 04/14/20 04/14/20 History Mcg = 1000 Iu)] Magnesium Oxide [Mag-Ox] 400 mg PO DAILY 04/14/20 04/14/20 History Allergies Allergy/AdvReac Type Severity Reaction Status Date / Time Penicillins Allergy Rash/Hives Verified 04/14/20 07:45 Physical Exam Vitals: Vital Signs Temp Pulse Pulse Resp BP Pulse Ox 04/19/20 03:53 51 L 04/19/20 03:49 97.5 F L 51 L 18 108/67 94 L 04/18/20 19:50 78 49 L 16 04/18/20 19:29 95.6 F L 49 L 16 121/84 98 04/18/20 14:35 97.6 F 48 L 16 120/75 98 Intake and Output 04/18/20 04/19/20 04/19/20 22:59 06:59 14:59 Output Total 200 Balance -200 Output: Urine 200 Other: Voiding Method Bedside Commode # Voids 1 3 # Bowel Movements 1 Results 04/18/20 07:13 04/19/20 07:35 Comprehensive Metabolic Panel 04/19/20 Range/Units 07:35 Creatinine 1.47 H (0.52-1.04) mg/dL Current Medications Generic Name Dose Route Start Last Admin Trade Name Freq PRN Reason Stop Dose Admin Apixaban 5 mg 04/14/20 21:00 04/19/20 08:24 Eliquis PO 5 mg BID JANET Administration Bisacodyl 10 mg 04/18/20 17:33 04/18/20 17:50 Dulcolax PO 10 mg DAILY PRN Administration Constipation Calcium Carbonate/Glycine 500 mg 04/15/20 09:00 04/19/20 08:24 Tums PO Not Given DAILY JANET Cholecalciferol 1,000 unit 04/15/20 09:00 04/19/20 08:23 Vitamin D3 (25 Mcg = 1000 Iu) PO 1,000 unit DAILY JANET Administration Clonidine 0.1 mg 04/14/20 21:00 04/19/20 08:23 Catapres PO 0.1 mg BID JANET Administration Furosemide 40 mg 04/15/20 09:00 04/19/20 08:23 Lasix PO 40 mg Q48H JANET Administration Furosemide 20 mg 04/16/20 09:00 04/18/20 07:37 Lasix PO 20 mg Q48H JANET Administration Cefepime HCl 1 gm/ Sodium 50 mls @ 100 mls/hr 04/16/20 11:45 04/19/20 08:23 Chloride IVPB 100 mls/hr DAILY JANET Administration Insulin Aspart 15 unit 04/15/20 07:30 04/19/20 07:33 Novolog SQ Not Given W/BRKFST JANET Insulin Aspart 20 unit 04/15/20 12:30 04/18/20 13:08 Novolog SQ 20 unit W/LUNCH JANET Administration Insulin Aspart 10 unit 04/19/20 17:30 Novolog SQ AC-SUPPER JANET Insulin Detemir 45 unit 04/14/20 21:00 04/18/20 21:40 Levemir SQ 45 unit HS JANET Administration Magnesium Oxide 400 mg 04/15/20 09:00 04/19/20 08:23 Mag-Ox PO 400 mg DAILY JANET Administration Nadolol 20 mg 04/14/20 21:00 04/18/20 21:53 Corgard PO Not Given BID JANET Intake and Output 04/18/20 04/19/20 04/19/20 22:59 06:59 14:59 Output Total 200 Balance -200 Output: Urine 200 Other: Voiding Method Bedside Commode # Voids 1 3 # Bowel Movements 1 04/18/20 07:13 04/19/20 07:35
--- NOTE | 2020-04-19 11:03 | XR ---
EXAMINATION TYPE: XR chest 2V DATE OF EXAM: 04/19/2020 COMPARISON: 04/14/2020 TECHNIQUE: PA and lateral views submitted. HISTORY: Shortness of breath FINDINGS: Bilateral consolidation and pleural effusion. There is no pneumothorax. The heart is enlarged. Hypert rophic and degenerative change of the spine. Atherosclerotic change aorta. Arthropathy of the shoulde rs. IMPRESSION: 1. Bilateral lower lobe infiltrate and small effusion.
--- NOTE | 2020-04-19 11:51 | P.PN ---
Subjective Progress Note Date: 04/19/20 Principal diagnosis: Right leg cellulitis Patient still has some pauses on telemetry. She is a symptomatic. No chest pain or shortness of breath. No fevers or chills. Objective - Vital Signs Vital signs: Vital Signs Temp 97.5 F L 04/19/20 03:49 Pulse 51 L 04/19/20 03:53 Resp 18 04/19/20 03:49 BP 108/67 04/19/20 03:49 Pulse Ox 94 L 04/19/20 03:49 Intake & Output 04/18/20 04/19/20 04/19/20 18:59 06:59 18:59 Intake Total 550 Output Total 200 Balance 550 -200 Intake: IV 50 Cefepime 1 gm In Sodium 50 Chloride 0.9% 50 ml @ 100 mls/hr IVPB DAILY [facility] Rx #:[id number] Intake, IV Titration 500 Amount Vancomycin 2,000 mg In 500 Sodium Chloride 0.9% 500 ml 500 ml @ 167 mls/hr IVPB ONCE ONE Rx#: [id number] Output: Urine 200 Other: Voiding Method Bedside Commode # Voids 3 # Bowel Movements 1 - Exam Constitutional: No acute distress, conversant, pleasant Eyes:Anicteric sclerae, moist conjunctiva, no lid-lag, PERRLA, ENMT: Oropharynx clear, no erythema, exudates Neck: Supple, FROM, no masses, or JVD, No carotid bruits, No thyromegaly Lungs: Clear to auscultation, Clear to percussion, Normal respiratory effort, no accessory muscle use Cardiovascular: Heart regular in rate and rhythm, No murmurs, gallops, or rubs, 1+ peripheral edema Abdominal: Soft, Nontender, no guarding, rebound or rigidity, Normoactive bowel sounds, No hepatomegaly, No splenomegaly, No palpable mass Skin: Normal temperature, tone, texture, turgor, no induration, No subcutaneous nodules, No rash, lesions, No ulcers Extremities: Right leg erythema starting from the foot up to the right knee. No digital cyanosis, No clubbing, Pedal pulses intact and symmetrical, Radial pulses intact and symmetrical, No calf tenderness Psychiatric: Alert and oriented to person, place and time, appropriate affect, intact judgement Neuro: Muscles Strength 5/5 in all 4 extremities, Sensation to light touch grossly present throughout, Cranial nerves II-XII grossly intact, no focal sensory deficits - Labs CBC & Chem 7: 04/18/20 07:13 04/19/20 07:35 Labs: Abnormal Lab Results - Last 24 Hours (Table) 04/18/20 04/19/20 04/19/20 Range/Units 16:38 07:24 07:35 Sodium 132 L (137-145) mmol/L BUN 33 H (7-17) mg/dL Creatinine 1.47 H (0.52-1.04) mg/dL Glucose 40 L* (74-99) mg/dL POC Glucose (mg/dL) 106 H 47 L (75-99) mg/dL 04/19/20 04/19/20 Range/Units 07:41 07:59 Sodium (137-145) mmol/L BUN (7-17) mg/dL Creatinine (0.52-1.04) mg/dL Glucose (74-99) mg/dL POC Glucose (mg/dL) 52 L 72 L (75-99) mg/dL Microbiology - Last 24 Hours (Table) 04/14/20 02:03 Blood Culture - Preliminary Blood No Growth after 120 hours Assessment and Plan Plan: Sepsis secondary to right lower extremity cellulitis -Continue cefepime, d/c vancomycin as MRSA screen negative. -Blood cultures negative so far -Continue with home diuretic dose Chronic lymphedema -Encourage wrapping and leg raising, discussed with nursing NATE on chronic kidney disease sec to above -Resolved Type II DM with hypoglycemia -Patient continues to be hypoglycemic especially in the morning, we'll cut down the nighttime prandial insulin further to 10 units only. -Continue same dose of Lantus for now Sinus pauses Longest was 2 seconds according to nursing Hold clonidine and Cardizem Cardiology consultation Morbid obesity -Structured outpatient weight loss General weakness PT Chronic conditions: A. fib, hypertension -Stable DVT prophylaxis -Eliquis Anticipated discharge date: [address]: Home
[2020-04-19 12:28] LABS: Glucose,Whole Blood 68 mg/dL (75-99)
[2020-04-19 12:37] LABS: Glucose,Whole Blood 79 mg/dL (75-99)
--- NOTE | 2020-04-19 15:36 | CDI ---
Documentation Clarification Form Date: 04/19/2020 03:26:30 PM From: Yocasta Nicole RN, CCDS Admit Date: 04/14/2020 03:55:00 AM Patient Name: Dalila Kennedy Visit Number: [id number] ATTENTION: The Clinical Documentation Specialists (CDI) and [facility] Coding Staff appreciate your assistance in clarifying documentation. Please respond to the clarification below the line at the bottom and electronically sign. The CDI & [facility] Coding staff will review the response and follow-up if needed. Please note: Queries are made part of the Legal Health Record. If you have any questions, please contact the author of this message via ITS. Dr. Anh Fitzpatrick CKD is documented throughout the medical record and requires further specificity. History/Risk Factors: 03/24/2020 Patients Historical BUN/CR/GFR: 55/3.1/13.5 Atrial Fib, DM, HTN, RLE Edema Clinical Indicators: 04/14-04/19 Current BUN: 37/38/33/38/33 04/14-04/19 CR: 2.29/2.06/1.66/1.54/1.50/2.06/1.66/1.54/1.5/1.47 04/14-04/19 GFR: ////// Treatment: Lasix PO alternating 20 mg and 40 mg QOD Zestoretic 20/25 PO QD 04/14 2500CC Fluid Bolus 0.9% NS In order to capture the severity of condition, please clarify the stage of the CKD, if known: CKD Stage 1 (GFR > 90) CKD Stage 2 (GFR 60-89) CKD Stage 3 (GFR 30-59) CKD Stage 4 (GFR 15-29) CKD Stage 5 (GFR <15) ESRD Other, please specify Unable to determine (Last Revision: November 2019) CKD Stage 3 (GFR 30-59) [facility]
[2020-04-19 17:15] LABS: Glucose,Whole Blood 76 mg/dL (75-99)
[2020-04-19 20:32] LABS: Glucose,Whole Blood 106 mg/dL (75-99)
[2020-04-19] MEDS: ATORVASTATIN 20 MG TAB PO SCH (21:36)
[2020-04-19] MEDS: INSULIN DETEMIR (LEVEMIR) 100 UNIT/ML SYR SQ SCH (21:37)
[2020-04-20] MEDS: INSULIN ASPART (NovoLOG) 100 UNIT/ML VIAL SQ SCH ×3 (07:53→17:59)
[2020-04-20] MEDS: CALCIUM CARBONATE 500 MG CHEWABLE PO SCH (08:06)
[2020-04-20] MEDS: CEFEPIME 1 GM in SODIUM CHLORIDE 0.9% 50 ML IVPB SCH (08:14)
[2020-04-20] MEDS: APIXABAN 5 MG TAB PO SCH ×2 (08:14→21:18)
[2020-04-20] MEDS: CHOLECALCIFEROL 1,000 UNIT TAB PO SCH (08:14)
[2020-04-20] MEDS: MAGNESIUM OXIDE 400 MG TAB PO SCH (08:14)
[2020-04-20] MEDS: FUROSEMIDE 20 MG TAB PO SCH (08:14)
[2020-04-20 08:23] LABS: Glucose,Whole Blood 62 mg/dL (75-99)
[2020-04-20 08:23] LABS: Glucose,Whole Blood 56 mg/dL (75-99)
[2020-04-20 08:28] LABS: Glucose,Whole Blood 78 mg/dL (75-99)
[2020-04-20] MEDS ORDERED: FUROSEMIDE 10 MG/ML 4 ML VIAL IV STA (10:44)
--- NOTE | 2020-04-20 10:59 | P.PN ---
Subjective HISTORY OF PRESENTING ILLNESS This is a pleasant 80-year-old female past medical history significant for paroxysmal atrial fibrillation on long-term anticoagulation, diabetes mellitus, hypertension, chronic lower extremity cellulitis, chronic kidney disease and morbid obesity. She follows in the office with Dr. Oscar. She is seen and examined sitting up in the chair. She has just come back from working with physical therapy and she is quite short of breath. She denies chest pain, dizziness or palpitations. Chest xray reveals bilateral lower lobe infiltrates and small effusions. She states yesterday while taking her evening meds she coughed and had trouble swallowing her pills. For quite some time thereafter she was coughing and couldn't keep even water down without coughing. Blood pressure 124/79 heart rate 49 afebrile and maintaining oxygen saturation on room air. Laboratory data requested yesterday reviewed. Sodium 132, potassium 4.2, creatinine 1.47, magnesium 2.0 and TSH 4.49. She is currently maintained on Eliquis 5 mg twice a day, atorvastatin 20 mg at bedtime, Lasix 40 mg every other day and 20 mg on the alternating day and nadolol 20 mg twice a day. Telemetry tracings continue to show atrial fibrillation with slow ventricular rates. Diltiazem and clonidine discontinued yesterday and nadolol held this morning. PHYSICAL EXAMINATION CONSTITUTIONAL: No apparent distress. Morbid obesity. HEENT: Head is normocephalic. Pupils are equal, round. Sclerae anicteric. Mucous membranes of the mouth are moist. No JVD. No carotid bruit. CHEST EXAMINATION: Bibasilar rales and scattered rhonchi. No chest wall te nderness is noted on palpation or with deep breathing. HEART EXAMINATION: Irregular rate and rhythm. S1, S2 heard. Systolic ejection murmur at the left sternal border, no gallops or rub. EXTREMITIES: 2+ peripheral pulses, bilateral lower extremity edema and significant erythema on the right and no calf tenderness. ASSESSMENT Atrial fibrillation with variable ventricular rates, asymptomatic. Shortness of breath, could have aspirated yesterday evening or due to acute on chronic diastolic dysfunction Right lower extremity cellulitis Chronic kidney disease Hypertension Diabetes mellitus PLAN Hold nadolol for heart rate less then 55 or systolic blood pressure less than 100. Check NTproBNP. Give one dose of IV lasix 40 mg now. Repeat chest xray in the morning along with BMP. Document intake and output along with daily weights. Nurse Practitioner note has been reviewed, I agree with a documented findings and plan of care. Patient was seen and examined. Objective - Vital Signs Vital signs: Vital Signs Temp 97.0 F L 04/20/20 07:00 Pulse 49 L 04/20/20 07:00 Resp 20 04/20/20 07:00 BP 124/65 04/20/20 07:00 Pulse Ox 96 04/20/20 07:00 Intake & Output 04/19/20 04/20/20 04/20/20 18:59 06:59 18:59 Intake Total 120 Balance 120 Intake: Oral 120 Other: Voiding Method Bedside Commode # Voids 3 3 # Bowel Movements 1 - Labs CBC & Chem 7: 04/18/20 07:13 04/19/20 07:35 Labs: Abnormal Lab Results - Last 24 Hours (Table) 04/19/20 04/19/20 04/19/20 Range/Units 07:35 12:14 20:30 Sodium 132 L (137-145) mmol/L BUN 33 H (7-17) mg/dL Glucose 40 L* (74-99) mg/dL POC Glucose (mg/dL) 68 L 106 H (75-99) mg/dL 04/20/20 04/20/20 Range/Units 07:46 08:02 Sodium (137-145) mmol/L BUN (7-17) mg/dL Glucose (74-99) mg/dL POC Glucose (mg/dL) 56 L 62 L (75-99) mg/dL Microbiology - Last 24 Hours (Table) 04/14/20 02:03 Blood Culture - Final Blood No Growth after 144 hours
[2020-04-20 12:11] LABS: Glucose,Whole Blood 81 mg/dL (75-99)
[2020-04-20 12:16] LABS: Calcium 8.4 mg/dL (8.4-10.2); Potassium 4.2 mmol/L (3.5-5.1)
[2020-04-20 12:27] LABS: Anisocytosis Slight; Basophils # (A) 0.1 k/uL (0-0.2); Basophils % (A) 1 %; Eosinophils # (A) 0.3 k/uL (0-0.7); Eosinophils % (A) 4 %; HCT 37.9 % (34.0-46.0); HGB 12.3 gm/dL (11.4-16.0); Hypochromasia Slight; Lymphocytes # (A) 0.7 k/uL (1.0-4.8); Lymphocytes % (A) 10 %; MCH 27.3 pg (25.0-35.0); MCHC 32.4 g/dL (31.0-37.0); MCV 84.4 fL (80.0-100.0); Mean Platelet Volume 8.6; Monocytes # (A) 0.5 k/uL (0-1.0); Monocytes % (A) 7 %; Neutrophils # (A) 5.9 k/uL (1.3-7.7); Neutrophils % (A) 77 %; Platelet Count 236 k/uL (150-450); RBC 4.49 m/uL (3.80-5.40); RDW 16.2 % (11.5-15.5); WBC 7.6 k/uL (3.8-10.6)
--- NOTE | 2020-04-20 12:37 | P.PN ---
Subjective Progress Note Date: 04/20/20 Principal diagnosis: Right leg cellulitis Patient is feeling okay, no chest pain or shortness of breath. No fevers or chills. Currently sitting on chair. Objective - Vital Signs Vital signs: Vital Signs Temp 97.0 F L 04/20/20 07:00 Pulse 49 L 04/20/20 07:00 Resp 20 04/20/20 07:00 BP 124/65 04/20/20 07:00 Pulse Ox 96 04/20/20 07:00 Intake & Output 04/19/20 04/20/20 04/20/20 18:59 06:59 18:59 Intake Total 120 Balance 120 Intake: Oral 120 Other: Voiding Method Bedside Commode # Voids 3 3 # Bowel Movements 1 - Exam Constitutional: No acute distress, conversant, pleasant Eyes:Anicteric sclerae, moist conjunctiva, no lid-lag, PERRLA, ENMT: Oropharynx clear, no erythema, exudates Neck: Supple, FROM, no masses, or JVD, No carotid bruits, No thyromegaly Lungs: Clear to auscultation, Clear to percussion, Normal respiratory effort, no accessory muscle use Cardiovascular: Heart regular in rate and rhythm, No murmurs, gallops, or rubs, 1+ peripheral edema Abdominal: Soft, Nontender, no guarding, rebound or rigidity, Normoactive bowel sounds, No hepatomegaly, No splenomegaly, No palpable mass Skin: Normal temperature, tone, texture, turgor, no induration, No subcutaneous nodules, No rash, lesions, No ulcers Extremities: Right leg erythema starting from the foot up to the right knee. No digital cyanosis, No clubbing, Pedal pulses intact and symmetrical, Radial pulses intact and symmetrical, No calf tenderness Psychiatric: Alert and oriented to person, place and time, appropriate affect, intact judgement Neuro: Muscles Strength 5/5 in all 4 extremities, Sensation to light touch grossly present throughout, Cranial nerves II-XII grossly intact, no focal sensory deficits - Labs CBC & Chem 7: 04/20/20 11:15 04/20/20 11:15 Labs: Abnormal Lab Results - Last 24 Hours (Table) 04/19/20 04/20/20 04/20/20 Range/Units 20:30 07:46 08:02 RDW (11.5-15.5) % Lymphocytes # (1.0-4.8) k/uL Sodium (137-145) mmol/L BUN (7-17) mg/dL Creatinine (0.52-1.04) mg/dL POC Glucose (mg/dL) 106 H 56 L 62 L (75-99) mg/dL 04/20/20 04/20/20 Range/Units 11:15 11:15 RDW 16.2 H (11.5-15.5) % Lymphocytes # 0.7 L (1.0-4.8) k/uL Sodium 131 L (137-145) mmol/L BUN 31 H (7-17) mg/dL Creatinine 1.33 H (0.52-1.04) mg/dL POC Glucose (mg/dL) (75-99) mg/dL Microbiology - Last 24 Hours (Table) 04/14/20 02:03 Blood Culture - Final Blood No Growth after 144 hours Assessment and Plan Plan: Sepsis secondary to right lower extremity cellulitis -Continue cefepime, d/c vancomycin as MRSA screen negative. -Blood cultures negative so far Chronic lymphedema -Encourage wrapping and leg raising, discussed with nursing -Continue with home diuretic dose, was also given additional IV Lasix by cardiology today. NATE on chronic kidney disease 3 sec to above -Resolved Type II DM with hypoglycemia -Patient continues to be hypoglycemic especially in the morning, the nighttime prandial insulin was cut down to 10 units. -Lantus was held last night. -Continue to monitor blood sugars. Sinus pauses and bradycardia Patient has history of atrial fibrillation Holding clonidine and Cardizem Continue on nadolol with parameters Cardiology following Morbid obesity -Structured outpatient weight loss General weakness PT Chronic conditions: hypertension -Stable DVT prophylaxis -Eliquis Anticipated discharge date: [address]: Home
[2020-04-20 17:27] LABS: Glucose,Whole Blood 120 mg/dL (75-99)
[2020-04-20 20:33] LABS: Glucose,Whole Blood 183 mg/dL (75-99)
[2020-04-20] MEDS: INSULIN DETEMIR (LEVEMIR) 100 UNIT/ML SYR SQ SCH (21:18)
[2020-04-20] MEDS: ATORVASTATIN 20 MG TAB PO SCH (21:18)
[2020-04-20 22:44] LABS: Glucose,Whole Blood 142 mg/dL (75-99)
[2020-04-21 07:42] LABS: Glucose,Whole Blood 115 mg/dL (75-99)
[2020-04-21] MEDS: INSULIN ASPART (NovoLOG) 100 UNIT/ML VIAL SQ SCH ×3 (07:51→17:16)
--- NOTE | 2020-04-21 08:59 | XR ---
EXAMINATION TYPE: XR chest 2V DATE OF EXAM: 04/21/2020 COMPARISON: 04/19/2020 TECHNIQUE: PA and lateral views submitted. HISTORY: Shortness of breath FINDINGS: Heart is enlarged and is bilateral consolidation and small effusion. Biapical pleural thickening. Ath erosclerotic change aorta. IMPRESSION: 1. Stable bilateral consolidation and small effusion correlate clinically.
[2020-04-21] MEDS: APIXABAN 5 MG TAB PO SCH ×2 (09:02→22:15)
[2020-04-21] MEDS: CEFEPIME 1 GM in SODIUM CHLORIDE 0.9% 50 ML IVPB SCH (09:02)
[2020-04-21] MEDS: CHOLECALCIFEROL 1,000 UNIT TAB PO SCH (09:02)
[2020-04-21] MEDS: CALCIUM CARBONATE 500 MG CHEWABLE PO SCH (09:02)
[2020-04-21] MEDS: MAGNESIUM OXIDE 400 MG TAB PO SCH (09:02)
[2020-04-21] MEDS: FUROSEMIDE 40 MG TAB PO SCH (09:02)
[2020-04-21] MEDS ORDERED: FUROSEMIDE 10 MG/ML 4 ML VIAL IV STA (09:09)
--- NOTE | 2020-04-21 09:25 | P.PN ---
Subjective HISTORY OF PRESENTING ILLNESS This is a pleasant 80-year-old female past medical history significant for paroxysmal atrial fibrillation on long-term anticoagulation, diabetes mellitus, hypertension, chronic lower extremity cellulitis, chronic kidney disease and morbid obesity. She follows in the office with Dr. Oscar. She is seen and examined sitting up in the chair. She states the lasix IV yesterday made a significant improvement in her breathing. Output not accurately documented. No daily weight. Labs pending. Blood pressure 151/73 heart rate 57. Weight this morning has gone up since admission by 6 kgs. PHYSICAL EXAMINATION CONSTITUTIONAL: No apparent distress. Morbid obesity. HEENT: Head is normocephalic. Pupils are equal, round. Sclerae anicteric. Mucous membranes of the mouth are moist. No JVD. No carotid bruit. CHEST EXAMINATION: Bibasilar rales, no rhonchi or wheezes No chest wall tenderness is noted on palpation or with deep breathing. HEART EXAMINATION: Irregular rate and rhythm. S1, S2 heard. Systolic ejection murmur at the left sternal border, no gallops or rub. EXTREMITIES: 2+ peripheral pulses, bilateral lower extremity edema, CHRISTOPHER wrap in place on the right and 2+ pitting on the left and no calf tenderness. ASSESSMENT Atrial fibrillation with variable ventricular rates, asymptomatic. Acute on chronic diastolic heart failure. Right lower extremity cellulitis Chronic kidney disease Hypertension Diabetes mellitus PLAN Resume zestoretic daily. Continue IV lasix. Repeat BMP in the morning. Document intake and output along with daily weights. Nurse Practitioner note has been reviewed, I agree with a documented findings and plan of care. Patient was seen and examined. Objective - Vital Signs Vital signs: Vital Signs Temp 97.5 F L 04/21/20 07:25 Pulse 57 L 04/21/20 07:25 Resp 16 04/21/20 07:25 BP 151/73 04/21/20 07:25 Pulse Ox 95 04/21/20 07:25 Intake & Output 04/20/20 04/21/20 04/21/20 18:59 06:59 18:59 Intake Total 200 400 Balance 200 400 Intake: Intake, IV Titration 400 Amount Cefepime 1 gm In Sodium 400 Chloride 0.9% 50 ml @ 100 mls/hr IVPB DAILY [facility] Rx #:[id number] Oral 200 Other: Voiding Method Bedside Commode # Voids 3 - Labs CBC & Chem 7: 04/20/20 11:15 04/20/20 11:15 Labs: Abnormal Lab Results - Last 24 Hours (Table) 04/20/20 04/20/20 04/20/20 Range/Units 11:15 11:15 17:25 RDW 16.2 H (11.5-15.5) % Lymphocytes # 0.7 L (1.0-4.8) k/uL Sodium 131 L (137-145) mmol/L BUN 31 H (7-17) mg/dL Creatinine 1.33 H (0.52-1.04) mg/dL POC Glucose (mg/dL) 120 H (75-99) mg/dL 04/20/20 04/20/20 04/21/20 Range/Units 20:32 22:42 07:27 RDW (11.5-15.5) % Lymphocytes # (1.0-4.8) k/uL Sodium (137-145) mmol/L BUN (7-17) mg/dL Creatinine (0.52-1.04) mg/dL POC Glucose (mg/dL) 183 H 142 H 115 H (75-99) mg/dL
[2020-04-21] MEDS: FUROSEMIDE 10 MG/ML 4 ML VIAL IV SCH ×2 (09:45→22:15)
[2020-04-21] MEDS: LISINOPRIL-HCTZ 20-25 MG 1 EACH TAB PO SCH (09:50)
--- NOTE | 2020-04-21 09:57 | P.PN ---
Subjective Progress Note Date: 04/21/20 Patient is doing well today. No acute events overnight. Patient reports that her legs are usually swollen but not red. She denies fevers or chills. Objective - Vital Signs Vital signs: Vital Signs Temp 97.5 F L 04/21/20 07:25 Pulse 57 L 04/21/20 07:25 Resp 16 04/21/20 07:25 BP 151/73 04/21/20 07:25 Pulse Ox 95 04/21/20 07:25 Intake & Output 04/20/20 04/21/20 04/21/20 18:59 06:59 18:59 Intake Total 200 400 Balance 200 400 Weight 130.833 kg Intake: Intake, IV Titration 400 Amount Cefepime 1 gm In Sodium 400 Chloride 0.9% 50 ml @ 100 mls/hr IVPB DAILY [facility] Rx #:[id number] Oral 200 Other: Voiding Method Bedside Commode # Voids 3 - Exam General: The patient is awake and alert, in no distress Eye: there is normal conjunctiva bilaterally. Neck: The neck is supple, there is no JVD. Cardiovascular: Normal S1-S2, no S3-S4, no murmurs. Respiratory: Lungs clear to auscultation bilaterally Gastrointestinal: Abdomen is soft, nontender Musculoskeletal: There is bilateral lower extremity edema/lymphedema worse on the right. There is erythema extending up to the knee on the right side and up to the ankle on the left. Right leg is slightly warm to touch. No tenderness Neurological:. Speech is normal. Skin: Skin is warm and dry - Labs CBC & Chem 7: 04/20/20 11:15 04/20/20 11:15 Labs: Abnormal Lab Results - Last 24 Hours (Table) 04/20/20 04/20/20 04/20/20 Range/Units 11:15 11:15 17:25 RDW 16.2 H (11.5-15.5) % Lymphocytes # 0.7 L (1.0-4.8) k/uL Sodium 131 L (137-145) mmol/L BUN 31 H (7-17) mg/dL Creatinine 1.33 H (0.52-1.04) mg/dL POC Glucose (mg/dL) 120 H (75-99) mg/dL 04/20/20 04/20/20 04/21/20 Range/Units 20:32 22:42 07:27 RDW (11.5-15.5) % Lymphocytes # (1.0-4.8) k/uL Sodium (137-145) mmol/L BUN (7-17) mg/dL Creatinine (0.52-1.04) mg/dL POC Glucose (mg/dL) 183 H 142 H 115 H (75-99) mg/dL Assessment and Plan Assessment: Sepsis secondary to right lower extremity cellulitis -Continue cefepime, d/c vancomycin as MRSA screen negative. -Blood cultures negative so far -We'll consult infectious disease for further evaluation and recommendation for discharge antibiotic. Concerned that the current dose of cefepime may not be sufficient. Chronic lymphedema -Encourage wrapping and leg raising, discussed with nursing -Continue with home diuretic dose, was also given additional IV Lasix by cardiology today. NATE on chronic kidney disease 3 sec to above -Resolved Type II DM with hypoglycemia -Patient continues to be hypoglycemic especially in the morning, the nighttime prandial insulin was cut down to 10 units. -decrease Levemir dose to 35 units at bedtime -Continue to monitor blood sugars. Sinus pauses and bradycardia Patient has history of atrial fibrillation Holding clonidine and Cardizem Continue on nadolol with parameters Cardiology following Acute on chronic diastolic heart failure -Seen and evaluated by cardiology. Currently on IV Lasix. We will continue to monitor closely. Morbid obesity -Structured outpatient weight loss General weakness PT Chronic conditions: hypertension -Stable DVT prophylaxis -Gaurav
[2020-04-21 11:29] LABS: Calcium 8.5 mg/dL (8.4-10.2); Potassium 4.3 mmol/L (3.5-5.1)
[2020-04-21 11:52] LABS: Glucose,Whole Blood 157 mg/dL (75-99)
[2020-04-21 13:23] VITALS: BMI 49.5
[2020-04-21 17:13] LABS: Glucose,Whole Blood 44 mg/dL (75-99)
[2020-04-21 17:13] LABS: Glucose,Whole Blood 38 mg/dL (75-99)
[2020-04-21 17:13] LABS: Glucose,Whole Blood 39 mg/dL (75-99)
[2020-04-21 17:28] LABS: Glucose,Whole Blood 56 mg/dL (75-99)
[2020-04-21] MEDS: DEXTROSE 5% IN WATER 1,000 ML IV SCH (17:42)
[2020-04-21 18:15] LABS: Glucose,Whole Blood 55 mg/dL (75-99)
[2020-04-21 18:15] LABS: Glucose,Whole Blood 73 mg/dL (75-99)
[2020-04-21 20:48] LABS: Glucose,Whole Blood 104 mg/dL (75-99)
[2020-04-21] MEDS ORDERED: INSULIN DETEMIR (LEVEMIR) 100 UNIT/ML SYR SQ SCH ×2 (21:00)
[2020-04-21] MEDS: INSULIN DETEMIR (LEVEMIR) 100 UNIT/ML SYR SQ SCH (22:14)
[2020-04-21] MEDS: ATORVASTATIN 20 MG TAB PO SCH (22:15)
[2020-04-22 02:49] LABS: Glucose,Whole Blood 115 mg/dL (75-99)
[2020-04-22 07:03] LABS: Glucose,Whole Blood 128 mg/dL (75-99)
--- NOTE | 2020-04-22 07:22 | P.CONS ---
History of Present Illness - Reason for Consult Consult date: 04/21/20 Right lower extremity cellulitis Requesting physician: Anabelle Naranjo - Chief Complaint Right leg swelling and redness x few days - History of Present Illness Patient is 80-year-old female presenting to [facility] ER more than 8 days ago with a chief complaints of right lower extremity swelling and redness along with a fever, and this patient who did have a chronic lower extremity swelling and venous stasis but no ulceration patient to have home care nurse who apparently evaluated the patient the day before presentation to the hospital and she was noticed to have increasing swelling or redness to the right lower extremity advised the patient to go to the hospital for cellulitis on arrival to the ER the patient did have a fever of 102F patient did have x-rays of the right leg which did show some soft tissue edema but no bony changes patient has been treated with the cefepime however she was noticed to have persistent swelling and redness right leg and that prompted this infection disease consultation today on 04/21/2020 On today's evaluation the patient denies having any fever or any chills his coming of swelling to the right leg and mild belly aching pain intensity about 3-4 out of 10 and no radiation of redness is slightly decreased currently with no open wound or any blister shortness of breath on minimal exertion but no chest pain no nausea no vomiting no abdominal pain no diarrhea Review of Systems Positive point has been mentioned in the HPI rest of the systems are negative Past Medical History Past Medical History: Atrial Fibrillation, Diabetes Mellitus, Hypertension Additional Past Medical History / Comment(s): Obesity with a BMI of 49.6, hypertension, chronic atrial fibrillation, diabetes mellitus, recurrent Celexa the right lower extremity, lymphedema of the right lower extremity, osteoarthritis History of Any Multi-Drug Resistant Organisms: None Reported Past Surgical History: Section, Cholecystectomy, Hernia Repair Additional Past Surgical History / Comment(s): Abdominal hernia repair with mesh, benign lump removed right breast, bilateral cataract removal with lens implants. Past Anesthesia/Blood Transfusion Reactions: No Reported Reaction Past Psychological History: No Psychological Hx Reported Smoking Status: Former smoker Past Alcohol Use History: None Reported Past Drug Use History: None Reported - Past Family History Father Family Medical History: Coronary Artery Disease (CAD), Myocardial Infarction (SC) Additional Family Medical History / Comment(s): Father had several MIs with the first time being while he was in his 50s. He of a SC at the age of 75 yrs. Mother Family Medical History: No Reported History Additional Family Medical History / Comment(s): Mother was healthy and lived to be 91 yrs old. Medications and Allergies Home Medications Medication Instructions Recorded Confirmed Type Furosemide [Lasix] 20 mg PO Q48H 10/02/17 04/14/20 History Insulin Glargine,Hum.rec.anlog 45 unit SQ HS 10/02/17 04/14/20 History [Lantus Solostar] Lisinopril-Hctz 20-25 mg 1 tab PO DAILY 10/02/17 04/14/20 History [Zestoretic 20-25] cloNIDine HCL [Catapres] 0.1 mg PO BID 10/02/17 04/14/20 History Apixaban [Eliquis] 5 mg PO BID #0 tab 10/06/17 04/14/20 Rx Diltiazem Cd [Cardizem CD] 240 mg PO DAILY #90 cap.er.24h 10/06/17 04/14/20 Rx Nadolol [Corgard] 20 mg PO BID #180 tab 10/06/17 04/14/20 Rx Furosemide [Lasix] 40 mg PO Q48H 05/24/18 04/14/20 History Multivitamins, Thera [Multivitamin 1 tab PO DAILY 05/24/18 04/14/20 History (formulary)] Insulin Aspart [NovoLOG Flexpen] 15 units SQ W/BRKFST 01/29/20 04/14/20 History Insulin Aspart [NovoLOG Flexpen] 20 units SQ W/LUNCH 01/29/20 04/14/20 History Insulin Aspart [NovoLOG Flexpen] 30 units SQ W/SUPPER 01/29/20 04/14/20 History Nystatin 100,000Unit/gm Cream 1 applic TOPICAL BID 14 Days #1 02/04/20 04/14/20 Rx [Mycostatin Cream] tube Calcium Carbonate [Calcium] 600 mg PO DAILY 04/14/20 04/14/20 History Cholecalciferol [Vitamin D3 (25 1,000 unit PO DAILY 04/14/20 04/14/20 History Mcg = 1000 Iu)] Magnesium Oxide [Mag-Ox] 400 mg PO DAILY 04/14/20 04/14/20 History Allergies Allergy/AdvReac Type Severity Reaction Status Date / Time Penicillins Allergy Rash/Hives Verified 04/14/20 07:45 Physical Exam Vitals: Vital Signs Temp Pulse Resp BP Pulse Ox 04/21/20 07:25 97.5 F L 57 L 16 151/73 95 04/21/20 02:55 97.5 F L 53 L 24 102/65 96 04/21/20 00:00 53 L 16 04/20/20 20:00 16 04/20/20 19:45 97.3 F L 53 L 18 136/63 97 04/20/20 15:00 97.2 F L 58 L 16 120/85 94 L Intake and Output 04/20/20 04/21/20 04/21/20 22:59 06:59 14:59 Intake Total 400 Output Total 650 Balance 400 -650 Intake: Intake, IV Titration 400 Amount Cefepime 1 gm In Sodium 400 Chloride 0.9% 50 ml @ 100 mls/hr IVPB DAILY [facility] Rx #:[id number] Output: Urine 650 Other: Voiding Method Bedside Commode Bedside Commode Bedside Commode # Voids 2 3 1 Weight 130.833 kg GENERAL DESCRIPTION: Elderly female up in the chair, no distress. No tachypnea or accessory muscle of respiration use. HEENT: Shows Pallor , no scleral icterus. Oral mucous membrane is dry. No pharyngeal erythema or thrush NECK: Trachea central, no thyromegaly. LUNGS: Unlabored breathing. Clear to auscultation anteriorly. No wheeze or crackle. HEART: S1, S2, regular rate and rhythm. No loud murmur ABDOMEN: Soft, no tenderness , guarding or rigidity, no organomegaly EXTREMITIES: Diffuse swelling bilateral lower extremity right greater than the left right leg is slightly warm and red no open wound or any blister SKIN: No rash, no masses palpable. NEUROLOGICAL: The patient is awake, alert, oriented x3, mood and affect normal. Results CBC & Chem 7: 04/20/20 11:15 04/21/20 09:52 Labs: Abnormal Lab Results - Last 24 Hours (Table) 04/20/20 04/20/20 04/20/20 Range/Units 17:25 20:32 22:42 Sodium (137-145) mmol/L BUN (7-17) mg/dL Creatinine (0.52-1.04) mg/dL Glucose (74-99) mg/dL POC Glucose (mg/dL) 120 H 183 H 142 H (75-99) mg/dL 04/21/20 04/21/20 04/21/20 Range/Units 07:27 09:52 11:47 Sodium 130 L (137-145) mmol/L BUN 29 H (7-17) mg/dL Creatinine 1.41 H (0.52-1.04) mg/dL Glucose 183 H (74-99) mg/dL POC Glucose (mg/dL) 115 H 157 H (75-99) mg/dL Assessment and Plan Assessment: 1-patient presented to the hospital with fever source likely right lower extremity cellulitis in this patient who did have a diffuse swelling or redness likely streptococcal disease this seems to have not responded very well to the initial antibiotic of cefepime 2-patient with penicillin ALLERGIES and being unable antibiotics infused however she has taken Keflex without any problem (1) Penicillin allergy Current Visit: Yes Status: Acute Code(s): Z88.0 - ALLERGY STATUS TO PENICILLIN SNOMED Code(s): 23833797 (2) Cellulitis of right lower extremity Current Visit: Yes Status: Acute Code(s): L03.115 - CELLULITIS OF RIGHT LOWER LIMB SNOMED Code(s): 492214135 Plan: 1-discontinue cefepime 2-start the patient on cefazolin 2 g every 12 hours dose adjusted to kidney function 3-Tio wrap to the leg from just above the toe to below the knee We will follow on clinical condition and cultures to further adjust medication if needed Thank you for this consultation will follow this patient with you Time with Patient: Greater than 30
[2020-04-22] MEDS: INSULIN ASPART (NovoLOG) 100 UNIT/ML VIAL SQ SCH ×2 (07:27→11:39)
[2020-04-22] MEDS: CALCIUM CARBONATE 500 MG CHEWABLE PO SCH (09:21)
[2020-04-22] MEDS: FUROSEMIDE 10 MG/ML 4 ML VIAL IV SCH ×2 (09:21→20:20)
[2020-04-22] MEDS: MAGNESIUM OXIDE 400 MG TAB PO SCH (09:22)
[2020-04-22] MEDS: CHOLECALCIFEROL 1,000 UNIT TAB PO SCH (09:22)
[2020-04-22] MEDS: APIXABAN 5 MG TAB PO SCH ×2 (09:22→20:20)
[2020-04-22] MEDS: LISINOPRIL-HCTZ 20-25 MG 1 EACH TAB PO SCH (09:22)
[2020-04-22 11:44] LABS: Glucose,Whole Blood 227 mg/dL (75-99)
[2020-04-22 11:48] LABS: Calcium 8.9 mg/dL (8.4-10.2); Potassium 3.9 mmol/L (3.5-5.1)
--- NOTE | 2020-04-22 13:34 | P.PN ---
Subjective HISTORY OF PRESENTING ILLNESS This is a pleasant 80-year-old female past medical history significant for paroxysmal atrial fibrillation on long-term anticoagulation, diabetes mellitus, hypertension, chronic lower extremity cellulitis, chronic kidney disease and morbid obesity. She follows in the office with Dr. Oscar. She is seen and examined sitting up in the chair. She has been up urinating a significant amount and states she is feeling so much better each day. Her breathing is improving as well. She has no chest pain, dizziness or palpitations. Blood pressure 143/83 heart rate 59 afebrile and maintaining oxygen saturation on room air. Laboratory data reviewed, sodium 130, potassium 3.9, creatinine 1.52. Currently maintained on lisinopril/hctz 20/25 mg daily, eilquis 5 mg BID, atorvastatin 20 mg daiyl and lasix 40 mg IV BID. 24-hour output over 5L and weight continues to decrease. PHYSICAL EXAMINATION CONSTITUTIONAL: No apparent distress. Morbid obesity. HEENT: Head is normocephalic. Pupils are equal, round. Sclerae anicteric. Mucous membranes of the mouth are moist. No JVD. No carotid bruit. CHEST EXAMINATION: Bibasilar rales, no rhonchi or wheezes No chest wall tenderness is noted on palpation or with deep breathing. HEART EXAMINATION: Irregular rate and rhythm. S1, S2 heard. Systolic ejection murmur at the left sternal border, no gallops or rub. EXTREMITIES: 2+ peripheral pulses, bilateral lower extremity edema, CHRISTOPHER wrap in place on the right and 2+ pitting on the left and no calf tenderness. ASSESSMENT Atrial fibrillation with variable ventricular rates, asymptomatic. Acute on chronic diastolic heart failure. Right lower extremity cellulitis Chronic kidney disease Hypertension Diabetes mellitus PLAN Continue IV lasix. Repeat BMP in the morning. Nurse Practitioner note has been reviewed, I agree with a documented findings and plan of care. Patient was seen and examined. Objective - Vital Signs Vital signs: Vital Signs Temp 97.5 F L 04/22/20 06:37 Pulse 59 L 04/22/20 06:37 Resp 18 04/22/20 06:37 BP 143/83 04/22/20 06:37 Pulse Ox 96 04/22/20 06:37 Intake & Output 04/21/20 04/22/20 04/22/20 18:59 06:59 18:59 Intake Total 1422 880 Output Total 3025 2050 800 Balance -1603 -1170 -800 Weight 130.833 kg 128.7 kg Intake: Intake, IV Titration 160 Amount Dextrose 5% in Water 1, 160 000 ml @ 20 mls/hr IV . Q24H [facility] Rx#:[id number] Oral 1422 720 Output: Urine 3022049 800 Other: Voiding Method Bedside Commode Bedside Commode # Voids 1 1 1 - Labs CBC & Chem 7: 04/20/20 11:15 04/22/20 10:53 Labs: Abnormal Lab Results - Last 24 Hours (Table) 04/21/20 04/21/20 04/21/20 Range/Units 17:07 17:08 17:11 Sodium (137-145) mmol/L Chloride (98-107) mmol/L BUN (7-17) mg/dL Creatinine (0.52-1.04) mg/dL Glucose (74-99) mg/dL POC Glucose (mg/dL) 44 L 38 L 39 L (75-99) mg/dL 04/21/20 04/21/20 04/21/20 Range/Units 17:22 17:37 17:54 Sodium (137-145) mmol/L Chloride (98-107) mmol/L BUN (7-17) mg/dL Creatinine (0.52-1.04) mg/dL Glucose (74-99) mg/dL POC Glucose (mg/dL) 56 L 55 L 73 L (75-99) mg/dL 04/21/20 04/22/20 04/22/20 Range/Units 20:47 02:47 06:35 Sodium (137-145) mmol/L Chloride (98-107) mmol/L BUN (7-17) mg/dL Creatinine (0.52-1.04) mg/dL Glucose (74-99) mg/dL POC Glucose (mg/dL) 104 H 115 H 128 H (75-99) mg/dL 04/22/20 04/22/20 Range/Units 10:53 11:30 Sodium 130 L (137-145) mmol/L Chloride 94 L (98-107) mmol/L BUN 28 H (7-17) mg/dL Creatinine 1.52 H (0.52-1.04) mg/dL Glucose 222 H (74-99) mg/dL POC Glucose (mg/dL) 227 H (75-99) mg/dL
--- NOTE | 2020-04-22 14:52 | P.PN ---
Subjective Patient is doing well today. No acute events overnight. Objective - Vital Signs Vital signs: Vital Signs Temp 97.5 F L 04/22/20 06:37 Pulse 59 L 04/22/20 06:37 Resp 18 04/22/20 06:37 BP 143/83 04/22/20 06:37 Pulse Ox 96 04/22/20 06:37 Intake & Output 04/21/20 04/22/20 04/22/20 18:59 06:59 18:59 Intake Total 1422 880 500 Output Total 3025 2049 1250 Balance -1603 -1170 -750 Weight 130.833 kg 128.7 kg Intake: Intake, IV Titration 160 Amount Dextrose 5% in Water 1, 160 000 ml @ 20 mls/hr IV . Q24H [facility] Rx#:[id number] Oral 1422 720 500 Output: Urine 3025 0 1250 Other: Voiding Method Bedside Commode Bedside Commode # Voids 1 1 1 - Exam General: The patient is awake and alert, in no distress Eye: there is normal conjunctiva bilaterally. Neck: The neck is supple, there is no JVD. Cardiovascular: Normal S1-S2, no S3-S4, no murmurs. Respiratory: Lungs clear to auscultation bilaterally Gastrointestinal: Abdomen is soft, nontender Musculoskeletal: There is bilateral lower extremity edema/lymphedema worse on the right. There is erythema extending up to the knee on the right side and up to the ankle on the left. Right leg is slightly warm to touch. No tenderness Neurological:. Speech is normal. Skin: Skin is warm and dry - Labs CBC & Chem 7: 04/20/20 11:15 04/22/20 10:53 Labs: Abnormal Lab Results - Last 24 Hours (Table) 04/21/20 04/21/20 04/21/20 Range/Units 17:07 17:08 17:11 Sodium (137-145) mmol/L Chloride (98-107) mmol/L BUN (7-17) mg/dL Creatinine (0.52-1.04) mg/dL Glucose (74-99) mg/dL POC Glucose (mg/dL) 44 L 38 L 39 L (75-99) mg/dL 04/21/20 04/21/20 04/21/20 Range/Units 17:22 17:37 17:54 Sodium (137-145) mmol/L Chloride (98-107) mmol/L BUN (7-17) mg/dL Creatinine (0.52-1.04) mg/dL Glucose (74-99) mg/dL POC Glucose (mg/dL) 56 L 55 L 73 L (75-99) mg/dL 04/21/20 04/22/20 04/22/20 Range/Units 20:47 02:47 06:35 Sodium (137-145) mmol/L Chloride (98-107) mmol/L BUN (7-17) mg/dL Creatinine (0.52-1.04) mg/dL Glucose (74-99) mg/dL POC Glucose (mg/dL) 104 H 115 H 128 H (75-99) mg/dL 04/22/20 04/22/20 Range/Units 10:53 11:30 Sodium 130 L (137-145) mmol/L Chloride 94 L (98-107) mmol/L BUN 28 H (7-17) mg/dL Creatinine 1.52 H (0.52-1.04) mg/dL Glucose 222 H (74-99) mg/dL POC Glucose (mg/dL) 227 H (75-99) mg/dL Assessment and Plan Assessment: Sepsis secondary to right lower extremity cellulitis -Patient was started on cefepime and vancomycin since admission. Minimal improvement. Vancomycin was discontinued as MRSA screen was negative. Infectious disease consulted and antibiotic switched to IV cefazolin yesterday. -Blood cultures negative so far Acute on chronic diastolic heart failure -Seen and evaluated by cardiology. Currently on IV Lasix. We will continue to monitor closely. Chronic lymphedema -Encourage wrapping and leg raising, discussed with nursing -Currently on IV Lasix NATE on chronic kidney disease 3 sec to above -Creatinine at baseline Type II DM with hypoglycemia -Patient continues to be hypoglycemic especially in the morning, the nighttime prandial insulin was cut down to 10 units. -decrease Levemir dose to 35 units at bedtime -Continue to monitor blood sugars. Sinus pauses and bradycardia Patient has history of atrial fibrillation Holding clonidine and Cardizem Continue on nadolol with parameters Cardiology following Morbid obesity -Structured outpatient weight loss General weakness PT Chronic conditions: hypertension -Stable DVT prophylaxis -Gaurav
[2020-04-22 17:01] LABS: Glucose,Whole Blood 138 mg/dL (75-99)
[2020-04-22] MEDS ORDERED: INSULIN ASPART (NovoLOG) 100 UNIT/ML VIAL SQ SCH (17:30)
[2020-04-22] MEDS: DEXTROSE 5% IN WATER 1,000 ML IV SCH (17:37)
[2020-04-22 20:15] LABS: Glucose,Whole Blood 202 mg/dL (75-99)
[2020-04-22] MEDS: ATORVASTATIN 20 MG TAB PO SCH (20:20)
[2020-04-22] MEDS: INSULIN DETEMIR (LEVEMIR) 100 UNIT/ML SYR SQ SCH (20:20)
[2020-04-23 02:04] LABS: Glucose,Whole Blood 164 mg/dL (75-99)
--- NOTE | 2020-04-23 06:50 | PN ---
PROGRESS NOTE DATE OF SERVICE: 04/22/2020 REASON FOR FOLLOWUP: Right lower extremity cellulitis. INTERVAL HISTORY: The patient is currently afebrile. The patient is breathing comfortably. Denies having any chest pain, cough. No nausea, vomiting. No abdominal pain. No worsening pain to the right leg. PHYSICAL EXAMINATION: Blood pressure 133/80 with a pulse of 73, temperature 98.. She is 98% on room air. General description is an elderly female up in the chair in no distress. Respiratory system: Unlabored breathing clear to auscultation anteriorly. Heart S1, S2. Regular rate and rhythm. Abdomen: Soft, no tenderness. Right leg swelling and redness slightly decreased. LABS: BUN of 28, creatinine 1.52. DIAGNOSTIC IMPRESSION AND PLAN: Patient with acute right lower extremity cellulitis. Patient with diffuse swelling and redness, likely streptococcal disease. We will keep the patient on cefazolin 2 grams q.8 hours for another 24 hours. Continue with Tio wrap to keep the swelling down. Hopefully finish therapy with oral Keflex. Continue supportive care. MMODL / IJN: [id number] /
[2020-04-23 07:20] LABS: Glucose,Whole Blood 127 mg/dL (75-99)
[2020-04-23] MEDS: INSULIN ASPART (NovoLOG) 100 UNIT/ML VIAL SQ SCH ×2 (07:36→11:42)
[2020-04-23 08:21] LABS: Calcium 9.2 mg/dL (8.4-10.2); Potassium 3.7 mmol/L (3.5-5.1)
[2020-04-23 08:24] VITALS: BP 105/52; PULSE 68; RESP 16; TEMP 97.4
[2020-04-23 08:39] LABS: Anisocytosis Slight; Basophils # (A) 0.1 k/uL (0-0.2); Basophils % (A) 1 %; Eosinophils # (A) 0.2 k/uL (0-0.7); Eosinophils % (A) 4 %; HGB 11.9 gm/dL (11.4-16.0); Hypochromasia Slight; Lymphocytes % (A) 21 %; MCH 27.4 pg (25.0-35.0); MCHC 32.3 g/dL (31.0-37.0); MCV 84.9 fL (80.0-100.0); Mean Platelet Volume 8.4; Monocytes # (A) 0.4 k/uL (0-1.0); Monocytes % (A) 10 %; Neutrophils # (A) 2.8 k/uL (1.3-7.7); Neutrophils % (A) 61 %; Platelet Count 207 k/uL (150-450); RBC 4.36 m/uL (3.80-5.40); RDW 16.7 % (11.5-15.5); WBC 4.6 k/uL (3.8-10.6)
[2020-04-23] MEDS: MAGNESIUM OXIDE 400 MG TAB PO SCH (08:46)
[2020-04-23] MEDS: LISINOPRIL-HCTZ 20-25 MG 1 EACH TAB PO SCH (08:46)
[2020-04-23] MEDS: APIXABAN 5 MG TAB PO SCH (08:46)
[2020-04-23] MEDS: CALCIUM CARBONATE 500 MG CHEWABLE PO SCH (08:46)
[2020-04-23] MEDS: FUROSEMIDE 10 MG/ML 4 ML VIAL IV SCH (08:46)
[2020-04-23] MEDS: CHOLECALCIFEROL 1,000 UNIT TAB PO SCH (08:46)
[2020-04-23 11:34] LABS: Glucose,Whole Blood 189 mg/dL (75-99)
--- NOTE | 2020-04-23 13:57 | P.PN ---
Subjective Progress Note Date: 04/23/20 This 80-year-old female with history of chronic atrial fibrillation, hypertension and chronic diastolic CHF was admitted with cellulitis and shortness of breath. Patient was treated with IV diuretics with improvement of symptoms. Patient is quite comfortable today. Sitting up in the chair. No complaints of any chest pain. Patient is being discharged home. She'll continue follow-up with Dr. Oscar as an outpatient Objective - Vital Signs Vital signs: Vital Signs Temp 97.4 F L 04/23/20 07:15 Pulse 68 04/23/20 07:15 Resp 16 04/23/20 07:15 BP 105/52 04/23/20 07:15 Pulse Ox 99 04/23/20 07:15 Intake & Output 04/22/20 04/23/20 04/23/20 18:59 06:59 18:59 Intake Total 500 300 Output Total 2150 1310 1125 Balance -1650 -1010 -1125 Weight 127.7 kg Intake: Oral 500 300 Output: Urine 2150 1310 1125 Other: Voiding Method Bedside Commode Bedside Commode Bedside Commode # Voids 1 1 - Exam GENERAL EXAM: Patient is alert and oriented and doesn't appear to be in any acute distress HEENT: Normocephalic. Normal reaction of pupils, equal size, normal range of extraocular motion. No erythema or exudates in the throat. NECK: No masses, no nuchal rigidity. CHEST: No chest wall deformity. LUNGS: Equal air entry with no crackles or wheeze. HEART: S1 and S2 normal . Irregular rhythm ABDOMEN: No hepatosplenomegaly, normal bowel sounds, no guarding or rigidity. SKIN: No rashes CENTRAL NERVOUS SYSTEM: No focal deficits. EXTREMITIES: No cyanosis, clubbing or edema. - Labs CBC & Chem 7: 04/23/20 07:53 04/23/20 07:53 Labs: Abnormal Lab Results - Last 24 Hours (Table) 04/22/20 04/22/20 04/23/20 Range/Units 16:48 20:14 02:02 RDW (11.5-15.5) % Sodium (137-145) mmol/L Chloride (98-107) mmol/L BUN (7-17) mg/dL Creatinine (0.52-1.04) mg/dL Glucose (74-99) mg/dL POC Glucose (mg/dL) 138 H 202 H 164 H (75-99) mg/dL 04/23/20 04/23/20 04/23/20 Range/Units 07:18 07:53 07:53 RDW 16.7 H (11.5-15.5) % Sodium 131 L (137-145) mmol/L Chloride 95 L (98-107) mmol/L BUN 29 H (7-17) mg/dL Creatinine 1.41 H (0.52-1.04) mg/dL Glucose 134 H (74-99) mg/dL POC Glucose (mg/dL) 127 H (75-99) mg/dL 04/23/20 Range/Units 11:16 RDW (11.5-15.5) % Sodium (137-145) mmol/L Chloride (98-107) mmol/L BUN (7-17) mg/dL Creatinine (0.52-1.04) mg/dL Glucose (74-99) mg/dL POC Glucose (mg/dL) 189 H (75-99) mg/dL Assessment and Plan (1) Atrial fibrillation Current Visit: Yes Status: Acute Code(s): I48.91 - UNSPECIFIED ATRIAL FIBRILLATION SNOMED Code(s): 27256171 (2) Diastolic CHF Current Visit: Yes Status: Acute Code(s): I50.30 - UNSPECIFIED DIASTOLIC (CONGESTIVE) HEART FAILURE SNOMED Code(s): 295405787 (3) Diastolic CHF Current Visit: Yes Status: Acute Code(s): I50.30 - UNSPECIFIED DIASTOLIC (CONGESTIVE) HEART FAILURE SNOMED Code(s): 173006925 Plan: Patient is critically stable. Being discharged home. Follow-up with Dr. Peterson
--- NOTE | 2020-04-23 14:15 | P.DS ---
Providers Date of admission: 04/14/20 03:55 Expected date of discharge: 04/23/20 Attending physician: Tona Judge MD Consults: 04/18/20 14:35 Consult Physician Routine Consulting Provider: Presley Oscar Consult Reason/Comments: bradycardia, pauses Do you want consulting provider notified?: Yes 04/18/20 14:36 Consult Physician Routine Consulting Provider: [facility] Consult Reason/Comments: sinus pause and bradycardia Do you want consulting provider notified?: Yes 04/21/20 09:45 Consult Physician Routine Consulting Provider: Young Bird Consult Reason/Comments: RLE cellulitis, Do you want consulting provider notified?: Yes Primary care physician: Armaan Snyder [facility] Course: The patient is an 80-year-old female with a PMH of type II DM, hypertension, chronic venous stasis with recurrent episodes of right lower extremity cellulitis, A. fib on Eliquis who presented to the ED with complaints of right leg swelling and pain. The patient notes that her visiting nurse saw her leg today and became concerned since it had gradually been getting worse and prompted her to come to the ED. She reports some chills at home now otherwise denied any additional complaints. Patient denied chest pain, shortness of breath, nausea, vomiting, diarrhea, dizziness, or headaches. She ambulates at home with a walker. In the ED the patient had a T-max of 102.9 with a chest x- ray that was unremarkable, with right foot x-ray showing soft tissue swelling, and a right tibia fibula x-ray showing subcutaneous edema. EKG revealed A. fib at 86 bpm. Laboratory evaluation revealed WBC count of 28.9, hemoglobin 11.8, palates 227, sodium 134, potassium 4.0, chloride 97, BUN 37, creatinine 2.09, troponin 0.017, and glucose of 89. Patient initially met sepsis criteria thought to be secondary to right lower extremity cellulitis. She was initially started on Rocephin and vancomycin. She was started on IVF and blood cultures were collected. Blood cultures were negative at the time of discharge. Infectious disease was consulted and recommended switching to cefazolin at the time of discharge. She did have an episode of hypoglycemia during her admission. Her home dose of insulin was decreased from NovoLog 15 units at breakfast, 20 units at lunch and 30 units at supper to 5 units 3 times a day with meals until follow-up with her PCP. Her long-acting insulin was decreased from 45 units at bedtime to 15 units. Her antihypertensive medication were held during her admission except for lisinopril and hydrochlorothiazide. Diltiazem, nadolol and clonidine were all held during this admission. She was rate controlled during her admission and her blood pressure within normal limits. Patient was advised to hold diltiazem, nadolol and clonidine until follow-up with her PCP. She was also diuresed with Lasix 40 mg IV twice a day for acute on chronic diastolic heart failure during this admission. Cardiology was on board and follow the patient closely. On discharge, patient was advised to change her Lasix dosing to 40 mg by mouth twice a day until follow-up with her PCP. Patient was seen and examined. No acute events overnight. Patient reports improvement in her symptoms since admission. She reports decreased lower extremity swelling with improvement in the erythema. She reports no chest pain, shortness breath or palpitations. No nausea or vomiting. No fever or chills. Wanting to go home today. General: [non toxic], [no distress], [appears at stated age] Derm: [warm], [dry] Head: [atraumatic], [normocephalic], [symmetric] Eyes: [EOMI], [no lid lag], [anicteric sclera] Mouth: [no lip lesion], [mucus membranes moist] Cardiovascular: [S1S2 irregular], [no murmur], [positive DP pulse bilateral], Lungs: [Decreased breath sounds bilateral], [no rhonchi, no rales] , [no accessory muscle use] Abdominal: [soft], [ nontender to palpation], [no guarding], [no appreciable organomegaly] Ext: [no gross muscle atrophy], [bilateral lower extremity edema with mild erythema], [no contractures] Neuro: [no focal neuro deficits] Psych: [Alert], [oriented], [appropriate affect] Sepsis secondary to right lower extremity cellulitis -Patient was started on cefepime and vancomycin since admission. Minimal improvement. Vancomycin was discontinued as MRSA screen was negative. Infectious disease consulted and antibiotic switched to IV cefazolin yesterday. -Plans to DC home on 6 more days of Keflex -Blood cultures negative so far Acute on chronic diastolic heart failure -Seen and evaluated by cardiology. To continue Lasix 40 mg by mouth twice a day at home. Chronic lymphedema -Encourage wrapping and leg raising, discussed with nursing -Lasix as above NATE on chronic kidney disease 3 sec to above -Creatinine at baseline Type II DM with hypoglycemia -Patient's insulin requirements have significantly decreased and she will be discharged home on NovoLog 5 units 3 times a day with meals along with 15 units of long-acting insulin at bedtime until follow-up with her PCP Sinus pauses and bradycardia with history of atrial fibrillation -Patient has history of atrial fibrillation -Holding clonidine and Cardizem, nadolol until follow-up with PCP -Cardiology following Morbid obesity -Structured outpatient weight loss General weakness -PT Chronic conditions: hypertension, atrial fibrillation -Stable DVT prophylaxis -Eliquis [Patient reports significant improvement in her symptoms and would like to go home today. Complete 6 more days of Keflex. Continue Lasix 40 mg by mouth twice a day. Decrease insulin as above. Hold antihypertensive medication as above. Patient advised follow-up with PCP within 3 days of discharge for further medication adjustment. She verbalized understanding of the plan. This complex discharge took about 45 minutes to complete.] Pertinent Studies: Chest x-ray, foot x-ray, tibia fibula x-ray Patient Condition at Discharge: Stable Plan - Discharge Summary Discharge Rx Participant: No New Discharge Prescriptions: New Furosemide [Lasix] 40 mg PO BID@0900,1600 #60 tab Insulin Detemir (Levemir) [Levemir] 15 unit SQ HS syr Atorvastatin [Lipitor] 20 mg PO HS #30 tab INSULIN ASPART (NovoLOG) [NovoLOG (formulary)] 5 unit SQ W/BRKFST vial INSULIN ASPART (NovoLOG) [NovoLOG (formulary)] 5 unit SQ AC-SUPPER vial INSULIN ASPART (NovoLOG) [NovoLOG (formulary)] 5 unit SQ W/LUNCH vial Cephalexin [Keflex] 500 mg PO Q8HR 6 Days #18 cap Continue Lisinopril-Hctz 20-25 mg [Zestoretic 20-25] 1 tab PO DAILY Apixaban [Eliquis] 5 mg PO BID #0 tab Multivitamins, Thera [Multivitamin (formulary)] 1 tab PO DAILY Nystatin 100,000Unit/gm Cream [Mycostatin Cream] 1 applic TOPICAL BID 14 Days #1 tube Magnesium Oxide [Mag-Ox] 400 mg PO DAILY Cholecalciferol [Vitamin D3 (25 Mcg = 1000 Iu)] 1,000 unit PO DAILY Calcium Carbonate [Calcium] 600 mg PO DAILY Discontinued Furosemide [Lasix] 20 mg PO Q48H cloNIDine HCL [Catapres] 0.1 mg PO BID Insulin Glargine,Hum.rec.anlog [Lantus Solostar] 45 unit SQ HS Diltiazem Cd [Cardizem CD] 240 mg PO DAILY #90 cap.er.24h Nadolol [Corgard] 20 mg PO BID #180 tab Furosemide [Lasix] 40 mg PO Q48H Insulin Aspart [NovoLOG Flexpen] 30 units SQ W/SUPPER Insulin Aspart [NovoLOG Flexpen] 20 units SQ W/LUNCH Insulin Aspart [NovoLOG Flexpen] 15 units SQ W/BRKFST Discharge Medication List Lisinopril-Hctz 20-25 mg [Zestoretic 20-25] 1 tab PO DAILY 10/02/17 [History] Apixaban [Eliquis] 5 mg PO BID #0 tab 10/06/17 [Rx] Multivitamins, Thera [Multivitamin (formulary)] 1 tab PO DAILY 05/24/18 [History] Nystatin 100,000Unit/gm Cream [Mycostatin Cream] 1 applic TOPICAL BID 14 Days #1 tube 02/04/20 [Rx] Calcium Carbonate [Calcium] 600 mg PO DAILY 04/14/20 [History] Cholecalciferol [Vitamin D3 (25 Mcg = 1000 Iu)] 1,000 unit PO DAILY 04/14/20 [History] Magnesium Oxide [Mag-Ox] 400 mg PO DAILY 04/14/20 [History] Atorvastatin [Lipitor] 20 mg PO HS #30 tab 04/23/20 [Rx] Cephalexin [Keflex] 500 mg PO Q8HR 6 Days #18 cap 04/23/20 [Rx] Furosemide [Lasix] 40 mg PO BID@0900,1600 #60 tab 04/23/20 [Rx] INSULIN ASPART (NovoLOG) [NovoLOG (formulary)] 5 unit SQ AC-SUPPER vial 04/23/20 [Rx] INSULIN ASPART (NovoLOG) [NovoLOG (formulary)] 5 unit SQ W/BRKFST vial 04/23/20 [Rx] INSULIN ASPART (NovoLOG) [NovoLOG (formulary)] 5 unit SQ W/LUNCH vial 04/23/20 [Rx] Insulin Detemir (Levemir) [Levemir] 15 unit SQ HS syr 04/23/20 [Rx] Follow up Appointment(s)/Referral(s): Armaan Snyder MD [Primary Care Provider] - 1-2 days (Office closed at time of discharge please call SundayApril 26 to set up a follow up appointment) [facility], [NON-STAFF] - Patient Instructions/Handouts: Cellulitis (ED) Activity/Diet/Wound Care/Special Instructions: Diet: Diabetic FU PCP within 3 days of DC. We are holding your Nadolol, Diltiazem, and Clonidine until you can follow up with your PCP. Take all meds as advised. Come back to the ED for CP, SOB, palpitations, dizziness, fever > 100.4F. Reduce insulin dose to 5 units three times a day with meals along with 15 units long acting insulin daily. Discharge Disposition: HOME SELF-CARE
--- NOTE | 2020-04-23 15:04 | P.PN ---
Progress Note - Text Progress Note Date: 04/23/20 REASON FOR FOLLOWUP: Right lower extremity cellulitis. INTERVAL HISTORY: The patient remains to be afebrile. The patient is breathing comfortably. The patient Denies having any chest pain, cough. No nausea, vomiting. No abdominal pain. No worsening pain to the right leg. PHYSICAL EXAMINATION: Blood pressure 130/70 with a pulse of 76, temperature 98.. She is 98% on room air. General description is an elderly female up in the chair in no distress. Respiratory system: Unlabored breathing clear to auscultation anteriorly. Heart S1, S2. Regular rate and rhythm. Abdomen: Soft, no tenderness. Right leg swelling and redness slightly decreased, no open wound or any drainage LABS: Reviewed DIAGNOSTIC IMPRESSION AND PLAN: Patient with acute right lower extremity cellulitis. Patient with diffuse swelling and redness, likely streptococcal disease. Patient seemed to have some clinical improvement On cefazolin she was switched over to Keflex 500 mg by mouth every 8 hours 7 days Along with Tio wrap to keep the swelling down and close outpatient follow-up
[2020-04-23] MEDS ORDERED: FUROSEMIDE 40 MG TAB PO SCH (16:00)
--- NOTE | 2020-04-26 13:23 | CDI ---
Documentation Clarification Form Date: 04/26/20 From: Aracelis Rao Phone: If you have a question about this query, please contact Damari Zayas, Activity Therapy Teacher at [phone] between 8am and 5pm. Admit Date: 04/14/20 Discharge Date:04/23/20 Patient Name: Dalila Kennedy Visit Number: [id number] ATTENTION: The Clinical Documentation Specialists (CDI) and [facility] Coding Staff appreciate your assistance in clarifying documentation. Please respond to the clarification below the line at the bottom and electronically sign. The CDI & [facility] Coding staff will review the response and follow-up if needed. Please note: Queries are made part of the Legal Health Record. If you have any questions, please contact the author of this message via ITS. Dear Dr. Fitzpatrick andrei Treviño Cellulitis of the right lower extremity is documented throughout the record. Patient history/risk factors: Diabetes, sepsis, cellulitis, chronic venous stasis Clinical Indicators: leg pain and swelling, erythema, induration, hypoglycemia Labs: WBC 28.9, Glucose on admit 89, 49 on 04/16 Vital Signs: T. 102.9, P. 77, R. 18, BP 123/53 Treatment: IV Kefzol, IV Cefepime, IV Rocephin, Novolog and Levemir In your professional opinion, can cellulitis be further specified as one of the following? Associated with Diabetes Not Associated with Diabetes Other(please specify): Unable to determine Associated with Diabetes MTDD
== END 2020-04-23 14:05 | disposition home health service (06) | DRG 871 ==
LOC: EC 01:17 → 5NMEDONC 03:55 → UNDOADMOB 03:55 → 5NMEDONC 03:55 → 4SSUR 17:03
PROVIDERS: ADMIT Internal Medicine; ATTEND Internal Medicine
DX: A40.9 Streptococcal sepsis, unspecified (principal); I50.33 Acute on chronic diastolic (congestive) heart failure; I13.0 Hypertensive heart and chronic kidney disease with heart failure and stage 1 through stage 4 chronic kidney disease, or unspecified chronic kidney disease; L03.115 Cellulitis of right lower limb; N17.9 Acute kidney failure, unspecified; Z68.42 Body mass index [BMI] 45.0-49.9, adult; E11.628 Type 2 diabetes mellitus with other skin complications; E11.22 Type 2 diabetes mellitus with diabetic chronic kidney disease; E11.649 Type 2 diabetes mellitus with hypoglycemia without coma; E66.01 Morbid (severe) obesity due to excess calories; I27.20 Pulmonary hypertension, unspecified; I48.0 Paroxysmal atrial fibrillation; I89.0 Lymphedema, not elsewhere classified; N18.3 Chronic kidney disease, stage 3 (moderate); I87.8 Other specified disorders of veins; Z11.59 Encounter for screening for other viral diseases; M19.90 Unspecified osteoarthritis, unspecified site; R00.1 Bradycardia, unspecified; R26.2 Difficulty in walking, not elsewhere classified; I08.1 Rheumatic disorders of both mitral and tricuspid valves; R53.1 Weakness; Z79.01 Long term (current) use of anticoagulants; Z79.4 Long term (current) use of insulin; Z79.899 Other long term (current) drug therapy; Z88.0 Allergy status to penicillin; Z90.49 Acquired absence of other specified parts of digestive tract; Z98.42 Cataract extraction status, left eye; Z98.41 Cataract extraction status, right eye; Z96.1 Presence of intraocular lens; Z87.891 Personal history of nicotine dependence; Z82.49 Family history of ischemic heart disease and other diseases of the circulatory system
CPT/HCPCS: 36415; 71046; 80048; 80053; 80202; 81001; 82550; 82553; 82565; 83036; 83605; 83735; 83880; 84100; 84443; 84484; 85025; 85027; 85610; 85730; 87040; 87070; 93005; 96361; 96365; 96366; 96367; 99285

== ENCOUNTER 2020-07-28 07:51 | Observation (INO) | payer MEDICARE ==
--- NOTE | 2020-07-28 08:14 | ED ---
Lower Extremity Injury HPI - General Chief Complaint: Extremity Injury, Lower Stated Complaint: Right leg pain Time Seen by Provider: 07/28/20 08:00 Source: EMS, RN notes reviewed Mode of arrival: EMS Limitations: no limitations - History of Present Illness Initial Comments: This is a 80-year-old female who presents by EMS with complaints of right hip p ain. She states this started around 11:00 last night when she was again days. She states her was at her leg up toward her leg and started having severe sharp pain radiating from an EF to the right hip. She states it hurts to try to weight-bear or move it. At rest she has minimal discomfort. She denies any known injury she was recently hospitalized for cellulitis of that same extremity this apparently is not been a problem although she denies any other complaints - Related Data Home Medications Medication Instructions Recorded Confirmed Multivitamins, Thera [Multivitamin 1 tab PO DAILY 05/24/18 07/28/20 (formulary)] Calcium Carbonate [Calcium] 600 mg PO DAILY 04/14/20 07/28/20 Cholecalciferol [Vitamin D3 (25 1,000 unit PO DAILY 04/14/20 07/28/20 Mcg = 1000 Iu)] Magnesium Oxide [Mag-Ox] 400 mg PO DAILY 04/14/20 07/28/20 L.acidoph,Paracasei, B.lactis 1 cap PO DAILY 07/28/20 07/28/20 [Probiotic] Metoprolol Tartrate [Lopressor] 25 mg PO BID 07/28/20 07/28/20 Triamcinolone 0.1% Cream [Kenalog 1 applicatio TOPICAL BID PRN 07/28/20 07/28/20 0.1% Cream] cloNIDine HCL [Catapres] 0.1 mg PO BID 07/28/20 07/28/20 lisinopriL 20 mg PO DAILY 07/28/20 07/28/20 Previous Rx's Medication Instructions Recorded Apixaban [Eliquis] 5 mg PO BID #0 tab 10/06/17 INSULIN ASPART (NovoLOG) [NovoLOG 5 unit SQ AC-SUPPER vial 04/23/20 (formulary)] INSULIN ASPART (NovoLOG) [NovoLOG 5 unit SQ W/BRKFST vial 04/23/20 (formulary)] INSULIN ASPART (NovoLOG) [NovoLOG 5 unit SQ W/LUNCH vial 04/23/20 (formulary)] Insulin Detemir (Levemir) [Levemir] 15 unit SQ HS syr 04/23/20 Allergies Allergy/AdvReac Type Severity Reaction Status Date / Time Penicillins Allergy Rash/Hives Verified 07/28/20 09:07 Review of Systems ROS Statement: Those systems with pertinent positive or pertinent negative responses have been documented in the HPI. ROS Other: All systems not noted in ROS Statement are negative. Past Medical History Past Medical History: Atrial Fibrillation, Diabetes Mellitus, Hypertension Additional Past Medical History / Comment(s): Obesity with a BMI of 49.6, hypertension, chronic atrial fibrillation, diabetes mellitus, recurrent Celexa the right lower extremity, lymphedema of the right lower extremity, osteoarthritis History of Any Multi-Drug Resistant Organisms: None Reported Past Surgical History: Section, Cholecystectomy, Hernia Repair Additional Past Surgical History / Comment(s): Abdominal hernia repair with mesh, benign lump removed right breast, bilateral cataract removal with lens implants. Past Anesthesia/Blood Transfusion Reactions: No Reported Reaction Past Psychological History: No Psychological Hx Reported Smoking Status: Never smoker Past Alcohol Use History: None Reported Past Drug Use History: None Reported - Past Family History Father Family Medical History: Coronary Artery Disease (CAD), Myocardial Infarction (MT) Additional Family Medical History / Comment(s): Father had several MIs with the first time being while he was in his 50s. He of a MT at the age of 75 yrs. Mother Family Medical History: No Reported History Additional Family Medical History / Comment(s): Mother was healthy and lived to be 91 yrs old. General Exam - General Exam Comments Initial Comments: This is a well-developed obese female who is awake alert oriented 3 Limitations: no limitations General appearance: alert, anxious Head exam: Present: atraumatic, normocephalic, normal inspection Eye exam: Present: normal appearance, PERRL, EOMI. Absent: scleral icterus, conjunctival injection, periorbital swelling ENT exam: Present: normal exam, mucous membranes moist Neck exam: Present: normal inspection. Absent: tenderness, meningismus, lymphadenopathy Respiratory exam: Present: normal lung sounds bilaterally. Absent: respiratory distress, wheezes, rales, rhonchi, stridor Cardiovascular Exam: Present: normal rhythm, tachycardia, normal heart sounds. Absent: systolic murmur, diastolic murmur, rubs, gallop, clicks GI/Abdominal exam: Present: soft, normal bowel sounds, other (Obese abdomen). Absent: distended, tenderness, guarding, rebound, rigid Extremities exam: Present: full ROM, tenderness (Tennis palpation of the right hip and proximal lateral right femur with no step-off or crepitation marked stasis dermatitis noted. Several superficial abrasions that appear to be noninfected seen.), normal capillary refill. Absent: pedal edema, joint swelling, calf tenderness Back exam: Present: normal inspection Neurological exam: Present: alert, oriented X3, CN II-XII intact Psychiatric exam: Present: normal affect, normal mood Skin exam: Present: warm, dry, intact, normal color. Absent: rash Course Vital Signs 07/28/20 07:56 Temperature 97.7 F Pulse Rate 109 H Respiratory 18 Rate Blood Pressure 135/76 O2 Sat by Pulse 98 Oximetry Medical Decision Making - Medical Decision Making I did discuss findings with the patient is unable weight-bear and function at this time and apparently. Patient will be admitted with orthopedic consultation I did discuss case with Dr. Wahl - Radiology Data Radiology results: report reviewed (I did review the imaging and report evidence of acetabular femoral impingement on the right side.), image reviewed Disposition Clinical Impression: Hip pain, right, Failure to thrive Disposition: ADMITTED IP TO THIS [facility] Condition: Fair Referrals: Jcarlos Young MD [Primary Care Provider] - 1-2 days
--- NOTE | 2020-07-28 09:16 | XR ---
EXAMINATION TYPE: XR Hip RT and AP Pelvis, XR femur RT DATE OF EXAM: 07/28/2020 COMPARISON: NONE HISTORY: Pain TECHNIQUE: A single AP view of the pelvis is obtained. Two views of the right hip, frontal and latera l views of the right femur are obtained. FINDINGS: There is no acute fracture/dislocation evident in the pelvis. The hip and sacroiliac join ts appear symmetric and unremarkable. The overlying soft tissue appears unremarkable. Two views of right hip show no acute fracture or dislocation. No focal lytic or sclerotic lesion see n in the right femur. The overlying soft tissue is unremarkable. Some hypertrophic changes present at the acetabulum on the right. Degenerative disc changes are noted in the lower lumbar spine. Lucency projects over the proximal lower extremities. Lucency also present in the proximal right lowe r extremity tissues. IMPRESSION: Correlate for acetabular femoral impingement. The lucency seen over the proximal lower ex tremities may be due to patient's pannus, protuberant abdomen, correlate. Correlate for cellulitis, e yefri. Degenerative disc disease.
[2020-07-28] MEDS ORDERED: HYDROmorphone 0.5 MG/0.5 ML SYRINGE IVP PRN (10:52)
[2020-07-28] MEDS ORDERED: NALOXONE 0.4 MG/ML 1 ML VIAL IV PRN (10:52)
[2020-07-28] MEDS ORDERED: TRIAMCINOLONE 0.1% CREAM 80 GM TUBE TOPICAL PRN (10:54)
[2020-07-28 12:05] LABS: Basophils # (A) 0.1 k/uL (0-0.2); Basophils % (A) 0 %; Eosinophils # (A) 0.1 k/uL (0-0.7); Eosinophils % (A) 1 %; HCT 33.3 % (34.0-46.0); HGB 10.5 gm/dL (11.4-16.0); Hypochromasia Slight; Lymphocytes # (A) 0.9 k/uL (1.0-4.8); Lymphocytes % (A) 6 %; MCH 26.5 pg (25.0-35.0); MCHC 31.5 g/dL (31.0-37.0); MCV 84.1 fL (80.0-100.0); Mean Platelet Volume 9.2; Monocytes # (A) 0.6 k/uL (0-1.0); Monocytes % (A) 4 %; Neutrophils # (A) 12.1 k/uL (1.3-7.7); Neutrophils % (A) 87 %; Platelet Count 241 k/uL (150-450); RBC 3.96 m/uL (3.80-5.40); RDW 15.7 % (11.5-15.5); WBC 13.9 k/uL (3.8-10.6)
[2020-07-28 12:07] LABS: INR 1.2 (<1.2); Partial Thromboplastin Time 25.4 sec (22.0-30.0); Prothrombin Time 11.7 sec (9.0-12.0)
[2020-07-28 12:31] LABS: Albumin 2.9 g/dL (3.5-5.0); Magnesium 1.6 mg/dL (1.6-2.3); Potassium 3.8 mmol/L (3.5-5.1); Total Bilirubin 1.3 mg/dL (0.2-1.3); Total Protein 6.3 g/dL (6.3-8.2)
[2020-07-28 12:46] LABS: Glucose,Whole Blood 187 mg/dL (75-99)
[2020-07-28] MEDS: INSULIN ASPART (NovoLOG) 100 UNIT/ML VIAL SQ SCH ×3 (12:47→20:31)
--- NOTE | 2020-07-28 14:07 | P.HPIM ---
History of Present Illness H&P Date: 07/28/20 Chief Complaint: Right hip pain This is a 80-year-old female with complex past medical history noted below significant for morbid obesity who presented to the emergency room with right hip pain. Patient said that yesterday when she was walking at home she had the sharp pain in her right hip mostly on the lateral aspect and was unable to stand. She rates her pain as 6 out of 10 in severity. She denies any fall or trauma. She said that she had to lay in bed and her was helping her as she was unable to get out of bed secondary of pain. She reported that her pain improves when she is laying comfortably. She denies any prior hip replacement surgery. She was seen by me in the ER. X-ray in the ER showed possible acetabular femoral impingement. Patient will be placed on observation for orthopedic evaluation. Review of Systems Review of system: 14 points review of systems were obtained and were negative except to what were mentioned in the HPI. Past Medical History Past Medical History: Atrial Fibrillation, Diabetes Mellitus, Hypertension Additional Past Medical History / Comment(s): Obesity with a BMI of 49.6, hypertension, chronic atrial fibrillation, diabetes mellitus, recurrent Celexa the right lower extremity, lymphedema of the right lower extremity, osteoarthritis History of Any Multi-Drug Resistant Organisms: None Reported Past Surgical History: Section, Cholecystectomy, Hernia Repair Additional Past Surgical History / Comment(s): Abdominal hernia repair with mesh, benign lump removed right breast, bilateral cataract removal with lens implants. Past Anesthesia/Blood Transfusion Reactions: No Reported Reaction Past Psychological History: No Psychological Hx Reported Additional Psychological History / Comment(s): Pt resides with her spouse. She has [facility] home care nurse once a week. She uses a walker. She does'nt drive/spouse takes to [employer]. 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 Stopped smoking in her early 20s. No alcohol use. M ilitary experience. No current pets in the home. Only travel was to the [facility] in [place] no international travel Smoking Status: Never smoker Past Alcohol Use History: None Reported Additional Past Alcohol Use History / Comment(s): Pt states she started smoking age 16 and quit in 1967.less than 1 ppd Past Drug Use History: None Reported - Past Family History Father Family Medical History: Coronary Artery Disease (CAD), Myocardial Infarction (MS) Additional Family Medical History / Comment(s): Father had several MIs with the first time being while he was in his 50s. He of a MS at the age of 75 yrs. Mother Family Medical History: No Reported History Additional Family Medical History / Comment(s): Mother was healthy and lived to be 91 yrs old. Medications and Allergies Home Medications Medication Instructions Recorded Confirmed Type Apixaban [Eliquis] 5 mg PO BID #0 tab 10/06/17 07/28/20 Rx Multivitamins, Thera [Multivitamin 1 tab PO DAILY 05/24/18 07/28/20 History (formulary)] Calcium Carbonate [Calcium] 600 mg PO DAILY 04/14/20 07/28/20 History Cholecalciferol [Vitamin D3 (25 1,000 unit PO DAILY 04/14/20 07/28/20 History Mcg = 1000 Iu)] Magnesium Oxide [Mag-Ox] 400 mg PO DAILY 04/14/20 07/28/20 History INSULIN ASPART (NovoLOG) [NovoLOG 5 unit SQ AC-SUPPER vial 04/23/20 07/28/20 Rx (formulary)] INSULIN ASPART (NovoLOG) [NovoLOG 5 unit SQ W/BRKFST vial 04/23/20 07/28/20 Rx (formulary)] INSULIN ASPART (NovoLOG) [NovoLOG 5 unit SQ W/LUNCH vial 04/23/20 07/28/20 Rx (formulary)] Insulin Detemir (Levemir) [Levemir] 15 unit SQ HS syr 04/23/20 07/28/20 Rx L.acidoph,Paracasei, B.lactis 1 cap PO DAILY 07/28/20 07/28/20 History [Probiotic] Metoprolol Tartrate [Lopressor] 25 mg PO BID 07/28/20 07/28/20 History Triamcinolone 0.1% Cream [Kenalog 1 applicatio TOPICAL BID PRN 07/28/20 07/28/20 History 0.1% Cream] cloNIDine HCL [Catapres] 0.1 mg PO BID 07/28/20 07/28/20 History lisinopriL 20 mg PO DAILY 07/28/20 07/28/20 History Allergies Allergy/AdvReac Type Severity Reaction Status Date / Time Penicillins Allergy Rash/Hives Verified 07/28/20 09:07 Physical Exam Vitals: Vital Signs Temp Pulse Pulse Resp BP BP Pulse Ox 07/28/20 12:36 97.5 F L 126 H 18 160/85 99 07/28/20 11:33 97.8 F 88 18 140/84 98 07/28/20 07:56 97.7 F 109 H 18 135/76 98 Intake and Output 07/27/20 07/28/20 07/28/20 22:59 06:59 14:59 Other: Weight 121.109 kg General: The patient is awake and alert, in no distress. She is morbidly obese. Eye: there is normal conjunctiva bilaterally. Neck: The neck is supple, there is no JVD. Cardiovascular: Heart sounds are distant Normal S1-S2, no S3-S4, no murmurs. Respiratory: Lungs clear to auscultation bilaterally Gastrointestinal: Abdomen is obese, soft, nontender Musculoskeletal: There is +1 pitting edema with evidence of chronic venous insufficiency stasis Neurological:. Speech is normal. Skin: Skin is warm and dry Results CBC & Chem 7: 07/28/20 11:46 07/28/20 11:46 Labs: Abnormal Lab Results - Last 24 Hours (Table) 07/28/20 07/28/20 07/28/20 Range/Units 11:46 11:46 11:46 WBC 13.9 H (3.8-10.6) k/uL Hgb 10.5 L (11.4-16.0) gm/dL Hct 33.3 L (34.0-46.0) % RDW 15.7 H (11.5-15.5) % Neutrophils # 12.1 H (1.3-7.7) k/uL Lymphocytes # 0.9 L (1.0-4.8) k/uL INR 1.2 H (<1.2) Sodium 136 L (137-145) mmol/L BUN 21 H (7-17) mg/dL Creatinine 1.58 H (0.52-1.04) mg/dL Glucose 203 H (74-99) mg/dL POC Glucose (mg/dL) (75-99) mg/dL Alkaline Phosphatase 132 H (38-126) U/L Albumin 2.9 L (3.5-5.0) g/dL 07/28/20 Range/Units 12:41 WBC (3.8-10.6) k/uL Hgb (11.4-16.0) gm/dL Hct (34.0-46.0) % RDW (11.5-15.5) % Neutrophils # (1.3-7.7) k/uL Lymphocytes # (1.0-4.8) k/uL INR (<1.2) Sodium (137-145) mmol/L BUN (7-17) mg/dL Creatinine (0.52-1.04) mg/dL Glucose (74-99) mg/dL POC Glucose (mg/dL) 187 H (75-99) mg/dL Alkaline Phosphatase (38-126) U/L Albumin (3.5-5.0) g/dL Thrombosis Risk Factor Assmnt - Choose All That Apply Each Risk Factor Represents 3 Points: Age 75 years or older Thrombosis Risk Factor Assessment Total Risk Factor Score: 3 Thrombosis Risk Factor Assessment Level: Moderate Risk Assessment and Plan Assessment: 1. Right hip pain, x-ray showed possible acetabular femoral nerve impingement. No fall or trauma. Awaiting orthopedic evaluation and recommendations. [place] for pain as needed. 2. Type 2 diabetes, relatively well controlled. A1c 6.6 in April. Continue home dose of insulin plus sliding scale. 3. Chronic atrial fibrillation on anticoagulation with a liquids 4. Essential hypertension: Blood pressure well-controlled 5. Venous insufficiency with chronic venous stasis and recurrent episode of lower extremity cellulitis, recently finished antibiotic course prescribed by her PCP 6. Morbid obesity, counseled regarding lifestyle modification and exercise 7. Stage IIIB chronic kidney disease: Creatinine appears to be at baseline 8. Physical debility, PT/OT consulted 9. DVT prophylaxis on anticoagulation with liquids The patient is placed in observation with an anticipated less than 2 midnight stay for evaluation of the medical problems noted above. CODE STATUS: Full code Anticipated discharge date: To be determined based on clinical course Anticipated discharge place: Home A total of 45 minutes was spent on the care of this complex patient more than 50% of the time was spent in counseling and care coordination.
[2020-07-28 17:06] LABS: Glucose,Whole Blood 195 mg/dL (75-99)
[2020-07-28] MEDS ORDERED: INSULIN ASPART (NovoLOG) 100 UNIT/ML VIAL SQ SCH (17:30)
[2020-07-28] MEDS: HYDROcodone/APAP 5-325MG 1 EACH TAB PO PRN (18:17)
[2020-07-28 20:16] LABS: Appearance,Urine Turbid (Clear); Bacteria,Urine Many /hpf; Bilirubin,Urine Negative (Negative); Blood,Urine Moderate (Negative); Budding Yeast,Urine Few /hpf; Color,Urine Yellow; Glucose,Urine (UA) Trace (Negative); Ketones,Urine Negative (Negative); Leukocyte Esterase,Urine Large (Negative); Mucus,Urine Occasional /hpf; Nitrite,Urine Positive (Negative); PH, Urine 5.5 (5.0-8.0); Protein,Urine 1+ (Negative); RBC,Urine 51 /hpf (0-5); Specific Gravity,Urine 1.017 (1.001-1.035); Squamous Epithelial Cell,Urine 15 /hpf (0-4); Urobilinogen,Urine <2.0 mg/dL (<2.0); WBC,Urine >182 /hpf (0-5)
[2020-07-28 20:24] LABS: Glucose,Whole Blood 195 mg/dL (75-99)
[2020-07-28] MEDS: METOPROLOL TARTRATE 25 MG TAB PO SCH (20:30)
[2020-07-28] MEDS: cloNIDine HCL 0.1 MG TAB PO SCH (20:31)
[2020-07-28] MEDS: APIXABAN 5 MG TAB PO SCH (20:31)
[2020-07-28] MEDS ORDERED: INSULIN DETEMIR (LEVEMIR) 100 UNIT/ML SYR SQ SCH (21:00)
[2020-07-29 06:50] LABS: Glucose,Whole Blood 154 mg/dL (75-99)
[2020-07-29] MEDS: INSULIN ASPART (NovoLOG) 100 UNIT/ML VIAL SQ SCH ×3 (07:16→11:55)
[2020-07-29 07:26] VITALS: BP 134/97; PULSE 101; RESP 16; TEMP 97.6
[2020-07-29] MEDS ORDERED: INSULIN ASPART (NovoLOG) 100 UNIT/ML VIAL SQ SCH (07:30)
[2020-07-29] MEDS: APIXABAN 5 MG TAB PO SCH (08:12)
[2020-07-29] MEDS: cloNIDine HCL 0.1 MG TAB PO SCH (08:12)
[2020-07-29] MEDS: METOPROLOL TARTRATE 25 MG TAB PO SCH (08:13)
[2020-07-29] MEDS ORDERED: CALCIUM CARBONATE 500 MG CHEWABLE PO SCH (09:00)
[2020-07-29] MEDS ORDERED: MULTIVITAMINS, THERA 1 EACH TAB PO SCH (09:00)
[2020-07-29] MEDS ORDERED: LACTOBACILLUS ACIDOPH & BULGAR 1 EACH PACKET PO SCH (09:00)
[2020-07-29] MEDS ORDERED: CHOLECALCIFEROL 1,000 UNIT TAB PO SCH (09:00)
[2020-07-29] MEDS ORDERED: MAGNESIUM OXIDE 400 MG TAB PO SCH (09:00)
[2020-07-29] MEDS ORDERED: lisinopriL 20 MG TAB PO SCH (09:00)
--- NOTE | 2020-07-29 09:10 | P.CNOR ---
History of Present Illness - [facility] Consult date: 07/29/20 Consult reason: joint pain (Right hip pain) History of present illness: This is an 80-year-old female with history of multiple medical morbidities including morbid obesity. She complains of right hip pain with sudden onset 2 days ago. She reports no trauma or fall. She states that she was lying in bed and was unable to get up. She is admitted to the hospital with intractable pain. We are consulted for orthopedic evaluation. Past Medical History Past Medical History: Atrial Fibrillation, Diabetes Mellitus, Hypertension Additional Past Medical History / Comment(s): Obesity with a BMI of 49.6, hypertension, chronic atrial fibrillation, diabetes mellitus, recurrent Celexa the right lower extremity, lymphedema of the right lower extremity, osteoarthritis History of Any Multi-Drug Resistant Organisms: None Reported Past Surgical History: Section, Cholecystectomy, Hernia Repair Additional Past Surgical History / Comment(s): Abdominal hernia repair with mesh, benign lump removed right breast, bilateral cataract removal with lens implants. Past Anesthesia/Blood Transfusion Reactions: No Reported Reaction Past Psychological History: No Psychological Hx Reported Additional Psychological History / Comment(s): Pt resides with her spouse. She has [facility] home care nurse once a week. She uses a walker. She does'nt drive/spouse takes to [employer]. 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 Stopped smoking in her early 20s. No alcohol use. experience. No current pets in the home. Only travel was to the [facility] in [place] no international travel Smoking Status: Never smoker Past Alcohol Use History: None Reported Additional Past Alcohol Use History / Comment(s): Pt states she started smoking age 16 and quit in 1967.less than 1 ppd Past Drug Use History: None Reported - Past Family History Father Family Medical History: Coronary Artery Disease (CAD), Myocardial Infarction (IA) Additional Family Medical History / Comment(s): Father had several MIs with the first time being while he was in his 50s. He of a IA at the age of 75 yrs. Mother Family Medical History: No Reported History Additional Family Medical History / Comment(s): Mother was healthy and lived to be 91 yrs old. Medications and Allergies Home Medications Medication Instructions Recorded Confirmed Type Apixaban [Eliquis] 5 mg PO BID #0 tab 10/06/17 07/28/20 Rx Multivitamins, Thera [Multivitamin 1 tab PO DAILY 05/24/18 07/28/20 History (formulary)] Calcium Carbonate [Calcium] 600 mg PO DAILY 04/14/20 07/28/20 History Cholecalciferol [Vitamin D3 (25 1,000 unit PO DAILY 04/14/20 07/28/20 History Mcg = 1000 Iu)] Magnesium Oxide [Mag-Ox] 400 mg PO DAILY 04/14/20 07/28/20 History INSULIN ASPART (NovoLOG) [NovoLOG 5 unit SQ AC-SUPPER vial 04/23/20 07/28/20 Rx (formulary)] INSULIN ASPART (NovoLOG) [NovoLOG 5 unit SQ W/BRKFST vial 04/23/20 07/28/20 Rx (formulary)] INSULIN ASPART (NovoLOG) [NovoLOG 5 unit SQ W/LUNCH vial 04/23/20 07/28/20 Rx (formulary)] Insulin Detemir (Levemir) [Levemir] 15 unit SQ HS syr 04/23/20 07/28/20 Rx L.acidoph,Paracasei, B.lactis 1 cap PO DAILY 07/28/20 07/28/20 History [Probiotic] Metoprolol Tartrate [Lopressor] 25 mg PO BID 07/28/20 07/28/20 History Triamcinolone 0.1% Cream [Kenalog 1 applicatio TOPICAL BID PRN 07/28/20 07/28/20 History 0.1% Cream] cloNIDine HCL [Catapres] 0.1 mg PO BID 07/28/20 07/28/20 History lisinopriL 20 mg PO DAILY 07/28/20 07/28/20 History Allergies Allergy/AdvReac Type Severity Reaction Status Date / Time Penicillins Allergy Rash/Hives Verified 07/28/20 09:07 Physical Examination This is a pleasant 80-year-old female in no acute distress. She is alert and oriented 3. Exam of the low back is limited secondary to the patient's inability to move in the chair. Straight leg raise to the right lower extremity produces pain up into her hip and right-sided low back. [place] produces pain into the right hip. She is unable to lift the leg independently off the chair. She has full foot and ankle motion without difficulty. Neurovascular status to the lower extremity is intact. Results Hip x-rays reveal moderate degenerative arthritis with narrowing to the glenohumeral joint. No acute fracture is identified. - Labs Labs: Abnormal Lab Results - Last 24 Hours (Table) 07/28/20 07/28/20 07/28/20 Range/Units 11:46 11:46 11:46 WBC 13.9 H (3.8-10.6) k/uL Hgb 10.5 L (11.4-16.0) gm/dL Hct 33.3 L (34.0-46.0) % RDW 15.7 H (11.5-15.5) % Neutrophils # 12.1 H (1.3-7.7) k/uL Lymphocytes # 0.9 L (1.0-4.8) k/uL INR 1.2 H (<1.2) Sodium 136 L (137-145) mmol/L BUN 21 H (7-17) mg/dL Creatinine 1.58 H (0.52-1.04) mg/dL Glucose 203 H (74-99) mg/dL POC Glucose (mg/dL) (75-99) mg/dL Alkaline Phosphatase 132 H (38-126) U/L Albumin 2.9 L (3.5-5.0) g/dL Urine Appearance (Clear) Urine Protein (Negative) Urine Glucose (UA) (Negative) Urine Blood (Negative) Urine Nitrite (Negative) Ur Leukocyte Esterase (Negative) Urine RBC (0-5) /hpf Urine WBC (0-5) /hpf Urine WBC Clumps (None) /hpf Ur Squamous Epith Cells (0-4) /hpf Urine Bacteria (None) /hpf Urine Mucus (None) /hpf Urine Yeast (Budding) (None) /hpf 07/28/20 07/28/20 07/28/20 Range/Units 12:41 17:04 19:40 WBC (3.8-10.6) k/uL Hgb (11.4-16.0) gm/dL Hct (34.0-46.0) % RDW (11.5-15.5) % Neutrophils # (1.3-7.7) k/uL Lymphocytes # (1.0-4.8) k/uL INR (<1.2) Sodium (137-145) mmol/L BUN (7-17) mg/dL Creatinine (0.52-1.04) mg/dL Glucose (74-99) mg/dL POC Glucose (mg/dL) 187 H 195 H (75-99) mg/dL Alkaline Phosphatase (38-126) U/L Albumin (3.5-5.0) g/dL Urine Appearance Turbid H (Clear) Urine Protein 1+ H (Negative) Urine Glucose (UA) Trace H (Negative) Urine Blood Moderate H (Negative) Urine Nitrite Positive H (Negative) Ur Leukocyte Esterase Large H (Negative) Urine RBC 51 H (0-5) /hpf Urine WBC >182 H (0-5) /hpf Urine WBC Clumps Many H (None) /hpf Ur Squamous Epith Cells 15 H (0-4) /hpf Urine Bacteria Many H (None) /hpf Urine Mucus Occasional H (None) /hpf Urine Yeast (Budding) Few H (None) /hpf 07/28/20 07/29/20 Range/Units 20:23 06:48 WBC (3.8-10.6) k/uL Hgb (11.4-16.0) gm/dL Hct (34.0-46.0) % RDW (11.5-15.5) % Neutrophils # (1.3-7.7) k/uL Lymphocytes # (1.0-4.8) k/uL INR (<1.2) Sodium (137-145) mmol/L BUN (7-17) mg/dL Creatinine (0.52-1.04) mg/dL Glucose (74-99) mg/dL POC Glucose (mg/dL) 195 H 154 H (75-99) mg/dL Alkaline Phosphatase (38-126) U/L Albumin (3.5-5.0) g/dL Urine Appearance (Clear) Urine Protein (Negative) Urine Glucose (UA) (Negative) Urine Blood (Negative) Urine Nitrite (Negative) Ur Leukocyte Esterase (Negative) Urine RBC (0-5) /hpf Urine WBC (0-5) /hpf Urine WBC Clumps (None) /hpf Ur Squamous Epith Cells (0-4) /hpf Urine Bacteria (None) /hpf Urine Mucus (None) /hpf Urine Yeast (Budding) (None) /hpf Microbiology - Last 24 Hours (Table) 07/28/20 19:40 Urine Culture - Preliminary Urine,Voided H & H 07/28/20 Range/Units 11:46 Hgb 10.5 L (11.4-16.0) gm/dL Hct 33.3 L (34.0-46.0) % Coagulation 07/28/20 Range/Units 11:46 INR 1.2 H (<1.2) Result Diagrams: 07/28/20 11:46 07/28/20 11:46 Assessment and Plan (1) Low back pain Current Visit: Yes Status: Acute Code(s): M54.5 - LOW BACK PAIN SNOMED Code(s): 286500330 (2) Hip pain, right Current Visit: Yes Status: Acute Code(s): M25.551 - PAIN IN RIGHT HIP SNOMED Code(s): 60442385 (3) Obesity, Class III, BMI 40-49.9 (morbid obesity) Current Visit: No Status: Acute Code(s): E66.01 - MORBID (SEVERE) OBESITY DUE TO EXCESS CALORIES SNOMED Code(s): 361738287 Plan: The clinical and x-ray findings are discussed with the patient. We discussed the potential contribution of the lumbar issues to her hip and leg pain. Treatment options are discussed including further imaging with computed tomography scan to confirm that there is no hip fracture and consult with pain management for possible hip and epidural steroid injections. The patient declines computed tomography scan performed evaluation at this time. She also declines evaluation for possible steroid injections. I will order physical therapy and I recommend an anti-inflammatory for her pain. Since patient declines further imaging at this time, I recommend repeat x-ray of the right hip in 1 week. She may bear weight as tolerated with walker at this time.
[2020-07-29 11:38] LABS: Glucose,Whole Blood 179 mg/dL (75-99)
[2020-07-29] MEDS: HYDROcodone/APAP 5-325MG 1 EACH TAB PO PRN ×2 (11:56→15:58)
--- NOTE | 2020-07-29 13:51 | P.DS ---
Providers Date of admission: 07/28/20 10:52 Expected date of discharge: 07/29/20 Attending physician: Manny Wahl MD Consults: 07/28/20 10:53 Consult Physician Routine Consulting Provider: Eliud Regan Consult Reason/Comments: Intractable right hip pain Do you want consulting provider notified?: Yes Primary care physician: Jcarlos Young MD Hospital Course: This is a 80-year-old female with complex past medical history noted below presented to the emergency room with worsening right hip pain. Patient was evaluated in the ER and placed on observation for further management of her medical problems noted below. 1. Right hip pain, x-ray showed possible acetabular femoral nerve impingement. No fall or trauma. Patient was seen and evaluated by orthopedic. She was offered to obtain a computed tomography scan to rule out a possible underlying fracture but she refused. She was also offered steroid injections but she refused. Orthopedic recommended an anti-inflammatory but given her kidney function patient is unable to take NSAIDs. I would prescribe her a Medrol Dosepak with a short course of Protonix. 2. Type 2 diabetes, relatively well controlled. A1c 6.6 in April. Continue home dose of insulin 3. Chronic atrial fibrillation on anticoagulation with Eliquis 4. Essential hypertension: Blood pressure well-controlled 5. Venous insufficiency with chronic venous stasis and recurrent episode of lower extremity cellulitis, recently finished antibiotic course prescribed by her PCP 6. Morbid obesity, counseled regarding lifestyle modification and exercise 7. Stage IIIB chronic kidney disease: Creatinine appears to be at baseline 8. Physical debility, PT/OT consulted Patient will be discharged home in a stable condition. For further details about this hospitalization please refer to the electronic chart. Time spent on discharge > 30 minutes including counseling and coordination of Patient Condition at Discharge: Stable Plan - Discharge Summary New Discharge Prescriptions: New methylPREDNISolone [Medrol Dose Pack] 4 mg PO DIRECTED #1 pack Pantoprazole Sodium [Protonix] 40 mg PO DAILY #10 tablet. Continue Apixaban [Eliquis] 5 mg PO BID #0 tab Multivitamins, Thera [Multivitamin (formulary)] 1 tab PO DAILY Magnesium Oxide [Mag-Ox] 400 mg PO DAILY Cholecalciferol [Vitamin D3 (25 Mcg = 1000 Iu)] 1,000 unit PO DAILY Calcium Carbonate [Calcium] 600 mg PO DAILY Insulin Detemir (Levemir) [Levemir] 15 unit SQ HS syr INSULIN ASPART (NovoLOG) [NovoLOG (formulary)] 5 unit SQ W/BRKFST vial INSULIN ASPART (NovoLOG) [NovoLOG (formulary)] 5 unit SQ AC-SUPPER vial INSULIN ASPART (NovoLOG) [NovoLOG (formulary)] 5 unit SQ W/LUNCH vial Triamcinolone 0.1% Cream [Kenalog 0.1% Cream] 1 applicatio TOPICAL BID PRN PRN Reason: Rash lisinopriL 20 mg PO DAILY Metoprolol Tartrate [Lopressor] 25 mg PO BID L.acidoph,Paracasei, B.lactis [Probiotic] 1 cap PO DAILY cloNIDine HCL [Catapres] 0.1 mg PO BID Discharge Medication List Apixaban [Eliquis] 5 mg PO BID #0 tab 10/06/17 [Rx] Multivitamins, Thera [Multivitamin (formulary)] 1 tab PO DAILY 05/24/18 [History] Calcium Carbonate [Calcium] 600 mg PO DAILY 04/14/20 [History] Cholecalciferol [Vitamin D3 (25 Mcg = 1000 Iu)] 1,000 unit PO DAILY 04/14/20 [History] Magnesium Oxide [Mag-Ox] 400 mg PO DAILY 04/14/20 [History] INSULIN ASPART (NovoLOG) [NovoLOG (formulary)] 5 unit SQ AC-SUPPER vial 04/23/20 [Rx] INSULIN ASPART (NovoLOG) [NovoLOG (formulary)] 5 unit SQ W/BRKFST vial 04/23/20 [Rx] INSULIN ASPART (NovoLOG) [NovoLOG (formulary)] 5 unit SQ W/LUNCH vial 04/23/20 [Rx] Insulin Detemir (Levemir) [Levemir] 15 unit SQ HS syr 04/23/20 [Rx] L.acidoph,Paracasei, B.lactis [Probiotic] 1 cap PO DAILY 07/28/20 [History] Metoprolol Tartrate [Lopressor] 25 mg PO BID 07/28/20 [History] Triamcinolone 0.1% Cream [Kenalog 0.1% Cream] 1 applicatio TOPICAL BID PRN 07/28/20 [History] cloNIDine HCL [Catapres] 0.1 mg PO BID 07/28/20 [History] lisinopriL 20 mg PO DAILY 07/28/20 [History] Pantoprazole Sodium [Protonix] 40 mg PO DAILY #10 tablet. 07/29/20 [Rx] methylPREDNISolone [Medrol Dose Pack] 4 mg PO DIRECTED #1 pack 07/29/20 [Rx] Follow up Appointment(s)/Referral(s): Jcarlos Young MD [Primary Care Provider] - 1-2 days Activity/Diet/Wound Care/Special Instructions: Repeat hip Xray in 1 week. WBAT w walker. Discharge Disposition: HOME SELF-CARE
[2020-07-29] MEDS ORDERED: APIXABAN 2.5 MG TABLET PO SCH (21:00)
== END 2020-07-29 16:17 | disposition home or self-care (01) ==
LOC: EC 07:51 → 4SSUR 10:52
PROVIDERS: ADMIT Family Medicine; ATTEND Family Medicine
DX: M25.551 Pain in right hip (principal); R93.7 Abnormal findings on diagnostic imaging of other parts of musculoskeletal system; N18.32 Chronic kidney disease, stage 3b; M54.5 Low back pain; E11.22 Type 2 diabetes mellitus with diabetic chronic kidney disease; I48.20 Chronic atrial fibrillation, unspecified; I12.9 Hypertensive chronic kidney disease with stage 1 through stage 4 chronic kidney disease, or unspecified chronic kidney disease; I87.2 Venous insufficiency (chronic) (peripheral); L03.119 Cellulitis of unspecified part of limb; E66.01 Morbid (severe) obesity due to excess calories; R53.81 Other malaise; R62.7 Adult failure to thrive; M19.90 Unspecified osteoarthritis, unspecified site; Z87.2 Personal history of diseases of the skin and subcutaneous tissue; Z79.899 Other long term (current) drug therapy; Z79.52 Long term (current) use of systemic steroids; Z88.0 Allergy status to penicillin; Z68.42 Body mass index [BMI] 45.0-49.9, adult; Z98.890 Other specified postprocedural states; Z90.49 Acquired absence of other specified parts of digestive tract; Z87.19 Personal history of other diseases of the digestive system; Z98.41 Cataract extraction status, right eye; Z98.42 Cataract extraction status, left eye; Z96.1 Presence of intraocular lens; Z79.01 Long term (current) use of anticoagulants; Z87.891 Personal history of nicotine dependence; Z79.4 Long term (current) use of insulin; Z82.49 Family history of ischemic heart disease and other diseases of the circulatory system
CPT/HCPCS: 99285; 97161; 97165; 80053; 83735; 85025; 85610; 85730; 81001; 87086; 87077; 87186; 73502; 73552; G0378 ×2

== ENCOUNTER 2020-08-06 21:45 | Emergency (ER) | payer MEDICARE ==
--- NOTE | 2020-08-06 22:09 | ED ---
Nausea/Vomiting/Diarrhea HPI - General Stated complaint: Diarrhea Time Seen by Provider: 08/06/20 21:59 - History of Present Illness MD complaint: diarrhea Onset/Timin -: days(s) Description of Diarrhea: water Associated Abdominal Pain: No Severity scale (1-10): 0 Consistency: constant Improves with: none Worsens with: none Associated Symptoms: denies other symptoms - Related Data Home Medications Medication Instructions Recorded Confirmed Multivitamins, Thera [Multivitamin 1 tab PO DAILY 05/24/18 07/28/20 (formulary)] Calcium Carbonate [Calcium] 600 mg PO DAILY 04/14/20 07/28/20 Cholecalciferol [Vitamin D3 (25 1,000 unit PO DAILY 04/14/20 07/28/20 Mcg = 1000 Iu)] Magnesium Oxide [Mag-Ox] 400 mg PO DAILY 04/14/20 07/28/20 L.acidoph,Paracasei, B.lactis 1 cap PO DAILY 07/28/20 07/28/20 [Probiotic] Metoprolol Tartrate [Lopressor] 25 mg PO BID 07/28/20 07/28/20 Triamcinolone 0.1% Cream [Kenalog 1 applicatio TOPICAL BID PRN 07/28/20 07/28/20 0.1% Cream] cloNIDine HCL [Catapres] 0.1 mg PO BID 07/28/20 07/28/20 lisinopriL 20 mg PO DAILY 07/28/20 07/28/20 Previous Rx's Medication Instructions Recorded Apixaban [Eliquis] 5 mg PO BID #0 tab 10/06/17 INSULIN ASPART (NovoLOG) [NovoLOG 5 unit SQ AC-SUPPER vial 04/23/20 (formulary)] INSULIN ASPART (NovoLOG) [NovoLOG 5 unit SQ W/BRKFST vial 04/23/20 (formulary)] INSULIN ASPART (NovoLOG) [NovoLOG 5 unit SQ W/LUNCH vial 04/23/20 (formulary)] Insulin Detemir (Levemir) [Levemir] 15 unit SQ HS syr 04/23/20 Pantoprazole Sodium [Protonix] 40 mg PO DAILY #10 tablet. 07/29/20 methylPREDNISolone [Medrol Dose 4 mg PO DIRECTED #1 pack 07/29/20 Pack] Acetaminophen-Codeine 300-30mg 1 tab PO Q4H #16 tablet 08/07/20 [Tylenol w/codeine #3] Allergies Allergy/AdvReac Type Severity Reaction Status Date / Time Penicillins Allergy Rash/Hives Verified 07/28/20 09:07 Review of Systems ROS Statement: Those systems with pertinent positive or pertinent negative responses have been documented in the HPI. ROS Other: All systems not noted in ROS Statement are negative. Constitutional: Denies: fever, chills, weakness Respiratory: Denies: cough, dyspnea Cardiovascular: Denies: chest pain, palpitations, syncope Gastrointestinal: Reports: diarrhea. Denies: abdominal pain, nausea, vomiting, constipation, melena, hematochezia Genitourinary: Denies: dysuria, hematuria Musculoskeletal: Denies: back pain Skin: Denies: rash Neurological: Denies: headache, weakness, numbness Past Medical History Past Medical History: Atrial Fibrillation, Diabetes Mellitus, Hypertension Additional Past Medical History / Comment(s): Obesity with a BMI of 49.6, hypertension, chronic atrial fibrillation, diabetes mellitus, recurrent Celexa the right lower extremity, lymphedema of the right lower extremity, osteoarthritis History of Any Multi-Drug Resistant Organisms: None Reported Past Surgical History: Section, Cholecystectomy, Hernia Repair Additional Past Surgical History / Comment(s): Abdominal hernia repair with mesh, benign lump removed right breast, bilateral cataract removal with lens implants. Past Anesthesia/Blood Transfusion Reactions: No Reported Reaction Past Psychological History: No Psychological Hx Reported Additional Psychological History / Comment(s): Pt resides with her spouse. She has [facility] home care nurse once a week. She uses a walker. She does'nt drive/spouse takes to [employer]. 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 Stopped smoking in her early 20s. No alcohol use. experience. No current pets in the home. Only travel was to the [facility] in [place] no international travel Smoking Status: Never smoker Past Alcohol Use History: None Reported Additional Past Alcohol Use History / Comment(s): Pt states she started smoking age 16 and quit in 1967.less than 1 ppd Past Drug Use History: None Reported - Past Family History Father Family Medical History: Coronary Artery Disease (CAD), Myocardial Infarction ([place]) Additional Family Medical History / Comment(s): Father had several MIs with the first time being while he was in his 50s. He of a [place] at the age of 75 yrs. Mother Family Medical History: No Reported History Additional Family Medical History / Comment(s): Mother was healthy and lived to be 91 yrs old. General Exam General appearance: alert, in no apparent distress Head exam: Present: atraumatic, normocephalic Eye exam: Present: normal appearance. Absent: scleral icterus, conjunctival injection ENT exam: Present: normal oropharynx, mucous membranes moist Respiratory exam: Present: normal lung sounds bilaterally. Absent: respiratory distress, wheezes, rales, rhonchi, stridor Cardiovascular Exam: Present: regular rate, normal rhythm, normal heart sounds. Absent: systolic murmur, diastolic murmur, rubs, gallop GI/Abdominal exam: Present: soft. Absent: distended, tenderness, guarding, re bound, rigid, mass, pulsatile mass Extremities exam: Present: normal capillary refill, pedal edema, other (Chronic venous stasis changes bilateral legs). Absent: calf tenderness Back exam: Absent: CVA tenderness (R), CVA tenderness (L) Neurological exam: Present: alert Skin exam: Present: warm, dry, intact, normal color. Absent: rash Course Vital Signs 08/06/20 08/07/20 22:02 00:07 Temperature 98 F Pulse Rate 80 100 Respiratory 18 18 Rate Blood Pressure 166/98 152/81 O2 Sat by Pulse 98 99 Oximetry Medical Decision Making - Lab Data Result diagrams: 08/06/20 23:04 08/06/20 23:10 Lab Results 08/06/20 08/06/20 08/07/20 Range/Units 23:04 23:10 00:05 WBC 15.1 H (3.8-10.6) k/uL RBC 4.15 (3.80-5.40) m/uL Hgb 11.1 L (11.4-16.0) gm/dL Hct 36.6 (34.0-46.0) % MCV 88.3 (80.0-100.0) fL MCH 26.7 (25.0-35.0) pg MCHC 30.2 L (31.0-37.0) g/dL RDW 17.3 H (11.5-15.5) % Plt Count 186 (150-450) k/uL Neutrophils % 81 % Lymphocytes % 8 % Monocytes % 5 % Eosinophils % 5 % Basophils % 0 % Neutrophils # 12.2 H (1.3-7.7) k/uL Lymphocytes # 1.2 (1.0-4.8) k/uL Monocytes # 0.8 (0-1.0) k/uL Eosinophils # 0.8 H (0-0.7) k/uL Basophils # 0.0 (0-0.2) k/uL Hypochromasia Marked Anisocytosis Slight Sodium 137 (137-145) mmol/L Potassium 3.7 (3.5-5.1) mmol/L Chloride 105 (98-107) mmol/L Carbon Dioxide 26 (22-30) mmol/L Anion Gap 6 mmol/L BUN 29 H (7-17) mg/dL Creatinine 1.32 H (0.52-1.04) mg/dL Est GFR (CKD-EPI)AfAm 44 (>60 ml/min/1.73 sqM) Est GFR (CKD-EPI)NonAf 38 (>60 ml/min/1.73 sqM) Glucose 131 H (74-99) mg/dL Calcium 8.8 (8.4-10.2) mg/dL Total Bilirubin 2.7 H (0.2-1.3) mg/dL AST 37 H (14-36) U/L ALT 17 (4-34) U/L Alkaline Phosphatase 123 (38-126) U/L Total Protein 6.7 (6.3-8.2) g/dL Albumin 3.2 L (3.5-5.0) g/dL Amylase 49 (30-110) U/L Lipase 84 (23-300) U/L C. difficile (EIA) Intrp Negative (Negative) Disposition Clinical Impression: Diarrhea Disposition: HOME SELF-CARE Condition: Fair Instructions (If sedation given, give patient instructions): Acute Diarrhea (ED) Prescriptions: Acetaminophen-Codeine 300-30mg [Tylenol w/codeine #3] 1 tab PO Q4H #16 tablet Is patient prescribed a controlled substance at d/c from ED?: Yes Referrals: Jcarlos Young MD [Primary Care Provider] - 1-2 days
[2020-08-06 22:11] VITALS: RESP 18; TEMP 98
[2020-08-06 23:21] LABS: Anisocytosis Slight; Basophils % (A) 0 %; Eosinophils # (A) 0.8 k/uL (0-0.7); Eosinophils % (A) 5 %; HCT 36.6 % (34.0-46.0); HGB 11.1 gm/dL (11.4-16.0); Hypochromasia Marked; Lymphocytes # (A) 1.2 k/uL (1.0-4.8); Lymphocytes % (A) 8 %; MCH 26.7 pg (25.0-35.0); MCHC 30.2 g/dL (31.0-37.0); MCV 88.3 fL (80.0-100.0); Mean Platelet Volume 8.6; Monocytes # (A) 0.8 k/uL (0-1.0); Monocytes % (A) 5 %; Neutrophils # (A) 12.2 k/uL (1.3-7.7); Neutrophils % (A) 81 %; Platelet Count 186 k/uL (150-450); RBC 4.15 m/uL (3.80-5.40); RDW 17.3 % (11.5-15.5); WBC 15.1 k/uL (3.8-10.6)
[2020-08-06 23:38] LABS: Albumin 3.2 g/dL (3.5-5.0); Calcium 8.8 mg/dL (8.4-10.2); Potassium 3.7 mmol/L (3.5-5.1); Total Bilirubin 2.7 mg/dL (0.2-1.3); Total Protein 6.7 g/dL (6.3-8.2)
[2020-08-07] MEDS ORDERED: Acetaminophen-Codeine 300-30mg TAB PO STA (01:50)
[2020-08-07 03:42] VITALS: BP 150/76; PULSE 90
== END 2020-08-07 03:43 | disposition home or self-care (01) ==
LOC: EC 21:45
DX: R19.7 Diarrhea, unspecified (principal); I87.8 Other specified disorders of veins; I10 Essential (primary) hypertension; Z79.899 Other long term (current) drug therapy; Z88.0 Allergy status to penicillin; Z87.891 Personal history of nicotine dependence; Z98.42 Cataract extraction status, left eye; Z98.41 Cataract extraction status, right eye; Z96.1 Presence of intraocular lens; Z90.49 Acquired absence of other specified parts of digestive tract
CPT/HCPCS: 36415; 80053; 82150; 83690; 85025; 87045; 87046; 87324; 99284

== ENCOUNTER 2020-08-23 15:31 | Inpatient (IN) | payer MEDICARE ==
[2020-08-23] MEDS ORDERED: VANCOMYCIN IV PER PHARMACY 1 EACH MISC MISCELLANE PRN (15:55)
[2020-08-23] MEDS ORDERED: MEROPENEM 2 GM in SODIUM CHLORIDE 0.9% 100 ML IVPB STA (15:57)
[2020-08-23] MEDS ORDERED: VANCOMYCIN 2,250 MG in SODIUM CHLORIDE 0.9% 500 ML 500 ML IVPB ONE (16:30)
--- NOTE | 2020-08-23 16:44 | ED ---
General Adult HPI - General Chief complaint: Skin/Abscess/Foreign Body Stated complaint: Sent by PCP - L Foot Infection Time Seen by Provider: 08/23/20 15:46 Source: patient, RN notes reviewed Mode of arrival: wheelchair Limitations: no limitations - History of Present Illness Initial comments: This is an 80-year-old female presents emergency Department chief complaint a left foot infection. 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 Patient states that it seemed to worsen in the last few days and which she was seen today and sent here for admission. Patient states that she has a known diabetic. Patient states that she has not checked her blood sugar recently. Patient states that she was told the bone was exposed and there is multiple areas of infection. Patient reports no significant fever she does complain of left leg discomfort and swelling. - Related Data Home Medications Medication Instructions Recorded Confirmed Multivitamins, Thera [Multivitamin 1 tab PO DAILY 05/24/18 07/28/20 (formulary)] Calcium Carbonate [Calcium] 600 mg PO DAILY 04/14/20 07/28/20 Cholecalciferol [Vitamin D3 (25 1,000 unit PO DAILY 04/14/20 07/28/20 Mcg = 1000 Iu)] Magnesium Oxide [Mag-Ox] 400 mg PO DAILY 04/14/20 07/28/20 L.acidoph,Paracasei, B.lactis 1 cap PO DAILY 07/28/20 07/28/20 [Probiotic] Metoprolol Tartrate [Lopressor] 25 mg PO BID 07/28/20 07/28/20 Triamcinolone 0.1% Cream [Kenalog 1 applicatio TOPICAL BID PRN 07/28/20 07/28/20 0.1% Cream] cloNIDine HCL [Catapres] 0.1 mg PO BID 07/28/20 07/28/20 lisinopriL 20 mg PO DAILY 07/28/20 07/28/20 Previous Rx's Medication Instructions Recorded Apixaban [Eliquis] 5 mg PO BID #0 tab 10/06/17 INSULIN ASPART (NovoLOG) [NovoLOG 5 unit SQ AC-SUPPER vial 04/23/20 (formulary)] INSULIN ASPART (NovoLOG) [NovoLOG 5 unit SQ W/BRKFST vial 04/23/20 (formulary)] INSULIN ASPART (NovoLOG) [NovoLOG 5 unit SQ W/LUNCH vial 04/23/20 (formulary)] Insulin Detemir (Levemir) [Levemir] 15 unit SQ HS syr 04/23/20 Pantoprazole Sodium [Protonix] 40 mg PO DAILY #10 tablet.dr 07/29/20 methylPREDNISolone [Medrol Dose 4 mg PO DIRECTED #1 pack 07/29/20 Pack] Acetaminophen-Codeine 300-30mg 1 tab PO Q4H #16 tablet 08/07/20 [Tylenol w/codeine #3] Allergies Allergy/AdvReac Type Severity Reaction Status Date / Time Penicillins Allergy Rash/Hives Verified 08/23/20 15:42 Review of Systems ROS Statement: Those systems with pertinent positive or pertinent negative responses have been documented in the HPI. ROS Other: All systems not noted in ROS Statement are negative. Past Medical History Past Medical History: Atrial Fibrillation, Diabetes Mellitus, Hypertension Additional Past Medical History / Comment(s): Obesity with a BMI of 49.6, hypertension, chronic atrial fibrillation, diabetes mellitus, recurrent Celexa the right lower extremity, lymphedema of the right lower extremity, osteoarthritis History of Any Multi-Drug Resistant Organisms: None Reported Past Surgical History: Section, Cholecystectomy, Hernia Repair Additional Past Surgical History / Comment(s): Abdominal hernia repair with mesh, benign lump removed right breast, bilateral cataract removal with lens implants. Past Anesthesia/Blood Transfusion Reactions: No Reported Reaction Past Psychological History: No Psychological Hx Reported Smoking Status: Never smoker Past Alcohol Use History: None Reported Past Drug Use History: None Reported - Past Family History Father Family Medical History: Coronary Artery Disease (CAD), Myocardial Infarction ([place]) Additional Family Medical History / Comment(s): Father had several MIs with the first time being while he was in his 50s. He of a [place] at the age of 75 yrs. Mother Family Medical History: No Reported History Additional Family Medical History / Comment(s): Mother was healthy and lived to be 91 yrs old. General Exam Limitations: no limitations General appearance: alert, in no apparent distress Head exam: Present: atraumatic, normocephalic, normal inspection Eye exam: Present: normal appearance, PERRL, EOMI. Absent: scleral icterus, conjunctival injection, periorbital swelling Respiratory exam: Present: normal lung sounds bilaterally. Absent: respiratory distress, wheezes, rales, rhonchi, stridor Cardiovascular Exam: Present: regular rate, normal rhythm, normal heart sounds. Absent: systolic murmur, diastolic murmur, rubs, gallop, clicks Extremities exam: Present: other (Severity of swelling of the left lower extremity, there is a large diabetic foot ulcer, significant erosion and exposure of the second digit feet pulses severe odor) Neurological exam: Present: alert, oriented X3 Skin exam: Present: warm, dry, intact, normal color. Absent: rash Course Vital Signs 08/23/20 08/23/20 15:40 18:18 Temperature 99.0 F Pulse Rate 101 H 98 Respiratory 20 16 Rate Blood Pressure 171/90 97/73 O2 Sat by Pulse 100 100 Oximetry Medical Decision Making - Medical Decision Making 80-year-old female presented for left foot infection. Patient has extensive diabetic foot ulcer, open wounds. Labs, x-rays were ordered patient has evidence of osteomyelitis, ultrasound does not reveal any acute DVT patient may have some underlying peripheral vascular disease. Patient does have mild leukocytosis, lactic acid is elevated patient does meet sepsis criteria patient was immediately started on antibiotics upon arrival, blood cultures were drawn. - Lab Data Result diagrams: 08/23/20 17:10 08/23/20 17:10 Lab Results 08/23/20 08/23/20 08/23/20 Range/Units 17:10 17:10 17:10 WBC 11.7 H (3.8-10.6) k/uL RBC 3.83 (3.80-5.40) m/uL Hgb 9.9 L (11.4-16.0) gm/dL Hct 33.8 L (34.0-46.0) % MCV 88.1 (80.0-100.0) fL MCH 25.7 (25.0-35.0) pg MCHC 29.2 L (31.0-37.0) g/dL RDW 16.7 H (11.5-15.5) % Plt Count (150-450) k/uL Neutrophils % 83 % Lymphocytes % 6 % Monocytes % 6 % Eosinophils % 3 % Basophils % 1 % Neutrophils # 9.7 H (1.3-7.7) k/uL Lymphocytes # 0.7 L (1.0-4.8) k/uL Monocytes # 0.7 (0-1.0) k/uL Eosinophils # 0.3 (0-0.7) k/uL Basophils # 0.1 (0-0.2) k/uL Manual Slide Review Performed Hypochromasia Marked Anisocytosis Slight PT (9.0-12.0) sec INR (<1.2) APTT (22.0-30.0) sec Sodium 131 L (137-145) mmol/L Potassium 3.8 (3.5-5.1) mmol/L Chloride 101 (98-107) mmol/L Carbon Dioxide 23 (22-30) mmol/L Anion Gap 7 mmol/L BUN 24 H (7-17) mg/dL Creatinine 1.73 H (0.52-1.04) mg/dL Est GFR (CKD-EPI)AfAm 32 (>60 ml/min/1.73 sqM) Est GFR (CKD-EPI)NonAf 28 (>60 ml/min/1.73 sqM) Glucose 215 H (74-99) mg/dL Plasma Lactic Acid Nacho 2.2 H* (0.7-2.0) mmol/L Calcium 8.7 (8.4-10.2) mg/dL Total Bilirubin 1.0 (0.2-1.3) mg/dL AST 25 (14-36) U/L ALT 11 (4-34) U/L Alkaline Phosphatase 169 H (38-126) U/L Total Protein 5.9 L (6.3-8.2) g/dL Albumin 2.3 L (3.5-5.0) g/dL 08/23/20 Range/Units 17:10 WBC (3.8-10.6) k/uL RBC (3.80-5.40) m/uL Hgb (11.4-16.0) gm/dL Hct (34.0-46.0) % MCV (80.0-100.0) fL MCH (25.0-35.0) pg MCHC (31.0-37.0) g/dL RDW (11.5-15.5) % Plt Count (150-450) k/uL Neutrophils % % Lymphocytes % % Monocytes % % Eosinophils % % Basophils % % Neutrophils # (1.3-7.7) k/uL Lymphocytes # (1.0-4.8) k/uL Monocytes # (0-1.0) k/uL Eosinophils # (0-0.7) k/uL Basophils # (0-0.2) k/uL Manual Slide Review Hypochromasia Anisocytosis PT 12.2 H (9.0-12.0) sec INR 1.2 H (<1.2) APTT 29.2 (22.0-30.0) sec Sodium (137-145) mmol/L Potassium (3.5-5.1) mmol/L Chloride (98-107) mmol/L Carbon Dioxide (22-30) mmol/L Anion Gap mmol/L BUN (7-17) mg/dL Creatinine (0.52-1.04) mg/dL Est GFR (CKD-EPI)AfAm (>60 ml/min/1.73 sqM) Est GFR (CKD-EPI)NonAf (>60 ml/min/1.73 sqM) Glucose (74-99) mg/dL Plasma Lactic Acid Nacho (0.7-2.0) mmol/L Calcium (8.4-10.2) mg/dL Total Bilirubin (0.2-1.3) mg/dL AST (14-36) U/L ALT (4-34) U/L Alkaline Phosphatase (38-126) U/L Total Protein (6.3-8.2) g/dL Albumin (3.5-5.0) g/dL Disposition Clinical Impression: Foot osteomyelitis, left, Diabetic ulcer of left foot, Sepsis Disposition: ADMITTED IP TO THIS [facility] Condition: Serious Referrals: Jcarlos Young MD [Primary Care Provider] - 1-2 days
--- NOTE | 2020-08-23 17:06 | XR ---
Left foot HISTORY: Left foot infection 4 views of the left foot There is a plantar calcaneal spur. Soft tissue swelling is noted. Digits are flexed. There is lucency within the soft tissues. There is destruction of the distal phalanx of the third digit. There is sub luxation of the distal phalanx of the first digit and at the proximal interphalangeal joint of the se cond digit. Second digit phalanges also appear abnormal, are not well-defined IMPRESSION: Soft tissue infection, osteomyelitis of the second and third digits suspected
[2020-08-23 17:30] LABS: INR 1.2 (<1.2); Partial Thromboplastin Time 29.2 sec (22.0-30.0); Prothrombin Time 12.2 sec (9.0-12.0)
[2020-08-23 17:31] LABS: Albumin 2.3 g/dL (3.5-5.0); Calcium 8.7 mg/dL (8.4-10.2); Potassium 3.8 mmol/L (3.5-5.1); Total Protein 5.9 g/dL (6.3-8.2)
[2020-08-23 17:34] LABS: Anisocytosis Slight; Basophils # (A) 0.1 k/uL (0-0.2); Basophils % (A) 1 %; Eosinophils # (A) 0.3 k/uL (0-0.7); Eosinophils % (A) 3 %; HCT 33.8 % (34.0-46.0); HGB 9.9 gm/dL (11.4-16.0); Hypochromasia Marked; Lymphocytes # (A) 0.7 k/uL (1.0-4.8); Lymphocytes % (A) 6 %; MCH 25.7 pg (25.0-35.0); MCHC 29.2 g/dL (31.0-37.0); MCV 88.1 fL (80.0-100.0); Mean Platelet Volume 9.8; Monocytes # (A) 0.7 k/uL (0-1.0); Monocytes % (A) 6 %; Neutrophils # (A) 9.7 k/uL (1.3-7.7); Neutrophils % (A) 83 %; RBC 3.83 m/uL (3.80-5.40); RDW 16.7 % (11.5-15.5); WBC 11.7 k/uL (3.8-10.6)
--- NOTE | 2020-08-23 18:06 | US ---
EXAMINATION TYPE: US venous doppler duplex LE LT DATE OF EXAM: 08/23/2020 5:42 PM COMPARISON: None CLINICAL HISTORY: pain, swelling. Pain and swelling x 2 weeks. No hx of DVT. Patient on Eliquis. SIDE PERFORMED: Left TECHNIQUE: The lower extremity deep venous system is examined utilizing real time linear array sonog agnes with graded compression, doppler sonography and color-flow sonography. VESSELS IMAGED: Common Femoral Vein Deep Femoral Vein Greater Saphenous Vein * Femoral Vein Popliteal Vein Small Saphenous Vein * Proximal Calf Veins (* superficial vessels) Limited due to large body habitus and pannus. Left Leg: No evidence of DVT in veins imaged at this time. EIV not visualized, limited visibility of prox calf veins. Patient could not tolerate compression of distal femoral vein. Subcutaneous edema channels are noted incidentally. IMPRESSION: Exam somewhat limited however there is no evident deep venous thrombosis.
[2020-08-23] MEDS ORDERED: ONDANSETRON 4 MG/2 ML VIAL IVP PRN (18:23)
[2020-08-23] MEDS ORDERED: NALOXONE 0.4 MG/ML 1 ML VIAL IV PRN (18:23)
[2020-08-23] MEDS ORDERED: HYDROcodone/APAP 5-325MG 1 EACH TAB PO PRN (18:23)
[2020-08-23] MEDS ORDERED: ACETAMINOPHEN TAB 325 MG TAB PO PRN (18:23)
[2020-08-23] MEDS: SODIUM CHLORIDE 0.9% 1,000 ML IV SCH (18:55)
[2020-08-23 21:18] LABS: Glucose,Whole Blood 181 mg/dL (75-99)
[2020-08-23] MEDS: INSULIN ASPART (NovoLOG) 100 UNIT/ML VIAL SQ SCH (21:31)
[2020-08-23] MEDS: INSULIN DETEMIR (LEVEMIR) 100 UNIT/ML SYR SQ SCH (21:32)
[2020-08-23] MEDS: METOPROLOL TARTRATE 25 MG TAB PO SCH (21:33)
--- NOTE | 2020-08-24 03:54 | P.HPIM ---
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 for worsening wound in her left foot that she first noticed about 3 weeks ago. she admits to swelling of her leg with increase redness and drainage of the wound over her left 2nd and 3rd toe. she also has a healing wound over her right foot that she has been following up with her radar engineering teacher for the past 3 years. she otherwise denies any fever, chills , or palpitations. she denies any trauma to the foot. she is compliant with her meds, denies any chest pain or trouble breathing denies any palpitations. Patient also reports diarrhea of one week duration runny frequent bowel movements however this has resolved since yesterday Patient otherwise denies any smoking, drugs, or alcohol use in the ED, xrays of the foot suggested possible osteomyelitis. Review of Systems Pertinent positives as noted in HPI. All other systems were reviewed and are negative Past Medical History Past Medical History: Atrial Fibrillation, Diabetes Mellitus, Hypertension Additional Past Medical History / Comment(s): Obesity , hypertension, chronic atrial fibrillation, diabetes mellitus, recurrent Celexa the right lower extremity, lymphedema of the right lower extremity, osteoarthritis History of Any Multi-Drug Resistant Organisms: None Reported Past Surgical History: Section, Cholecystectomy, Hernia Repair Additional Past Surgical History / Comment(s): Abdominal hernia repair with mesh, benign lump removed right breast, bilateral cataract removal with lens implants. Past Anesthesia/Blood Transfusion Reactions: No Reported Reaction Past Psychological History: No Psychological Hx Reported Smoking Status: Never smoker Past Alcohol Use History: None Reported Past Drug Use History: None Reported - Past Family History Father Family Medical History: Coronary Artery Disease (CAD), Myocardial Infarction ([place]) Additional Family Medical History / Comment(s): Father had several MIs with the first time being while he was in his 50s. He of a [place] at the age of 75 yrs. Mother Family Medical History: No Reported History Additional Family Medical History / Comment(s): Mother was healthy and lived to be 91 yrs old. Medications and Allergies Home Medications Medication Instructions Recorded Confirmed Type Apixaban [Eliquis] 5 mg PO BID #0 tab 10/06/17 08/23/20 Rx Multivitamins, Thera [Multivitamin 1 tab PO DAILY 05/24/18 08/23/20 History (formulary)] Calcium Carbonate [Calcium] 600 mg PO DAILY 04/14/20 08/23/20 History Metoprolol Tartrate [Lopressor] 25 mg PO BID 07/28/20 08/23/20 History lisinopriL 20 mg PO DAILY 07/28/20 08/23/20 History INSULIN ASPART (NovoLOG) [NovoLOG 5 unit SQ AC-TID 08/23/20 08/23/20 History (formulary)] Insulin Glargine,Hum.rec.anlog 15 unit SQ HS 08/23/20 08/23/20 History [Lantus Solostar] Allergies Allergy/AdvReac Type Severity Reaction Status Date / Time Penicillins Allergy Rash/Hives Verified 08/23/20 19:52 Physical Exam Vitals: Vital Signs Temp Pulse Resp BP Pulse Ox 08/24/20 00:00 67 18 138/60 97 08/23/20 21:36 79 142/84 08/23/20 18:18 98 16 114/91 100 08/23/20 15:40 99.0 F 101 H 20 171/90 100 Intake and Output 08/23/20 08/23/20 08/24/20 14:59 22:59 06:59 Other: Weight 121.109 kg Constitutional: No acute distress, conversant, pleasant Eyes: Anicteric sclerae, moist conjunctiva, Pupils equal round reactive to light ENMT: NC/AT Oropharynx clear, no erythema, or exudates Neck: Supple, FROM, no masses, or JVD No carotid bruits No thyromegaly Lungs: Clear to auscultation Clear to percussion Normal respiratory effort, no accessory muscle use Cardiovascular: Heart irregular in rate and rhythm, No murmurs, gallops, or rubs Pitting edema of the left leg up to the knee Abdominal: Soft Nontender, no guarding, rebound or rigidity Abdomen moving with respiration Normoactive bowel sounds No hepatomegaly, No splenomegaly No palpable mass No abdominal wall hernia noted Skin: Erythema and swelling of the left leg, surgical dressing over the left foot and site of foot ulcer however drainage is visible, otherwise Normal temperature, tone, texture, turgor Extremities: No digital cyanosis No clubbing Pedal pulses not palpable bilaterally, capillary refill is immediate Radial pulses intact and symmetrical No calf tenderness Psychiatric: Alert and oriented to person, place and time Appropriate affect fair judgement Neuro Muscles Strength 4/5 in all 4 extremities Sensation to light touch grossly present throughout Cranial nerves II-XII grossly intact No focal sensory deficits Lymphatics: no palpable cervical or supraclavicular , or inguinal lymph nodes Results CBC & Chem 7: 08/23/20 17:10 08/23/20 17:10 Labs: Abnormal Lab Results - Last 24 Hours (Table) 08/23/20 08/23/20 08/23/20 Range/Units 17:10 17:10 17:10 WBC 11.7 H (3.8-10.6) k/uL Hgb 9.9 L (11.4-16.0) gm/dL Hct 33.8 L (34.0-46.0) % MCHC 29.2 L (31.0-37.0) g/dL RDW 16.7 H (11.5-15.5) % Neutrophils # 9.7 H (1.3-7.7) k/uL Lymphocytes # 0.7 L (1.0-4.8) k/uL PT (9.0-12.0) sec INR (<1.2) Sodium 131 L (137-145) mmol/L BUN 24 H (7-17) mg/dL Creatinine 1.73 H (0.52-1.04) mg/dL Glucose 215 H (74-99) mg/dL POC Glucose (mg/dL) (75-99) mg/dL Plasma Lactic Acid Nacho 2.2 H* (0.7-2.0) mmol/L Alkaline Phosphatase 169 H (38-126) U/L Total Protein 5.9 L (6.3-8.2) g/dL Albumin 2.3 L (3.5-5.0) g/dL 08/23/20 08/23/20 Range/Units 17:10 21:16 WBC (3.8-10.6) k/uL Hgb (11.4-16.0) gm/dL Hct (34.0-46.0) % MCHC (31.0-37.0) g/dL RDW (11.5-15.5) % Neutrophils # (1.3-7.7) k/uL Lymphocytes # (1.0-4.8) k/uL PT 12.2 H (9.0-12.0) sec INR 1.2 H (<1.2) Sodium (137-145) mmol/L BUN (7-17) mg/dL Creatinine (0.52-1.04) mg/dL Glucose (74-99) mg/dL POC Glucose (mg/dL) 181 H (75-99) mg/dL Plasma Lactic Acid Nacho (0.7-2.0) mmol/L Alkaline Phosphatase (38-126) U/L Total Protein (6.3-8.2) g/dL Albumin (3.5-5.0) g/dL Microbiology - Last 24 Hours (Table) 08/23/20 16:11 Gram Stain - Preliminary Toe - Left Second Wound Culture - Preliminary Assessment and Plan Assessment: Osteomyelitis of the left second and third toe Diabetic foot ulcer and cellulitis Follow-up cultures Vancomycin Vascular surgery consult Check ESR Pain control Venous duplex ultrasound was negative for DVT Kidney disease stage III Avoid nephrotoxic meds Atrial fibrillation rate controlled on Eliquis Hypertension controlled Diabetes mellitus, resume home insulin along with insulin sliding scale CODE STATUS: No code DVT prophylaxis: On Eliquis Discussed with: Patient, ER, RN Anticipated length of stay more than [address]: Pending clinical course A total of 70 minutes was spent on the care of this complex patient more than 50% of the time was spent in counseling and care coordination.
[2020-08-24] MEDS: INSULIN ASPART (NovoLOG) 100 UNIT/ML VIAL SQ SCH ×6 (08:33→20:28)
[2020-08-24 08:37] LABS: Glucose,Whole Blood 86 mg/dL (75-99)
[2020-08-24] MEDS: METOPROLOL TARTRATE 25 MG TAB PO SCH ×2 (08:40→20:35)
[2020-08-24] MEDS: APIXABAN 5 MG TAB PO SCH ×2 (08:40→20:35)
[2020-08-24] MEDS: SODIUM CHLORIDE 0.9% 1,000 ML IV SCH ×2 (08:40→22:13)
[2020-08-24] MEDS: lisinopriL 20 MG TAB PO SCH (08:40)
--- NOTE | 2020-08-24 09:43 | P.GSCN ---
History of Present Illness Consult date: 08/24/20 Reason for Consult: left diabetic foot wounds History of present illness: 80-year-old female with history of diabetes, A. fib, chronic kidney disease, hypertension presented originally to the hospital after seeing her algebra teacher for left foot wound infection. Patient states that she has been seeing her algebra teacher for several weeks and noticed about 3 weeks ago worsening swelling in her left leg as well as drainage and redness in her second and third toes. She has had a history of toe amputation in the past on the right and states that this appears to be similar to that episode. She denies any fevers, chills, chest pain or shortness of breath. She states that they have attempted to elevate her lower extremities without success due to her chronic back pain she is unable to lay flat. She notices more drainage when her legs are dependent. She also states not he able to ambulate very far due to obesity. Review of Systems All systems: negative (What is mentioned in HPI past medical history) Past Medical History Past Medical History: Atrial Fibrillation, Diabetes Mellitus, Hypertension Additional Past Medical History / Comment(s): Obesity , hypertension, chronic atrial fibrillation, diabetes mellitus, recurrent Celexa the right lower extremity, lymphedema of the right lower extremity, osteoarthritis History of Any Multi-Drug Resistant Organisms: None Reported Past Surgical History: Section, Cholecystectomy, Hernia Repair Additional Past Surgical History / Comment(s): Abdominal hernia repair with mesh, benign lump removed right breast, bilateral cataract removal with lens implants. Past Anesthesia/Blood Transfusion Reactions: No Reported Reaction Past Psychological History: No Psychological Hx Reported Smoking Status: Never smoker Past Alcohol Use History: None Reported Past Drug Use History: None Reported - Past Family History Father Family Medical History: Coronary Artery Disease (CAD), Myocardial Infarction (ID) Additional Family Medical History / Comment(s): Father had several MIs with the first time being while he was in his 50s. He of a ID at the age of 75 yrs. Mother Family Medical History: No Reported History Additional Family Medical History / Comment(s): Mother was healthy and lived to be 91 yrs old. Medications and Allergies Home Medications Medication Instructions Recorded Confirmed Type Apixaban [Eliquis] 5 mg PO BID #0 tab 10/06/17 08/23/20 Rx Multivitamins, Thera [Multivitamin 1 tab PO DAILY 05/24/18 08/23/20 History (formulary)] Calcium Carbonate [Calcium] 600 mg PO DAILY 04/14/20 08/23/20 History Metoprolol Tartrate [Lopressor] 25 mg PO BID 07/28/20 08/23/20 History lisinopriL 20 mg PO DAILY 07/28/20 08/23/20 History INSULIN ASPART (NovoLOG) [NovoLOG 5 unit SQ AC-TID 08/23/20 08/23/20 History (formulary)] Insulin Glargine,Hum.rec.anlog 15 unit SQ HS 08/23/20 08/23/20 History [Lantus Solostar] Allergies Allergy/AdvReac Type Severity Reaction Status Date / Time Penicillins Allergy Rash/Hives Verified 08/23/20 19:52 Surgical - Exam Vital Signs Temp Pulse Resp BP Pulse Ox 99.0 F 101 H 20 171/90 100 08/23/20 15:40 08/23/20 15:40 08/23/20 15:40 08/23/20 15:40 08/23/20 15:40 palpable dp and pt pulses bilaterally. Left lower extremity with erythema extending up to the knee. 2+ pitting edema of the left lower extremity. Tenderness to palpation at the plantar surface of the foot. Wet gangrene noted of the second toe with exposed bone. - General well developed, no pain, obese - Eyes PERRL - ENT normal pinna, normal nares - Neck no masses - Respiratory normal expansion - Cardiovascular Rhythm: regularly irregular - Abdomen Morbidly obese Abdomen: soft, non tender - Neurologic no normal sensation - Psychiatric oriented to time, oriented to person, oriented to place, speech is normal Results - Labs 08/23/20 17:10 08/23/20 17:10 Abnormal Lab Results - Last 24 Hours (Table) 08/23/20 08/23/20 08/23/20 Range/Units 17:10 17:10 17:10 WBC 11.7 H (3.8-10.6) k/uL Hgb 9.9 L (11.4-16.0) gm/dL Hct 33.8 L (34.0-46.0) % MCHC 29.2 L (31.0-37.0) g/dL RDW 16.7 H (11.5-15.5) % Neutrophils # 9.7 H (1.3-7.7) k/uL Lymphocytes # 0.7 L (1.0-4.8) k/uL PT (9.0-12.0) sec INR (<1.2) Sodium 131 L (137-145) mmol/L BUN 24 H (7-17) mg/dL Creatinine 1.73 H (0.52-1.04) mg/dL Glucose 215 H (74-99) mg/dL POC Glucose (mg/dL) (75-99) mg/dL Plasma Lactic Acid Nacho 2.2 H* (0.7-2.0) mmol/L Alkaline Phosphatase 169 H (38-126) U/L Total Protein 5.9 L (6.3-8.2) g/dL Albumin 2.3 L (3.5-5.0) g/dL 08/23/20 08/23/20 Range/Units 17:10 21:16 WBC (3.8-10.6) k/uL Hgb (11.4-16.0) gm/dL Hct (34.0-46.0) % MCHC (31.0-37.0) g/dL RDW (11.5-15.5) % Neutrophils # (1.3-7.7) k/uL Lymphocytes # (1.0-4.8) k/uL PT 12.2 H (9.0-12.0) sec INR 1.2 H (<1.2) Sodium (137-145) mmol/L BUN (7-17) mg/dL Creatinine (0.52-1.04) mg/dL Glucose (74-99) mg/dL POC Glucose (mg/dL) 181 H (75-99) mg/dL Plasma Lactic Acid Nacho (0.7-2.0) mmol/L Alkaline Phosphatase (38-126) U/L Total Protein (6.3-8.2) g/dL Albumin (3.5-5.0) g/dL Microbiology - Last 24 Hours (Table) 08/23/20 16:11 Gram Stain - Preliminary Toe - Left Second Wound Culture - Preliminary Diabetes panel 08/23/20 Range/Units 17:10 Sodium 131 L (137-145) mmol/L Potassium 3.8 (3.5-5.1) mmol/L Chloride 101 (98-107) mmol/L Carbon Dioxide 23 (22-30) mmol/L BUN 24 H (7-17) mg/dL Creatinine 1.73 H (0.52-1.04) mg/dL Glucose 215 H (74-99) mg/dL Calcium 8.7 (8.4-10.2) mg/dL AST 25 (14-36) U/L ALT 11 (4-34) U/L Alkaline Phosphatase 169 H (38-126) U/L Total Protein 5.9 L (6.3-8.2) g/dL Albumin 2.3 L (3.5-5.0) g/dL Calcium panel 08/23/20 Range/Units 17:10 Calcium 8.7 (8.4-10.2) mg/dL Albumin 2.3 L (3.5-5.0) g/dL Pituitary panel 08/23/20 Range/Units 17:10 Sodium 131 L (137-145) mmol/L Potassium 3.8 (3.5-5.1) mmol/L Chloride 101 (98-107) mmol/L Carbon Dioxide 23 (22-30) mmol/L BUN 24 H (7-17) mg/dL Creatinine 1.73 H (0.52-1.04) mg/dL Glucose 215 H (74-99) mg/dL Calcium 8.7 (8.4-10.2) mg/dL Adrenal panel 08/23/20 Range/Units 17:10 Sodium 131 L (137-145) mmol/L Potassium 3.8 (3.5-5.1) mmol/L Chloride 101 (98-107) mmol/L Carbon Dioxide 23 (22-30) mmol/L BUN 24 H (7-17) mg/dL Creatinine 1.73 H (0.52-1.04) mg/dL Glucose 215 H (74-99) mg/dL Calcium 8.7 (8.4-10.2) mg/dL Total Bilirubin 1.0 (0.2-1.3) mg/dL AST 25 (14-36) U/L ALT 11 (4-34) U/L Alkaline Phosphatase 169 H (38-126) U/L Total Protein 5.9 L (6.3-8.2) g/dL Albumin 2.3 L (3.5-5.0) g/dL Assessment and Plan Assessment: Osteomyelitis of the left second and third toe Diabetic foot ulcer and cellulitis Kidney disease stage III Atrial fibrillation rate controlled on Eliquis Hypertension controlled Diabetes mellitus Plan: Reviewed x-ray of the left foot there is significant osteomyelitis and soft tissue damage noted. Upon evaluation she has exposed bone and wet gangrene of the second and third toe. She will require amputation and will unlikely be able to be closed to drain the infection. She'll also require elevation and potential wraps of her lower extremities in the future to remove the edema. Thank you for allowing me to participate in your patient's care.
--- NOTE | 2020-08-24 10:07 | CDI ---
Documentation Clarification Form Date: 08/24/2020 09:55:10 AM From: Ariana GoyalRicoCHINTAN ackerman, CCDS Admit Date: 08/23/2020 06:54:00 PM Patient Name: Dalila Kennedy Visit Number: [id number] Discharge Date: ATTENTION: The Clinical Documentation Specialists (CDI) and [facility] Coding Staff appreciate your assistance in clarifying documentation. Please respond to the clarification below the line at the bottom and electronically sign. The CDI & [facility] Coding staff will review the response and follow-up if needed. Please note: Queries are made part of the Legal Health Record. If you have any questions, please contact the author of this message via ITS. Dr. Marcus House: Per the ED note on 08/23: "Patient does have mild leukocytosis, lactic acid is elevated patient does meet sepsis criteria patient was immediately started on antibiotics upon arrival, blood cultures were drawn. Clinical Impression: Foot osteomyelitis, left, Diabetic ulcer of left foot, Sepsis." Sepsis is not documented in the History & Physical. History/Risk Factors: IDDM II, Chronic Atrial Fibrillation, Obesity with BMI: 45, Hypertensive CKD stage III, Osteoarthritis. Clinical Indicators: Presented to the ED on 08/23 with a left foot infection, known diabetic, patient was told there was bone exposure previously. Admitted with Sepsis, Diabetic Foot Ulcer with Osteomyelitis. VS 08/23: T 99.0, P 101^, R 20, BP 171/90^, PO 100 RA LAB 08/23: WBC 11.7^, Hgb 9.9*, Hct 33.8*, Neut 9.7^, Na 131*, BUN 24^, Cr 1.73^, Glucose 215^, Lactic Acid 2.2^^, Alk Phos 169^, Total Protein 5.9*, Alb 2.3*. RAD 08/23: Left foot: Soft tissue infection, osteomyelitis of the second & third digits suspected. 08/23 Lt foot wound culture: pending Treatment: IV Meropenem, IV Vancomycin, IV fluid 1,000 mls @ 74 mls/hr. In your professional opinion, please clarify if these findings signify one of the following conditions, whether the condition is POA, and cause, if known: Sepsis ruled out Sepsis ruled in: o Please specify cause: Other, please specify Unable to determine Present on Admission: Yes or No Identify the (suspected) organism if known: (Last Revision: January 2018) sepsis osteomyelitis of foot due ti diabetic foot ulcer [facility]
--- NOTE | 2020-08-24 11:25 | P.PN ---
Subjective Progress Note Date: 08/24/20 Pt reports significant pain in her foot, when she touches it to the ground. Also has foul smell and very swollen and damp foot. Objective - Vital Signs Vital signs: Vital Signs Temp 99.0 F 08/23/20 15:40 Pulse 93 08/24/20 08:34 Resp 16 08/24/20 10:00 BP 118/63 08/24/20 08:34 Pulse Ox 98 08/24/20 08:34 Intake & Output 08/23/20 08/24/20 08/24/20 18:59 06:59 18:59 Weight 121.109 kg - Exam Gen: awake, alert HEENT: normocephalic, atraumatic, good hearing acuity, moist mucous membranes Resp: breathing comfortably on room air CVS: good distal perfusion x 4, RRR, no murmurs, clicks, gallops GI: soft, NTTP, ND : no SPT, no CVAT, alvarado catheter not present MSK: b/l pitting edema, left foot large, erythematous, gangrenous on the bottom withsignificant foul smelling drainage, no clubbing Neuro: non-focal, no sensory deficits, appropriate tone Psych: cooperative, euthymic mood - Labs CBC & Chem 7: 08/23/20 17:10 08/23/20 17:10 Labs: Abnormal Lab Results - Last 24 Hours (Table) 08/23/20 08/23/20 08/23/20 Range/Units 17:10 17:10 17:10 WBC 11.7 H (3.8-10.6) k/uL Hgb 9.9 L (11.4-16.0) gm/dL Hct 33.8 L (34.0-46.0) % MCHC 29.2 L (31.0-37.0) g/dL RDW 16.7 H (11.5-15.5) % Neutrophils # 9.7 H (1.3-7.7) k/uL Lymphocytes # 0.7 L (1.0-4.8) k/uL PT (9.0-12.0) sec INR (<1.2) Sodium 131 L (137-145) mmol/L BUN 24 H (7-17) mg/dL Creatinine 1.73 H (0.52-1.04) mg/dL Glucose 215 H (74-99) mg/dL POC Glucose (mg/dL) (75-99) mg/dL Plasma Lactic Acid Nacho 2.2 H* (0.7-2.0) mmol/L Alkaline Phosphatase 169 H (38-126) U/L Total Protein 5.9 L (6.3-8.2) g/dL Albumin 2.3 L (3.5-5.0) g/dL 08/23/20 08/23/20 Range/Units 17:10 21:16 WBC (3.8-10.6) k/uL Hgb (11.4-16.0) gm/dL Hct (34.0-46.0) % MCHC (31.0-37.0) g/dL RDW (11.5-15.5) % Neutrophils # (1.3-7.7) k/uL Lymphocytes # (1.0-4.8) k/uL PT 12.2 H (9.0-12.0) sec INR 1.2 H (<1.2) Sodium (137-145) mmol/L BUN (7-17) mg/dL Creatinine (0.52-1.04) mg/dL Glucose (74-99) mg/dL POC Glucose (mg/dL) 181 H (75-99) mg/dL Plasma Lactic Acid Nacho (0.7-2.0) mmol/L Alkaline Phosphatase (38-126) U/L Total Protein (6.3-8.2) g/dL Albumin (3.5-5.0) g/dL Microbiology - Last 24 Hours (Table) 08/23/20 16:11 Gram Stain - Preliminary Toe - Left Second Wound Culture - Preliminary Assessment and Plan Assessment: Wet Gangrene of the left plantar foot Osteomyelitis of the left second and third toe Diabetic foot ulcer and cellulitis Plan: Follow-up cultures Vancomycin/Meropenem/Clindamycin Vascular surgery consult, plan for OR with washout and amputation on 08/24, will follow up op note and Cx to determine duration of antibiotic therapy Check ESR Pain control Venous duplex ultrasound was negative for DVT Kidney disease stage III Avoid nephrotoxic meds Atrial fibrillation rate controlled on Eliquis Hypertension controlled Diabetes mellitus, resume home insulin along with insulin sliding scale CODE STATUS: No code DVT prophylaxis: On Eliquis Discussed with: Patient, ER, RN
[2020-08-24 12:14] LABS: Glucose,Whole Blood 83 mg/dL (75-99)
[2020-08-24] MEDS ORDERED: LACTATED RINGERS 1,000 ML IV ONE (12:27)
[2020-08-24] MEDS ORDERED: ONDANSETRON 4 MG/2 ML VIAL IVP ONE (12:27)
[2020-08-24] MEDS ORDERED: PHENYLEPHRINE-0.9% NACL SYG 1 MG/10 ML SYRINGE ONE (12:56)
[2020-08-24] MEDS ORDERED: PROPOFOL 10 MG/ML 20 ML VIAL IV ONE (12:56)
[2020-08-24] MEDS ORDERED: fentaNYL (PF) 50 MCG/ML 2 ML AMP ONE (12:56)
[2020-08-24] MEDS ORDERED: LIDOCAINE 1% INJ 10MG/ML (20 ML MDV) ONE (12:56)
[2020-08-24] MEDS: CLINDAMYCIN 600 MG in DEXTROSE 5% IN WATER 50 ML IVPB SCH ×8 (13:01→23:49)
[2020-08-24] MEDS ORDERED: SODIUM HYPOCHLORITE 0.25% 480 ML BOT MISCELLANE STA (13:32)
--- NOTE | 2020-08-24 15:08 | P.OP ---
Date of Procedure: 08/24/20 Description of Procedure: Preoperative diagnosis: [Wet gangrene left toes, cellulitis, osteomyelitis second and third toes] Postoperative diagnosis: Same, deep space abscess at the dorsum of the foot and interspaces of the second and third as well as fourth and fifth metatarsal Procedure: [Left transmetatarsal amputation, initiation of wound VAC therapy] Surgeon: Elinor South D.O. EBL: [2 0 mL] IV fluids: [See anesthesia notes ] Urine output: [Not measured] Drains: [None] Complications: [None immediately apparent] Condition: [Stable to recovery] Operative indication and findings: [The patient is a 80 -year-old diabetic female who has had a wound on her left lower extremity for the past few weeks, she has seen her skate boarder, centered to the hospital for further workup and evaluation. On imaging x-ray of the foot she was found to have bony involvement consistent with osteomyelitis of the second and third digits. There was exposure of the bone of the second toe with wet gangrene. There was significant maceration to the surrounding tissues and plantar portion of the foot. She also significant cellulitis upper leg. Given all these findings she was recommended to undergo an amputation washout. It was discussed with the family at the bedside likely she would end up requiring a transmetatarsal amputation but would leave this evaluation to the time of the procedure. They seemingly understood and willing to proceed as such] Procedure in detail: [The patient was taken to the operative suite and placed in supine position. The left lower extremity was prepped and draped in usual sterile fashion. A preprocedure timeout was performed, all parties are in agreement. After anesthesia was adequate via LMA, initially circumferential incision was made at the base of the second toe and carried down to the subcutaneous tissues into the bone. There was significant necrotic tissue and purulent drainage. This toe was removed. The tissues between the second and third webspace as well as the first and second toes were cleaned, but with further probing there was deep space infection tracking up the dorsum of the foot between the first and second metatarsal. This also retracted laterally on the plantar portion of the foot all the way to the fifth metatarsal head. At that point the third through fifth toes were amputated. Superficial incision was made at the metatarsophalangeal joint and carried down through the subcu tissues to the level of the joint itself. This passed off as specimen. A bone cutters was used to transect the metatarsal head area this area seemed to be relatively improved as far as any necrotic tissue. There still did remain some necrotic tissue at the great toe therefore that time the great toe was amputated is also moderate fashion. A transplantation, there was not significant tissue for closure attempts of closure. Hemostasis was achieved with electrocautery. The areas were COPIOUSLY irrigated with Dakin solution. A wound VAC with a white sponge of the dorsum of the foot as well as a black sponge at the distal aspect was placed with good suction. A compression wrap was placed to the leg. The patient tolerated the procedure well.]
[2020-08-24 15:11] LABS: Glucose,Whole Blood 72 mg/dL (75-99)
[2020-08-24 16:47] LABS: Glucose,Whole Blood 64 mg/dL (75-99)
[2020-08-24] MEDS ORDERED: DEXTROSE 50% SYRINGE 50 ML IVP ONE (16:47)
[2020-08-24 17:12] LABS: Glucose,Whole Blood 107 mg/dL (75-99)
[2020-08-24] MEDS ORDERED: VANCOMYCIN 2,000 MG in SODIUM CHLORIDE 0.9% 500 ML 500 ML IVPB ONE (18:00)
[2020-08-24 20:16] LABS: Glucose,Whole Blood 88 mg/dL (75-99)
[2020-08-24] MEDS: INSULIN DETEMIR (LEVEMIR) 100 UNIT/ML SYR SQ SCH (20:41)
[2020-08-24] MEDS ORDERED: NON FORMULARY DRUG (Insulin Glargine,Hum.Rec.Anlog [Lantus Solostar] 100 UNIT/ML Insuln.Pe SQ SCH (21:00)
[2020-08-25 01:50] LABS: Glucose,Whole Blood 116 mg/dL (75-99)
[2020-08-25] MEDS: CLINDAMYCIN 600 MG in DEXTROSE 5% IN WATER 50 ML IVPB SCH ×2 (05:52)
[2020-08-25 05:54] LABS: Anisocytosis Slight; HCT 33.5 % (34.0-46.0); Hypochromasia Marked; MCV 86.8 fL (80.0-100.0); RBC 3.86 m/uL (3.80-5.40); RDW 16.6 % (11.5-15.5); WBC 13.5 k/uL (3.8-10.6)
[2020-08-25 06:49] LABS: Band Neutrophils % 2 %; Eosinophils # (M) 0.27 k/uL (0-0.7); Lymphocytes # (M) 0.27 k/uL (1.0-4.8); Monocytes # (M) 0.27 k/uL (0-1.0); Myelocytes # (M) 0.41 k/uL (0); Myelocytes % 3 %; Neutrophils % (M) 89 %; Nucleated Red Blood Cells 0 /100 WBC (0-0); Total Cells Counted 200
[2020-08-25 07:14] LABS: Glucose,Whole Blood 123 mg/dL (75-99)
[2020-08-25] MEDS: INSULIN ASPART (NovoLOG) 100 UNIT/ML VIAL SQ SCH ×7 (07:59→23:29)
[2020-08-25] MEDS: METOPROLOL TARTRATE 25 MG TAB PO SCH ×2 (07:59→23:29)
[2020-08-25] MEDS: APIXABAN 5 MG TAB PO SCH ×2 (07:59→23:29)
[2020-08-25] MEDS: lisinopriL 20 MG TAB PO SCH (08:00)
[2020-08-25] MEDS ORDERED: diphenhydrAMINE 50 MG/ML 1 ML VIAL IVP PRN (09:07)
[2020-08-25 10:13] LABS: African American GFR (CKD) 30.3 (60.0-200.0); Albumin 2.3 g/dL (3.80-4.90); Albumin/Globulin Ratio 0.88 (1.60-3.17); Anion Gap 12.2 mmol/L (4.00-12.00); BUN/Creat Ratio 13.89 Ratio (12.00-20.00); Bilirubin, Conjugated 0.4 mg/dL (0.20-0.40); Bilirubin,Unconjugated 0.2 mg/dL; Carbon Dioxide 21.8 mmol/L (21.6-31.8); Globulin 2.6 g/dL (1.6-3.3); Magnesium 1.7 mg/dL (1.5-2.4); Non-African American GFR(CKD) 26.1 (60.0-200.0); Potassium 5.1 mmol/L (3.5-5.5); Total Bilirubin 0.6 mg/dL (0.3-1.2); Total Protein 4.9 g/dL (6.2-8.2)
[2020-08-25 11:10] LABS: Glucose,Whole Blood 135 mg/dL (75-99)
--- NOTE | 2020-08-25 11:29 | P.PN ---
Subjective Progress Note Date: 08/25/20 Principal diagnosis: Buttock foot wound, osteomyelitis of the left second and third toes The patient was seen and examined at the bedside with Dr. South. Patient denies any pain currently. She is status postop day 1 for a left transmetatarsal amputation with wound VAC placement. She's been afebrile through the night, with no acute changes. Cultures were obtained and pending. Patient is currently on IV clindamycin and vancomycin. Objective - Vital Signs Vital signs: Vital Signs Temp 97.9 F 08/25/20 06:05 Pulse 110 H 08/25/20 06:05 Resp 14 08/25/20 06:05 BP 94/54 08/25/20 06:05 Pulse Ox 96 08/25/20 06:05 Intake & Output 08/24/20 08/25/20 08/25/20 18:59 06:59 18:59 Intake Total 954 1020 Output Total 25 Balance 929 1020 Weight 121.109 kg Intake: IV 954 Intake, IV Titration 900 Amount Sodium Chloride 0.9% 1, 900 000 ml @ 75 mls/hr IV . [id number] [facility] Rx#:[id number] Oral 120 Output: Estimated Blood Loss 25 Other: Voiding Method Bedpan # Voids 2 - Exam General appearance: The patient is alert, oriented, in no acute distress. HET: Head is normocephalic and atraumatic. Neck: Supple without lymphadenopathy. Trachea midline. Extremities: Right lower extremity cellulitis with edema, left lower extremity wrapped with Tio wrap and wound VAC intact with good suction. Neurological: No focal deficits. Strength and sensation are grossly intact. - Labs CBC & Chem 7: 08/25/20 05:09 08/25/20 05:12 Labs: Abnormal Lab Results - Last 24 Hours (Table) 08/24/20 08/24/20 08/24/20 Range/Units 15:09 16:41 17:11 WBC (3.8-10.6) k/uL Hgb (11.4-16.0) gm/dL Hct (34.0-46.0) % MCHC (31.0-37.0) g/dL RDW (11.5-15.5) % Neutrophils # (Manual) (1.3-7.7) k/uL Lymphocytes # (Manual) (1.0-4.8) k/uL Myelocytes # (Manual) (0) k/uL POC Glucose (mg/dL) 72 L 64 L 107 H (75-99) mg/dL 08/25/20 08/25/20 08/25/20 Range/Units 01:48 05:09 07:10 WBC 13.5 H (3.8-10.6) k/uL Hgb 10.0 L (11.4-16.0) gm/dL Hct 33.5 L (34.0-46.0) % MCHC 30.0 L (31.0-37.0) g/dL RDW 16.6 H (11.5-15.5) % Neutrophils # (Manual) 12.20 H (1.3-7.7) k/uL Lymphocytes # (Manual) 0.27 L (1.0-4.8) k/uL Myelocytes # (Manual) 0.41 H (0) k/uL POC Glucose (mg/dL) 116 H 123 H (75-99) mg/dL Microbiology - Last 24 Hours (Table) 08/24/20 14:00 Gram Stain - Preliminary Toe - Left Second Wound Culture - Preliminary 08/24/20 14:01 Gram Stain - Preliminary Toe - Left First Wound Culture - Preliminary 08/24/20 14:00 Anaerobic Culture - Preliminary Toe - Left Second 08/24/20 14:01 Anaerobic Culture - Preliminary Toe - Left First 08/23/20 17:10 Blood Culture - Preliminary Blood No Growth after 24 hours Assessment and Plan Assessment: 1. Osteomyelitis of the left second and third toe 2. Left transmetatarsal amputation with wound vac postop day #1 3. Diabetic foot ulcer and cellulitis 4. Chronic kidney disease stage III 5. Atrial fibrillation rate controlled on Eliquis 6. Hypertension 7. Diabetes mellitus Plan: Continue IV antibiotics as ordered, cultures pending Consult wound clinic for management of left lower extremity wound VAC and wound care Elevate bilateral lower extremities recommend for bilateral lower extremity edema Patient will need outpatient follow-up with Dr. South in 1-2 weeks. The impression and plan of care has been dictated as directed. Dr. South I performed a history and examination of this patient, discussed the same with the dictator. I agree with the dictator's note ,documented as a scribe. Any additional findings or plans will be noted.
--- NOTE | 2020-08-25 11:54 | P.CONS ---
History of Present Illness - Reason for Consult Consult date: 08/25/20 wound care - History of Present Illness this is an 80-year-old patient being seen on [address]. by the wound care center for a open surgical wound. Patient underwent a TMA 08/24/[address] South. Patient was placed with a negative wound VAC at that time. Patient came to the hospital complaining of foot pain was found to have osteomyelitis to the left forefoot. patient's past medical history significant for atrial fibrillation, diabetes mellitus, hypertension, obesity, she is a former smoker. Review of Systems Review Of Systems: Constitutional: No fever, no chills, no night sweats. No weight change. No weakness, fatigue or lethargy. No daytime sleepiness. Integumentary:reports wounds, no lesions. No rash or pruritus. No unusual bruising. No change in hair or nails. Past Medical History Past Medical History: Atrial Fibrillation, Diabetes Mellitus, Hypertension Additional Past Medical History / Comment(s): Obesity , hypertension, chronic atrial fibrillation, diabetes mellitus, recurrent cellulitis the right lower extremity, lymphedema of the right lower extremity, osteoarthritis History of Any Multi-Drug Resistant Organisms: None Reported Past Surgical History: Section, Cholecystectomy, Hernia Repair Additional Past Surgical History / Comment(s): Abdominal hernia repair with mesh, benign lump removed right breast, bilateral cataract removal with lens implants. Past Anesthesia/Blood Transfusion Reactions: No Reported Reaction Smoking Status: Former smoker - Past Family History Father Family Medical History: Coronary Artery Disease (CAD), Myocardial Infarction (NH) Additional Family Medical History / Comment(s): Father had several MIs with the first time being while he was in his 50s. He of a NH at the age of 75 yrs. Mother Family Medical History: No Reported History Additional Family Medical History / Comment(s): Mother was healthy and lived to be 91 yrs old. Medications and Allergies Home Medications Medication Instructions Recorded Confirmed Type Apixaban [Eliquis] 5 mg PO BID #0 tab 10/06/17 08/23/20 Rx Multivitamins, Thera [Multivitamin 1 tab PO DAILY 05/24/18 08/23/20 History (formulary)] Calcium Carbonate [Calcium] 600 mg PO DAILY 04/14/20 08/23/20 History Metoprolol Tartrate [Lopressor] 25 mg PO BID 07/28/20 08/23/20 History lisinopriL 20 mg PO DAILY 07/28/20 08/23/20 History INSULIN ASPART (NovoLOG) [NovoLOG 5 unit SQ AC-TID 08/23/20 08/23/20 History (formulary)] Insulin Glargine,Hum.rec.anlog 15 unit SQ HS 08/23/20 08/23/20 History [Lantus Solostar] Allergies Allergy/AdvReac Type Severity Reaction Status Date / Time Penicillins Allergy Rash/Hives Verified 08/23/20 19:52 Physical Exam Vitals: Vital Signs Temp Pulse Pulse Pulse Resp BP BP 08/25/20 11:50 97.5 F L 110 H 18 92/55 08/25/20 06:05 97.9 F 110 H 14 94/54 08/24/20 20:43 93 16 109/63 08/24/20 19:40 95 16 103/63 08/24/20 18:05 109 H 120/57 08/24/20 17:50 94 126/79 08/24/20 17:35 98.4 F 102 H 18 136/78 08/24/20 17:12 86 16 107/62 08/24/20 16:31 81 16 108/60 08/24/20 16:17 83 16 112/55 08/24/20 16:00 91 16 117/73 08/24/20 15:46 86 16 132/74 08/24/20 15:31 77 16 130/60 08/24/20 15:15 81 16 117/65 08/24/20 15:00 77 16 118/68 08/24/20 14:45 81 16 102/59 08/24/20 14:42 97.0 F L 80 16 112/74 08/24/20 12:15 96.9 F L 64 17 134/57 08/24/20 12:08 99.0 F 93 16 120/66 08/24/20 12:00 16 120/66 Pulse Ox 08/25/20 11:50 97 08/25/20 06:05 96 08/24/20 20:43 99 08/24/20 19:40 99 08/24/20 18:05 99 08/24/20 17:50 98 08/24/20 17:35 97 08/24/20 17:12 100 08/24/20 16:31 100 08/24/20 16:17 100 08/24/20 16:00 100 08/24/20 15:46 100 08/24/20 15:31 100 08/24/20 15:15 100 08/24/20 15:00 100 08/24/20 14:45 100 08/24/20 14:42 100 08/24/20 12:15 100 08/24/20 12:08 98 08/24/20 12:00 98 Intake and Output 08/24/20 08/25/20 08/25/20 22:59 06:59 14:59 Intake Total 170 900 Balance 170 900 Intake: IV 50 Intake, IV Titration 900 Amount Sodium Chloride 0.9% 1, 900 000 ml @ 75 mls/hr IV . [id number] [facility] Rx#:[id number] Oral 120 Other: Voiding Method Bedpan Bedpan # Voids 1 2 Weight 121.109 kg Physical exam: General Appearance: Alert, cooperative, no distress, appears stated age. Skin: left forefoot full-thickness open surgical room with bone exposure. Negat contreras pressure wound VAC with black foam in place.all other Skin color, texture, tugor normal, no rashes or lesions. Neurologic: Alert oriented x3 Results CBC & Chem 7: 08/25/20 05:09 08/25/20 05:12 Labs: Abnormal Lab Results - Last 24 Hours (Table) 08/24/20 08/24/20 08/24/20 Range/Units 15:09 16:41 17:11 WBC (3.8-10.6) k/uL Hgb (11.4-16.0) gm/dL Hct (34.0-46.0) % MCHC (31.0-37.0) g/dL RDW (11.5-15.5) % Neutrophils # (Manual) (1.3-7.7) k/uL Lymphocytes # (Manual) (1.0-4.8) k/uL Myelocytes # (Manual) (0) k/uL Anion Gap (4.00-12.00) mmol/L Creatinine (0.6-1.5) mg/dL Est GFR (CKD-EPI)AfAm (60.0-200.0) Est GFR (CKD-EPI)NonAf (60.0-200.0) POC Glucose (mg/dL) 72 L 64 L 107 H (75-99) mg/dL Calcium (8.7-10.3) mg/dL AST (13-35) U/L Alkaline Phosphatase (41-126) U/L Total Protein (6.2-8.2) g/dL Albumin (3.80-4.90) g/dL Albumin/Globulin Ratio (1.60-3.17) g/dL 08/25/20 08/25/20 08/25/20 Range/Units 01:48 05:09 05:12 WBC 13.5 H (3.8-10.6) k/uL Hgb 10.0 L (11.4-16.0) gm/dL Hct 33.5 L (34.0-46.0) % MCHC 30.0 L (31.0-37.0) g/dL RDW 16.6 H (11.5-15.5) % Neutrophils # (Manual) 12.20 H (1.3-7.7) k/uL Lymphocytes # (Manual) 0.27 L (1.0-4.8) k/uL Myelocytes # (Manual) 0.41 H (0) k/uL Anion Gap 12.20 H (4.00-12.00) mmol/L Creatinine 1.8 H (0.6-1.5) mg/dL Est GFR (CKD-EPI)AfAm 30.3 L (60.0-200.0) Est GFR (CKD-EPI)NonAf 26.1 L (60.0-200.0) POC Glucose (mg/dL) 116 H (75-99) mg/dL Calcium 8.0 L (8.7-10.3) mg/dL AST 44 H (13-35) U/L Alkaline Phosphatase 193 H (41-126) U/L Total Protein 4.9 L (6.2-8.2) g/dL Albumin 2.30 L (3.80-4.90) g/dL Albumin/Globulin Ratio 0.88 L (1.60-3.17) g/dL 08/25/20 08/25/20 Range/Units 07:10 11:05 WBC (3.8-10.6) k/uL Hgb (11.4-16.0) gm/dL Hct (34.0-46.0) % MCHC (31.0-37.0) g/dL RDW (11.5-15.5) % Neutrophils # (Manual) (1.3-7.7) k/uL Lymphocytes # (Manual) (1.0-4.8) k/uL Myelocytes # (Manual) (0) k/uL Anion Gap (4.00-12.00) mmol/L Creatinine (0.6-1.5) mg/dL Est GFR (CKD-EPI)AfAm (60.0-200.0) Est GFR (CKD-EPI)NonAf (60.0-200.0) POC Glucose (mg/dL) 123 H 135 H (75-99) mg/dL Calcium (8.7-10.3) mg/dL AST (13-35) U/L Alkaline Phosphatase (41-126) U/L Total Protein (6.2-8.2) g/dL Albumin (3.80-4.90) g/dL Albumin/Globulin Ratio (1.60-3.17) g/dL Microbiology - Last 24 Hours (Table) 08/24/20 14:00 Gram Stain - Preliminary Toe - Left Second Wound Culture - Preliminary 08/24/20 14:01 Gram Stain - Preliminary Toe - Left First Wound Culture - Preliminary 08/24/20 14:00 Anaerobic Culture - Preliminary Toe - Left Second 08/24/20 14:01 Anaerobic Culture - Preliminary Toe - Left First 08/23/20 17:10 Blood Culture - Preliminary Blood No Growth after 24 hours Assessment and Plan (1) 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 Apply at 150 mmHg with black foam. Continuous suction. During transfer patient can be changed to absorptive Silver, sacrum with gauze, dry gauze rolled gauze and secure with paper tape. Apply the negative pressure wound VAC therapy once available. Patient to be set up in the wound care center to be seen weekly. Continue nonweightbearing to the left lower extremity. Thank you for the consultation any questions was contact the wound care center DNP note has been reviewed and discussed with Dr. Veloz and the impression and plan of care has been directed as dictated.
[2020-08-25] MEDS: SODIUM CHLORIDE 0.9% 1,000 ML IV SCH (13:07)
[2020-08-25 13:40] VITALS: BMI 47.2
[2020-08-25] MEDS: metroNIDAZOLE-NS PMX 500 MG in SALINE 1 100ML.BAG IVPB SCH ×2 (15:17→23:30)
[2020-08-25 17:13] LABS: Glucose,Whole Blood 186 mg/dL (75-99)
[2020-08-25 21:30] LABS: Glucose,Whole Blood 166 mg/dL (75-99)
[2020-08-25] MEDS: INSULIN DETEMIR (LEVEMIR) 100 UNIT/ML SYR SQ SCH (23:29)
[2020-08-25 23:31] LABS: Glucose,Whole Blood 157 mg/dL (75-99)
[2020-08-26] MEDS: SODIUM CHLORIDE 0.9% 1,000 ML IV SCH (01:19)
[2020-08-26 06:38] LABS: Anisocytosis Slight; Basophils % (A) 0 %; Eosinophils # (A) 0.5 k/uL (0-0.7); Eosinophils % (A) 6 %; HCT 28.8 % (34.0-46.0); HGB 8.7 gm/dL (11.4-16.0); Hypochromasia Marked; Lymphocytes % (A) 12 %; MCH 26.4 pg (25.0-35.0); MCHC 30.2 g/dL (31.0-37.0); MCV 87.4 fL (80.0-100.0); Mean Platelet Volume 9.5; Monocytes # (A) 0.8 k/uL (0-1.0); Monocytes % (A) 9 %; Neutrophils # (A) 6.3 k/uL (1.3-7.7); Neutrophils % (A) 71 %; RBC 3.29 m/uL (3.80-5.40); RDW 16.5 % (11.5-15.5); WBC 8.8 k/uL (3.8-10.6)
[2020-08-26 06:49] LABS: ALT 9 U/L (4-34); AST 22 U/L (14-36); African American GFR (CKD) 27 (>60 ml/min/1.73 sqM); Albumin 1.8 g/dL (3.5-5.0); Albumin/Globulin Ratio 0.6; Alkaline Phosphatase 154 U/L (38-126); Anion Gap 3 mmol/L; Bilirubin,Unconjugated 0.2 mg/dL (0.0-1.1); Blood Urea Nitrogen 36 mg/dL (7-17); Calcium 7.8 mg/dL (8.4-10.2); Carbon Dioxide 23 mmol/L (22-30); Chloride 109 mmol/L (98-107); Glucose 83 mg/dL (74-99); Magnesium 1.8 mg/dL (1.6-2.3); Non-African American GFR(CKD) 23 (>60 ml/min/1.73 sqM); Sodium 135 mmol/L (137-145); Total Bilirubin 0.5 mg/dL (0.2-1.3); Total Protein 4.8 g/dL (6.3-8.2)
[2020-08-26 06:52] LABS: Vancomycin,Random 18.8 ug/mL
[2020-08-26 07:19] LABS: Glucose,Whole Blood 79 mg/dL (75-99)
--- NOTE | 2020-08-26 08:49 | P.PN ---
Subjective Progress Note Date: 08/25/20 S/p OR with wound vac in place, pt is POD 1 after transmetatarsal amp with washout. Pt reports feeling much better, still reports itchy rash. Objective - Vital Signs Vital signs: Vital Signs Temp 97.9 F 08/26/20 04:15 Pulse 100 08/26/20 04:15 Resp 16 08/26/20 04:15 BP 104/62 08/26/20 04:15 Pulse Ox 95 08/26/20 04:15 Intake & Output 08/25/20 08/26/20 08/26/20 18:59 06:59 18:59 Intake Total 900 Balance 900 Weight 121.109 kg Intake: Intake, IV Titration 900 Amount Sodium Chloride 0.9% 1, 900 000 ml @ 75 mls/hr IV . [id number] [facility] Rx#:[id number] Other: Voiding Method Bedpan Bedpan Diaper # Voids 2 2 # Bowel Movements 1 - Exam Gen: awake, alert HEENT: normocephalic, atraumatic, good hearing acuity, moist mucous membranes Resp: breathing comfortably on room air CVS: good distal perfusion x 4, RRR, no murmurs, clicks, gallops GI: soft, NTTP, ND : no SPT, no CVAT, alvarado catheter is present MSK: b/l pitting edema, left foot with c/d/i dressing with wound vac draining sanguinopurulent fluid Neuro: non-focal, no sensory deficits, appropriate tone Psych: cooperative, euthymic mood - Labs CBC & Chem 7: 08/26/20 05:59 08/26/20 05:59 Labs: Abnormal Lab Results - Last 24 Hours (Table) 08/25/20 08/25/20 08/25/20 Range/Units 05:12 11:05 17:08 RBC (3.80-5.40) m/uL Hgb (11.4-16.0) gm/dL Hct (34.0-46.0) % MCHC (31.0-37.0) g/dL RDW (11.5-15.5) % Sodium (137-145) mmol/L Chloride (98-107) mmol/L Anion Gap 12.20 H (4.00-12.00) mmol/L BUN (7-17) mg/dL Creatinine 1.8 H (0.6-1.5) mg/dL Est GFR (CKD-EPI)AfAm 30.3 L (60.0-200.0) Est GFR (CKD-EPI)NonAf 26.1 L (60.0-200.0) POC Glucose (mg/dL) 135 H 186 H (75-99) mg/dL Calcium 8.0 L (8.7-10.3) mg/dL AST 44 H (13-35) U/L Alkaline Phosphatase 193 H (41-126) U/L Total Protein 4.9 L (6.2-8.2) g/dL Albumin 2.30 L (3.80-4.90) g/dL Albumin/Globulin Ratio 0.88 L (1.60-3.17) g/dL 08/25/20 08/25/20 08/26/20 Range/Units 21:29 23:21 05:59 RBC (3.80-5.40) m/uL Hgb (11.4-16.0) gm/dL Hct (34.0-46.0) % MCHC (31.0-37.0) g/dL RDW (11.5-15.5) % Sodium 135 L (137-145) mmol/L Chloride 109 H (98-107) mmol/L Anion Gap (4.00-12.00) mmol/L BUN 36 H (7-17) mg/dL Creatinine 2.00 H (0.6-1.5) mg/dL Est GFR (CKD-EPI)AfAm (60.0-200.0) Est GFR (CKD-EPI)NonAf (60.0-200.0) POC Glucose (mg/dL) 166 H 157 H (75-99) mg/dL Calcium 7.8 L (8.7-10.3) mg/dL AST (13-35) U/L Alkaline Phosphatase 154 H (41-126) U/L Total Protein 4.8 L (6.2-8.2) g/dL Albumin 1.8 L (3.80-4.90) g/dL Albumin/Globulin Ratio (1.60-3.17) g/dL 08/26/20 Range/Units 05:59 RBC 3.29 L (3.80-5.40) m/uL Hgb 8.7 L (11.4-16.0) gm/dL Hct 28.8 L (34.0-46.0) % MCHC 30.2 L (31.0-37.0) g/dL RDW 16.5 H (11.5-15.5) % Sodium (137-145) mmol/L Chloride (98-107) mmol/L Anion Gap (4.00-12.00) mmol/L BUN (7-17) mg/dL Creatinine (0.6-1.5) mg/dL Est GFR (CKD-EPI)AfAm (60.0-200.0) Est GFR (CKD-EPI)NonAf (60.0-200.0) POC Glucose (mg/dL) (75-99) mg/dL Calcium (8.7-10.3) mg/dL AST (13-35) U/L Alkaline Phosphatase (41-126) U/L Total Protein (6.2-8.2) g/dL Albumin (3.80-4.90) g/dL Albumin/Globulin Ratio (1.60-3.17) g/dL Microbiology - Last 24 Hours (Table) 08/23/20 16:11 Gram Stain - Final Toe - Left Second Wound Culture - Final 08/23/20 17:10 Blood Culture - Preliminary Blood No Growth after 48 hours 08/24/20 14:01 Gram Stain - Preliminary Toe - Left First Wound Culture - Preliminary Gram Neg Bacilli 08/24/20 14:00 Gram Stain - Preliminary Toe - Left Second Wound Culture - Preliminary Presumptive Staph aureus Gram Neg Bacilli Assessment and Plan Assessment: Wet Gangrene of the left plantar foot Osteomyelitis of the left second and third toe Diabetic foot ulcer and cellulitis Plan: Follow-up cultures Vancomycin/Meropenem/Flagyl with likely need for 6 weeks of IV antibiotics, pending micro for final abx selection, may be able to drop MRSA coverage, but will still likely require anaerobic coverage. Vascular surgery consult, plan for OR with washout and amputation on 08/24, POD #1 Check ESR Pain control Venous duplex ultrasound was negative for DVT Kidney disease stage III Avoid nephrotoxic meds Atrial fibrillation rate controlled on Eliquis Hypertension controlled Diabetes mellitus, resume home insulin along with insulin sliding scale CODE STATUS: No code DVT prophylaxis: On Eliquis Discussed with: Patient, ER, RN
[2020-08-26] MEDS: INSULIN ASPART (NovoLOG) 100 UNIT/ML VIAL SQ SCH ×7 (09:46→20:48)
[2020-08-26] MEDS: METOPROLOL TARTRATE 25 MG TAB PO SCH ×2 (09:47→20:48)
[2020-08-26] MEDS: lisinopriL 20 MG TAB PO SCH (09:47)
[2020-08-26] MEDS: APIXABAN 5 MG TAB PO SCH ×2 (09:47→20:48)
[2020-08-26] MEDS: metroNIDAZOLE-NS PMX 500 MG in SALINE 1 100ML.BAG IVPB SCH ×3 (09:47→23:54)
--- NOTE | 2020-08-26 11:34 | P.PN ---
Subjective Progress Note Date: 08/26/20 Principal diagnosis: Buttock foot wound, osteomyelitis of the left second and third toes The patient was seen and examined sitting up in her bed. She is status post op day #2 left TMA. She denies any acute changes through the night. She remains afebrile. Wound cultures are still pending. Wound VAC is intact with good suction. She has been seen and given recommendations per wound care and will follow-up with the wound care clinic. Objective - Vital Signs Vital signs: Vital Signs Temp 97.6 F 08/26/20 08:45 Pulse 95 08/26/20 08:45 Resp 25 H 08/26/20 08:45 BP 113/71 08/26/20 08:45 Pulse Ox 95 08/26/20 04:15 Intake & Output 08/25/20 08/26/20 08/26/20 18:59 06:59 18:59 Intake Total 900 Balance 900 Weight 121.109 kg Intake: Intake, IV Titration 900 Amount Sodium Chloride 0.9% 1, 900 000 ml @ 75 mls/hr IV . [id number] [facility] Rx#:[id number] Other: Voiding Method Bedpan Bedpan Diaper # Voids 2 2 # Bowel Movements 1 - Exam General appearance: The patient is alert, oriented, in no acute distress. HET: Head is normocephalic and atraumatic. Neck: Supple without lymphadenopathy. Trachea midline. Extremities: Right lower extremity with tio wrap, left lower extremity wrapped with Tio wrap and wound VAC intact with good suction. Neurological: No focal deficits. Strength and sensation are grossly intact. - Labs CBC & Chem 7: 08/26/20 05:59 08/26/20 05:59 Labs: Abnormal Lab Results - Last 24 Hours (Table) 08/25/20 08/25/20 08/25/20 Range/Units 05:12 11:05 17:08 RBC (3.80-5.40) m/uL Hgb (11.4-16.0) gm/dL Hct (34.0-46.0) % MCHC (31.0-37.0) g/dL RDW (11.5-15.5) % Sodium (137-145) mmol/L Chloride (98-107) mmol/L Anion Gap 12.20 H (4.00-12.00) mmol/L BUN (7-17) mg/dL Creatinine 1.8 H (0.6-1.5) mg/dL Est GFR (CKD-EPI)AfAm 30.3 L (60.0-200.0) Est GFR (CKD-EPI)NonAf 26.1 L (60.0-200.0) POC Glucose (mg/dL) 135 H 186 H (75-99) mg/dL Calcium 8.0 L (8.7-10.3) mg/dL AST 44 H (13-35) U/L Alkaline Phosphatase 193 H (41-126) U/L Total Protein 4.9 L (6.2-8.2) g/dL Albumin 2.30 L (3.80-4.90) g/dL Albumin/Globulin Ratio 0.88 L (1.60-3.17) g/dL 08/25/20 08/25/20 08/26/20 Range/Units 21:29 23:21 05:59 RBC (3.80-5.40) m/uL Hgb (11.4-16.0) gm/dL Hct (34.0-46.0) % MCHC (31.0-37.0) g/dL RDW (11.5-15.5) % Sodium 135 L (137-145) mmol/L Chloride 109 H (98-107) mmol/L Anion Gap (4.00-12.00) mmol/L BUN 36 H (7-17) mg/dL Creatinine 2.00 H (0.6-1.5) mg/dL Est GFR (CKD-EPI)AfAm (60.0-200.0) Est GFR (CKD-EPI)NonAf (60.0-200.0) POC Glucose (mg/dL) 166 H 157 H (75-99) mg/dL Calcium 7.8 L (8.7-10.3) mg/dL AST (13-35) U/L Alkaline Phosphatase 154 H (41-126) U/L Total Protein 4.8 L (6.2-8.2) g/dL Albumin 1.8 L (3.80-4.90) g/dL Albumin/Globulin Ratio (1.60-3.17) g/dL 08/26/20 Range/Units 05:59 RBC 3.29 L (3.80-5.40) m/uL Hgb 8.7 L (11.4-16.0) gm/dL Hct 28.8 L (34.0-46.0) % MCHC 30.2 L (31.0-37.0) g/dL RDW 16.5 H (11.5-15.5) % Sodium (137-145) mmol/L Chloride (98-107) mmol/L Anion Gap (4.00-12.00) mmol/L BUN (7-17) mg/dL Creatinine (0.6-1.5) mg/dL Est GFR (CKD-EPI)AfAm (60.0-200.0) Est GFR (CKD-EPI)NonAf (60.0-200.0) POC Glucose (mg/dL) (75-99) mg/dL Calcium (8.7-10.3) mg/dL AST (13-35) U/L Alkaline Phosphatase (41-126) U/L Total Protein (6.2-8.2) g/dL Albumin (3.80-4.90) g/dL Albumin/Globulin Ratio (1.60-3.17) g/dL Microbiology - Last 24 Hours (Table) 08/23/20 16:11 Gram Stain - Final Toe - Left Second Wound Culture - Final 08/23/20 17:10 Blood Culture - Preliminary Blood No Growth after 48 hours 08/24/20 14:01 Gram Stain - Preliminary Toe - Left First Wound Culture - Preliminary Gram Neg Bacilli 08/24/20 14:00 Gram Stain - Preliminary Toe - Left Second Wound Culture - Preliminary Presumptive Staph aureus Gram Neg Bacilli Assessment and Plan Assessment: 1. Osteomyelitis of the left second and third toe 2. Left transmetatarsal amputation with wound vac postop day #1 3. Diabetic foot ulcer and cellulitis 4. Chronic kidney disease stage III 5. Atrial fibrillation rate controlled on Eliquis 6. Hypertension 7. Diabetes mellitus Plan: Continue IV antibiotics as ordered, cultures pending Wound care per recommendations of Wound Care clinic. Follow up as outpatient. Elevate bilateral lower extremities recommend for bilateral lower extremity edema Patient will need outpatient follow-up with Dr. South in 1-2 weeks. The impression and plan of care has been dictated as directed. Dr. Pietro Woodward performed a history and examination of this patient, discussed the same with the dictator. I agree with the dictator's note ,documented as a scribe. Any additional findings or plans will be noted.
[2020-08-26 11:42] LABS: Glucose,Whole Blood 120 mg/dL (75-99)
[2020-08-26] MEDS ORDERED: diphenhydrAMINE 25 MG CAP PO PRN (16:33)
--- NOTE | 2020-08-26 16:56 | P.PN ---
Subjective Progress Note Date: 08/26/20 Patient is doing well today. Denies any fevers or chills. Clarify penicillin ALLERGIES as a rash. Objective - Vital Signs Vital signs: Vital Signs Temp 97.3 F L 08/26/20 11:53 Pulse 68 08/26/20 15:50 Resp 23 08/26/20 15:50 BP 111/67 08/26/20 11:53 Pulse Ox 97 08/26/20 11:37 Intake & Output 08/25/20 08/26/20 08/26/20 18:59 06:59 18:59 Intake Total 900 480 Balance 900 480 Weight 121.109 kg Intake: Intake, IV Titration 900 Amount Sodium Chloride 0.9% 1, 900 000 ml @ 75 mls/hr IV . [id number] [facility] Rx#:[id number] Oral 480 Other: Voiding Method Bedpan Bedpan Toilet Diaper Diaper # Voids 2 2 2 # Bowel Movements 1 0 - Exam General: The patient is awake and alert, in no distress Eye: there is normal conjunctiva bilaterally. Neck: The neck is supple, there is no JVD. Cardiovascular: Normal S1-S2, no S3-S4, no murmurs. Respiratory: Lungs clear to auscultation bilaterally Gastrointestinal: Abdomen is soft, nontender Musculoskeletal: There is +1 pedal edema. . Wound VAC in place Neurological:. Speech is normal. Skin: Skin is warm and dry - Labs CBC & Chem 7: 08/26/20 05:59 08/26/20 05:59 Labs: Abnormal Lab Results - Last 24 Hours (Table) 08/25/20 08/25/20 08/25/20 Range/Units 17:08 21:29 23:21 RBC (3.80-5.40) m/uL Hgb (11.4-16.0) gm/dL Hct (34.0-46.0) % MCHC (31.0-37.0) g/dL RDW (11.5-15.5) % Sodium (137-145) mmol/L Chloride (98-107) mmol/L BUN (7-17) mg/dL Creatinine (0.52-1.04) mg/dL POC Glucose (mg/dL) 186 H 166 H 157 H (75-99) mg/dL Calcium (8.4-10.2) mg/dL Alkaline Phosphatase (38-126) U/L Total Protein (6.3-8.2) g/dL Albumin (3.5-5.0) g/dL 08/26/20 08/26/20 08/26/20 Range/Units 05:59 05:59 11:40 RBC 3.29 L (3.80-5.40) m/uL Hgb 8.7 L (11.4-16.0) gm/dL Hct 28.8 L (34.0-46.0) % MCHC 30.2 L (31.0-37.0) g/dL RDW 16.5 H (11.5-15.5) % Sodium 135 L (137-145) mmol/L Chloride 109 H (98-107) mmol/L BUN 36 H (7-17) mg/dL Creatinine 2.00 H (0.52-1.04) mg/dL POC Glucose (mg/dL) 120 H (75-99) mg/dL Calcium 7.8 L (8.4-10.2) mg/dL Alkaline Phosphatase 154 H (38-126) U/L Total Protein 4.8 L (6.3-8.2) g/dL Albumin 1.8 L (3.5-5.0) g/dL Microbiology - Last 24 Hours (Table) 08/23/20 16:11 Gram Stain - Final Toe - Left Second Wound Culture - Final 08/23/20 17:10 Blood Culture - Preliminary Blood No Growth after 48 hours 08/24/20 14:01 Gram Stain - Preliminary Toe - Left First Wound Culture - Preliminary Gram Neg Bacilli 08/24/20 14:00 Gram Stain - Preliminary Toe - Left Second Wound Culture - Preliminary Presumptive Staph aureus Gram Neg Bacilli Assessment and Plan Assessment: Wet Gangrene of the left plantar foot Osteomyelitis of the left second and third toe Diabetic foot ulcer and cellulitis Plan: Status post left transmetatarsal amputation and wound VAC application on 08/24 Follow-up cultures, still pending Vancomycin/Meropenem/Flagyl with likely need for 6 weeks of IV antibiotics, pending micro for final abx selection, may be able to drop MRSA coverage, but will still likely require anaerobic coverage. Meropenem switched to ceftriaxone on 08/26 Vascular surgery and wound care following closely Check ESR Pain control Venous duplex ultrasound was negative for DVT Kidney disease stage III Avoid nephrotoxic meds Atrial fibrillation rate controlled on Eliquis Hypertension controlled Diabetes mellitus, resume home insulin along with insulin sliding scale CODE STATUS: No code DVT prophylaxis: On Eliquis Discussed with: Patient, ER, RN
[2020-08-26 17:14] LABS: Glucose,Whole Blood 142 mg/dL (75-99)
[2020-08-26] MEDS ORDERED: VANCOMYCIN 2,000 MG in SODIUM CHLORIDE 0.9% 500 ML 500 ML IVPB ONE (20:00)
[2020-08-26 20:08] LABS: Glucose,Whole Blood 133 mg/dL (75-99)
[2020-08-26] MEDS: INSULIN DETEMIR (LEVEMIR) 100 UNIT/ML SYR SQ SCH (20:48)
[2020-08-27 05:14] VITALS: TEMP 98
[2020-08-27 06:38] LABS: Anisocytosis Slight; HCT 31.5 % (34.0-46.0); HGB 9.4 gm/dL (11.4-16.0); Hypochromasia Marked; MCH 25.8 pg (25.0-35.0); MCHC 29.7 g/dL (31.0-37.0); MCV 86.9 fL (80.0-100.0); Mean Platelet Volume 9.4; RBC 3.63 m/uL (3.80-5.40); RDW 16.7 % (11.5-15.5); WBC 8.7 k/uL (3.8-10.6)
[2020-08-27 07:23] LABS: Eosinophils # (M) 0.44 k/uL (0-0.7); Lymphocytes # (M) 0.44 k/uL (1.0-4.8); Monocytes # (M) 0.44 k/uL (0-1.0); Myelocytes # (M) 0.09 k/uL (0); Myelocytes % 1 %; Neutrophils # (M) 7.31 k/uL (1.3-7.7); Neutrophils % (M) 84 %; Nucleated Red Blood Cells 0 /100 WBC (0-0); Total Cells Counted 200
[2020-08-27 07:35] LABS: Glucose,Whole Blood 87 mg/dL (75-99)
[2020-08-27] MEDS: INSULIN ASPART (NovoLOG) 100 UNIT/ML VIAL SQ SCH ×4 (08:28→13:04)
[2020-08-27] MEDS: METOPROLOL TARTRATE 25 MG TAB PO SCH (08:31)
[2020-08-27] MEDS: APIXABAN 5 MG TAB PO SCH (08:31)
[2020-08-27] MEDS: metroNIDAZOLE-NS PMX 500 MG in SALINE 1 100ML.BAG IVPB SCH (08:31)
[2020-08-27] MEDS: lisinopriL 20 MG TAB PO SCH (08:31)
[2020-08-27] MEDS ORDERED: CEFEPIME 2 GM in SODIUM CHLORIDE 0.9% 100 ML IVPB SCH (09:00)
[2020-08-27] MEDS ORDERED: CEFEPIME 1 GM in SODIUM CHLORIDE 0.9% 50 ML IVPB ONE (09:00)
[2020-08-27 09:22] LABS: African American GFR (CKD) 28.4 (60.0-200.0); Albumin 2.2 g/dL (3.80-4.90); Albumin/Globulin Ratio 0.81 (1.60-3.17); Anion Gap 7.7 mmol/L (4.00-12.00); Bilirubin, Conjugated 0.3 mg/dL (0.20-0.40); Bilirubin,Unconjugated 0.1 mg/dL; Calcium 7.8 mg/dL (8.7-10.3); Carbon Dioxide 23.3 mmol/L (21.6-31.8); Globulin 2.7 g/dL (1.6-3.3); Magnesium 1.6 mg/dL (1.5-2.4); Non-African American GFR(CKD) 24.5 (60.0-200.0); Potassium 4.5 mmol/L (3.5-5.5); Total Bilirubin 0.4 mg/dL (0.3-1.2); Total Protein 4.9 g/dL (6.2-8.2)
[2020-08-27 12:16] LABS: Glucose,Whole Blood 100 mg/dL (75-99)
--- NOTE | 2020-08-27 12:25 | P.PN ---
Subjective Progress Note Date: 08/27/20 Principal diagnosis: Buttock foot wound, osteomyelitis of the left second and third toes The patient was seen and examined at the bedside. She is status post op day #3 for left TMA with wound vac. Wound Vac with good suction. Wound clinic is managing patient's wound VAC in follow-up treatment plan. She is without any acute changes through the night. She denies any fever or chills. Wound culture still pending final results but showing Pseudomonas aeruginosa and staphyloccous aureas. Objective - Vital Signs Vital signs: Vital Signs Temp 98 F 08/27/20 05:00 Pulse 93 08/27/20 05:00 Resp 18 08/27/20 05:00 BP 125/70 08/27/20 05:00 Pulse Ox 96 08/27/20 05:00 Intake & Output 08/26/20 08/27/20 08/27/20 18:59 06:59 18:59 Intake Total 480 1620 Balance 480 1620 Intake: Intake, IV Titration 900 Amount Sodium Chloride 0.9% 1, 300 000 ml @ 75 mls/hr IV . [id number] [facility] Rx#:[id number] Vancomycin 2,000 mg In 500 Sodium Chloride 0.9% 500 ml 500 ml @ 167 mls/hr IVPB ONCE ONE Rx#: [id number] metroNIDAZOLE-NS PMX 500 100 mg In Saline 1 100ml.bag @ 100 mls/hr IVPB Q8HR [facility] Rx#:[id number] Oral 480 720 Other: Voiding Method Toilet Toilet Diaper Diaper # Voids 2 3 # Bowel Movements 0 - Exam General appearance: The patient is alert, oriented, in no acute distress. HET: Head is normocephalic and atraumatic. Neck: Supple without lymphadenopathy. Trachea midline. Extremities: Right lower extremity with tio wrap, left lower extremity wrapped with Tio wrap and wound VAC intact with good suction. Neurological: No focal deficits. Strength and sensation are grossly intact. - Labs CBC & Chem 7: 08/27/20 05:59 08/27/20 05:59 Labs: Abnormal Lab Results - Last 24 Hours (Table) 08/26/20 08/26/20 08/26/20 Range/Units 11:40 17:12 20:06 RBC (3.80-5.40) m/uL Hgb (11.4-16.0) gm/dL Hct (34.0-46.0) % MCHC (31.0-37.0) g/dL RDW (11.5-15.5) % Lymphocytes # (Manual) (1.0-4.8) k/uL Myelocytes # (Manual) (0) k/uL BUN (9.0-27.0) mg/dL Creatinine (0.6-1.5) mg/dL Est GFR (CKD-EPI)AfAm (60.0-200.0) Est GFR (CKD-EPI)NonAf (60.0-200.0) POC Glucose (mg/dL) 120 H 142 H 133 H (75-99) mg/dL Calcium (8.7-10.3) mg/dL Alkaline Phosphatase (41-126) U/L Total Protein (6.2-8.2) g/dL Albumin (3.80-4.90) g/dL Albumin/Globulin Ratio (1.60-3.17) g/dL 08/27/20 08/27/20 Range/Units 05:59 05:59 RBC 3.63 L (3.80-5.40) m/uL Hgb 9.4 L (11.4-16.0) gm/dL Hct 31.5 L (34.0-46.0) % MCHC 29.7 L (31.0-37.0) g/dL RDW 16.7 H (11.5-15.5) % Lymphocytes # (Manual) 0.44 L (1.0-4.8) k/uL Myelocytes # (Manual) 0.09 H (0) k/uL BUN 38.0 H (9.0-27.0) mg/dL Creatinine 1.9 H (0.6-1.5) mg/dL Est GFR (CKD-EPI)AfAm 28.4 L (60.0-200.0) Est GFR (CKD-EPI)NonAf 24.5 L (60.0-200.0) POC Glucose (mg/dL) (75-99) mg/dL Calcium 7.8 L (8.7-10.3) mg/dL Alkaline Phosphatase 179 H (41-126) U/L Total Protein 4.9 L (6.2-8.2) g/dL Albumin 2.20 L (3.80-4.90) g/dL Albumin/Globulin Ratio 0.81 L (1.60-3.17) g/dL Microbiology - Last 24 Hours (Table) 08/24/20 14:00 Anaerobic Culture - Preliminary Toe - Left Second 08/23/20 17:10 Blood Culture - Preliminary Blood No Growth after 72 hours 08/24/20 14:00 Gram Stain - Preliminary Toe - Left Second Wound Culture - Preliminary Staphylococcus aureus Pseudomonas aeruginosa Gram Neg Bacilli 08/24/20 14:01 Gram Stain - Preliminary Toe - Left First Wound Culture - Preliminary Pseudomonas aeruginosa Gram Neg Bacilli Assessment and Plan Assessment: 1. Osteomyelitis of the left second and third toe 2. Left transmetatarsal amputation with wound vac postop day #1 3. Diabetic foot ulcer and cellulitis 4. Chronic kidney disease stage III 5. Atrial fibrillation rate controlled on Eliquis 6. Hypertension 7. Diabetes mellitus Plan: Continue IV antibiotics as ordered, cultures pending Wound care per recommendations of Wound Care clinic. Follow up as outpatient. Elevate bilateral lower extremities recommend for bilateral lower extremity edema Patient will need outpatient follow-up with Dr. South in 1-2 weeks. We will sign off at this time. The impression and plan of care has been dictated as directed. I performed a history and examination of this patient, discussed the same with the dictator. I agree with the dictator's note ,documented as a scribe. Any additional findings or plans will be noted.
--- NOTE | 2020-08-27 13:07 | P.NPCON ---
History of Present Illness - Reason for Consult acute renal failure, chronic renal failure - History of Present Illness Reason for consultation: Acute kidney injury on chronic kidney disease History of present illness: Patient is a 80-year-old female seen in renal consultation for acute kidney injury on chronic kidney disease. Patient has chronic kidney disease stage III with baseline creatinine in the range of 1.2-1.5. Renal function has been a little below baseline during this admission with creatinine in the range of 1.7- 2. She presented to the hospital on 08/23/2020 with a left foot infection. She was noted to have wet gangrene and subsequently underwent left trans-metatarsal amputation with wound VAC. She scheduled to go to rehab facility today but needs clearance for PICC line. She denies chest pain or shortness of breath. She's been a diabetic for over 30 years. She denies use of nonsteroidals. Denies family history of renal disease. Oral intake is good. No vomiting or diarrhea. No fever or chills. Hemodynamically stable. Vital signs are stable. General: The patient appeared well nourished and normally developed. HEENT: Head exam is unremarkable. Neck is without jugular venous distension. LUNGS: Breath sounds decreased. HEART: Rate and Rhythm are regular. ABDOMEN: Soft, nontender. EXTREMITITES: 1+ edema. Left toes amputation noted. Wound VAC noted. Past Medical History Past Medical History: Atrial Fibrillation, Diabetes Mellitus, Hypertension Additional Past Medical History / Comment(s): Obesity , hypertension, chronic atrial fibrillation, diabetes mellitus, recurrent cellulitis the right lower extremity, lymphedema of the right lower extremity, osteoarthritis History of Any Multi-Drug Resistant Organisms: None Reported Past Surgical History: Section, Cholecystectomy, Hernia Repair Additional Past Surgical History / Comment(s): Abdominal hernia repair with mesh, benign lump removed right breast, bilateral cataract removal with lens implants. Past Anesthesia/Blood Transfusion Reactions: No Reported Reaction Smoking Status: Former smoker - Past Family History Father Family Medical History: Coronary Artery Disease (CAD), Myocardial Infarction (MA) Additional Family Medical History / Comment(s): Father had several MIs with the first time being while he was in his 50s. He of a MA at the age of 75 yrs. Mother Family Medical History: No Reported History Additional Family Medical History / Comment(s): Mother was healthy and lived to be 91 yrs old. Medications and Allergies Home Medications Medication Instructions Recorded Confirmed Type Apixaban [Eliquis] 5 mg PO BID #0 tab 10/06/17 08/23/20 Rx Multivitamins, Thera [Multivitamin 1 tab PO DAILY 05/24/18 08/23/20 History (formulary)] Calcium Carbonate [Calcium] 600 mg PO DAILY 04/14/20 08/23/20 History Metoprolol Tartrate [Lopressor] 25 mg PO BID 07/28/20 08/23/20 History lisinopriL 20 mg PO DAILY 07/28/20 08/23/20 History INSULIN ASPART (NovoLOG) [NovoLOG 5 unit SQ AC-TID 08/23/20 08/23/20 History (formulary)] Insulin Glargine,Hum.rec.anlog 15 unit SQ HS 08/23/20 08/23/20 History [Lantus Solostar] Allergies Allergy/AdvReac Type Severity Reaction Status Date / Time Penicillins Allergy Rash/Hives Verified 08/23/20 19:52 Physical Exam Vitals: Vital Signs Temp Pulse Pulse Resp BP Pulse Ox 08/27/20 05:00 98 F 93 18 125/70 96 08/26/20 20:31 97.6 F 95 17 134/78 100 08/26/20 15:50 114 H 68 23 Intake and Output 08/26/20 08/27/20 08/27/20 22:59 06:59 14:59 Intake Total 1620 Balance 1620 Intake: Intake, IV Titration 900 Amount Sodium Chloride 0.9% 1, 300 000 ml @ 75 mls/hr IV . [id number] [facility] Rx#:[id number] Vancomycin 2,000 mg In 500 Sodium Chloride 0.9% 500 ml 500 ml @ 167 mls/hr IVPB ONCE ONE Rx#: [id number] metroNIDAZOLE-NS PMX 500 100 mg In Saline 1 100ml.bag @ 100 mls/hr IVPB Q8HR [facility] Rx#:[id number] Oral 720 Other: Voiding Method Toilet Diaper # Voids 1 3 Weight 121.109 kg Results - Lab Results Most recent lab results Calcium 7.8 mg/dL (8.7-10.3) L 08/27/20 05:59 Magnesium 1.6 mg/dL (1.5-2.4) 08/27/20 05:59 08/27/20 05:59 08/27/20 05:59 Assessment and Plan Plan: Assessment: 1. Acute kidney injury secondary to ATN secondary to infection. Creatinine stable at 1.9 today. 2. Chronic kidney disease stage III with baseline creatinine in the range of 1.2-1.5 most likely secondary to diabetic kidney disease. 3. Left foot gangrene status post transmetatarsal amputation this admission. Currently has wound VAC. 4. Hypertension with chronic kidney disease. Controlled. Plan: Cleared for PICC line placement in her dominant arm. Monitor vancomycin levels outpatient. Maintain lisinopril for now as blood pressure is stable. Follow-up outpatient in 1-2 weeks. Thank you for the consultation. I will continue to follow the patient with you during her hospital stay.
--- NOTE | 2020-08-27 13:24 | P.DS ---
Providers Date of admission: 08/23/20 18:54 Expected date of discharge: 08/27/20 Attending physician: Nirmala Kurtz MD Consults: 08/23/20 18:24 Consult Physician Urgent Consulting Provider: Barry Del Real Consult Reason/Comments: Osteomyelitis, diabetic foot ulcer left Do you want consulting provider notified?: Yes 08/27/20 11:56 Consult Physician Urgent Consulting Provider: Chris Karimi Consult Reason/Comments: PICC line clearance-GFR 24.5-and which arm to use Do you want consulting provider notified?: Yes Primary care physician: Jcarlos Young MD Hospital Course: This is a 80-year-old female with past medical history noted below presented to the emergency room with worsening wound of her left foot/diabetic ulcer. This was associated with swelling and increased redness and drainage. Patient was evaluated in the ER and admitted to the hospital for further management of her medical problems noted below. Wet Gangrene of the left plantar foot Osteomyelitis of the left second and third toe Diabetic foot ulcer and cellulitis Plan: Status post left transmetatarsal amputation and wound VAC application on 08/24 Follow-up wound care recommendations regarding dressing and wound VAC Culture grew MSSA and pseudomonas Started on broad-spectrum antibiotic with vancomycin, meropenem, and Flagyl Antibiotic down escalated to cefepime 1 g IV every 12 hours to finish 6 weeks course with a stop date of 10/05/2020 Venous duplex ultrasound was negative for DVT PICC line in place to be removed and antibiotic finished Follow-up with vascular surgery as directed in 2 weeks Kidney disease stage III, seen and evaluated by nephrology during this admission Avoid nephrotoxic meds Atrial fibrillation rate controlled on anticoagulation with Eliquis Hypertension controlled Diabetes mellitus, resume home insulin along with insulin sliding scale Patient will be discharged to an extended care facility to finish IV antibiotic course. For further details about this hospitalization please refer to the electronic chart. Patient Condition at Discharge: Stable Plan - Discharge Summary Discharge Rx Participant: No New Discharge Prescriptions: New Cefepime [Maxipime] 1 gm IVPB Q12HR #30 vial Continue Apixaban [Eliquis] 5 mg PO BID #0 tab Multivitamins, Thera [Multivitamin (formulary)] 1 tab PO DAILY Calcium Carbonate [Calcium] 600 mg PO DAILY lisinopriL 20 mg PO DAILY Metoprolol Tartrate [Lopressor] 25 mg PO BID Insulin Glargine,Hum.rec.anlog [Lantus Solostar] 15 unit SQ HS INSULIN ASPART (NovoLOG) [NovoLOG (formulary)] 5 unit SQ AC-TID Discharge Medication List Apixaban [Eliquis] 5 mg PO BID #0 tab 10/06/17 [Rx] Multivitamins, Thera [Multivitamin (formulary)] 1 tab PO DAILY 05/24/18 [History] Calcium Carbonate [Calcium] 600 mg PO DAILY 04/14/20 [History] Metoprolol Tartrate [Lopressor] 25 mg PO BID 07/28/20 [History] lisinopriL 20 mg PO DAILY 07/28/20 [History] INSULIN ASPART (NovoLOG) [NovoLOG (formulary)] 5 unit SQ AC-TID 08/23/20 [History] Insulin Glargine,Hum.rec.anlog [Lantus Solostar] 15 unit SQ HS 08/23/20 [History] Cefepime [Maxipime] 1 gm IVPB Q12HR #30 vial 08/27/20 [Rx] Follow up Appointment(s)/Referral(s): Jcarlos Young MD [Primary Care Provider] - 1-2 days Discharge Disposition: TRANSFER TO SNF/ECF
[2020-08-27 14:10] VITALS: BP 118/62; PULSE 97; RESP 17
[2020-08-27] MEDS ORDERED: LIDOCAINE 1% INJ 10MG/ML (20 ML MDV) SQ ONE (14:54)
--- NOTE | 2020-08-27 15:15 | IR ---
EXAMINATION TYPE: IR cvc insert >=5 years DATE OF EXAM: 08/27/2020 COMPARISON: NONE CLINICAL HISTORY: Infection Needs long-term intravenous access for antibiotics. PROCEDURE: Hand hygiene obtained with soap and water and alcohol-based hand rub. After informed consent, the skin overlying the right basilic vein was localized with ultrasound and n oted to be compressible and patent. An ultrasound image was obtained and submitted on the patient's chart. The overlying skin was prepped and draped and Lidocaine was used for local anesthesia. A ski n su was made with a scalpel. Access was gained to the vein under ultrasound guidance with a 21 ga uge needle and a 0.018 inch wire was advanced. Access site was dilated with Peel-Away sheath and cat heter tailored to the appropriate length and advanced such that the distal tip is at the cavoatrial j unction. Spot image was obtained verifying placement. Catheter was fixed to the skin and a sterile dressing was placed following hemostasis. Catheter was aspirated and flushed with saline. Patient w as discharged in stable condition without complication.Maximal barrier technique is utilized. Ultras ound image is documented on the chart. Ultrasound used with sterile technique. Fluoro time and fluoroscopic images submitted to document procedure: 49 intraoperative images, 0.3 mi nutes fluoroscopy time IMPRESSION: STATUS POST ULTRASOUND AND FLUOROSCOPIC GUIDED PICC LINE PLACEMENT, READY FOR USE. THIS PROCEDURE WAS PERFORMED BY THE UNDERSIGNED.
[2020-08-27] MEDS ORDERED: CEFEPIME 1 GM in SODIUM CHLORIDE 0.9% 50 ML IVPB SCH (21:00)
== END 2020-08-27 16:49 | DRG 853 ==
LOC: EC 15:31 → 4SSUR 18:54 → 6NMEDSUR 08-24 16:41
PROVIDERS: ADMIT Internal Medicine; ATTEND Internal Medicine
PROC: 0Y6N0ZF Detachment at Left Foot, Partial 5th Ray, Open Approach (ICD-10-PCS; principal; 2020-08-24 11:05)
PROC: 0Y6N0ZD Detachment at Left Foot, Partial 4th Ray, Open Approach (ICD-10-PCS; principal; 2020-08-24 11:05)
PROC: 0Y6N0ZC Detachment at Left Foot, Partial 3rd Ray, Open Approach (ICD-10-PCS; principal; 2020-08-24 11:05)
PROC: 0Y6N0ZB Detachment at Left Foot, Partial 2nd Ray, Open Approach (ICD-10-PCS; principal; 2020-08-24 11:05)
PROC: 0Y6N0Z9 Detachment at Left Foot, Partial 1st Ray, Open Approach (ICD-10-PCS; principal; 2020-08-24 11:05)
PROC: 02HV33Z Insertion of Infusion Device into Superior Vena Cava, Percutaneous Approach (ICD-10-PCS; 2020-08-27)
DX: A41.9 Sepsis, unspecified organism (principal); N17.0 Acute kidney failure with tubular necrosis; I48.20 Chronic atrial fibrillation, unspecified; Z68.42 Body mass index [BMI] 45.0-49.9, adult; M86.172 Other acute osteomyelitis, left ankle and foot; E11.52 Type 2 diabetes mellitus with diabetic peripheral angiopathy with gangrene; L03.116 Cellulitis of left lower limb; L02.612 Cutaneous abscess of left foot; E11.69 Type 2 diabetes mellitus with other specified complication; E11.621 Type 2 diabetes mellitus with foot ulcer; L97.529 Non-pressure chronic ulcer of other part of left foot with unspecified severity; E11.22 Type 2 diabetes mellitus with diabetic chronic kidney disease; Z79.4 Long term (current) use of insulin; I12.9 Hypertensive chronic kidney disease with stage 1 through stage 4 chronic kidney disease, or unspecified chronic kidney disease; N18.30 Chronic kidney disease, stage 3 unspecified; I89.0 Lymphedema, not elsewhere classified; E66.9 Obesity, unspecified; G89.29 Other chronic pain; M54.9 Dorsalgia, unspecified; M19.90 Unspecified osteoarthritis, unspecified site; Z96.1 Presence of intraocular lens; Z90.49 Acquired absence of other specified parts of digestive tract; Z98.890 Other specified postprocedural states; Z98.42 Cataract extraction status, left eye; Z98.41 Cataract extraction status, right eye; Z88.0 Allergy status to penicillin; Z79.899 Other long term (current) drug therapy; Z79.01 Long term (current) use of anticoagulants; Z82.49 Family history of ischemic heart disease and other diseases of the circulatory system; Z87.891 Personal history of nicotine dependence
CPT/HCPCS: 36415; 36573; 80048; 80053; 80076; 80202; 82140; 83605; 83735; 85025; 85610; 85730; 87040; 87070; 87075; 87077; 87186; 87205; 88305; 88307; 88311; 96361; 96365; 96366; 96375; 99285

== ENCOUNTER 2020-11-02 13:29 | Inpatient (IN) | payer MEDICARE ==
[2020-11-02] MEDS: ATROPINE SULFATE 0.1 MG/ML 10ML SYRINGE IV STA ×2 (14:01→17:55)
[2020-11-02] MEDS ORDERED: ATROPINE SULFATE 0.1 MG/ML 10ML SYRINGE IV STA (14:10)
[2020-11-02] MEDS ORDERED: SODIUM CHLORIDE 0.9% 500 ML 500 ML IV STA ×2 (14:11→15:10)
[2020-11-02] MEDS ORDERED: SODIUM CHLORIDE 0.9% 1,000 ML IV STA ×2 (14:11→15:10)
[2020-11-02 14:13] LABS: Glucose,Whole Blood 150 mg/dL (75-99)
--- NOTE | 2020-11-02 14:14 | ED ---
General Adult HPI - General Chief complaint: Weakness Stated complaint: Not eating or drinking Time Seen by Provider: 11/02/20 13:53 Source: patient, family, RN notes reviewed Mode of arrival: wheelchair Limitations: no limitations - History of Present Illness Initial comments: Patient is a pleasant 80-year-old female presenting to the emergency department with fatigue and general weakness. Onset of symptoms was for 5 days ago. Patient did have recent toe amputation however wound has been doing well and patient is on wound VAC. Patient does not have any confusion or isolated area of weakness. Patient has been drowsy. Occupational therapist today and found low heart rate and advised patient to come to the emergency department. Patient apparently had recent low blood pressure and heart rate noticed by a different visiting provider and attempt was made to contact primary care physician. - Related Data Home Medications Medication Instructions Recorded Confirmed Insulin Glargine,Hum.rec.anlog 15 unit SQ HS 08/23/20 11/02/20 [Lantus Solostar] Insulin Aspart [NovoLOG Flexpen] 15 units SQ AC-BRKFST 11/02/20 11/02/20 Insulin Aspart [NovoLOG Flexpen] 20 units SQ AC-LUNCH 11/02/20 11/02/20 Insulin Aspart [NovoLOG Flexpen] 30 units SQ HS 11/02/20 11/02/20 Losartan Potassium 100 mg PO HS 11/02/20 11/02/20 Metoprolol Tartrate [Lopressor] 50 mg PO BID 11/02/20 11/02/20 Multivit with Calcium,Iron,Min 1 tab PO DAILY 11/02/20 11/02/20 [Women's Multivitamin] Potassium Chloride 8 meq PO AC-SUPPER 11/02/20 11/02/20 amLODIPine [Norvasc] 10 mg PO DAILY 11/02/20 11/02/20 hydroCHLOROthiazide [Hydrodiuril] 25 mg PO DAILY 11/02/20 11/02/20 Previous Rx's Medication Instructions Recorded Apixaban [Eliquis] 5 mg PO BID #0 tab 10/06/17 Allergies Allergy/AdvReac Type Severity Reaction Status Date / Time Penicillins Allergy Rash/Hives Verified 11/02/20 13:46 Review of Systems ROS Statement: Those systems with pertinent positive or pertinent negative responses have been documented in the HPI. ROS Other: All systems not noted in ROS Statement are negative. Constitutional: Denies: fever Eyes: Denies: eye pain ENT: Denies: ear pain Respiratory: Denies: cough, dyspnea Cardiovascular: Denies: chest pain Endocrine: Reports: fatigue Gastrointestinal: Reports: other (Decreased appetite). Denies: abdominal pain Genitourinary: Denies: dysuria Musculoskeletal: Denies: back pain Skin: Denies: rash Neurological: Reports: as per HPI. Denies: confusion Past Medical History Past Medical History: Atrial Fibrillation, Diabetes Mellitus, Hypertension Additional Past Medical History / Comment(s): Obesity , hypertension, chronic atrial fibrillation, diabetes mellitus, recurrent cellulitis the right lower extremity, lymphedema of the right lower extremity, osteoarthritis History of Any Multi-Drug Resistant Organisms: None Reported Past Surgical History: Section, Cholecystectomy, Hernia Repair Additional Past Surgical History / Comment(s): Abdominal hernia repair with mesh, benign lump removed right breast, bilateral cataract removal with lens implants. all toes on left foot amputated Past Anesthesia/Blood Transfusion Reactions: No Reported Reaction Past Psychological History: No Psychological Hx Reported Smoking Status: Former smoker Past Alcohol Use History: None Reported Past Drug Use History: None Reported - Past Family History Father Family Medical History: Coronary Artery Disease (CAD), Myocardial Infarction ([place]) Additional Family Medical History / Comment(s): Father had several MIs with the first time being while he was in his 50s. He of a [place] at the age of 75 yrs. Mother Family Medical History: No Reported History Additional Family Medical History / Comment(s): Mother was healthy and lived to be 91 yrs old. General Exam Limitations: no limitations General appearance: alert, in no apparent distress Head exam: Present: normocephalic Eye exam: Present: normal appearance, PERRL, EOMI ENT exam: Present: normal oropharynx Neck exam: Present: normal inspection Respiratory exam: Present: normal lung sounds bilaterally Cardiovascular Exam: Present: bradycardia GI/Abdominal exam: Present: soft. Absent: tenderness Extremities exam: Present: pedal edema, other (Wound VAC left) Neurological exam: Present: alert, oriented X3. Absent: motor sensory deficit Expanded Neurological exam: Present: protecting the airway Motor strength exam: RUE: 5, LUE: 5, RLE: 5, LLE: 5 Eye Response: (4) open spontaneously Motor Response: (6) obeys commands Verbal Response: (5) oriented Psychiatric exam: Present: normal affect, normal mood Skin exam: Present: normal color Course Vital Signs 11/02/20 11/02/20 11/02/20 13:39 14:32 14:42 Temperature 97.0 F L Pulse Rate 41 L 80 71 Respiratory 18 13 12 Rate Blood Pressure 91/68 113/94 O2 Sat by Pulse 100 95 97 Oximetry 11/02/20 11/02/20 11/02/20 15:32 15:48 16:13 Temperature Pulse Rate 61 64 55 L Respiratory 12 12 Rate Blood Pressure 67/42 83/47 O2 Sat by Pulse 96 95 Oximetry - Reevaluation(s) Reevaluation #1: 11/02/20 14:14 Cardiology has been paged. EKG #2 shows A. fib with slow ventricular response, rate 54. QRS 96. QT 494. QTC 460. Left axis. Low QRS voltage. Nonspecific ST-T. Patient has been given 2 doses of atropine. Calcium ordered. 11/02/20 14:22 Heart rate and blood pressure improved with 0.5 epinephrine. Case was discussed with cardiologyYaidra, who will come evaluate patient with Dr. Barrios. 11/02/20 17:47 Patient reevaluated multiple times. Case was discussed with Dr. Oconnell who will admit covering for Dr. Small. Case also discussed with Dr. Villegas, who will consult. He requests consult with nephrology and repeat potassium. Dr. Barrios had previously seen the patient and did recommend treatment with hyperkalemia and levophed if needed 11/02/20 17:51 Family was updated several times. EKG Findings - EKG Comments: EKG Findings:: A. fib with slow ventricular response. PVC present. Rate 60 to. QRS 94. QT 504. QTC 511. Left axis. Low QRS voltage. No acute ST change. Procedures - Central Line Placement Right SC Consent Obtained: verbal consent, written consent Patient Placed on Monitor/Pulse Ox: Yes MD Prep: mask, gown, gloves Central Line Prep: Chlorhexidine scrub Local Anesthesia Used: Lidocaine 1% Amount of Anesthesia Used (mls): 2 Complications: other (Venous access obtained. Unable to pass guidewire) Left SC Consent Obtained: verbal consent, written consent Patient Placed on Monitor/Pulse Ox: Yes MD Prep: mask, gown, gloves Central Line Prep: Chlorhexidine scrub Local Anesthesia Used: Lidocaine 1% Amount of Anesthesia Used (mls): 2 Complications: none, other (Unable to obtain venous access ) Right Femoral Consent Obtained: verbal consent, written consent Patient Placed on Monitor/Pulse Ox: Yes Prep: mask, gown, gloves Local Anesthesia Used: Lidocaine 1% Amount of Anesthesia Used (mls): 2 Ultrasound Used for Placement: Yes Central Line Lumen Inserted: triple Bloods Obtained for Lab: No Central Line Position: good blood return, all ports aspirated, flushed, capped, sutured in place with 3-0 nylon Dressing Applied: Tegaderm Patient Tolerated Procedure: well Complications: none Medical Decision Making - Lab Data Result diagrams: 11/02/20 14:19 11/02/20 14:19 Lab Results 11/02/20 11/02/20 11/02/20 Range/Units 14:11 14:19 14:19 WBC 9.5 (3.8-10.6) k/uL RBC 4.67 (3.80-5.40) m/uL Hgb 12.2 (11.4-16.0) gm/dL Hct 39.7 (34.0-46.0) % MCV 85.0 (80.0-100.0) fL MCH 26.1 (25.0-35.0) pg MCHC 30.8 L (31.0-37.0) g/dL RDW 19.2 H (11.5-15.5) % Plt Count 113 L (150-450) k/uL MPV 10.6 Neutrophils % 88 % Lymphocytes % 7 % Monocytes % 3 % Eosinophils % 1 % Basophils % 0 % Neutrophils # 8.4 H (1.3-7.7) k/uL Lymphocytes # 0.7 L (1.0-4.8) k/uL Monocytes # 0.3 (0-1.0) k/uL Eosinophils # 0.1 (0-0.7) k/uL Basophils # 0.0 (0-0.2) k/uL Hypochromasia Moderate Anisocytosis Slight PT 13.0 H (9.0-12.0) sec INR 1.3 H (<1.2) APTT 35.5 H (22.0-30.0) sec Sodium (137-145) mmol/L Potassium (3.5-5.1) mmol/L Chloride (98-107) mmol/L Carbon Dioxide (22-30) mmol/L Anion Gap mmol/L BUN (7-17) mg/dL Creatinine (0.52-1.04) mg/dL Est GFR (CKD-EPI)AfAm (>60 ml/min/1.73 sqM) Est GFR (CKD-EPI)NonAf (>60 ml/min/1.73 sqM) Glucose (74-99) mg/dL POC Glucose (mg/dL) 150 H (75-99) mg/dL POC Glu Chucking Lathe Operator ID Candace Moyer Calcium (8.4-10.2) mg/dL Magnesium (1.6-2.3) mg/dL Total Bilirubin (0.2-1.3) mg/dL AST (14-36) U/L ALT (4-34) U/L Alkaline Phosphatase (38-126) U/L Creatine Kinase (30-135) U/L Troponin I (0.000-0.034) ng/mL Total Protein (6.3-8.2) g/dL Albumin (3.5-5.0) g/dL TSH (0.465-4.680) mIU/L Free T4 (0.78-2.19) ng/dL Free T3 pg/mL (2.8-5.3) pg/ml Coronavirus (PCR) (Not Detectd) 11/02/20 11/02/20 11/02/20 Range/Units 14:19 14:19 14:19 WBC (3.8-10.6) k/uL RBC (3.80-5.40) m/uL Hgb (11.4-16.0) gm/dL Hct (34.0-46.0) % MCV (80.0-100.0) fL MCH (25.0-35.0) pg MCHC (31.0-37.0) g/dL RDW (11.5-15.5) % Plt Count (150-450) k/uL MPV Neutrophils % % Lymphocytes % % Monocytes % % Eosinophils % % Basophils % % Neutrophils # (1.3-7.7) k/uL Lymphocytes # (1.0-4.8) k/uL Monocytes # (0-1.0) k/uL Eosinophils # (0-0.7) k/uL Basophils # (0-0.2) k/uL Hypochromasia Anisocytosis PT (9.0-12.0) sec INR (<1.2) APTT (22.0-30.0) sec Sodium 137 (137-145) mmol/L Potassium 6.8 H* (3.5-5.1) mmol/L Chloride 107 (98-107) mmol/L Carbon Dioxide 18 L (22-30) mmol/L Anion Gap 12 mmol/L BUN 64 H (7-17) mg/dL Creatinine 3.98 H (0.52-1.04) mg/dL Est GFR (CKD-EPI)AfAm 12 (>60 ml/min/1.73 sqM) Est GFR (CKD-EPI)NonAf 10 (>60 ml/min/1.73 sqM) Glucose 152 H (74-99) mg/dL POC Glucose (mg/dL) (75-99) mg/dL POC Glu Chucking Lathe Operator ID Calcium 9.3 (8.4-10.2) mg/dL Magnesium 2.3 (1.6-2.3) mg/dL Total Bilirubin 0.7 (0.2-1.3) mg/dL AST 40 H (14-36) U/L ALT 24 (4-34) U/L Alkaline Phosphatase 134 H (38-126) U/L Creatine Kinase 38 (30-135) U/L Troponin I <0.012 (0.000-0.034) ng/mL Total Protein 6.5 (6.3-8.2) g/dL Albumin 3.0 L (3.5-5.0) g/dL TSH 24.000 H (0.465-4.680) mIU/L Free T4 0.94 (0.78-2.19) ng/dL Free T3 pg/mL 2.2 L (2.8-5.3) pg/ml Coronavirus (PCR) (Not Detectd) 11/02/20 Range/Units 16:17 WBC (3.8-10.6) k/uL RBC (3.80-5.40) m/uL Hgb (11.4-16.0) gm/dL Hct (34.0-46.0) % MCV (80.0-100.0) fL MCH (25.0-35.0) pg MCHC (31.0-37.0) g/dL RDW (11.5-15.5) % Plt Count (150-450) k/uL MPV Neutrophils % % Lymphocytes % % Monocytes % % Eosinophils % % Basophils % % Neutrophils # (1.3-7.7) k/uL Lymphocytes # (1.0-4.8) k/uL Monocytes # (0-1.0) k/uL Eosinophils # (0-0.7) k/uL Basophils # (0-0.2) k/uL Hypochromasia Anisocytosis PT (9.0-12.0) sec INR (<1.2) APTT (22.0-30.0) sec Sodium (137-145) mmol/L Potassium (3.5-5.1) mmol/L Chloride (98-107) mmol/L Carbon Dioxide (22-30) mmol/L Anion Gap mmol/L BUN (7-17) mg/dL Creatinine (0.52-1.04) mg/dL Est GFR (CKD-EPI)AfAm (>60 ml/min/1.73 sqM) Est GFR (CKD-EPI)NonAf (>60 ml/min/1.73 sqM) Glucose (74-99) mg/dL POC Glucose (mg/dL) (75-99) mg/dL POC Glu Chucking Lathe Operator ID Calcium (8.4-10.2) mg/dL Magnesium (1.6-2.3) mg/dL Total Bilirubin (0.2-1.3) mg/dL AST (14-36) U/L ALT (4-34) U/L Alkaline Phosphatase (38-126) U/L Creatine Kinase (30-135) U/L Troponin I (0.000-0.034) ng/mL Total Protein (6.3-8.2) g/dL Albumin (3.5-5.0) g/dL TSH (0.465-4.680) mIU/L Free T4 (0.78-2.19) ng/dL Free T3 pg/mL (2.8-5.3) pg/ml Coronavirus (PCR) Not Detected (Not Detectd) Critical Care Time Critical Care Time: Yes Total Critical Care Time: 65 Disposition Clinical Impression: Acute renal failure (ARF), Hyperkalemia, Bradycardia, Hypotension Disposition: ADMITTED IP TO THIS [facility] Condition: Critical Is patient prescribed a controlled substance at d/c from ED?: No Referrals: Jcarlos Young MD [Primary Care Provider] - 1-2 days Decision Time: 17:49
[2020-11-02] MEDS ORDERED: EPINEPHrine 10 ML SYRINGE (0.1 MG/ML) IV STA (14:17)
[2020-11-02] MEDS ORDERED: EPINEPHrine 1 MG/ML 1 ML AMP IV STA (14:22)
[2020-11-02] MEDS ORDERED: CALCIUM GLUCONATE 1 GM in SODIUM CHLORIDE 0.9% 100 ML IVPB ONE ×3 (14:30→23:22)
[2020-11-02 14:33] LABS: Anisocytosis Slight; Basophils % (A) 0 %; Eosinophils # (A) 0.1 k/uL (0-0.7); Eosinophils % (A) 1 %; HCT 39.7 % (34.0-46.0); HGB 12.2 gm/dL (11.4-16.0); Hypochromasia Moderate; Lymphocytes # (A) 0.7 k/uL (1.0-4.8); Lymphocytes % (A) 7 %; MCH 26.1 pg (25.0-35.0); MCHC 30.8 g/dL (31.0-37.0); Mean Platelet Volume 10.6; Monocytes # (A) 0.3 k/uL (0-1.0); Monocytes % (A) 3 %; Neutrophils # (A) 8.4 k/uL (1.3-7.7); Neutrophils % (A) 88 %; Platelet Count 113 k/uL (150-450); RBC 4.67 m/uL (3.80-5.40); RDW 19.2 % (11.5-15.5); WBC 9.5 k/uL (3.8-10.6)
[2020-11-02 14:42] LABS: Calcium 9.3 mg/dL (8.4-10.2); Magnesium 2.3 mg/dL (1.6-2.3); Total Bilirubin 0.7 mg/dL (0.2-1.3); Total Protein 6.5 g/dL (6.3-8.2)
[2020-11-02] MEDS ORDERED: SODIUM POLYSTYRENE SULFONATE 15 GM/60 ML BOTTLE PO ONE (14:47)
[2020-11-02] MEDS ORDERED: INSULIN REGULAR 100 UNIT/ML VIAL IV ONE ×3 (14:47→23:22)
[2020-11-02] MEDS ORDERED: ALBUTEROL NEB (CONC) 2.5 MG/0.5 ML INHALATION ONE (14:47)
[2020-11-02] MEDS ORDERED: DEXTROSE 50% SYRINGE 50 ML IVP ONE ×2 (14:47→18:18)
[2020-11-02] MEDS ORDERED: SODIUM BICARB 8.4% 50 ML SYR (1 MEQ/ML) IV ONE ×2 (14:47→18:18)
[2020-11-02 14:48] LABS: Potassium 6.8 mmol/L (3.5-5.1)
[2020-11-02 14:53] LABS: INR 1.3 (<1.2)
[2020-11-02 14:54] LABS: Partial Thromboplastin Time 35.5 sec (22.0-30.0)
[2020-11-02 14:59] LABS: T4, Free (Free Thyroxine) 0.94 ng/dL (0.78-2.19)
[2020-11-02] MEDS ORDERED: LEVOTHYROXINE 100 MCG TAB PO STA (15:16)
--- NOTE | 2020-11-02 15:45 | XR ---
EXAMINATION TYPE: XR chest 1V portable DATE OF EXAM: 11/02/2020 COMPARISON: Chest x-ray 04/21/2020 HISTORY: Dysrhythmia TECHNIQUE: Single frontal view of the chest is obtained. FINDINGS: Patient is rotated. Heart is enlarged. Central vascularity appears prominently. No evident pneumothorax. Bibasilar density is present with obscured hemidiaphragms. There are overlying cardiac leads. Aorta is dense. Bones are stable. IMPRESSION: Cardiomegaly and basilar effusions, correlate for congestive heart failure with edema ve rsus atelectasis or pneumonia. Rotated exam.
--- NOTE | 2020-11-02 17:30 | P.CRDCN ---
History of Present Illness History of present illness: HISTORY OF PRESENTING ILLNESS This is a pleasant 80-year-old female past medical history significant for diabetes mellitus, diabetic foot ulcer status post left toe amputations with a wound VAC, chronic edema with likely chronic venous insufficiency, osteomyelitis, CKD, hypertension, hyperlipidemia, previous mildly elevated troponins with stress test from 10/2017 showing reversible apical lateral defect however opted to treat medically. She follows in the office with Dr. Oscar. We have been asked to see in consultation for bradycardia and hypotension. Patient was recently hospitalized in August secondary to diabetic foot ulcer with foot amputation. She has been going to wound clinic and apparently had been doing well up until last 3-4 days. Patient denies any recent fevers, chills, chest pain, pressure, shortness breath. Her at bedside however patient has had increased lethargy, decreased appetite and has not been eating or drinking that much in the last 3-4 days. Patient had seen a wound VAC nurse and apparently she had not looked well and therefore recommended going to emergency department. On arrival to the emergency department patient was found to be hypotensive with heart rate in the 40s in atrial fibrillation. Patient was given atropine and calcium with improvement in the heart rate of 50-60s. She does have chronic lower extremity edema which is unchanged and has been like this for years. She denies any orthopnea. No hematochezia or melena. Blood work resulted with potassium of 6.8 and patient was given repeated doses of calcium and treatment of the hyperkalemia. DIAGNOSTICS EKG reveals to fibrillation, heart rate 54 bpm, left axis deviation, low voltage QRS, nonspecific ST-T wave abnormalities. Chest xray cardiomegaly and basilar effusions, correlate for congestive heart failure with edema versus atelectasis or pneumonia.. Laboratory reviewed, white blood cell count 9.5, hemoglobin 12.2, platelets 113, INR 1.3, potassium 6.8, bicarb 18, creatinine 3.98, AST 40, ALT 24, troponin less than 0.12, TSH 24. Current cardiac medications include amlodipine 10 mg daily, hydrochlorothiazide 25 mg daily, Lopressor 50 mg twice a day, losartan 100 mg daily at bedtime, Eliquis 5 mg twice a day. REVIEW OF SYSTEMS At the time of my exam: CONSTITUTIONAL: Denies fever or chills. CARDIOVASCULAR: Denies chest pain, shortness of breath, orthopnea, PND or palpitations. RESPIRATORY: Denies cough. GASTROINTESTINAL: Denies abdominal pain, diarrhea, constipation, nausea or vomiting. MUSCULOSKELETAL: Denies myalgias. NEUROLOGIC: Denies numbness, tingling or weakness. ENDOCRINE: + fatigue, no weight change, polydipsia or polyurina. GENITOURINARY: Denies burning, hematuria or urgency with micturation. HEMATOLOGIC: Denies history of anemia or bleeding. PHYSICAL EXAMINATION Blood pressure 83/47 heart rate 64 afebrile and maintaining oxygen saturation on 2 L nasal cannula. CONSTITUTIONAL: No apparent distress, chronically ill-appearing, obese, somewhat somnolent however arousable and answers questions appropriately. HEENT: Head is normocephalic. Pupils are equal, round. Sclerae anicteric. Mucous membranes of the mouth are moist. No JVD. No carotid bruit. CHEST EXAMINATION: Lungs are clear to auscultation. No chest wall tenderness is noted on palpation or with deep breathing. HEART EXAMINATION: Irregularly irregular rate and rhythm. S1, S2 heard. No murmurs, gallops or rub. ABDOMEN: Soft, obese, nontender. Positive bowel sounds. EXTREMITIES: + 3+ lower extremity edema, + left foot with a wound VAC with left toe amputations. NEUROLOGIC EXAMINATION: Patient is awake ASSESSMENT 1. A. fib with slow ventricular rate, likely predominantly related to hyperkalemia plus plus possible hypothyroidism component plus possible med effect from metoprolol 2. Hypotension, possible component of hypovolemia plus or minus septic shock. Bedside echo shows predominantly preserved ejection fraction 55% without pericardial effusion. 3. Acute kidney injury 4. Hypothyroidism 5. Status post left toe amputation with diabetic foot ulcer with osteomyelitis and wound VAC currently in place 6. History of mildly elevated troponins and abnormal stress test with possible apical reversible perfusion defect from 2019. She has been well with medical therapy. 7. History of essential hypertension 8. Diabetes mellitus 2 9. Obesity 10. Chronic lower extremity edema, likely related to chronic venous insufficiency PLAN Patient initially consult that for bradycardia which may be multifactorial from hypothyroidism, medication effect from metoprolol however likely predominantly related to hyperkalemia. Heart rates did improve with calcium and we will continue to monitor. Would recommend Levophed for pressors for blood pressure and if heart rate becomes less than 50, may consider adding dopamine as well. Continue hold antihypertensives. Workup acute kidney injury. Check formal 2-D echo however bedside echo showed no pericardial effusion and appeared to be preserved ejection fraction. Continue to trend troponins. Past Medical History Past Medical History: Atrial Fibrillation, Diabetes Mellitus, Hypertension Additional Past Medical History / Comment(s): Obesity , hypertension, chronic atrial fibrillation, diabetes mellitus, recurrent cellulitis the right lower extremity, lymphedema of the right lower extremity, osteoarthritis History of Any Multi-Drug Resistant Organisms: None Reported Past Surgical History: Section, Cholecystectomy, Hernia Repair Additional Past Surgical History / Comment(s): Abdominal hernia repair with mesh, benign lump removed right breast, bilateral cataract removal with lens implants. all toes on left foot amputated Past Anesthesia/Blood Transfusion Reactions: No Reported Reaction Past Psychological History: No Psychological Hx Reported Smoking Status: Former smoker Past Alcohol Use History: None Reported Past Drug Use History: None Reported - Past Family History Father Family Medical History: Coronary Artery Disease (CAD), Myocardial Infarction ([place]) Additional Family Medical History / Comment(s): Father had several MIs with the first time being while he was in his 50s. He of a [place] at the age of 75 yrs. Mother Family Medical History: No Reported History Additional Family Medical History / Comment(s): Mother was healthy and lived to be 91 yrs old. Medications and Allergies Home Medications Medication Instructions Recorded Confirmed Type Apixaban [Eliquis] 5 mg PO BID #0 tab 10/06/17 11/02/20 Rx Insulin Glargine,Hum.rec.anlog 15 unit SQ HS 08/23/20 11/02/20 History [Lantus Solostar] Insulin Aspart [NovoLOG Flexpen] 15 units SQ AC-BRKFST 11/02/20 11/02/20 History Insulin Aspart [NovoLOG Flexpen] 20 units SQ AC-LUNCH 11/02/20 11/02/20 History Insulin Aspart [NovoLOG Flexpen] 30 units SQ HS 11/02/20 11/02/20 History Losartan Potassium 100 mg PO HS 11/02/20 11/02/20 History Metoprolol Tartrate [Lopressor] 50 mg PO BID 11/02/20 11/02/20 History Multivit with Calcium,Iron,Min 1 tab PO DAILY 11/02/20 11/02/20 History [Women's Multivitamin] Potassium Chloride 8 meq PO AC-SUPPER 11/02/20 11/02/20 History amLODIPine [Norvasc] 10 mg PO DAILY 11/02/20 11/02/20 History hydroCHLOROthiazide [Hydrodiuril] 25 mg PO DAILY 11/02/20 11/02/20 History Allergies Allergy/AdvReac Type Severity Reaction Status Date / Time Penicillins Allergy Rash/Hives Verified 11/02/20 13:46 Physical Exam Vitals: Vital Signs Pulse Resp BP Pulse Ox 11/02/20 16:13 55 L 11/02/20 15:48 64 12 83/47 95 11/02/20 15:32 61 12 67/42 96 11/02/20 14:42 71 12 113/94 97 11/02/20 14:32 80 13 91/68 95 11/02/20 13:39 41 L 18 100 Intake and Output 11/02/20 11/02/20 11/02/20 06:59 14:59 22:59 Other: Weight 110.677 kg Results 11/02/20 14:19 11/02/20 14:19 Cardiac Enzymes 11/02/20 11/02/20 Range/Units 14:19 14:19 AST 40 H (14-36) U/L Troponin I <0.012 (0.000-0.034) ng/mL Coagulation 11/02/20 Range/Units 14:19 PT 13.0 H (9.0-12.0) sec APTT 35.5 H (22.0-30.0) sec CBC 11/02/20 Range/Units 14:19 WBC 9.5 (3.8-10.6) k/uL RBC 4.67 (3.80-5.40) m/uL Hgb 12.2 (11.4-16.0) gm/dL Hct 39.7 (34.0-46.0) % Plt Count 113 L (150-450) k/uL Comprehensive Metabolic Panel 11/02/20 Range/Units 14:19 Sodium 137 (137-145) mmol/L Potassium 6.8 H* (3.5-5.1) mmol/L Chloride 107 (98-107) mmol/L Carbon Dioxide 18 L (22-30) mmol/L BUN 64 H (7-17) mg/dL Creatinine 3.98 H (0.52-1.04) mg/dL Glucose 152 H (74-99) mg/dL Calcium 9.3 (8.4-10.2) mg/dL AST 40 H (14-36) U/L ALT 24 (4-34) U/L Alkaline Phosphatase 134 H (38-126) U/L Total Protein 6.5 (6.3-8.2) g/dL Albumin 3.0 L (3.5-5.0) g/dL Current Medications Generic Name Dose Route Start Last Admin Trade Name Freq PRN Reason Stop Dose Admin Sodium Chloride 1,000 mls @ 75 mls/hr 11/02/20 14:11 11/02/20 14:21 Saline 0.9% IV 11/03/20 03:30 75 mls/hr .[id number] STA Administration Norepinephrine Bitartrate 32 250 mls @ 2.594 mls/hr 11/02/20 17:15 mg/ Sodium Chloride IV .Q24H JANET Protocol 0.05 MCG/KG/MIN Intake and Output 11/02/20 11/02/20 11/02/20 06:59 14:59 22:59 Other: Weight 110.677 kg Patient Weight 11/03/20 06:59 Weight 110.677 kg 11/02/20 14:19 11/02/20 14:19
[2020-11-02] MEDS: NOREPINEPHRINE 32 MG in SODIUM CHLORIDE 0.9% 218 ML IV SCH (17:38)
--- NOTE | 2020-11-02 17:47 | XR ---
EXAMINATION TYPE: XR chest 1V portable DATE OF EXAM: 11/02/2020 COMPARISON: Earlier same day. HISTORY: Central line attempt. TECHNIQUE: Single frontal view of the chest is obtained. FINDINGS: There are unchanged moderate bibasilar opacities with small pleural effusions. No pneumoth orax seen. The cardiac silhouette size is enlarged. The osseous structures are intact. IMPRESSION: As above.
[2020-11-02] MEDS ORDERED: NALOXONE 0.4 MG/ML 1 ML VIAL IV PRN (17:49)
[2020-11-02] MEDS: SODIUM CHLORIDE 0.9% 1,000 ML IV SCH ×2 (18:14→20:50)
[2020-11-02 20:16] LABS: Glucose,Whole Blood 108 mg/dL (75-99)
[2020-11-02] MEDS ORDERED: APIXABAN 5 MG TAB PO SCH (21:15)
--- NOTE | 2020-11-02 21:40 | P.HPIM ---
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 patient was at wound clinic following up on her wound vac, when she was found not feeling well, for which her nurse recommended that she goes to the hospital for evaluation patient denies any fever, chills, URI symptoms, chest pain , trouble breathing, GI bleeding or diarrhea. she spends her day in a recliner, she has macerated wound over her coccyx, and cant really move her legs as they always feel heavy. she claims to be at her baseline status of health , except for little worsening over the past few days, with decrease PO intake. and increase fatigability in the ED, she was found to have bradycardia and afib, worsening renal function and hyperkalemia . cardiology consulted, bed side echo showed preserved LVEF 55% with no pericardial effusion . patient known to have CAD, her most recent stress test 2017 was positive but she elected for maximal medical management she denies any recent falls chronic swelling of bilateral lower extremities Review of Systems Pertinent positives as noted in HPI. All other systems were reviewed and are negative Past Medical History Past Medical History: Atrial Fibrillation, Diabetes Mellitus, Hypertension Additional Past Medical History / Comment(s): Obesity , hypertension, chronic atrial fibrillation, diabetes mellitus, recurrent cellulitis the right lower extremity, lymphedema of the right lower extremity, osteoarthritis History of Any Multi-Drug Resistant Organisms: None Reported Past Surgical History: Section, Cholecystectomy, Hernia Repair Additional Past Surgical History / Comment(s): Abdominal hernia repair with mesh, benign lump removed right breast, bilateral cataract removal with lens implants. all toes on left foot amputated Past Anesthesia/Blood Transfusion Reactions: No Reported Reaction Past Psychological History: No Psychological Hx Reported Smoking Status: Former smoker Past Alcohol Use History: None Reported Past Drug Use History: None Reported - Past Family History Father Family Medical History: Coronary Artery Disease (CAD), Myocardial Infarction (VA) Additional Family Medical History / Comment(s): Father had several MIs with the first time being while he was in his 50s. He of a VA at the age of 75 yrs. Mother Family Medical History: No Reported History Additional Family Medical History / Comment(s): Mother was healthy and lived to be 91 yrs old. Medications and Allergies Home Medications Medication Instructions Recorded Confirmed Type Apixaban [Eliquis] 5 mg PO BID #0 tab 10/06/17 11/02/20 Rx Insulin Glargine,Hum.rec.anlog 15 unit SQ HS 08/23/20 11/02/20 History [Lantus Solostar] Insulin Aspart [NovoLOG Flexpen] 15 units SQ AC-BRKFST 11/02/20 11/02/20 History Insulin Aspart [NovoLOG Flexpen] 20 units SQ AC-LUNCH 11/02/20 11/02/20 History Insulin Aspart [NovoLOG Flexpen] 30 units SQ HS 11/02/20 11/02/20 History Losartan Potassium 100 mg PO HS 11/02/20 11/02/20 History Metoprolol Tartrate [Lopressor] 50 mg PO BID 11/02/20 11/02/20 History Multivit with Calcium,Iron,Min 1 tab PO DAILY 11/02/20 11/02/20 History [Women's Multivitamin] Potassium Chloride 8 meq PO AC-SUPPER 11/02/20 11/02/20 History amLODIPine [Norvasc] 10 mg PO DAILY 11/02/20 11/02/20 History hydroCHLOROthiazide [Hydrodiuril] 25 mg PO DAILY 11/02/20 11/02/20 History Allergies Allergy/AdvReac Type Severity Reaction Status Date / Time Penicillins Allergy Rash/Hives Verified 11/02/20 13:46 Physical Exam Vitals: Vital Signs Temp Pulse Resp BP Pulse Ox 11/02/20 19:02 97.2 F L 66 12 117/86 97 11/02/20 18:29 97.2 F L 63 12 91/63 97 11/02/20 18:02 10 L 11/02/20 18:00 97.4 F L 67 12 90/57 98 11/02/20 17:45 54 L 10 L 67/37 98 11/02/20 17:30 63 11 L 89/20 97 11/02/20 17:15 13 111/98 97 11/02/20 17:00 12 59/39 98 11/02/20 16:45 11 L 70/34 97 11/02/20 16:30 62 10 L 59/41 98 11/02/20 16:15 55 L 11 L 97 11/02/20 16:13 55 L 11/02/20 16:00 54 L 11 L 52/36 97 11/02/20 15:48 64 12 83/47 95 11/02/20 15:45 61 12 57/23 98 11/02/20 15:32 61 12 67/42 96 11/02/20 15:30 47 L 11 L 68/33 98 11/02/20 15:15 71 13 91/43 96 11/02/20 15:00 57 L 13 58/31 97 11/02/20 14:45 60 12 113/94 97 11/02/20 14:42 71 12 113/94 97 11/02/20 14:32 97.0 F L 80 13 91/68 95 11/02/20 14:30 84 11 L 121/72 91 L 11/02/20 14:15 64 10 L 66/53 100 11/02/20 14:00 46 L 12 99 11/02/20 13:39 41 L 18 100 Intake and Output 11/02/20 11/02/20 11/02/20 06:59 14:59 22:59 Intake Total 6.987 Balance 6.987 Intake: Intake, IV Titration 6.987 Amount Norepinephrine 32 mg In 6.987 Sodium Chloride 0.9% 218 ml @ 0.05 MCG/KG/MIN 2. 594 mls/hr IV .Q24H [facility] Rx#:[id number] Other: Weight 110.677 kg Constitutional: No acute distress, patient looks tired, follows commands and answers questions briefly Eyes: Anicteric sclerae, moist conjunctiva, Pupils equal round reactive to light ENMT: NC/AT Oropharynx clear, no erythema, or exudates Neck: Supple, FROM, no masses, or JVD No carotid bruits No thyromegaly Lungs: decrease breath sounds at lung basis due to poor effort, no wheezing or rales Clear to percussion Normal respiratory effort, no accessory muscle use Cardiovascular: Heart irregular , bradycardia No murmurs, gallops, or rubs +3 bilateral peripheral edema Abdominal: obese limiting exam, soft, erythematus rash under bilateral breasts and under abd panus Nontender, no guarding, rebound or rigidity Abdomen moving with respiration Normoactive bowel sounds cant evaluate for organomegally No palpable mass No abdominal wall hernia noted Skin: Normal temperature, tone, texture, turgor patient has macerated wound and ulcer around her buttocks, does not look infected skin breakdown over left leg with swelling wound vac over left foot TMA erythematus rash under bilateral breasts and under abd panus Extremities: No digital cyanosis No clubbing Pedal pulses not palpable bilaterally , capillary refill immediate Radial pulses intact and symmetrical No calf tenderness Psychiatric: Alert and oriented to person, place flat affect fair judgement Neuro Muscles Strength 2/5 bialteral lower extremities , and 3/5 bilateral upper extremities Sensation to light touch grossly present throughout Cranial nerves II-XII grossly intact No focal sensory deficits Lymphatics: no palpable cervical or supraclavicular , or inguinal lymph n odes Results CBC & Chem 7: 11/02/20 14:19 11/02/20 17:54 Labs: Abnormal Lab Results - Last 24 Hours (Table) 11/02/20 11/02/20 11/02/20 Range/Units 14:11 14: 14:19 MCHC 30.8 L (31.0-37.0) g/dL RDW 19.2 H (11.5-15.5) % Plt Count 113 L (150-450) k/uL Neutrophils # 8.4 H (1.3-7.7) k/uL Lymphocytes # 0.7 L (1.0-4.8) k/uL PT 13.0 H (9.0-12.0) sec INR 1.3 H (<1.2) APTT 35.5 H (22.0-30.0) sec Potassium (3.5-5.1) mmol/L Carbon Dioxide (22-30) mmol/L BUN (7-17) mg/dL Creatinine (0.52-1.04) mg/dL Glucose (74-99) mg/dL POC Glucose (mg/dL) 150 H (75-99) mg/dL AST (14-36) U/L Alkaline Phosphatase (38-126) U/L Albumin (3.5-5.0) g/dL TSH (0.465-4.680) mIU/L Free T3 pg/mL (2.8-5.3) pg/ml 11/02/20 11/02/20 11/02/20 Range/Units 14:19 14:19 17:54 MCHC (31.0-37.0) g/dL RDW (11.5-15.5) % Plt Count (150-450) k/uL Neutrophils # (1.3-7.7) k/uL Lymphocytes # (1.0-4.8) k/uL PT (9.0-12.0) sec INR (<1.2) APTT (22.0-30.0) sec Potassium 6.8 H* 5.9 H (3.5-5.1) mmol/L Carbon Dioxide 18 L (22-30) mmol/L BUN 64 H (7-17) mg/dL Creatinine 3.98 H (0.52-1.04) mg/dL Glucose 152 H (74-99) mg/dL POC Glucose (mg/dL) (75-99) mg/dL AST 40 H (14-36) U/L Alkaline Phosphatase 134 H (38-126) U/L Albumin 3.0 L (3.5-5.0) g/dL TSH 24.000 H (0.465-4.680) mIU/L Free T3 pg/mL 2.2 L (2.8-5.3) pg/ml Assessment and Plan Assessment: symptomatic bradycardia and hypotension with hyperkalemia afib with bradycardia , on eliquis hyperkalemia NATE / CKD hypothyroidism CAD with preserved left ventricular ejection fraction of 55% DM left foot TMA s/p wound vac plan cardiology consult nephrology consult follo w blood culture close monitor of K , and correct as needed, patient given IV insulin and d50 , kayexalate hold BP meds resume eliquis fall precautions, PT/OT patient received 200 mcg of levothyroxin in the ED, however, due to CAD and advanced age, I suggest that she continues on 50 mcg daily , and follow TSH in 4-6 weeks and adjust dose as needed to target normalization of TSH IVF hydration , monitor urine output , alvarado cath care wound care insulin long acting, and sliding scale right femoral central venous cath care CODE STATUS:no code DVT prophylaxis: on eliquis Discussed with: Patient, ER, RN Anticipated length of stay > than [address]: pending clinical course A total of 75 minutes was spent on the care of this complex patient more than 50% of the time was spent in counseling and care coordination.
--- NOTE | 2020-11-02 21:45 | P.HPADDEND ---
H&P Addendum H&P Addendum Date: 11/02/20 Advanced Care Planning Active diagnoses: symptomatic bradycardia , and hypotension NATE on CKD Background: The patient was admitted for treatment of hyperkalemia with bradycardia and hypotension , NATE on ckd Discussion: Person(s) present and participating in discussion: The patient,and myself Summary: The patient does not want CPR or Intubation. She would allow for BIPAP if she needed it. Agreed for treatment with IV fluids, and other cardiac meds including pressors if needed. She agrees to all care that would maximize comfort. In the event that she was not able to make her own medical decisions she has elected her to make decisions. she prefers to go home after this hospital course, with home care if neede, but does not want to go to SNF. Time spent: Total time spent face to face in education and discussion directly related to advanced care plannin minutes
[2020-11-02 22:51] LABS: Calcium 9.2 mg/dL (8.4-10.2)
[2020-11-02 22:58] LABS: Potassium 6.1 mmol/L (3.5-5.1)
[2020-11-02] MEDS ORDERED: DEXTROSE 50% SYRINGE 50 ML IVP STA (23:22)
[2020-11-02] MEDS ORDERED: VANCOMYCIN IV PER PHARMACY 1 EACH MISC MISCELLANE PRN (23:42)
[2020-11-02 23:45] LABS: Glucose,Whole Blood 95 mg/dL (75-99)
[2020-11-02] MEDS ORDERED: VANCOMYCIN 2,000 MG in SODIUM CHLORIDE 0.9% 500 ML 500 ML IVPB ONE (23:45)
[2020-11-02] MEDS: INSULIN DETEMIR (LEVEMIR) 100 UNIT/ML SYR SQ SCH (23:50)
[2020-11-03 00:45] LABS: Amorphous Sediment,Urine Rare /hpf; Appearance,Urine Cloudy (Clear); Bacteria,Urine Occasional /hpf; Bilirubin,Urine Negative (Negative); Blood,Urine Trace (Negative); Color,Urine Yellow; Glucose,Urine (UA) Negative (Negative); Hyaline Casts,Urine 49 /lpf (0-2); Ketones,Urine Negative (Negative); Leukocyte Esterase,Urine Small (Negative); Mucus,Urine Rare /hpf; Nitrite,Urine Negative (Negative); Protein,Urine Trace (Negative); RBC,Urine 2 /hpf (0-5); Renal Epithelial Cells,Urine 13 /hpf (0); Squamous Epithelial Cell,Urine <1 /hpf (0-4); Urobilinogen,Urine <2.0 mg/dL (<2.0); WBC,Urine 8 /hpf (0-5)
[2020-11-03] MEDS: DEXTROSE 5% IN WATER 1,000 ML with SODIUM BICARB (1 MEQ/ML) 150 ML IV SCH ×3 (00:50→18:40)
[2020-11-03] MEDS: CEFEPIME 2 GM in SODIUM CHLORIDE 0.9% 100 ML IVPB SCH ×2 (00:51→08:58)
[2020-11-03 04:39] LABS: Albumin 2.5 g/dL (3.5-5.0); Calcium 8.6 mg/dL (8.4-10.2); Phosphorus 7.1 mg/dL (2.5-4.5); Potassium 5.8 mmol/L (3.5-5.1); Total Bilirubin 0.6 mg/dL (0.2-1.3); Total Protein 5.7 g/dL (6.3-8.2)
[2020-11-03 04:52] LABS: Anisocytosis Slight; HGB 11.7 gm/dL (11.4-16.0); Hypochromasia Marked; MCH 25.9 pg (25.0-35.0); MCV 86.3 fL (80.0-100.0); Mean Platelet Volume 9.6; Platelet Count 119 k/uL (150-450); RBC 4.52 m/uL (3.80-5.40); RDW 19.4 % (11.5-15.5)
[2020-11-03] MEDS ORDERED: SODIUM CHLORIDE 0.9% 500 ML 500 ML IV ONE (05:33)
[2020-11-03 05:40] LABS: Monocytes # (M) 0.45 k/uL (0-1.0); Neutrophils # (M) 14.01 k/uL (1.3-7.7); Neutrophils % (M) 94 %; Nucleated Red Blood Cells 2 /100 WBC (0-0); Total Cells Counted 200; WBC 14.9 k/uL (3.8-10.6)
[2020-11-03 05:41] LABS: Poikilocytosis (M) Present; Target Cells Present
[2020-11-03 05:42] LABS: Ovalocytes Present
[2020-11-03] MEDS ORDERED: FUROSEMIDE 10 MG/ML 10 ML VIAL IV STA ×2 (06:40→19:00)
[2020-11-03 06:51] LABS: Glucose,Whole Blood 148 mg/dL (75-99)
[2020-11-03] MEDS: INSULIN ASPART (NovoLOG) 100 UNIT/ML VIAL SQ SCH ×4 (07:10→20:49)
[2020-11-03] MEDS: NOREPINEPHRINE 32 MG in SODIUM CHLORIDE 0.9% 218 ML IV SCH ×2 (07:52→17:49)
[2020-11-03] MEDS: PANTOPRAZOLE 40 MG/10 ML VIAL IV SCH (08:57)
[2020-11-03] MEDS: ONDANSETRON 4 MG/2 ML VIAL IVP PRN (08:58)
--- NOTE | 2020-11-03 09:07 | XR ---
EXAMINATION TYPE: XR chest 1V portable DATE OF EXAM: 11/03/2020 COMPARISON: 11/02/2020 HISTORY: Shortness of breath TECHNIQUE: Single frontal view of the chest is obtained. FINDINGS: The heart is enlarged and there is bilateral infiltrate and pleural effusion with diffuse interstitial pattern. No pneumothorax IMPRESSION: Stable x-ray correlate for CHF otherwise consider pneumonia.
[2020-11-03] MEDS: LEVOTHYROXINE 50 MCG TAB PO SCH (09:15)
[2020-11-03] MEDS: MIDODRINE 5 MG TAB PO SCH ×3 (09:15→17:42)
[2020-11-03] MEDS: APIXABAN 2.5 MG TABLET PO SCH ×2 (09:16→20:48)
--- NOTE | 2020-11-03 10:41 | P.CNPUL ---
History of Present Illness Consult date: 11/03/20 Requesting physician: Marcus House Reason for consult: dyspnea, abnormal CXR/CT Chief complaint: Weakness, fatigue, altered mental status, sepsis, chronic wounds History of present illness: This 80-year-old white female patient of Dr. Young, with multiple medical problems including diabetes mellitus, hypertension, chronic A. fib, morbid obesity, recurrent cellulitis of the right lower extremity, lymphedema, left foot diabetic ulcers, osteomyelitis, and history of left transmetatarsal amputation and wound VAC application on 08/24/2020. Wound cultures were positive for MSSA and Pseudomonas, and patient was receiving IV antibiotics with cefepime with a stop date of 10/05/2020. Patient was brought into the emergency department on 11/02/2020 for evaluation of fatigue, general weakness, altered mentation with onset of symptoms 5 days prior to presentation. Patient has a wound VAC in place on her left foot. Apparently she has been more drowsy, unable to participate with therapy, and she was bradycardic and hypotensive. Her lab data showed acute on chronic kidney injury, and hyperkalemia with potassium level of 6.8, urinalysis did not show evidence of infection, admission chest x-ray showed cardiomegaly and basilar effusions. COVID 19 test was negative. Patient was very hypotensive in the emergency department with blood pressure of 66/53, EKG showed slow atrial fibrillation with a rate of 40-50 BPM. Patient has been hypothermic with a temp as low as 92F. She has been fluid resuscitated with a 3-1/2 L and IV fluid boluses, currently remains on D5W with 3 A of bicarbonate at 1:30 ML per hour, 0.9 at 10 ML per hour, and even if it is currently a 65 mics per minute, she is quite drowsy, appears to be in no acute distress, she is arousable to repeated verbal stimulation, however she is not verbally responding, she is currently on 3 L of oxygen, and her pulse ox is 93%, her temperature has improved, and is up to 97.4, current blood pressures 94/55 with a map of 68. She remains in atrial fibrillation on the monitor with a rate of 89, she has received several rounds of 50% dextrose, and regular insulin, bicarbonate IV pushes, she received 1 dose of IV Lasix 60 mg, and currently her potassium is 5.9. Nephrology is following. Patient is oliguric, making about 20-35 ML per hour, nephrology is following, antibiotics in the form of cefepime and vancomycin,, blood culture sent and pending, lactic acid is 4.2 Review of Systems All systems: negative Constitutional: Reports fatigue, Reports lethargy, Reports weakness, Denies chills, Denies fever Eyes: denies blurred vision, denies pain Ears, nose, mouth and throat: Denies headache, Denies sore throat Cardiovascular: Denies chest pain, Denies shortness of breath Respiratory: Denies cough Gastrointestinal: Denies abdominal pain, Denies diarrhea, Denies nausea, Denies vomiting Genitourinary: Denies dysuria, Denies hematuria Musculoskeletal: Denies myalgias Integumentary: Denies pruritus, Denies rash Neurological: Reports change in mentation, Denies numbness, Denies weakness Psychiatric: Denies anxiety, Denies depression Endocrine: Denies fatigue, Denies weight change Past Medical History Past Medical History: Atrial Fibrillation, Diabetes Mellitus, Hypertension Additional Past Medical History / Comment(s): Obesity , hypertension, chronic atrial fibrillation, diabetes mellitus, recurrent cellulitis the right lower extremity, lymphedema of the right lower extremity, osteoarthritis History of Any Multi-Drug Resistant Organisms: None Reported Past Surgical History: Section, Cholecystectomy, Hernia Repair Additional Past Surgical History / Comment(s): Abdominal hernia repair with mesh, benign lump removed right breast, bilateral cataract removal with lens implants. all toes on left foot amputated Past Anesthesia/Blood Transfusion Reactions: No Reported Reaction Past Psychological History: No Psychological Hx Reported Smoking Status: Former smoker Past Alcohol Use History: None Reported Past Drug Use History: None Reported - Past Family History Father Family Medical History: Coronary Artery Disease (CAD), Myocardial Infarction (NH) Additional Family Medical History / Comment(s): Father had several MIs with the first time being while he was in his 50s. He of a NH at the age of 75 yrs. Mother Family Medical History: No Reported History Additional Family Medical History / Comment(s): Mother was healthy and lived to be 91 yrs old. Medications and Allergies Home Medications Medication Instructions Recorded Confirmed Type Apixaban [Eliquis] 5 mg PO BID #0 tab 10/06/17 11/02/20 Rx Insulin Glargine,Hum.rec.anlog 15 unit SQ HS 08/23/20 11/02/20 History [Lantus Solostar] Insulin Aspart [NovoLOG Flexpen] 15 units SQ AC-BRKFST 11/02/20 11/02/20 History Insulin Aspart [NovoLOG Flexpen] 20 units SQ AC-LUNCH 11/02/20 11/02/20 History Insulin Aspart [NovoLOG Flexpen] 30 units SQ HS 11/02/20 11/02/20 History Losartan Potassium 100 mg PO HS 11/02/20 11/02/20 History Metoprolol Tartrate [Lopressor] 50 mg PO BID 11/02/20 11/02/20 History Multivit with Calcium,Iron,Min 1 tab PO DAILY 11/02/20 11/02/20 History [Women's Multivitamin] Potassium Chloride 8 meq PO AC-SUPPER 11/02/20 11/02/20 History amLODIPine [Norvasc] 10 mg PO DAILY 11/02/20 11/02/20 History hydroCHLOROthiazide [Hydrodiuril] 25 mg PO DAILY 11/02/20 11/02/20 History Allergies Allergy/AdvReac Type Severity Reaction Status Date / Time Penicillins Allergy Rash/Hives Verified 11/02/20 13:46 Physical Exam Vitals: Vital Signs Temp Pulse Resp BP Pulse Ox 11/03/20 09:00 84 15 72/50 95 11/03/20 08:45 93 26 H 109/54 94 L 11/03/20 08:30 108 H 18 111/48 94 L 11/03/20 08:15 95 32 H 110/40 94 L 11/03/20 08:00 97.4 F L 84 22 82/47 94 L 11/03/20 07:45 75 30 H 105/55 94 L 11/03/20 07:30 86 9 L 81/61 95 11/03/20 07:15 92 17 149/46 94 L 11/03/20 07:00 74 14 130/50 93 L 11/03/20 06:45 85 24 94 L 11/03/20 06:30 74 113/35 94 L 11/03/20 06:15 84 115/61 94 L 11/03/20 06:00 67 20 83/51 93 L 11/03/20 05:45 80 83/62 93 L 01/13/21 05:30 76 89/50 94 L 11/03/20 05:15 73 99/68 93 L 11/03/20 05:00 87 20 99/46 94 L 11/03/20 04:45 99 93 L 11/03/20 04:30 68 94/43 93 L 11/03/20 04:15 83 90/41 94 L 11/03/20 04:00 94.5 F L 59 L 16 86/70 94 L 11/03/20 03:45 78 103/42 94 L 11/03/20 03:30 90 115/91 95 11/03/20 03:15 101 H 115/91 95 11/03/20 03:00 93.9 F L 78 18 133/97 95 11/03/20 02:45 86 136/98 95 11/03/20 02:30 58 L 85/50 89 L 11/03/20 02:15 107/55 92 L 11/03/20 02:00 64 21 95 11/03/20 01:45 16 91/46 94 L 11/03/20 01:30 69 19 96 11/03/20 01:15 78 20 94 L 11/03/20 01:00 72 12 89/62 96 11/03/20 00:45 61 16 102/69 94 L 11/03/20 00:30 76 14 111/39 95 11/03/20 00:15 92.8 F L 76 9 L 104/56 97 11/03/20 00:00 79 22 95 11/02/20 23:45 68 27 H 102/49 97 11/02/20 23:30 83 14 98/77 97 11/02/20 23:15 67 17 80/67 98 11/02/20 23:00 67 16 104/59 97 11/02/20 22:45 69 16 85/49 97 11/02/20 22:30 57 L 16 90/58 97 11/02/20 22:15 75 22 108/80 97 11/02/20 22:00 70 16 107/65 98 11/02/20 21:45 72 11 L 104/71 98 11/02/20 21:30 74 16 93/50 97 11/02/20 21:15 70 16 99/52 97 11/02/20 21:00 68 19 88/40 99 11/02/20 20:45 68 16 95/44 98 11/02/20 20:31 93 L 11/02/20 20:30 92 F L 67 10 L 88/44 97 11/02/20 20:15 66 16 11/02/20 19:02 97.2 F L 66 12 117/86 97 11/02/20 18:29 97.2 F L 63 12 91/63 97 11/02/20 18:02 10 L 11/02/20 18:00 97.4 F L 67 12 90/57 98 11/02/20 17:45 54 L 10 L 67/37 98 11/02/20 17:30 63 11 L 89/20 97 11/02/20 17:15 13 111/98 97 11/02/20 17:00 12 59/39 98 11/02/20 16:45 11 L 70/34 97 11/02/20 16:30 62 10 L 59/41 98 11/02/20 16:15 55 L 11 L 97 11/02/20 16:13 55 L 11/02/20 16:00 54 L 11 L 52/36 97 11/02/20 15:48 64 12 83/47 95 11/02/20 15:45 61 12 57/23 98 11/02/20 15:32 61 12 67/42 96 11/02/20 15:30 47 L 11 L 68/33 98 11/02/20 15:15 71 13 91/43 96 11/02/20 15:00 57 L 13 58/31 97 11/02/20 14:45 60 12 113/94 97 11/02/20 14:42 71 12 113/94 97 11/02/20 14:32 97.0 F L 80 13 91/68 95 11/02/20 14:30 84 11 L 121/72 91 L 11/02/20 14:15 64 10 L 66/53 100 11/02/20 14:00 46 L 12 99 11/02/20 13:39 41 L 18 100 Intake and Output 11/02/20 11/03/20 11/03/20 22:59 06:59 14:59 Intake Total 979.071 6674.081 481.463 Output Total 30 135 80 Balance 646.204 0200.081 401.463 Intake: IV 260 1040 425 .9 10 Cefepime 2 gm In Sodium 25 Chloride 0.9% 100 ml @ 25 mls/hr IVPB Q12HR JANET Rx #:[id number] Dextrose 5% in Water 1, 780 390 000 ml @ 130 mls/hr IV . Q8H51M JANET with Sodium Bicarb (1 Meq/ml) 150 ml Rx#:[id number] Sodium Chloride 0.9% 1, 260 260 000 ml @ 130 mls/hr IV . Q7H42M JANET Rx#:[id number] Intake, IV Titration 23.848 116.081 56.463 Amount Norepinephrine 32 mg In 23.848 116.081 56.463 Sodium Chloride 0.9% 218 ml @ 0.05 MCG/KG/MIN 2. 594 mls/hr IV .Q24H JANET Rx#:[id number] Output: Urine 30 135 80 Other: Voiding Method Indwelling Catheter Indwelling Catheter Weight 126.5 kg 129.5 kg GENERAL EXAM: Confused, drowsy, but arousable 80-year-old chronically ill looking obese white female, on 3 L of oxygen with a pulse ox of 94%, comfortable in no apparent distress. HEAD: Normocephalic/atraumatic. EYES: Normal reaction of pupils, equal size. Conjunctiva pink, sclera white. NOSE: Clear with pink turbinates. THROAT: No erythema or exudates. NECK: No masses, no JVD, no thyroid enlargement, no adenopathy. CHEST: No chest wall deformity. Symmetrical expansion. LUNGS: Equal air entry with diminished breath sounds CVS: Regular rate and rhythm, normal S1 and S2, no gallops, no murmurs, no rubs ABDOMEN: Soft, nontender. No hepatosplenomegaly, normal bowel sounds, no guarding or rigidity. EXTREMITIES: No clubbing, nonpitting lower extremity edema, no cyanosis, 2+ pulses and upper and lower extremities. Left foot wound and wound VAC on and black foam, left foot toes amputated MUSCULOSKELETAL: Muscle strength and tone normal. SPINE: No scoliosis or deformity SKIN: No rashes CENTRAL NERVOUS SYSTEM: Drowsy, arousable, no focal deficits, tone is normal in all 4 extremities. Results - Laboratory Findings CBC and BMP: 11/03/20 04:08 11/03/20 04:08 PT/INR, D-dimer PT 13.0 sec (9.0-12.0) H 11/02/20 14:19 INR 1.3 (<1.2) H 11/02/20 14:19 Abnormal lab findings: Abnormal Labs 11/02/20 11/02/20 11/02/20 00:10 14:11 14:19 WBC MCHC 30.8 L RDW 19.2 H Plt Count 113 L Neutrophils # 8.4 H Neutrophils # (Manual) Lymphocytes # 0.7 L Lymphocytes # (Manual) Nucleated RBCs PT INR APTT Potassium Chloride Carbon Dioxide BUN Creatinine Glucose POC Glucose (mg/dL) 150 H Plasma Lactic Acid Nacho Phosphorus AST Alkaline Phosphatase Total Protein Albumin TSH Free T3 pg/mL Urine Appearance Cloudy H Urine Protein Trace H Urine Blood Trace H Ur Leukocyte Esterase Small H Urine WBC 8 H Amorphous Sediment Rare H Urine Bacteria Occasional H Hyaline Casts 49 H Urine Mucus Rare H 11/02/20 11/02/20 11/02/20 14:19 14:19 14:19 WBC MCHC RDW Plt Count Neutrophils # Neutrophils # (Manual) Lymphocytes # Lymphocytes # (Manual) Nucleated RBCs PT 13.0 H INR 1.3 H APTT 35.5 H Potassium 6.8 H* Chloride Carbon Dioxide 18 L BUN 64 H Creatinine 3.98 H Glucose 152 H POC Glucose (mg/dL) Plasma Lactic Acid Nacho Phosphorus AST 40 H Alkaline Phosphatase 134 H Total Protein Albumin 3.0 L TSH 24.000 H Free T3 pg/mL 2.2 L Urine Appearance Urine Protein Urine Blood Ur Leukocyte Esterase Urine WBC Amorphous Sediment Urine Bacteria Hyaline Casts Urine Mucus 11/02/20 11/02/20 11/02/20 17:54 20:14 22:14 WBC MCHC RDW Plt Count Neutrophils # Neutrophils # (Manual) Lymphocytes # Lymphocytes # (Manual) Nucleated RBCs PT INR APTT Potassium 5.9 H 6.1 H* Chloride 110 H Carbon Dioxide 16 L BUN 61 H Creatinine 3.85 H Glucose POC Glucose (mg/dL) 108 H Plasma Lactic Acid Nacho Phosphorus AST Alkaline Phosphatase Total Protein Albumin TSH Free T3 pg/mL Urine Appearance Urine Protein Urine Blood Ur Leukocyte Esterase Urine WBC Amorphous Sediment Urine Bacteria Hyaline Casts Urine Mucus 11/03/20 11/03/20 11/03/20 00:10 04:08 04:08 WBC 14.9 H MCHC 30.0 L RDW 19.4 H Plt Count 119 L Neutrophils # Neutrophils # (Manual) 14.01 H Lymphocytes # Lymphocytes # (Manual) 0.60 L Nucleated RBCs 2 H PT INR APTT Potassium 5.8 H Chloride 110 H Carbon Dioxide 16 L BUN 61 H Creatinine 3.60 H Glucose 123 H POC Glucose (mg/dL) Plasma Lactic Acid Nacho 4.2 H* Phosphorus 7.1 H AST 38 H Alkaline Phosphatase Total Protein 5.7 L Albumin 2.5 L TSH Free T3 pg/mL Urine Appearance Urine Protein Urine Blood Ur Leukocyte Esterase Urine WBC Amorphous Sediment Urine Bacteria Hyaline Casts Urine Mucus 11/03/20 11/03/20 11/03/20 04:08 06:50 07:28 WBC MCHC RDW Plt Count Neutrophils # Neutrophils # (Manual) Lymphocytes # Lymphocytes # (Manual) Nucleated RBCs PT INR APTT Potassium Chloride Carbon Dioxide BUN Creatinine Glucose POC Glucose (mg/dL) 148 H Plasma Lactic Acid Nacho 4.4 H* 3.4 H* Phosphorus AST Alkaline Phosphatase Total Protein Albumin TSH Free T3 pg/mL Urine Appearance Urine Protein Urine Blood Ur Leukocyte Esterase Urine WBC Amorphous Sediment Urine Bacteria Hyaline Casts Urine Mucus - Diagnostic Findings Chest x-ray: report reviewed, image reviewed Additional studies: EKG reviewed Assessment and Plan Plan: Assessment: #1. Acute hypoxic respiratory failure related to sepsis with septic shock, possibly including left foot wound #2. Recent hospitalization in August with left foot wound cellulitis, osteomyelitis, gangrene, status post transmetatarsal amputation of the toes and placement of wound VAC, wound cultures positive for pseudomonas and MSSA, patient received 6 weeks with IV cefepime, with stop date of 10/05/2020 #3. Acute kidney injury #4. Chronic kidney disease stage III at baseline #5. Lactic acidosis related to septic shock #6. Diabetes mellitus type 2 #7. Hyperkalemia related to acute on chronic kidney injury, with bradycardia, improved with treatment #8. Hypertension #9. Hyperlipidemia #10. Chronic edema with chronic venous insufficiency #11. Chronic A. fib on Eliquis #12. Morbid obesity Plan: Continue current IV fluids, antibiotics, blood cultures have been sent and pending, patient is requiring high-dose vasopressors, may add midodrine or vasopressin, continue monitoring electrolytes, potassium level, nephrology is following. Annual anticoagulation, heart rate his improvement in potassium level was 5.8. Continue GI prophylaxis. CODE STATUS is DO NOT RESUSCITATE, continue to provide supportive treatment, will monitor in the intensive care unit I performed a history & physical examination of the patient and discussed their management with my nurse practitioner, Charito Keller. I reviewed the nurse practitioner's note and agree with the documented findings and plan of care. Lung sounds are positive for diminished breath sounds. The findings and the impression was discussed with the patient. I attest to the documentation by the nurse practitioner. Time with Patient: Greater than 30
[2020-11-03 11:18] LABS: Calcium 8.5 mg/dL (8.4-10.2); Potassium 5.8 mmol/L (3.5-5.1)
[2020-11-03] MEDS ORDERED: INSULIN REGULAR 100 UNIT/ML VIAL IV ONE ×2 (11:21→18:59)
[2020-11-03] MEDS ORDERED: DEXTROSE 50% SYRINGE 50 ML IVP STA ×2 (11:22→18:59)
[2020-11-03 11:38] LABS: Glucose,Whole Blood 171 mg/dL (75-99)
[2020-11-03] MEDS ORDERED: SODIUM CHLORIDE 0.9% 1,000 ML IV ONE (11:56)
[2020-11-03] MEDS: NYSTATIN 100,000 UNIT/GM POWD 15 GM TOPICAL SCH ×2 (12:03→20:50)
--- NOTE | 2020-11-03 12:30 | P.PN ---
Subjective Progress Note Date: 11/03/20 Patient is awake and alert today. She was able to answer questions appropriately to me. Nursing staff informed me that at times she appeared confused. She is still requiring norepinephrine at 70 g per hour. Blood pressure is being checked with the automatic cuff. Apparently the health companion did not think at the arterial line is needed at this time. Patient was also sedated appropriately with IV fluids and received more than 3 L since admission. Urine output is acceptable. Objective - Vital Signs Vital signs: Vital Signs Temp 97.4 F L 11/03/20 08:00 Pulse 100 11/03/20 11:00 Resp 4 L 11/03/20 11:00 BP 81/41 11/03/20 11:00 Pulse Ox 94 L 11/03/20 11:00 Intake & Output 11/02/20 11/03/20 11/03/20 18:59 06:59 18:59 Intake Total 2.231 1437.698 911.463 Output Total 165 150 Balance 2.231 1272.698 761.463 Weight 110.677 kg 129.5 kg Intake: IV 1300 735 .9 10 Cefepime 2 gm In Sodium 75 Chloride 0.9% 100 ml @ 25 mls/hr IVPB Q12HR JANET Rx #:[id number] Dextrose 5% in Water 1, 780 650 000 ml @ 130 mls/hr IV . Q8H51M JANET with Sodium Bicarb (1 Meq/ml) 150 ml Rx#:[id number] Sodium Chloride 0.9% 1, 520 000 ml @ 130 mls/hr IV . Q7H42M JANET Rx#:[id number] Intake, IV Titration 2.231 137.698 56.463 Amount Norepinephrine 32 mg In 2.231 137.698 56.463 Sodium Chloride 0.9% 218 ml @ 0.05 MCG/KG/MIN 2. 594 mls/hr IV .Q24H JANET Rx#:[id number] Oral 120 Output: Urine 165 150 Other: Voiding Method Indwelling Catheter - Exam General: The patient is awake and alert, in no distress Eye: there is normal conjunctiva bilaterally. Neck: The neck is supple, there is no JVD. Cardiovascular: Normal S1-S2, no S3-S4, no murmurs. Respiratory: Lungs clear to auscultation bilaterally Gastrointestinal: Abdomen is soft, nontender Musculoskeletal: There is edema and anasarca up to the hip . Wound VAC in place on left foot. Both legs wrapped in Tio wrap up to the knees. Neurological:. Speech is normal. Skin: Skin is warm and dry . There is evidence of skin candidiasis in the abdominal folds. - Labs CBC & Chem 7: 11/03/20 04:08 11/03/20 10:43 Labs: Abnormal Lab Results - Last 24 Hours (Table) 11/02/20 11/02/20 11/02/20 Range/Units 00:10 14:11 14:19 WBC (3.8-10.6) k/uL MCHC 30.8 L (31.0-37.0) g/dL RDW 19.2 H (11.5-15.5) % Plt Count 113 L (150-450) k/uL Neutrophils # 8.4 H (1.3-7.7) k/uL Neutrophils # (Manual) (1.3-7.7) k/uL Lymphocytes # 0.7 L (1.0-4.8) k/uL Lymphocytes # (Manual) (1.0-4.8) k/uL Nucleated RBCs (0-0) /100 WBC PT (9.0-12.0) sec INR (<1.2) APTT (22.0-30.0) sec Potassium (3.5-5.1) mmol/L Chloride (98-107) mmol/L Carbon Dioxide (22-30) mmol/L BUN (7-17) mg/dL Creatinine (0.52-1.04) mg/dL Glucose (74-99) mg/dL POC Glucose (mg/dL) 150 H (75-99) mg/dL Plasma Lactic Acid Nacho (0.7-2.0) mmol/L Phosphorus (2.5-4.5) mg/dL AST (14-36) U/L Alkaline Phosphatase (38-126) U/L Total Protein (6.3-8.2) g/dL Albumin (3.5-5.0) g/dL TSH (0.465-4.680) mIU/L Free T3 pg/mL (2.8-5.3) pg/ml Urine Appearance Cloudy H (Clear) Urine Protein Trace H (Negative) Urine Blood Trace H (Negative) Ur Leukocyte Esterase Small H (Negative) Urine WBC 8 H (0-5) /hpf Amorphous Sediment Rare H (None) /hpf Urine Bacteria Occasional H (None) /hpf Hyaline Casts 49 H (0-2) /lpf Urine Mucus Rare H (None) /hpf 11/02/20 11/02/20 11/02/20 Range/Units 14:19 14:19 14:19 WBC (3.8-10.6) k/uL MCHC (31.0-37.0) g/dL RDW (11.5-15.5) % Plt Count (150-450) k/uL Neutrophils # (1.3-7.7) k/uL Neutrophils # (Manual) (1.3-7.7) k/uL Lymphocytes # (1.0-4.8) k/uL Lymphocytes # (Manual) (1.0-4.8) k/uL Nucleated RBCs (0-0) /100 WBC PT 13.0 H (9.0-12.0) sec INR 1.3 H (<1.2) APTT 35.5 H (22.0-30.0) sec Potassium 6.8 H* (3.5-5.1) mmol/L Chloride (98-107) mmol/L Carbon Dioxide 18 L (22-30) mmol/L BUN 64 H (7-17) mg/dL Creatinine 3.98 H (0.52-1.04) mg/dL Glucose 152 H (74-99) mg/dL POC Glucose (mg/dL) (75-99) mg/dL Plasma Lactic Acid Nacho (0.7-2.0) mmol/L Phosphorus (2.5-4.5) mg/dL AST 40 H (14-36) U/L Alkaline Phosphatase 134 H (38-126) U/L Total Protein (6.3-8.2) g/dL Albumin 3.0 L (3.5-5.0) g/dL TSH 24.000 H (0.465-4.680) mIU/L Free T3 pg/mL 2.2 L (2.8-5.3) pg/ml Urine Appearance (Clear) Urine Protein (Negative) Urine Blood (Negative) Ur Leukocyte Esterase (Negative) Urine WBC (0-5) /hpf Amorphous Sediment (None) /hpf Urine Bacteria (None) /hpf Hyaline Casts (0-2) /lpf Urine Mucus (None) /hpf 11/02/20 11/02/20 11/02/20 Range/Units 17:54 20:14 22:14 WBC (3.8-10.6) k/uL MCHC (31.0-37.0) g/dL RDW (11.5-15.5) % Plt Count (150-450) k/uL Neutrophils # (1.3-7.7) k/uL Neutrophils # (Manual) (1.3-7.7) k/uL Lymphocytes # (1.0-4.8) k/uL Lymphocytes # (Manual) (1.0-4.8) k/uL Nucleated RBCs (0-0) /100 WBC PT (9.0-12.0) sec INR (<1.2) APTT (22.0-30.0) sec Potassium 5.9 H 6.1 H* (3.5-5.1) mmol/L Chloride 110 H (98-107) mmol/L Carbon Dioxide 16 L (22-30) mmol/L BUN 61 H (7-17) mg/dL Creatinine 3.85 H (0.52-1.04) mg/dL Glucose (74-99) mg/dL POC Glucose (mg/dL) 108 H (75-99) mg/dL Plasma Lactic Acid Nacho (0.7-2.0) mmol/L Phosphorus (2.5-4.5) mg/dL AST (14-36) U/L Alkaline Phosphatase (38-126) U/L Total Protein (6.3-8.2) g/dL Albumin (3.5-5.0) g/dL TSH (0.465-4.680) mIU/L Free T3 pg/mL (2.8-5.3) pg/ml Urine Appearance (Clear) Urine Protein (Negative) Urine Blood (Negative) Ur Leukocyte Esterase (Negative) Urine WBC (0-5) /hpf Amorphous Sediment (None) /hpf Urine Bacteria (None) /hpf Hyaline Casts (0-2) /lpf Urine Mucus (None) /hpf 11/03/20 11/03/20 11/03/20 Range/Units 00:10 04:08 04:08 WBC 14.9 H (3.8-10.6) k/uL MCHC 30.0 L (31.0-37.0) g/dL RDW 19.4 H (11.5-15.5) % Plt Count 119 L (150-450) k/uL Neutrophils # (1.3-7.7) k/uL Neutrophils # (Manual) 14.01 H (1.3-7.7) k/uL Lymphocytes # (1.0-4.8) k/uL Lymphocytes # (Manual) 0.60 L (1.0-4.8) k/uL Nucleated RBCs 2 H (0-0) /100 WBC PT (9.0-12.0) sec INR (<1.2) APTT (22.0-30.0) sec Potassium 5.8 H (3.5-5.1) mmol/L Chloride 110 H (98-107) mmol/L Carbon Dioxide 16 L (22-30) mmol/L BUN 61 H (7-17) mg/dL Creatinine 3.60 H (0.52-1.04) mg/dL Glucose 123 H (74-99) mg/dL POC Glucose (mg/dL) (75-99) mg/dL Plasma Lactic Acid Nacho 4.2 H* (0.7-2.0) mmol/L Phosphorus 7.1 H (2.5-4.5) mg/dL AST 38 H (14-36) U/L Alkaline Phosphatase (38-126) U/L Total Protein 5.7 L (6.3-8.2) g/dL Albumin 2.5 L (3.5-5.0) g/dL TSH (0.465-4.680) mIU/L Free T3 pg/mL (2.8-5.3) pg/ml Urine Appearance (Clear) Urine Protein (Negative) Urine Blood (Negative) Ur Leukocyte Esterase (Negative) Urine WBC (0-5) /hpf Amorphous Sediment (None) /hpf Urine Bacteria (None) /hpf Hyaline Casts (0-2) /lpf Urine Mucus (None) /hpf 11/03/20 11/03/20 11/03/20 Range/Units 04:08 06:50 07:28 WBC (3.8-10.6) k/uL MCHC (31.0-37.0) g/dL RDW (11.5-15.5) % Plt Count (150-450) k/uL Neutrophils # (1.3-7.7) k/uL Neutrophils # (Manual) (1.3-7.7) k/uL Lymphocytes # (1.0-4.8) k/uL Lymphocytes # (Manual) (1.0-4.8) k/uL Nucleated RBCs (0-0) /100 WBC PT (9.0-12.0) sec INR (<1.2) APTT (22.0-30.0) sec Potassium (3.5-5.1) mmol/L Chloride (98-107) mmol/L Carbon Dioxide (22-30) mmol/L BUN (7-17) mg/dL Creatinine (0.52-1.04) mg/dL Glucose (74-99) mg/dL POC Glucose (mg/dL) 148 H (75-99) mg/dL Plasma Lactic Acid Nacho 4.4 H* 3.4 H* (0.7-2.0) mmol/L Phosphorus (2.5-4.5) mg/dL AST (14-36) U/L Alkaline Phosphatase (38-126) U/L Total Protein (6.3-8.2) g/dL Albumin (3.5-5.0) g/dL TSH (0.465-4.680) mIU/L Free T3 pg/mL (2.8-5.3) pg/ml Urine Appearance (Clear) Urine Protein (Negative) Urine Blood (Negative) Ur Leukocyte Esterase (Negative) Urine WBC (0-5) /hpf Amorphous Sediment (None) /hpf Urine Bacteria (None) /hpf Hyaline Casts (0-2) /lpf Urine Mucus (None) /hpf 11/03/20 11/03/20 Range/Units 10:43 10:43 WBC (3.8-10.6) k/uL MCHC (31.0-37.0) g/dL RDW (11.5-15.5) % Plt Count (150-450) k/uL Neutrophils # (1.3-7.7) k/uL Neutrophils # (Manual) (1.3-7.7) k/uL Lymphocytes # (1.0-4.8) k/uL Lymphocytes # (Manual) (1.0-4.8) k/uL Nucleated RBCs (0-0) /100 WBC PT (9.0-12.0) sec INR (<1.2) APTT (22.0-30.0) sec Potassium 5.8 H (3.5-5.1) mmol/L Chloride 109 H (98-107) mmol/L Carbon Dioxide 18 L (22-30) mmol/L BUN 60 H (7-17) mg/dL Creatinine 3.67 H (0.52-1.04) mg/dL Glucose 178 H (74-99) mg/dL POC Glucose (mg/dL) (75-99) mg/dL Plasma Lactic Acid Nacho 3.7 H* (0.7-2.0) mmol/L Phosphorus (2.5-4.5) mg/dL AST (14-36) U/L Alkaline Phosphatase (38-126) U/L Total Protein (6.3-8.2) g/dL Albumin (3.5-5.0) g/dL TSH (0.465-4.680) mIU/L Free T3 pg/mL (2.8-5.3) pg/ml Urine Appearance (Clear) Urine Protein (Negative) Urine Blood (Negative) Ur Leukocyte Esterase (Negative) Urine WBC (0-5) /hpf Amorphous Sediment (None) /hpf Urine Bacteria (None) /hpf Hyaline Casts (0-2) /lpf Urine Mucus (None) /hpf Assessment and Plan Assessment: This is a 80-year-old female with complex past medical history noted below who presented to the emergency room with fatigue and generalized weakness. Patient was evaluated in the ER and admitted to the hospital for further management of her medical problems noted below. 1. Severe sepsis with septic shock: Requiring norepinephrine. Also started on midodrine by ICU physician. Resuscitated appropriately with IV fluid since admission. Currently on broad-spectrum antibiotic with vancomycin and cefepime. Blood culture sent and pending. Lactic acid trending down but not back to normal yet. Patient was hypothermic on presentation but now her temperature improved and is back to normal range. Infectious disease consulted for further evaluation. 2. Acute kidney injury: Nonoliguric. Secondary to sepsis and hypotension. Received aggressive IV fluid hydration. Nephrology following closely. 3. Hyperkalemia: Treated medically. Repeat lab work pending. 4. Sinus bradycardia: Now resolved. Probably secondary to electrolyte disturbance. Cardiology consulted for further evaluation. 5. Metabolic acidosis, started on bicarb drip by nephrology at 130 mL per hour 6. Chronic atrial fibrillation on anticoagulation with Eliquis. Dose adjusted by cardiology to 2.5 mg twice daily 7. 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 8. Stage IIIB chronic kidney disease: Baseline creatinine around 1.5 9. GI and DVT prophylaxis: With IV Protonix and a liquids 10. CODE STATUS: Patient is DO NOT RESUSCITATE/DO NOT INTUBATE
--- NOTE | 2020-11-03 12:31 | P.CONS ---
History of Present Illness - Reason for Consult Consult date: 11/03/20 wound care - History of Present Illness is an 80-year-old patient being seen in ICU for nonhealing ulceration to the left foot metatarsal amputation site. Patient is known patient to the wound care center. She has had a wound VAC in place. Patient has been coming to the wound care center for weekly debridements. She has tunneling area noted to the inferior portion of the ulceration. However granulation seen throughout. Patient has been tolerating wound VAC. Review Of Systems: Constitutional: No fever, no chills, no night sweats. No weight change. No weakness, fatigue or lethargy. No daytime sleepiness. Integumentary:reports wounds, no lesions. No rash or pruritus. No unusual bruising. No change in hair or nails. Original cause of wound was Surgical Injury. The wound is currently classified as a Grade 3 wound with etiology of Diabetic Wound/Ulcer of the Lower Extremity and is located on the Left Amputation Site - Transmetatarsal. The wound measures 4.1cm length x 6.8cm width x 0.6cm depth; 21.897cm^2 area and 13.138cm^3 volume. There is no tunneling or undermining noted. There is a medium amount of serosanguineous drainage noted. The wound margin is distinct with the outline attached to the wound base. There is large (67-100%) red granulation within the wound bed. There is a small (1-33%) amount of necrotic tissue within the wound bed including Adherent Slough. The periwound skin appearance exhibited: Hemosiderin Staining. The periwound skin appearance did not exhibit: Callus, Crepitus, Excoriation, Induration, Rash, Scarring, Dry/Scaly, Maceration, Atrop hie [place], Cyanosis, Ecchymosis, Mottled, Pallor, Rubor, Erythema. Periwound temperature was noted as No Abnormality. Past Medical History Past Medical History: Atrial Fibrillation, Diabetes Mellitus, Hypertension Additional Past Medical History / Comment(s): Obesity , hypertension, chronic atrial fibrillation, diabetes mellitus, recurrent cellulitis the right lower extremity, lymphedema of the right lower extremity, osteoarthritis History of Any Multi-Drug Resistant Organisms: None Reported Past Surgical History: Section, Cholecystectomy, Hernia Repair Additional Past Surgical History / Comment(s): Abdominal hernia repair with mesh, benign lump removed right breast, bilateral cataract removal with lens implants. all toes on left foot amputated Past Anesthesia/Blood Transfusion Reactions: No Reported Reaction Past Psychological History: No Psychological Hx Reported Smoking Status: Former smoker Past Alcohol Use History: None Reported Past Drug Use History: None Reported - Past Family History Father Family Medical History: Coronary Artery Disease (CAD), Myocardial Infarction (MD) Additional Family Medical History / Comment(s): Father had several MIs with the first time being while he was in his 50s. He of a MD at the age of 75 yrs. Mother Family Medical History: No Reported History Additional Family Medical History / Comment(s): Mother was healthy and lived to be 91 yrs old. Medications and Allergies Home Medications Medication Instructions Recorded Confirmed Type Apixaban [Eliquis] 5 mg PO BID #0 tab 10/06/17 11/02/20 Rx Insulin Glargine,Hum.rec.anlog 15 unit SQ HS 08/23/20 11/02/20 History [Lantus Solostar] Insulin Aspart [NovoLOG Flexpen] 15 units SQ AC-BRKFST 11/02/20 11/02/20 History Insulin Aspart [NovoLOG Flexpen] 20 units SQ AC-LUNCH 11/02/20 11/02/20 History Insulin Aspart [NovoLOG Flexpen] 30 units SQ HS 11/02/20 11/02/20 History Losartan Potassium 100 mg PO HS 11/02/20 11/02/20 History Metoprolol Tartrate [Lopressor] 50 mg PO BID 11/02/20 11/02/20 History Multivit with Calcium,Iron,Min 1 tab PO DAILY 11/02/20 11/02/20 History [Women's Multivitamin] Potassium Chloride 8 meq PO AC-SUPPER 11/02/20 11/02/20 History amLODIPine [Norvasc] 10 mg PO DAILY 11/02/20 11/02/20 History hydroCHLOROthiazide [Hydrodiuril] 25 mg PO DAILY 11/02/20 11/02/20 History Allergies Allergy/AdvReac Type Severity Reaction Status Date / Time Penicillins Allergy Rash/Hives Verified 11/02/20 13:46 Physical Exam Vitals: Vital Signs Temp Pulse Resp BP Pulse Ox 11/03/20 11:00 100 4 L 81/41 94 L 11/03/20 10:45 85 7 L 94/46 94 L 11/03/20 10:30 87 5 L 103/65 93 L 11/03/20 10:15 99 13 79/66 93 L 11/03/20 10:00 89 20 94/55 93 L 11/03/20 09:45 80 20 89/47 94 L 11/03/20 09:30 85 20 78/63 95 11/03/20 09:15 77 17 71/40 94 L 11/03/20 09:00 84 15 72/50 95 11/03/20 08:45 93 26 H 109/54 94 L 11/03/20 08:30 108 H 18 111/48 94 L 11/03/20 08:15 95 32 H 110/40 94 L 11/03/20 08:00 97.4 F L 84 22 82/47 94 L 11/03/20 07:45 75 30 H 105/55 94 L 11/03/20 07:30 86 9 L 81/61 95 11/03/20 07:15 92 17 149/46 94 L 11/03/20 07:00 74 14 130/50 93 L 11/03/20 06:45 85 24 94 L 11/03/20 06:30 74 113/35 94 L 11/03/20 06:15 84 115/61 94 L 11/03/20 06:00 67 20 83/51 93 L 11/03/20 05:45 80 83/62 93 L 11/03/20 05:30 76 89/50 94 L 11/03/20 05:15 73 99/68 93 L 11/03/20 05:00 87 20 99/46 94 L 11/03/20 04:45 99 93 L 11/03/20 04:30 68 94/43 93 L 11/03/20 04:15 83 90/41 94 L 11/03/20 04:00 94.5 F L 59 L 16 86/70 94 L 11/03/20 03:45 78 103/42 94 L 11/03/20 03:30 90 115/91 95 11/03/20 03:15 101 H 115/91 95 11/03/20 03:00 93.9 F L 78 18 133/97 95 11/03/20 02:45 86 136/98 95 11/03/20 02:30 58 L 85/50 89 L 11/03/20 02:15 107/55 92 L 11/03/20 02:00 64 21 95 11/03/20 01:45 16 91/46 94 L 11/03/20 01:30 69 19 96 11/03/20 01:15 78 20 94 L 11/03/20 01:00 72 12 89/62 96 11/03/20 00:45 61 16 102/69 94 L 11/03/20 00:30 76 14 111/39 95 11/03/20 00:15 92.8 F L 76 9 L 104/56 97 11/03/20 00:00 79 22 95 11/02/20 23:45 68 27 H 102/49 97 11/02/20 23:30 83 14 98/77 97 11/02/20 23:15 67 17 80/67 98 11/02/20 23:00 67 16 104/59 97 11/02/20 22:45 69 16 85/49 97 11/02/20 22:30 57 L 16 90/58 97 11/02/20 22:15 75 22 108/80 97 11/02/20 22:00 70 16 107/65 98 11/02/20 21:45 72 11 L 104/71 98 11/02/20 21:30 74 16 93/50 97 11/02/20 21:15 70 16 99/52 97 11/02/20 21:00 68 19 88/40 99 11/02/20 20:45 68 16 95/44 98 11/02/20 20:31 93 L 11/02/20 20:30 92 F L 67 10 L 88/44 97 11/02/20 20:15 66 16 11/02/20 19:02 97.2 F L 66 12 117/86 97 11/02/20 18:29 97.2 F L 63 12 91/63 97 11/02/20 18:02 10 L 11/02/20 18:00 97.4 F L 67 12 90/57 98 11/02/20 17:45 54 L 10 L 67/37 98 11/02/20 17:30 63 11 L 89/20 97 11/02/20 17:15 13 111/98 97 11/02/20 17:00 12 59/39 98 11/02/20 16:45 11 L 70/34 97 11/02/20 16:30 62 10 L 59/41 98 11/02/20 16:15 55 L 11 L 97 11/02/20 16:13 55 L 11/02/20 16:00 54 L 11 L 52/36 97 11/02/20 15:48 64 12 83/47 95 11/02/20 15:45 61 12 57/23 98 11/02/20 15:32 61 12 67/42 96 11/02/20 15:30 47 L 11 L 68/33 98 11/02/20 15:15 71 13 91/43 96 11/02/20 15:00 57 L 13 58/31 97 11/02/20 14:45 60 12 113/94 97 11/02/20 14:42 71 12 113/94 97 11/02/20 14:32 97.0 F L 80 13 91/68 95 11/02/20 14:30 84 11 L 121/72 91 L 11/02/20 14:15 64 10 L 66/53 100 11/02/20 14:00 46 L 12 99 11/02/20 13:39 41 L 18 100 Intake and Output 11/02/20 11/03/20 11/03/20 22:59 06:59 14:59 Intake Total 236.385 5764.081 1011.764 Output Total 30 135 150 Balance 774.567 8688.081 861.764 Intake: IV 260 1040 735 .9 10 Cefepime 2 gm In Sodium 75 Chloride 0.9% 100 ml @ 25 mls/hr IVPB Q12HR JANET Rx #:[id number] Dextrose 5% in Water 1, 780 650 000 ml @ 130 mls/hr IV . Q8H51M JANET with Sodium Bicarb (1 Meq/ml) 150 ml Rx#:[id number] Sodium Chloride 0.9% 1, 260 260 000 ml @ 130 mls/hr IV . Q7H42M JANET Rx#:[id number] Intake, IV Titration 23.848 116.081 156.764 Amount Norepinephrine 32 mg In 23.848 116.081 156.764 Sodium Chloride 0.9% 218 ml @ 0.05 MCG/KG/MIN 2. 594 mls/hr IV .Q24H JANET Rx#:[id number] Oral 120 Output: Urine 30 135 150 Other: Voiding Method Indwelling Catheter Indwelling Catheter Weight 126.5 kg 129.5 kg Results CBC & Chem 7: 11/03/20 04:08 11/03/20 10:43 Labs: Abnormal Lab Results - Last 24 Hours (Table) 11/02/20 11/02/20 11/02/20 Range/Units 00:10 14:11 14:19 WBC (3.8-10.6) k/uL MCHC 30.8 L (31.0-37.0) g/dL RDW 19.2 H (11.5-15.5) % Plt Count 113 L (150-450) k/uL Neutrophils # 8.4 H (1.3-7.7) k/uL Neutrophils # (Manual) (1.3-7.7) k/uL Lymphocytes # 0.7 L (1.0-4.8) k/uL Lymphocytes # (Manual) (1.0-4.8) k/uL Nucleated RBCs (0-0) /100 WBC PT (9.0-12.0) sec INR (<1.2) APTT (22.0-30.0) sec Potassium (3.5-5.1) mmol/L Chloride (98-107) mmol/L Carbon Dioxide (22-30) mmol/L BUN (7-17) mg/dL Creatinine (0.52-1.04) mg/dL Glucose (74-99) mg/dL POC Glucose (mg/dL) 150 H (75-99) mg/dL Plasma Lactic Acid Nacho (0.7-2.0) mmol/L Phosphorus (2.5-4.5) mg/dL AST (14-36) U/L Alkaline Phosphatase (38-126) U/L Total Protein (6.3-8.2) g/dL Albumin (3.5-5.0) g/dL TSH (0.465-4.680) mIU/L Free T3 pg/mL (2.8-5.3) pg/ml Urine Appearance Cloudy H (Clear) Urine Protein Trace H (Negative) Urine Blood Trace H (Negative) Ur Leukocyte Esterase Small H (Negative) Urine WBC 8 H (0-5) /hpf Amorphous Sediment Rare H (None) /hpf Urine Bacteria Occasional H (None) /hpf Hyaline Casts 49 H (0-2) /lpf Urine Mucus Rare H (None) /hpf 11/02/20 11/02/20 11/02/20 Range/Units 14:19 14:19 14:19 WBC (3.8-10.6) k/uL MCHC (31.0-37.0) g/dL RDW (11.5-15.5) % Plt Count (150-450) k/uL Neutrophils # (1.3-7.7) k/uL Neutrophils # (Manual) (1.3-7.7) k/uL Lymphocytes # (1.0-4.8) k/uL Lymphocytes # (Manual) (1.0-4.8) k/uL Nucleated RBCs (0-0) /100 WBC PT 13.0 H (9.0-12.0) sec INR 1.3 H (<1.2) APTT 35.5 H (22.0-30.0) sec Potassium 6.8 H* (3.5-5.1) mmol/L Chloride (98-107) mmol/L Carbon Dioxide 18 L (22-30) mmol/L BUN 64 H (7-17) mg/dL Creatinine 3.98 H (0.52-1.04) mg/dL Glucose 152 H (74-99) mg/dL POC Glucose (mg/dL) (75-99) mg/dL Plasma Lactic Acid Nacho (0.7-2.0) mmol/L Phosphorus (2.5-4.5) mg/dL AST 40 H (14-36) U/L Alkaline Phosphatase 134 H (38-126) U/L Total Protein (6.3-8.2) g/dL Albumin 3.0 L (3.5-5.0) g/dL TSH 24.000 H (0.465-4.680) mIU/L Free T3 pg/mL 2.2 L (2.8-5.3) pg/ml Urine Appearance (Clear) Urine Protein (Negative) Urine Blood (Negative) Ur Leukocyte Esterase (Negative) Urine WBC (0-5) /hpf Amorphous Sediment (None) /hpf Urine Bacteria (None) /hpf Hyaline Casts (0-2) /lpf Urine Mucus (None) /hpf 11/02/20 11/02/20 11/02/20 Range/Units 17:54 20:14 22:14 WBC (3.8-10.6) k/uL MCHC (31.0-37.0) g/dL RDW (11.5-15.5) % Plt Count (150-450) k/uL Neutrophils # (1.3-7.7) k/uL Neutrophils # (Manual) (1.3-7.7) k/uL Lymphocytes # (1.0-4.8) k/uL Lymphocytes # (Manual) (1.0-4.8) k/uL Nucleated RBCs (0-0) /100 WBC PT (9.0-12.0) sec INR (<1.2) APTT (22.0-30.0) sec Potassium 5.9 H 6.1 H* (3.5-5.1) mmol/L Chloride 110 H (98-107) mmol/L Carbon Dioxide 16 L (22-30) mmol/L BUN 61 H (7-17) mg/dL Creatinine 3.85 H (0.52-1.04) mg/dL Glucose (74-99) mg/dL POC Glucose (mg/dL) 108 H (75-99) mg/dL Plasma Lactic Acid Nacho (0.7-2.0) mmol/L Phosphorus (2.5-4.5) mg/dL AST (14-36) U/L Alkaline Phosphatase (38-126) U/L Total Protein (6.3-8.2) g/dL Albumin (3.5-5.0) g/dL TSH (0.465-4.680) mIU/L Free T3 pg/mL (2.8-5.3) pg/ml Urine Appearance (Clear) Urine Protein (Negative) Urine Blood (Negative) Ur Leukocyte Esterase (Negative) Urine WBC (0-5) /hpf Amorphous Sediment (None) /hpf Urine Bacteria (None) /hpf Hyaline Casts (0-2) /lpf Urine Mucus (None) /hpf 11/03/20 11/03/20 11/03/20 Range/Units 00:10 04:08 04:08 WBC 14.9 H (3.8-10.6) k/uL MCHC 30.0 L (31.0-37.0) g/dL RDW 19.4 H (11.5-15.5) % Plt Count 119 L (150-450) k/uL Neutrophils # (1.3-7.7) k/uL Neutrophils # (Manual) 14.01 H (1.3-7.7) k/uL Lymphocytes # (1.0-4.8) k/uL Lymphocytes # (Manual) 0.60 L (1.0-4.8) k/uL Nucleated RBCs 2 H (0-0) /100 WBC PT (9.0-12.0) sec INR (<1.2) APTT (22.0-30.0) sec Potassium 5.8 H (3.5-5.1) mmol/L Chloride 110 H (98-107) mmol/L Carbon Dioxide 16 L (22-30) mmol/L BUN 61 H (7-17) mg/dL Creatinine 3.60 H (0.52-1.04) mg/dL Glucose 123 H (74-99) mg/dL POC Glucose (mg/dL) (75-99) mg/dL Plasma Lactic Acid Nacho 4.2 H* (0.7-2.0) mmol/L Phosphorus 7.1 H (2.5-4.5) mg/dL AST 38 H (14-36) U/L Alkaline Phosphatase (38-126) U/L Total Protein 5.7 L (6.3-8.2) g/dL Albumin 2.5 L (3.5-5.0) g/dL TSH (0.465-4.680) mIU/L Free T3 pg/mL (2.8-5.3) pg/ml Urine Appearance (Clear) Urine Protein (Negative) Urine Blood (Negative) Ur Leukocyte Esterase (Negative) Urine WBC (0-5) /hpf Amorphous Sediment (None) /hpf Urine Bacteria (None) /hpf Hyaline Casts (0-2) /lpf Urine Mucus (None) /hpf 11/03/20 11/03/20 11/03/20 Range/Units 04:08 06:50 07:28 WBC (3.8-10.6) k/uL MCHC (31.0-37.0) g/dL RDW (11.5-15.5) % Plt Count (150-450) k/uL Neutrophils # (1.3-7.7) k/uL Neutrophils # (Manual) (1.3-7.7) k/uL Lymphocytes # (1.0-4.8) k/uL Lymphocytes # (Manual) (1.0-4.8) k/uL Nucleated RBCs (0-0) /100 WBC PT (9.0-12.0) sec INR (<1.2) APTT (22.0-30.0) sec Potassium (3.5-5.1) mmol/L Chloride (98-107) mmol/L Carbon Dioxide (22-30) mmol/L BUN (7-17) mg/dL Creatinine (0.52-1.04) mg/dL Glucose (74-99) mg/dL POC Glucose (mg/dL) 148 H (75-99) mg/dL Plasma Lactic Acid Nacho 4.4 H* 3.4 H* (0.7-2.0) mmol/L Phosphorus (2.5-4.5) mg/dL AST (14-36) U/L Alkaline Phosphatase (38-126) U/L Total Protein (6.3-8.2) g/dL Albumin (3.5-5.0) g/dL TSH (0.465-4.680) mIU/L Free T3 pg/mL (2.8-5.3) pg/ml Urine Appearance (Clear) Urine Protein (Negative) Urine Blood (Negative) Ur Leukocyte Esterase (Negative) Urine WBC (0-5) /hpf Amorphous Sediment (None) /hpf Urine Bacteria (None) /hpf Hyaline Casts (0-2) /lpf Urine Mucus (None) /hpf 11/03/20 11/03/20 11/03/20 Range/Units 10:43 10:43 11:36 WBC (3.8-10.6) k/uL MCHC (31.0-37.0) g/dL RDW (11.5-15.5) % Plt Count (150-450) k/uL Neutrophils # (1.3-7.7) k/uL Neutrophils # (Manual) (1.3-7.7) k/uL Lymphocytes # (1.0-4.8) k/uL Lymphocytes # (Manual) (1.0-4.8) k/uL Nucleated RBCs (0-0) /100 WBC PT (9.0-12.0) sec INR (<1.2) APTT (22.0-30.0) sec Potassium 5.8 H (3.5-5.1) mmol/L Chloride 109 H (98-107) mmol/L Carbon Dioxide 18 L (22-30) mmol/L BUN 60 H (7-17) mg/dL Creatinine 3.67 H (0.52-1.04) mg/dL Glucose 178 H (74-99) mg/dL POC Glucose (mg/dL) 171 H (75-99) mg/dL Plasma Lactic Acid Nacho 3.7 H* (0.7-2.0) mmol/L Phosphorus (2.5-4.5) mg/dL AST (14-36) U/L Alkaline Phosphatase (38-126) U/L Total Protein (6.3-8.2) g/dL Albumin (3.5-5.0) g/dL TSH (0.465-4.680) mIU/L Free T3 pg/mL (2.8-5.3) pg/ml Urine Appearance (Clear) Urine Protein (Negative) Urine Blood (Negative) Ur Leukocyte Esterase (Negative) Urine WBC (0-5) /hpf Amorphous Sediment (None) /hpf Urine Bacteria (None) /hpf Hyaline Casts (0-2) /lpf Urine Mucus (None) /hpf Assessment and Plan Plan: assessment/plan: 1. Type 2 diabetes mellitus with foot ulcer 2. 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 Osteomyelitis continue to apply a negative pressure wound VAC with black foam. 125 mmHg changing Sunday. Patient will continue with her weekly appointment to the wound care center upon discharge. Continue with home care to change wound VAC as directed. If patient is unable to go home with a wound VAC placed the plantar silver to the site and have home care come in on the regular scheduled day to apply the wound VAC. thank you for the consultation any questions please contact the wound care center DNP note has been reviewed and discussed with Dr. Veloz and the impression and plan of care has been directed as dictated.
--- NOTE | 2020-11-03 13:52 | P.PN ---
Subjective HISTORY OF PRESENTING ILLNESS This is a pleasant 80-year-old female past medical history significant for diabetes mellitus, diabetic foot ulcer status post left toe amputations with a wound VAC, chronic edema with likely chronic venous insufficiency, osteomyelitis, CKD, hypertension, hyperlipidemia, previous mildly elevated troponins with stress test from 10/2017 showing reversible apical lateral defect however opted to treat medically. She follows in the office with Dr. Oscar. We have been asked to see in consultation for bradycardia and hypotension. Patient was recently hospitalized in August secondary to diabetic foot ulcer with foot amputation. She has been going to wound clinic and apparently had been doing well up until last 3-4 days. Patient denies any recent fevers, chills, chest pain, pressure, shortness breath. Her at bedside however patient has had increased lethargy, decreased appetite and has not been eating or drinking that much in the last 3-4 days. Patient had seen a wound VAC nurse and apparently she had not looked well and therefore recommended going to emergency department. On arrival to the emergency department patient was found to be hypotensive with heart rate in the 40s in atrial fibrillation. Patient was given atropine and calcium with improvement in the heart rate of 50-60s. She does have chronic lower extremity edema which is unchanged and has been like this for years. She denies any orthopnea. No hematochezia or melena. Blood work resulted with potassium of 6.8 and patient was given repeated doses of calcium and treatment of the hyperkalemia. 11/03/20: Patient seen and examined. Patient remains fairly lethargic however arousable and answers questions appropriately. She denies any chest pain or pressure. She has been on a bicarb drip and has had treatment for her hyperkalemia. She has not had much urine output per nursing. Nephrology has been giving patient Lasix. Lactic acid remains elevated however is decreasing. Patient remains in A. fib with controlled rates, no significant bradycardia. Patient did receive a few more doses of calcium last night. Patient was placed back on the Eliquis. Echocardiogram pending. Nurse states that they have been needing to increase her vasopressors. REVIEW OF SYSTEMS At the time of my exam: CONSTITUTIONAL: Denies fever or chills. CARDIOVASCULAR: Denies chest pain, shortness of breath, orthopnea, PND or palpitations. RESPIRATORY: Denies cough. GASTROINTESTINAL: Denies abdominal pain, diarrhea, constipation, nausea or vomiting. MUSCULOSKELETAL: Denies myalgias. NEUROLOGIC: Denies numbness, tingling or weakness. ENDOCRINE: + fatigue, no weight change, polydipsia or polyurina. GENITOURINARY: Denies burning, hematuria or urgency with micturation. HEMATOLOGIC: Denies history of anemia or bleeding. PHYSICAL EXAMINATION Blood pressure 86/33 heart rate 72 afebrile and maintaining oxygen saturation on 4 L nasal cannula. CONSTITUTIONAL: No apparent distress, chronically ill-appearing, obese, somewhat somnolent however arousable and answers questions appropriately. HEENT: Head is normocephalic. Pupils are equal, round. Sclerae anicteric. Mucous membranes of the mouth are moist. No JVD. No carotid bruit. CHEST EXAMINATION: Lungs are clear to auscultation. No chest wall tenderness is noted on palpation or with deep breathing. HEART EXAMINATION: Irregularly irregular rate and rhythm. S1, S2 heard. No murmu rs, gallops or rub. ABDOMEN: Soft, obese, nontender. Positive bowel sounds. EXTREMITIES: + 3+ lower extremity edema, + left foot with a wound VAC with left toe amputations. NEUROLOGIC EXAMINATION: Patient is awake ASSESSMENT 1. A. fib with slow ventricular rate, likely predominantly related to hy perkalemia plus plus possible hypothyroidism component plus possible med effect from metoprolol 2. Hypotension, possible component of hypovolemia plus or minus septic shock. Bedside echo shows predominantly preserved ejection fraction 55% without pericardial effusion. 3. Acute kidney injury 4. Hypothyroidism 5. Status post left toe amputation with diabetic foot ulcer with osteomyelitis and wound VAC currently in place 6. History of mildly elevated troponins and abnormal stress test with possible apical reversible perfusion defect from 2019. She has been well with medical therapy. Current admission normal troponin 7. History of essential hypertension 8. Diabetes mellitus 2 9. Obesity 10. Chronic lower extremity edema, likely related to chronic venous insufficiency PLAN Patient continues to be hypotensive, suspect mainly related to sepsis and do not suspect cardiogenic source. Previous bradycardic episodes mainly related to hyperkalemia and improved with treatment. We will decrease her Eliquis to 2.5 mg twice a day given her NATE. Continue supportive care. If difficulty with increasing vasopressors, may consider calcium gluconate to help with contractility however main treatment would be for treatment of underlying hyperkalemia. Objective - Vital Signs Vital signs: Vital Signs Temp 97.5 F L 11/03/20 12:00 Pulse 72 11/03/20 13:00 Resp 6 L 11/03/20 13:00 BP 86/33 11/03/20 13:00 Pulse Ox 94 L 11/03/20 13:00 Intake & Output 11/02/20 11/03/20 11/03/20 18:59 06:59 18:59 Intake Total 2.231 8270.948 5830.778 Output Total 165 245 Balance 2.231 3117.326 6573.778 Weight 110.677 kg 129.5 kg Intake: IV 1300 2015 .9 30 Cefepime 2 gm In Sodium 75 Chloride 0.9% 100 ml @ 25 mls/hr IVPB Q12HR JANET Rx #:[id number] Dextrose 5% in Water 1, 780 910 000 ml @ 130 mls/hr IV . Q8H51M JANET with Sodium Bicarb (1 Meq/ml) 150 ml Rx#:[id number] Sodium Chloride 0.9% 1, 520 000 ml @ 130 mls/hr IV . Q7H42M JANET Rx#:[id number] Sodium Chloride 0.9% 1, 1000 000 ml @ 999 mls/hr IV . Q1H1M ONE Rx#:[id number] Intake, IV Titration 2.231 137.698 195.778 Amount Norepinephrine 32 mg In 2.231 137.698 195.778 Sodium Chloride 0.9% 218 ml @ 0.05 MCG/KG/MIN 2. 594 mls/hr IV .Q24H JANET Rx#:[id number] Oral 120 Output: Urine 165 245 Other: Voiding Method Indwelling Catheter - Labs CBC & Chem 7: 11/03/20 04:08 11/03/20 10:43 Labs: Abnormal Lab Results - Last 24 Hours (Table) 11/02/20 11/02/20 11/02/20 Range/Units 00:10 14:11 14:19 WBC (3.8-10.6) k/uL MCHC 30.8 L (31.0-37.0) g/dL RDW 19.2 H (11.5-15.5) % Plt Count 113 L (150-450) k/uL Neutrophils # 8.4 H (1.3-7.7) k/uL Neutrophils # (Manual) (1.3-7.7) k/uL Lymphocytes # 0.7 L (1.0-4.8) k/uL Lymphocytes # (Manual) (1.0-4.8) k/uL Nucleated RBCs (0-0) /100 WBC PT (9.0-12.0) sec INR (<1.2) APTT (22.0-30.0) sec Potassium (3.5-5.1) mmol/L Chloride (98-107) mmol/L Carbon Dioxide (22-30) mmol/L BUN (7-17) mg/dL Creatinine (0.52-1.04) mg/dL Glucose (74-99) mg/dL POC Glucose (mg/dL) 150 H (75-99) mg/dL Plasma Lactic Acid Nacho (0.7-2.0) mmol/L Phosphorus (2.5-4.5) mg/dL AST (14-36) U/L Alkaline Phosphatase (38-126) U/L Total Protein (6.3-8.2) g/dL Albumin (3.5-5.0) g/dL TSH (0.465-4.680) mIU/L Free T3 pg/mL (2.8-5.3) pg/ml Urine Appearance Cloudy H (Clear) Urine Protein Trace H (Negative) Urine Blood Trace H (Negative) Ur Leukocyte Esterase Small H (Negative) Urine WBC 8 H (0-5) /hpf Amorphous Sediment Rare H (None) /hpf Urine Bacteria Occasional H (None) /hpf Hyaline Casts 49 H (0-2) /lpf Urine Mucus Rare H (None) /hpf 11/02/20 11/02/20 11/02/20 Range/Units 14:19 14:19 14:19 WBC (3.8-10.6) k/uL MCHC (31.0-37.0) g/dL RDW (11.5-15.5) % Plt Count (150-450) k/uL Neutrophils # (1.3-7.7) k/uL Neutrophils # (Manual) (1.3-7.7) k/uL Lymphocytes # (1.0-4.8) k/uL Lymphocytes # (Manual) (1.0-4.8) k/uL Nucleated RBCs (0-0) /100 WBC PT 13.0 H (9.0-12.0) sec INR 1.3 H (<1.2) APTT 35.5 H (22.0-30.0) sec Potassium 6.8 H* (3.5-5.1) mmol/L Chloride (98-107) mmol/L Carbon Dioxide 18 L (22-30) mmol/L BUN 64 H (7-17) mg/dL Creatinine 3.98 H (0.52-1.04) mg/dL Glucose 152 H (74-99) mg/dL POC Glucose (mg/dL) (75-99) mg/dL Plasma Lactic Acid Nacho (0.7-2.0) mmol/L Phosphorus (2.5-4.5) mg/dL AST 40 H (14-36) U/L Alkaline Phosphatase 134 H (38-126) U/L Total Protein (6.3-8.2) g/dL Albumin 3.0 L (3.5-5.0) g/dL TSH 24.000 H (0.465-4.680) mIU/L Free T3 pg/mL 2.2 L (2.8-5.3) pg/ml Urine Appearance (Clear) Urine Protein (Negative) Urine Blood (Negative) Ur Leukocyte Esterase (Negative) Urine WBC (0-5) /hpf Amorphous Sediment (None) /hpf Urine Bacteria (None) /hpf Hyaline Casts (0-2) /lpf Urine Mucus (None) /hpf 11/02/20 11/02/20 11/02/20 Range/Units 17:54 20:14 22:14 WBC (3.8-10.6) k/uL MCHC (31.0-37.0) g/dL RDW (11.5-15.5) % Plt Count (150-450) k/uL Neutrophils # (1.3-7.7) k/uL Neutrophils # (Manual) (1.3-7.7) k/uL Lymphocytes # (1.0-4.8) k/uL Lymphocytes # (Manual) (1.0-4.8) k/uL Nucleated RBCs (0-0) /100 WBC PT (9.0-12.0) sec INR (<1.2) APTT (22.0-30.0) sec Potassium 5.9 H 6.1 H* (3.5-5.1) mmol/L Chloride 110 H (98-107) mmol/L Carbon Dioxide 16 L (22-30) mmol/L BUN 61 H (7-17) mg/dL Creatinine 3.85 H (0.52-1.04) mg/dL Glucose (74-99) mg/dL POC Glucose (mg/dL) 108 H (75-99) mg/dL Plasma Lactic Acid Nacho (0.7-2.0) mmol/L Phosphorus (2.5-4.5) mg/dL AST (14-36) U/L Alkaline Phosphatase (38-126) U/L Total Protein (6.3-8.2) g/dL Albumin (3.5-5.0) g/dL TSH (0.465-4.680) mIU/L Free T3 pg/mL (2.8-5.3) pg/ml Urine Appearance (Clear) Urine Protein (Negative) Urine Blood (Negative) Ur Leukocyte Esterase (Negative) Urine WBC (0-5) /hpf Amorphous Sediment (None) /hpf Urine Bacteria (None) /hpf Hyaline Casts (0-2) /lpf Urine Mucus (None) /hpf 11/03/20 11/03/20 11/03/20 Range/Units 00:10 04:08 04:08 WBC 14.9 H (3.8-10.6) k/uL MCHC 30.0 L (31.0-37.0) g/dL RDW 19.4 H (11.5-15.5) % Plt Count 119 L (150-450) k/uL Neutrophils # (1.3-7.7) k/uL Neutrophils # (Manual) 14.01 H (1.3-7.7) k/uL Lymphocytes # (1.0-4.8) k/uL Lymphocytes # (Manual) 0.60 L (1.0-4.8) k/uL Nucleated RBCs 2 H (0-0) /100 WBC PT (9.0-12.0) sec INR (<1.2) APTT (22.0-30.0) sec Potassium 5.8 H (3.5-5.1) mmol/L Chloride 110 H (98-107) mmol/L Carbon Dioxide 16 L (22-30) mmol/L BUN 61 H (7-17) mg/dL Creatinine 3.60 H (0.52-1.04) mg/dL Glucose 123 H (74-99) mg/dL POC Glucose (mg/dL) (75-99) mg/dL Plasma Lactic Acid Nacho 4.2 H* (0.7-2.0) mmol/L Phosphorus 7.1 H (2.5-4.5) mg/dL AST 38 H (14-36) U/L Alkaline Phosphatase (38-126) U/L Total Protein 5.7 L (6.3-8.2) g/dL Albumin 2.5 L (3.5-5.0) g/dL TSH (0.465-4.680) mIU/L Free T3 pg/mL (2.8-5.3) pg/ml Urine Appearance (Clear) Urine Protein (Negative) Urine Blood (Negative) Ur Leukocyte Esterase (Negative) Urine WBC (0-5) /hpf Amorphous Sediment (None) /hpf Urine Bacteria (None) /hpf Hyaline Casts (0-2) /lpf Urine Mucus (None) /hpf 11/03/20 11/03/20 11/03/20 Range/Units 04:08 06:50 07:28 WBC (3.8-10.6) k/uL MCHC (31.0-37.0) g/dL RDW (11.5-15.5) % Plt Count (150-450) k/uL Neutrophils # (1.3-7.7) k/uL Neutrophils # (Manual) (1.3-7.7) k/uL Lymphocytes # (1.0-4.8) k/uL Lymphocytes # (Manual) (1.0-4.8) k/uL Nucleated RBCs (0-0) /100 WBC PT (9.0-12.0) sec INR (<1.2) APTT (22.0-30.0) sec Potassium (3.5-5.1) mmol/L Chloride (98-107) mmol/L Carbon Dioxide (22-30) mmol/L BUN (7-17) mg/dL Creatinine (0.52-1.04) mg/dL Glucose (74-99) mg/dL POC Glucose (mg/dL) 148 H (75-99) mg/dL Plasma Lactic Acid Nacho 4.4 H* 3.4 H* (0.7-2.0) mmol/L Phosphorus (2.5-4.5) mg/dL AST (14-36) U/L Alkaline Phosphatase (38-126) U/L Total Protein (6.3-8.2) g/dL Albumin (3.5-5.0) g/dL TSH (0.465-4.680) mIU/L Free T3 pg/mL (2.8-5.3) pg/ml Urine Appearance (Clear) Urine Protein (Negative) Urine Blood (Negative) Ur Leukocyte Esterase (Negative) Urine WBC (0-5) /hpf Amorphous Sediment (None) /hpf Urine Bacteria (None) /hpf Hyaline Casts (0-2) /lpf Urine Mucus (None) /hpf 11/03/20 11/03/20 11/03/20 Range/Units 10:43 10:43 11:36 WBC (3.8-10.6) k/uL MCHC (31.0-37.0) g/dL RDW (11.5-15.5) % Plt Count (150-450) k/uL Neutrophils # (1.3-7.7) k/uL Neutrophils # (Manual) (1.3-7.7) k/uL Lymphocytes # (1.0-4.8) k/uL Lymphocytes # (Manual) (1.0-4.8) k/uL Nucleated RBCs (0-0) /100 WBC PT (9.0-12.0) sec INR (<1.2) APTT (22.0-30.0) sec Potassium 5.8 H (3.5-5.1) mmol/L Chloride 109 H (98-107) mmol/L Carbon Dioxide 18 L (22-30) mmol/L BUN 60 H (7-17) mg/dL Creatinine 3.67 H (0.52-1.04) mg/dL Glucose 178 H (74-99) mg/dL POC Glucose (mg/dL) 171 H (75-99) mg/dL Plasma Lactic Acid Nacho 3.7 H* (0.7-2.0) mmol/L Phosphorus (2.5-4.5) mg/dL AST (14-36) U/L Alkaline Phosphatase (38-126) U/L Total Protein (6.3-8.2) g/dL Albumin (3.5-5.0) g/dL TSH (0.465-4.680) mIU/L Free T3 pg/mL (2.8-5.3) pg/ml Urine Appearance (Clear) Urine Protein (Negative) Urine Blood (Negative) Ur Leukocyte Esterase (Negative) Urine WBC (0-5) /hpf Amorphous Sediment (None) /hpf Urine Bacteria (None) /hpf Hyaline Casts (0-2) /lpf Urine Mucus (None) /hpf
--- NOTE | 2020-11-03 14:22 | CONS ---
CONSULTATION REASON FOR CONSULT: Renal failure and hyperkalemia. HISTORY OF PRESENT ILLNESS: The patient is an 80-year-old female with history of chronic kidney disease, NKF stage 3B to 4 secondary to nephrosclerosis and diabetic kidney disease. The patient was admitted to the hospital with history of increased weakness. She was also mildly short of breath. She has a previous toe amputation on the left foot done in August of [address] [place]. This was secondary to gangrene on the left toes and cellulitis. The patient has had a wound VAC in place since then. She had been on IV antibiotics at home prior to admission. Upon admission, patient was noted to be severely hypotensive and she is currently maintained at about could and she is currently maintained on about 60 mcg of Levophed. Urine output was low, but picked up early this morning. The patient has received about 3 L of fluid bolus. She did receive a dose of IV Lasix. Lactic acid was elevated. The patient received about 3 L of fluid. Lactic acid has decreased. The patient is maintained on empiric antibiotics. Serum creatinine was 3.98 on initial admission. It is down to 3.67 today. Previous creatinine was 1.9 on 08/27/2020, but as low as 1.4 in April and July of 2020. Patient's potassium was elevated at 6.8 on initial admission. It is now down to about 5.8. She has received multiple IV treatments for hyperkalemia. Patient was also acidotic and is now maintained on a bicarb drip. Code status is currently NO CODE, NO INTUBATION. 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 PAST SURGICAL HISTORY: , cholecystectomy, abdominal hernia repair with mesh, removal of lump on the right breast, cataract surgeries, amputation of toes on the left foot. SOCIAL HISTORY: Patient is a former smoker. No history of drug abuse or alcohol abuse. MEDICATIONS: Medications currently include Eliquis, insulin, Lopressor, losartan, Norvasc, potassium, HydroDIURIL. ALLERGIES: Allergies include PENICILLIN which causes rash and hives. REVIEW OF SYSTEMS: As per HPI. Other systems negative. PHYSICAL EXAMINATION: Patient is currently awake. She is comfortable. She is not in any acute distress. Blood pressure was 88/46, heart rate 78 per minute. Patient is afebrile. EXAMINATION OF THE HEART: S1, S2. EXAMINATION OF THE LUNGS: Decreased breath sounds at bases. Distant breath sounds. Patient is obese. Abdomen is soft. Morbidly obese, nontender. Examination of lower extremities shows both feet and legs to be wrapped. There is a wound VAC noted on the left forefoot. 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 LABS: Labs show sodium 137, potassium 5.8, chloride 109, CO2 is 18, BUN 60, serum creatinine 3.67. Lactic acid 3.7. UA shows trace protein, trace blood, leukocyte esterase small, WBCs 8. CBC shows hemoglobin 11.7, white cell count 14.9. Coronavirus negative. ASSESSMENT: 1. Acute kidney injury secondary to hypotension, acute tubular necrosis initially oliguric, currently nonoliguric with some improvement in urine output. Continue with the pressors. Since lactic acid has increased again, I will give another 500 mL bolus. If the urine output dwindles down, I will repeat another dose of IV Lasix. If patient remains hyperkalemic with progressive worsening of renal function, we may need to consider renal replacement therapy. However, given her overall comorbidities, this may not be an option for long-term renal replacement therapy, particularly given her advanced age as well. At this point, however, patient does not need emergent dialysis. 2. Hypotension most likely secondary to sepsis, maintained on empiric antibiotics. Source likely wound/ulcers in the foot. UA does not appear to have a urinary tract infection and chest x-ray from this morning shows bilateral infiltrate and pleural effusion with diffuse interstitial pattern. 3. Hyperkalemia associated acute kidney injury use of CHRISTOPHER inhibitors prior to admission, currently somewhat improved. However, potassium remains elevated. Expect improvement with improving urine output. Continue to treat with IV medications. Continue with the bicarb drip. 4. Metabolic acidosis non gap associated with renal failure as well as an element of lactic acidosis, currently maintained on bicarb drip. 5. Peripheral vascular disease with recent cellulitis and gangrene in the left toe status post amputation of the toe in August of 2020 currently with wound VAC, status post IV antibiotics post discharge. 6. Chronic kidney disease stage 3. Baseline creatinine about 1.4 and reading of 1.7 as well noted in July and August of 2020. 7. Chronic atrial fibrillation, maintained on Eliquis. 8. Bradycardia associated with hyperkalemia, currently improved. PLAN: Continue with bicarb drip. Repeat IV Lasix if urine output decreases. Will re-evaluate for renal replacement therapy in a.m. depending on labs and volume status. Thank you for this consultation. We will continue to follow the patient with you during her hospitalization. MMODL / IJN: [id number] /
--- NOTE | 2020-11-03 17:41 | ECHOF ---
Referral Reason:bradycardia MEASUREMENTS -------- HEIGHT: 160.0 cm WEIGHT: 110.7 kg BP: RVIDd: 4.3 cm (< 3.3) IVSd: 1.3 cm (0.6 - 1.1) LVIDd: 5.0 cm (3.9 - 5.3) LVPWd: 1.3 cm (0.6 - 1.1) IVSs: 1.8 cm LVIDs: 3.7 cm LVPWs: 1.8 cm LA Diam: 5.6 cm (2.7 - 3.8) LAESV Index (A-L): 48.28 ml/m MV EXCURSION: 16.790 mm (> 18.000) MV EF SLOPE: 50 mm/s (70 - 150) MV E Marquez: 0.73 m/s MV A Marquez: 0.18 m/s MV E/A Ratio: 4.03 RAP: 5.00 mmHg RVSP: 22.46 mmHg FINDINGS -------- Resting bradycardia (HR<60bpm). Morbid Obesity The left ventricular size is normal. Left ventricular wall thickness is normal. Overall left vent ricular systolic function is low-normal with, an EF between 50 - 55 %. The right ventricle is severely enlarged. LA is severely dilated >40 ml/m2 The right atrium is markedly enlarged. Lumason used There is mild aortic valve sclerosis. There is no evidence of aortic regurgitation. Mild mitral annular calcification present. Mild mitral regurgitation is present. Moderate to severe tricuspid regurgitation present. The right ventricular systolic pressure, as cornelius sured by Doppler, is 22.46mmHg. The pulmonic valve was not well visualized. The aortic root size is normal. There is no pericardial effusion. CONCLUSIONS -------- 1. Morbid Obesity 2. The left ventricular size is normal. 3. Left ventricular wall thickness is normal. 4. Overall left ventricular systolic function is low-normal with, an EF between 50 - 55 %. 5. The right ventricle is severely enlarged. 6. LA is severely dilated >40 ml/m2 7. The right atrium is markedly enlarged. 8. Lumason used 9. There is mild aortic valve sclerosis. 10. Mild mitral annular calcification present. 11. Mild mitral regurgitation is present. 12. Moderate to severe tricuspid regurgitation present. 13. The right ventricular systolic pressure, as measured by Doppler, is 22.46mmHg. 14. The pulmonic valve was not well visualized. 15. The aortic root size is normal. 16. There is no pericardial effusion. SAMPLE SAWYER: Isabela Bello RDCS
[2020-11-03 17:45] LABS: Glucose,Whole Blood 172 mg/dL (75-99)
[2020-11-03 18:14] LABS: Calcium 8.1 mg/dL (8.4-10.2); Potassium 5.9 mmol/L (3.5-5.1)
[2020-11-03] MEDS ORDERED: SODIUM BICARB 8.4% 50 ML SYR (1 MEQ/ML) IV STA (18:58)
[2020-11-03 20:38] LABS: Glucose,Whole Blood 200 mg/dL (75-99)
[2020-11-03] MEDS: INSULIN DETEMIR (LEVEMIR) 100 UNIT/ML SYR SQ SCH (20:49)
[2020-11-03] MEDS: CEFEPIME 1 GM in SODIUM CHLORIDE 0.9% 50 ML IVPB SCH (20:49)
--- NOTE | 2020-11-04 00:14 | CONS ---
CONSULTATION DATE OF SERVICE: 11/03/2020. REASON FOR CONSULTATION: Sepsis and antibiotic management. HISTORY OF PRESENT ILLNESS: The patient is an 80-year-old female who was admitted to the [facility] beginning of August 2020, in this patient who did have left foot gangrene status post transmetatarsal amputation. Local culture positive for MSSA, Pseudomonas, Proteus and anaerobes. The patient's blood cultures were negative. The patient did get a PICC line. She has otherwise cefepime which apparently the patient completed on October 05, 2020. Patient local wound care has been a wound VAC and is following at [facility] [place]. The patient was brought to the ER yesterday and noted 11/02/2020 for evaluation of fatigue and generalized weakness in this patient who symptoms have been getting worse for the last 5 days. The patient denies having any headache or any URI symptoms. No chest pain or shortness of breath. Minimal cough. Denies any abdominal pain. No diarrhea. No urinary symptoms or any worsening pain to the left foot wound area. The patient on presentation to the hospital was afebrile. She did have at one point hypothermia with temperature of 93.9. The patient did have at times low blood pressure. Did require some fluid bolus. No need for any pressor support. The patient did have a normal white count yesterday with white count 14.9 today. She was also noticed to have elevated BUN and creatinine, which seemed to have slightly improved elevated lactic acid. Urine was not significantly positive. Rivera PCR came back negative. Chest x-ray reported as possible CHF pattern. The patient is currently empirically treated with cefepime and vancomycin. Infectious disease was consulted for further management of antibiotic therapy. The patient also noticed to have excoriation of the breast wall as well as left groin area. REVIEW OF SYSTEMS: Positive points have been mentioned in HPI. Rest of systems are negative. PAST MEDICAL HISTORY: Left foot gangrene requiring transmetatarsal amputation, atrial fibrillation, diabetes mellitus, hypertension. PAST SURGICAL HISTORY: Past surgical history of cholecystectomy, , hernia repair. SOCIAL HISTORY: Remote history of smoking. No drinking or drug use. FAMILY HISTORY: Father history of [place]. ALLERGIES: To PENICILLIN. TOLERATED CEPHALOSPORIN without any problem. MEDICATIONS: Include the patient is currently on Eliquis, cefepime 1 g q.12h, NovoLog, Levemir, Synthroid, vancomycin, Pharmacy to dose, norepinephrine, Pepcid, and Protonix. PHYSICAL EXAMINATION: Blood pressure is 94/41 with a pulse of 86. Temperature 98. She is 96% on 2 L nasal cannula. General description is an elderly female lying in bed in no distress. No tachypnea or accessory muscles of respiration use. HEENT: Examination shows slight pallor. No scleral icterus. Oral mucous membranes dry. No pharyngeal erythema or thrush. NECK: Trachea central. No thyromegaly. LUNGS: Unlabored breathing with decreased breath sounds. No wheeze. HEART S1, S2. Regular rate and rhythm. ABDOMEN: Soft. No tenderness. No guarding. No rigidity. EXTREMITIES: Some diffuse swelling but no redness. Left foot wound base looks clean with no slough tissue. No surrounding swelling or redness or any foul smelling. NEUROLOGICAL: Patient is awake, alert, oriented times three. Mood and affect normal. LABS: Hemoglobin is 11.1, white count 14.9, BUN of 60, creatinine is 3.59. Urine is not significantly positive. Rivera PCR negative. Chest x-ray more of CHF pattern. DIAGNOSTIC IMPRESSION AND PLAN: Patient admitted to the hospital with generalized weakness, no energy, which could be more likely metabolic in this patient with likely dehydration and she noticed to have worsening of her kidney function. Underlying infection less likely but not entirely excluded in this patient currently with no evidence of any pneumonia. Urine not significantly positive. Left foot with no significant cellulitis. PLAN: 1. We will keep the patient on cefepime while waiting for the culture to finalize. However discontinue vancomycin to decrease risk of further nephrotoxicity. 2. IV fluid. 3. Will follow clinical condition and culture to further adjust medication if needed. Thank you for this consultation. We will follow this patient along with you. MMODL / IJN: [id number] /
[2020-11-04 00:16] LABS: Calcium 7.9 mg/dL (8.4-10.2); Potassium 5.5 mmol/L (3.5-5.1)
[2020-11-04 04:36] LABS: Anisocytosis Slight; Basophils # (A) 0.1 k/uL (0-0.2); Basophils % (A) 0 %; Eosinophils # (A) 0.1 k/uL (0-0.7); Eosinophils % (A) 0 %; HCT 37.7 % (34.0-46.0); HGB 11.9 gm/dL (11.4-16.0); Hypochromasia Moderate; Lymphocytes # (A) 0.5 k/uL (1.0-4.8); Lymphocytes % (A) 2 %; MCH 26.8 pg (25.0-35.0); MCHC 31.6 g/dL (31.0-37.0); MCV 84.7 fL (80.0-100.0); Mean Platelet Volume 9.7; Monocytes # (A) 0.7 k/uL (0-1.0); Monocytes % (A) 3 %; Neutrophils # (A) 22.5 k/uL (1.3-7.7); Neutrophils % (A) 94 %; Platelet Count 113 k/uL (150-450); RBC 4.45 m/uL (3.80-5.40); RDW 19.5 % (11.5-15.5)
[2020-11-04 04:41] LABS: Calcium 7.9 mg/dL (8.4-10.2); Potassium 5.2 mmol/L (3.5-5.1)
[2020-11-04] MEDS ORDERED: VANCOMYCIN 2,000 MG in SODIUM CHLORIDE 0.9% 500 ML 500 ML IVPB ONE (05:00)
[2020-11-04] MEDS: DEXTROSE 5% IN WATER 1,000 ML with SODIUM BICARB (1 MEQ/ML) 150 ML IV SCH (05:36)
[2020-11-04] MEDS: LEVOTHYROXINE 50 MCG TAB PO SCH (05:38)
[2020-11-04] MEDS: MIDODRINE 5 MG TAB PO SCH ×3 (05:39→17:15)
[2020-11-04 06:40] LABS: Glucose,Whole Blood 187 mg/dL (75-99)
[2020-11-04] MEDS: INSULIN ASPART (NovoLOG) 100 UNIT/ML VIAL SQ SCH ×4 (06:58→20:53)
--- NOTE | 2020-11-04 08:40 | P.PN ---
Subjective HISTORY OF PRESENTING ILLNESS This is a pleasant 80-year-old female past medical history significant for diabetes mellitus, diabetic foot ulcer status post left toe amputations with a wound VAC, chronic edema with likely chronic venous insufficiency, osteomyelitis, CKD, hypertension, hyperlipidemia, previous mildly elevated troponins with stress test from 10/2017 showing reversible apical lateral defect however opted to treat medically. She follows in the office with Dr. Oscar. We have been asked to see in consultation for bradycardia and hypotension. Patient was recently hospitalized in August secondary to diabetic foot ulcer with foot amputation. She has been going to wound clinic and apparently had been doing well up until last 3-4 days. Patient denies any recent fevers, chills, chest pain, pressure, shortness breath. Her at bedside however patient has had increased lethargy, decreased appetite and has not been eating or drinking that much in the last 3-4 days. Patient had seen a wound VAC nurse and apparently she had not looked well and therefore recommended going to emergency department. On arrival to the emergency department patient was found to be hypotensive with heart rate in the 40s in atrial fibrillation. Patient was given atropine and calcium with improvement in the heart rate of 50-60s. She does have chronic lower extremity edema which is unchanged and has been like this for years. She denies any orthopnea. No hematochezia or melena. Blood work resulted with potassium of 6.8 and patient was given repeated doses of calcium and treatment of the hyperkalemia. 11/04/20: Patient seen and examined. Patient somewhat more alert today however still confused. Continues to have a bear hugger on for hypothermia. Denies any chest pain, pressure, shortness of breath, cough. Patient remains in A. fib with mildly elevated heart rates 90s to 120s. REVIEW OF SYSTEMS At the time of my exam: CONSTITUTIONAL: Denies fever or chills. CARDIOVASCULAR: Denies chest pain, shortness of breath, orthopnea, PND or palpitations. RESPIRATORY: Denies cough. GASTROINTESTINAL: Denies abdominal pain, diarrhea, constipation, nausea or vomiting. MUSCULOSKELETAL: Denies myalgias. NEUROLOGIC: Denies numbness, tingling or weakness. ENDOCRINE: + fatigue, no weight change, polydipsia or polyurina. GENITOURINARY: Denies burning, hematuria or urgency with micturation. HEMATOLOGIC: Denies history of anemia or bleeding. PHYSICAL EXAMINATION Blood pressure 98/88 heart rate 94 afebrile and maintaining oxygen saturation on 4 L nasal cannula. CONSTITUTIONAL: No apparent distress, chronically ill-appearing, obese, somewhat somnolent however arousable and answers questions, confused. HEENT: Head is normocephalic. Pupils are equal, round. Sclerae anicteric. Mucous membranes of the mouth are moist. No JVD. No carotid bruit. CHEST EXAMINATION: Lungs are clear to auscultation. No chest wall tenderness is noted on palpation or with deep breathing. HEART EXAMINATION: Irregularly irregular rate and rhythm. S1, S2 heard. No murmurs, gallops or rub. ABDOMEN: Soft, obese, nontender. Positive bowel sounds. EXTREMITIES: + 3+ lower extremity edema, + left foot with a wound VAC with left toe amputations. NEUROLOGIC EXAMINATION: Patient is awake ASSESSMENT 1. A. fib initially with slow ventricular rate, likely predominantly related to hyperkalemia plus plus possible hypothyroidism component plus possible med effect from metoprolol 2. Hypotension, possible component of hypovolemia plus or minus septic shock. Echo shows ejection fraction 50-55% 3. Acute kidney injury 4. Hypothyroidism 5. Status post left toe amputation with diabetic foot ulcer with osteomyelitis and wound VAC currently in place 6. History of mildly elevated troponins and abnormal stress test with possible apical reversible perfusion defect from 2019. She has been well with medical therapy. Current admission normal troponin 7. History of essential hypertension 8. Diabetes mellitus 2 9. Obesity 10. Chronic lower extremity edema, likely related to chronic venous insufficiency 11. Moderate to severe tricuspid regurgitation PLAN Patient's heart rate is now borderline high. Patient previously on Lopressor 50 mg twice a day at home which has been held. We will continue to hold and monitor blood pressures. Further workup for sepsis and acute kidney injury. Vasopressors as needed. Continue with Eliquis 2.5 milligrams twice a day given her NATE. Monitor hemoglobin. Echo shows preserved ejection fraction 50-55% and moderate to severe tricuspid regurgitation. Do not suspect cardiac etiology of her NATE hypotension. Objective - Vital Signs Vital signs: Vital Signs Temp 94.4 F L 11/04/20 04:00 Pulse 94 11/04/20 07:00 Resp 24 11/04/20 07:00 BP 98/88 11/04/20 07:00 Pulse Ox 95 11/04/20 07:00 Intake & Output 11/03/20 11/04/20 11/04/20 18:59 06:59 18:59 Intake Total 3133.190 950.852 140 Output Total 420 977 50 Balance 2713.190 -26.148 90 Weight 130.6 kg Intake: IV 2715 900 140 .9 80 120 10 Cefepime 2 gm In Sodium 75 Chloride 0.9% 100 ml @ 25 mls/hr IVPB Q12HR [facility] Rx #:[id number] Dextrose 5% in Water 1, 1560 780 130 000 ml @ 130 mls/hr IV . Q8H51M [facility] with Sodium Bicarb (1 Meq/ml) 150 ml Rx#:[id number] Sodium Chloride 0.9% 1, 1000 000 ml @ 999 mls/hr IV . Q1H1M [facility] Rx#:[id number] Intake, IV Titration 298.190 50.852 Amount Norepinephrine 32 mg In 298.190 50.852 Sodium Chloride 0.9% 218 ml @ 0.05 MCG/KG/MIN 2. 594 mls/hr IV .Q24H [facility] Rx#:[id number] Oral 120 Output: Urine 420 977 50 Other: Voiding Method Indwelling Catheter Indwelling Catheter - Labs CBC & Chem 7: 11/04/20 04:11 11/04/20 04:11 Labs: Abnormal Lab Results - Last 24 Hours (Table) 11/03/20 11/03/20 11/03/20 Range/Units 10:43 10:43 11:36 WBC (3.8-10.6) k/uL RDW (11.5-15.5) % Plt Count (150-450) k/uL Neutrophils # (1.3-7.7) k/uL Lymphocytes # (1.0-4.8) k/uL Sodium (137-145) mmol/L Potassium 5.8 H (3.5-5.1) mmol/L Chloride 109 H (98-107) mmol/L Carbon Dioxide 18 L (22-30) mmol/L BUN 60 H (7-17) mg/dL Creatinine 3.67 H (0.52-1.04) mg/dL Glucose 178 H (74-99) mg/dL POC Glucose (mg/dL) 171 H (75-99) mg/dL Plasma Lactic Acid Nacho 3.7 H* (0.7-2.0) mmol/L Calcium (8.4-10.2) mg/dL 11/03/20 11/03/20 11/03/20 Range/Units 13:50 16:35 17:44 WBC (3.8-10.6) k/uL RDW (11.5-15.5) % Plt Count (150-450) k/uL Neutrophils # (1.3-7.7) k/uL Lymphocytes # (1.0-4.8) k/uL Sodium (137-145) mmol/L Potassium 5.9 H (3.5-5.1) mmol/L Chloride 110 H (98-107) mmol/L Carbon Dioxide 17 L (22-30) mmol/L BUN 60 H (7-17) mg/dL Creatinine 3.59 H (0.52-1.04) mg/dL Glucose 172 H (74-99) mg/dL POC Glucose (mg/dL) 172 H (75-99) mg/dL Plasma Lactic Acid Nacho 6.0 H* (0.7-2.0) mmol/L Calcium 8.1 L (8.4-10.2) mg/dL 11/03/20 11/03/20 11/04/20 Range/Units 20:36 23:16 04:11 WBC 24.0 H (3.8-10.6) k/uL RDW 19.5 H (11.5-15.5) % Plt Count 113 L (150-450) k/uL Neutrophils # 22.5 H (1.3-7.7) k/uL Lymphocytes # 0.5 L (1.0-4.8) k/uL Sodium 136 L (137-145) mmol/L Potassium 5.5 H (3.5-5.1) mmol/L Chloride (98-107) mmol/L Carbon Dioxide (22-30) mmol/L BUN 61 H (7-17) mg/dL Creatinine 3.50 H (0.52-1.04) mg/dL Glucose 126 H (74-99) mg/dL POC Glucose (mg/dL) 200 H (75-99) mg/dL Plasma Lactic Acid Nacho (0.7-2.0) mmol/L Calcium 7.9 L (8.4-10.2) mg/dL 11/04/20 11/04/20 Range/Units 04:11 06:39 WBC (3.8-10.6) k/uL RDW (11.5-15.5) % Plt Count (150-450) k/uL Neutrophils # (1.3-7.7) k/uL Lymphocytes # (1.0-4.8) k/uL Sodium (137-145) mmol/L Potassium 5.2 H (3.5-5.1) mmol/L Chloride (98-107) mmol/L Carbon Dioxide (22-30) mmol/L BUN 59 H (7-17) mg/dL Creatinine 3.59 H (0.52-1.04) mg/dL Glucose 159 H (74-99) mg/dL POC Glucose (mg/dL) 187 H (75-99) mg/dL Plasma Lactic Acid Nacho (0.7-2.0) mmol/L Calcium 7.9 L (8.4-10.2) mg/dL Microbiology - Last 24 Hours (Table) 11/02/20 22:14 Blood Culture - Preliminary Blood No Growth after 24 hours 11/02/20 22:21 Blood Culture - Preliminary Blood No Growth after 24 hours
[2020-11-04] MEDS ORDERED: SODIUM CHLORIDE 0.9% 1,000 ML IV SCH (09:00)
--- NOTE | 2020-11-04 09:11 | XR ---
EXAMINATION TYPE: XR chest 1V portable DATE OF EXAM: 11/04/2020 Comparison: 11/03/2020 Clinical History: 80 year-old female shortness of breath, exertional dyspnea Findings: Patient is rotated and oblique towards the right. The right apex is obscured by the patient's chin. H eart remains enlarged. Continued moderate effusions and interstitial prominence. Impression: Limited, oblique and rotated exam. Cardiomegaly with moderate effusions and underlying atelectasis an d/or consolidation persists. Possible background of mild pulmonary vascular congestion.
[2020-11-04] MEDS: NYSTATIN 100,000 UNIT/GM POWD 15 GM TOPICAL SCH ×2 (09:59→20:25)
[2020-11-04] MEDS: PANTOPRAZOLE 40 MG/10 ML VIAL IV SCH (09:59)
[2020-11-04] MEDS: CEFEPIME 1 GM in SODIUM CHLORIDE 0.9% 50 ML IVPB SCH ×2 (09:59→20:29)
[2020-11-04] MEDS: APIXABAN 2.5 MG TABLET PO SCH ×2 (09:59→20:05)
--- NOTE | 2020-11-04 10:43 | P.PN ---
Subjective Progress Note Date: 11/04/20 Principal diagnosis: Weakness, fatigue, altered mental status, sepsis, chronic wound This 80-year-old white female patient of Dr. Young, with multiple medical problems including diabetes mellitus, hypertension, chronic A. fib, morbid obesity, recurrent cellulitis of the right lower extremity, lymphedema, left foot diabetic ulcers, osteomyelitis, and history of left transmetatarsal amputation and wound VAC application on 08/24/2020. Wound cultures were positive for MSSA and Pseudomonas, and patient was receiving IV antibiotics with cefepime with a stop date of 10/05/2020. Patient was brought into the emergency department on 11/02/2020 for evaluation of fatigue, general weakness, altered mentation with onset of symptoms 5 days prior to presentation. Patient has a w ound VAC in place on her left foot. Apparently she has been more drowsy, unable to participate with therapy, and she was bradycardic and hypotensive. Her lab data showed acute on chronic kidney injury, and hyperkalemia with potassium level of 6.8, urinalysis did not show evidence of infection, admission chest x- ray showed cardiomegaly and basilar effusions. COVID 19 test was negative. Patient was very hypotensive in the emergency department with blood pressure of 66/53, EKG showed slow atrial fibrillation with a rate of 40-50 BPM. Patient has been hypothermic with a temp as low as 92F. She has been fluid resuscitated with a 3-1/2 L and IV fluid boluses, currently remains on D5W with 3 A of bicarbonate at 1:30 ML per hour, 0.9 at 10 ML per hour, and even if it is currently a 65 mics per minute, she is quite drowsy, appears to be in no acute distress, she is arousable to repeated verbal stimulation, however she is not verbally responding, she is currently on 3 L of oxygen, and her pulse ox is 93%, her temperature has improved, and is up to 97.4, current blood pressures 94/55 with a map of 68. She remains in atrial fibrillation on the monitor with a rate of 89, she has received several rounds of 50% dextrose, and regular insulin, bicarbonate IV pushes, she received 1 dose of IV Lasix 60 mg, and currently her potassium is 5.9. Nephrology is following. Patient is oliguric, making about 20-35 ML per hour, nephrology is following, antibiotics in the form of cefepime and vancomycin,, blood culture sent and pending, lactic acid is 4.2 On 11/04/2020 patient seen in follow-up in intensive care unit, she is slightly more arousable today, still quite drowsy, appears to be in no acute distress, she is currently on 4 L per high flow nasal cannula and her pulse ox is around 94%. She is on 0.9 normal saline at a rate of 20 ML per hour, she was still on D5W with 3 A of bicarbonate at 130 ML per hour, still on norepinephrine infusion at 56 mics per minute. Still hypothermic this morning with a temp of 94.4F. Current blood pressures 98/88, and patient is in A. fib, with a rate of 89-94 BPM. She remains on cefepime and vancomycin for antibiotic coverage, her blood cultures have shown no growth at the 24-hour santi. Today's labs show white blood cell count of 24, hemoglobin is 11.9, sodium is 138, potassium 5.2, BUN is 59, creatinine is 3.59, her urinalysis did not show clear evidence of infection, growing the virus PCR was negative. Today's chest x-ray showed cardiomegaly with moderate effusions and underlying atelectasis or consolidation. Possible mild pulmonary vascular congestion. Objective - Vital Signs Vital signs: Vital Signs Temp 94.4 F L 11/04/20 04:00 Pulse 94 11/04/20 07:00 Resp 24 11/04/20 07:00 BP 98/88 11/04/20 07:00 Pulse Ox 95 11/04/20 07:00 Intake & Output 11/03/20 11/04/20 11/04/20 18:59 06:59 18:59 Intake Total 3133.190 950.852 420 Output Total 420 977 350 Balance 2713.190 -26.148 70 Weight 130.6 kg Intake: IV 2715 900 270 .9 80 120 10 Cefepime 2 gm In Sodium 75 Chloride 0.9% 100 ml @ 25 mls/hr IVPB Q12HR [facility] Rx #:[id number] Dextrose 5% in Water 1, 1560 780 260 000 ml @ 130 mls/hr IV . Q8H51M [facility] with Sodium Bicarb (1 Meq/ml) 150 ml Rx#:[id number] Sodium Chloride 0.9% 1, 1000 000 ml @ 999 mls/hr IV . Q1H1M [facility] Rx#:[id number] Intake, IV Titration 298.190 50.852 150 Amount Norepinephrine 32 mg In 298.190 50.852 Sodium Chloride 0.9% 218 ml @ 0.05 MCG/KG/MIN 2. 594 mls/hr IV .Q24H [facility] Rx#:[id number] Sodium Chloride 0.9% 1, 150 000 ml @ 75 mls/hr IV . [id number] [facility] Rx#:[id number] Oral 120 Output: Urine 420 977 350 Other: Voiding Method Indwelling Catheter Indwelling Catheter - Exam GENERAL EXAM: Confused, drowsy, but arousable 80-year-old chronically ill looking obese white female, on 15 L of oxygen with a pulse ox of 94%, comfortable in no apparent distress. HEAD: Normocephalic/atraumatic. EYES: Normal reaction of pupils, equal size. Conjunctiva pink, sclera white. NOSE: Clear with pink turbinates. THROAT: No erythema or exudates. NECK: No masses, no JVD, no thyroid enlargement, no adenopathy. CHEST: No chest wall deformity. Symmetrical expansion. LUNGS: Equal air entry with diminished breath sounds CVS: Regular rate and rhythm, normal S1 and S2, no gallops, no murmurs, no rubs ABDOMEN: Soft, nontender. No hepatosplenomegaly, normal bowel sounds, no guarding or rigidity. EXTREMITIES: No clubbing, nonpitting lower extremity edema, no cyanosis, 2+ pulses and upper and lower extremities. Left foot wound and wound VAC on and black foam, left foot toes amputated MUSCULOSKELETAL: Muscle strength and tone normal. SPINE: No scoliosis or deformity SKIN: No rashes CENTRAL NERVOUS SYSTEM: Drowsy, arousable, no focal deficits, tone is normal in all 4 extremities. - Labs CBC & Chem 7: 11/04/20 04:11 11/04/20 04:11 Labs: Abnormal Lab Results - Last 24 Hours (Table) 11/03/20 11/03/20 11/03/20 Range/Units 10:43 10:43 11:36 WBC (3.8-10.6) k/uL RDW (11.5-15.5) % Plt Count (150-450) k/uL Neutrophils # (1.3-7.7) k/uL Lymphocytes # (1.0-4.8) k/uL Sodium (137-145) mmol/L Potassium 5.8 H (3.5-5.1) mmol/L Chloride 109 H (98-107) mmol/L Carbon Dioxide 18 L (22-30) mmol/L BUN 60 H (7-17) mg/dL Creatinine 3.67 H (0.52-1.04) mg/dL Glucose 178 H (74-99) mg/dL POC Glucose (mg/dL) 171 H (75-99) mg/dL Plasma Lactic Acid Nacho 3.7 H* (0.7-2.0) mmol/L Calcium (8.4-10.2) mg/dL 11/03/20 11/03/20 11/03/20 Range/Units 13:50 16:35 17:44 WBC (3.8-10.6) k/uL RDW (11.5-15.5) % Plt Count (150-450) k/uL Neutrophils # (1.3-7.7) k/uL Lymphocytes # (1.0-4.8) k/uL Sodium (137-145) mmol/L Potassium 5.9 H (3.5-5.1) mmol/L Chloride 110 H (98-107) mmol/L Carbon Dioxide 17 L (22-30) mmol/L BUN 60 H (7-17) mg/dL Creatinine 3.59 H (0.52-1.04) mg/dL Glucose 172 H (74-99) mg/dL POC Glucose (mg/dL) 172 H (75-99) mg/dL Plasma Lactic Acid Nacho 6.0 H* (0.7-2.0) mmol/L Calcium 8.1 L (8.4-10.2) mg/dL 11/03/20 11/03/20 11/04/20 Range/Units 20:36 23:16 04:11 WBC 24.0 H (3.8-10.6) k/uL RDW 19.5 H (11.5-15.5) % Plt Count 113 L (150-450) k/uL Neutrophils # 22.5 H (1.3-7.7) k/uL Lymphocytes # 0.5 L (1.0-4.8) k/uL Sodium 136 L (137-145) mmol/L Potassium 5.5 H (3.5-5.1) mmol/L Chloride (98-107) mmol/L Carbon Dioxide (22-30) mmol/L BUN 61 H (7-17) mg/dL Creatinine 3.50 H (0.52-1.04) mg/dL Glucose 126 H (74-99) mg/dL POC Glucose (mg/dL) 200 H (75-99) mg/dL Plasma Lactic Acid Nacho (0.7-2.0) mmol/L Calcium 7.9 L (8.4-10.2) mg/dL 11/04/20 11/04/20 Range/Units 04:11 06:39 WBC (3.8-10.6) k/uL RDW (11.5-15.5) % Plt Count (150-450) k/uL Neutrophils # (1.3-7.7) k/uL Lymphocytes # (1.0-4.8) k/uL Sodium (137-145) mmol/L Potassium 5.2 H (3.5-5.1) mmol/L Chloride (98-107) mmol/L Carbon Dioxide (22-30) mmol/L BUN 59 H (7-17) mg/dL Creatinine 3.59 H (0.52-1.04) mg/dL Glucose 159 H (74-99) mg/dL POC Glucose (mg/dL) 187 H (75-99) mg/dL Plasma Lactic Acid Nacho (0.7-2.0) mmol/L Calcium 7.9 L (8.4-10.2) mg/dL Microbiology - Last 24 Hours (Table) 11/02/20 22:14 Blood Culture - Preliminary Blood No Growth after 24 hours 11/02/20 22:21 Blood Culture - Preliminary Blood No Growth after 24 hours Assessment and Plan Plan: Assessment: #1. Acute hypoxic respiratory failure related to sepsis with septic shock, possibly related to left foot wound infection #2. Recent hospitalization in August with left foot wound cellulitis, osteomyelitis, gangrene, status post transmetatarsal amputation of the toes and placement of wound VAC, wound cultures positive for pseudomonas and MSSA, patient received 6 weeks with IV cefepime, with stop date of 10/05/2020 #3. Acute kidney injury #4. Chronic kidney disease stage III at baseline #5. Lactic acidosis related to septic shock #6. Diabetes mellitus type 2 #7. Hyperkalemia related to acute on chronic kidney injury, with bradycardia, improved with treatment #8. Hypertension #9. Hyperlipidemia #10. Chronic edema with chronic venous insufficiency #11. Chronic A. fib on Eliquis #12. Morbid obesity Plan: Continue current medical treatment, continue current antibiotics, no growth, blood cultures, patient continues on vasopressor support, we will increase her Synthroid 100 mics daily IV starting tomorrow, we added midodrine 10 mg by mouth 3 times daily, discontinuing her bicarbonate infusion. Overall prognosis is guarded, continues supportively treat the patient. There are multiple consultants on the case including infectious disease, nephrology, networking specialist, cardiology. Continue to follow closely with the consultants. I performed a history & physical examination of the patient and discussed their management with my nurse practitioner, Charito Keller. I reviewed the nurse practitioner's note and agree with the documented findings and plan of care. Lung sounds are positive for diminished breath sounds. The findings and the impression was discussed with the patient. I attest to the documentation by the nurse practitioner. Time with Patient: Less than 30
[2020-11-04] MEDS ORDERED: LEVOTHYROXINE IVP 100 MCG/5 ML VIAL IV SCH (10:45)
[2020-11-04] MEDS ORDERED: FUROSEMIDE 10 MG/ML 10 ML VIAL IV STA (11:13)
[2020-11-04 11:36] LABS: Glucose,Whole Blood 101 mg/dL (75-99)
[2020-11-04] MEDS: LACTATED RINGERS 1,000 ML IV SCH ×2 (11:40→23:14)
--- NOTE | 2020-11-04 13:50 | P.PN ---
Subjective Progress Note Date: 11/04/20 Patient is sitting on norepinephrine around 45 g per hour. I discussed with nursing staff to make sure that her pressure is correlating between manual readings and blood pressure cuff. Malt House Operator did not think that patient needed an art line at this time. Patient herself is awake and alert. She denies any concerns. She appeared confused at times. Urine output improved compared to yesterday. Objective - Vital Signs Vital signs: Vital Signs Temp 96.2 F L 11/04/20 08:30 Pulse 118 H 11/04/20 11:00 Resp 35 H 11/04/20 11:00 BP 118/82 11/04/20 11:00 Pulse Ox 93 L 11/04/20 11:00 Intake & Output 11/03/20 11/04/20 11/04/20 18:59 06:59 18:59 Intake Total 3133.190 950.852 645 Output Total 420 977 625 Balance 2713.190 -26.148 20 Weight 130.6 kg Intake: IV 2715 900 270 .9 80 120 10 Cefepime 2 gm In Sodium 75 Chloride 0.9% 100 ml @ 25 mls/hr IVPB Q12HR [facility] Rx #:[id number] Dextrose 5% in Water 1, 1560 780 260 000 ml @ 130 mls/hr IV . Q8H51M [facility] with Sodium Bicarb (1 Meq/ml) 150 ml Rx#:[id number] Sodium Chloride 0.9% 1, 1000 000 ml @ 999 mls/hr IV . Q1H1M [facility] Rx#:[id number] Intake, IV Titration 298.190 50.852 375 Amount Lactated Ringers 1,000 ml 150 @ 75 mls/hr IV .[id number] [facility] Rx#:[id number] Norepinephrine 32 mg In 298.190 50.852 Sodium Chloride 0.9% 218 ml @ 0.05 MCG/KG/MIN 2. 594 mls/hr IV .Q24H [facility] Rx#:[id number] Sodium Chloride 0.9% 1, 225 000 ml @ 75 mls/hr IV . [id number] [facility] Rx#:[id number] Oral 120 Output: Urine 420 977 625 Other: Voiding Method Indwelling Catheter Indwelling Catheter Indwelling Catheter - Exam General: The patient is awake and alert, in no distress Eye: there is normal conjunctiva bilaterally. Neck: The neck is supple, there is no JVD. Cardiovascular: Normal S1-S2, no S3-S4, no murmurs. Respiratory: Lungs clear to auscultation bilaterally Gastrointestinal: Abdomen is soft, nontender Musculoskeletal: There is edema and anasarca up to the hip . Wound VAC in place on left foot. Both legs wrapped in Tio wrap up to the knees. Neurological:. Speech is normal. Skin: Skin is warm and dry . There is evidence of skin candidiasis in the abdominal folds. - Labs CBC & Chem 7: 11/04/20 04:11 11/04/20 04:11 Labs: Abnormal Lab Results - Last 24 Hours (Table) 11/03/20 11/03/20 11/03/20 Range/Units 13:50 16:35 17:44 WBC (3.8-10.6) k/uL RDW (11.5-15.5) % Plt Count (150-450) k/uL Neutrophils # (1.3-7.7) k/uL Lymphocytes # (1.0-4.8) k/uL Sodium (137-145) mmol/L Potassium 5.9 H (3.5-5.1) mmol/L Chloride 110 H (98-107) mmol/L Carbon Dioxide 17 L (22-30) mmol/L BUN 60 H (7-17) mg/dL Creatinine 3.59 H (0.52-1.04) mg/dL Glucose 172 H (74-99) mg/dL POC Glucose (mg/dL) 172 H (75-99) mg/dL Plasma Lactic Acid Nacho 6.0 H* (0.7-2.0) mmol/L Calcium 8.1 L (8.4-10.2) mg/dL 11/03/20 11/03/20 11/04/20 Range/Units 20:36 23:16 04:11 WBC 24.0 H (3.8-10.6) k/uL RDW 19.5 H (11.5-15.5) % Plt Count 113 L (150-450) k/uL Neutrophils # 22.5 H (1.3-7.7) k/uL Lymphocytes # 0.5 L (1.0-4.8) k/uL Sodium 136 L (137-145) mmol/L Potassium 5.5 H (3.5-5.1) mmol/L Chloride (98-107) mmol/L Carbon Dioxide (22-30) mmol/L BUN 61 H (7-17) mg/dL Creatinine 3.50 H (0.52-1.04) mg/dL Glucose 126 H (74-99) mg/dL POC Glucose (mg/dL) 200 H (75-99) mg/dL Plasma Lactic Acid Nacho (0.7-2.0) mmol/L Calcium 7.9 L (8.4-10.2) mg/dL 11/04/20 11/04/20 11/04/20 Range/Units 04:11 06:39 11:35 WBC (3.8-10.6) k/uL RDW (11.5-15.5) % Plt Count (150-450) k/uL Neutrophils # (1.3-7.7) k/uL Lymphocytes # (1.0-4.8) k/uL Sodium (137-145) mmol/L Potassium 5.2 H (3.5-5.1) mmol/L Chloride (98-107) mmol/L Carbon Dioxide (22-30) mmol/L BUN 59 H (7-17) mg/dL Creatinine 3.59 H (0.52-1.04) mg/dL Glucose 159 H (74-99) mg/dL POC Glucose (mg/dL) 187 H 101 H (75-99) mg/dL Plasma Lactic Acid Nacho (0.7-2.0) mmol/L Calcium 7.9 L (8.4-10.2) mg/dL Microbiology - Last 24 Hours (Table) 11/02/20 22:14 Blood Culture - Preliminary Blood No Growth after 24 hours 11/02/20 22:21 Blood Culture - Preliminary Blood No Growth after 24 hours Assessment and Plan Assessment: This is a 80-year-old female with complex past medical history noted below who presented to the emergency room with fatigue and generalized weakness. Patient was evaluated in the ER and admitted to the hospital for further management of her medical problems noted below. 1. Severe sepsis with septic shock: Requiring norepinephrine. Also started on midodrine by ICU physician. Resuscitated appropriately with IV fluid since admission. Currently on broad-spectrum antibiotic with vancomycin and cefepime. Blood culture negative to date. Lactic acidosis resolved. Patient was hypothermic on presentation but now her temperature improved and is back to normal range. Infectious disease consulted for further evaluation. 2. Acute kidney injury: Nonoliguric. Secondary to sepsis and hypotension. Received aggressive IV fluid hydration. Nephrology following closely. 3. Hyperkalemia: Treated medically. Potassium level improved 4. Sinus bradycardia: Now resolved. Probably secondary to electrolyte disturbance. Seen and evaluated by cardiology. No further recommendations at this time. 5. Metabolic acidosis, improved 6. Chronic atrial fibrillation on anticoagulation with Eliquis. Dose adjusted by cardiology to 2.5 mg twice daily 7. 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 Wound VAC in place. Infectious disease consulted. Continue IV vancomycin for now. 8. Stage IIIB chronic kidney disease: Baseline creatinine around 1.5 9. Type 2 diabetes, blood glucose within acceptable range with current insulin dose 10. GI and DVT prophylaxis: With IV Protonix and Eliquis 11. CODE STATUS: Patient is DO NOT RESUSCITATE/DO NOT INTUBATE
--- NOTE | 2020-11-04 15:26 | PN ---
PROGRESS NOTE Patient is seen for followup for acute kidney injury. She is currently awake. Patient remains on IV fluids. Levophed is at about 50 mcg. Urine output has picked up. Patient received another dose of IV Lasix last night. Her creatinine is about the same. Urine output currently at about 100 mL/hour. Potassium has improved as well. On examination today, blood pressure this morning was 84/40, heart rate 106 per minute. Patient is afebrile. EXAMINATION OF THE HEART: S1 and S2. EXAMINATION OF LUNGS: Bilateral breath sounds are heard. Decreased breath sounds at bases. ABDOMEN: Soft, morbidly obese with weeping noted and significant abdominal wall edema. Examination of lower extremities shows 2 to 3+ edema. Both extremities are wrapped. ROCK CLIMBING INSTRUCTOR exam shows patient has been moving all 4 extremities. Labs show sodium 138, potassium 5.2, chloride 106, BUN 59, creatinine 3.59, hemoglobin 11.9 g/dL. ASSESSMENT: 1. Acute kidney injury, acute tubular necrosis, nonoliguric, currently with improved urine output, status post IV Lasix. I will repeat another dose of Lasix today, as patient is hypervolemic. She remains significantly hypotensive. However, she does not have an art line. Continue to avoid nephrotoxic agents. Continue pressors as needed. 2. Hyperkalemia associated with acute kidney injury, use of CHRISTOPHER inhibitors prior to admission, currently improved with improving urine output. 3. Metabolic acidosis secondary to renal failure, status post bicarb drip, currently improved. 4. Peripheral vascular disease with recent cellulitis and gangrene, status post amputation of the toes in August of 2020, currently with a wound V.A.C., and also status post IV antibiotics prior to admission. 5. Chronic kidney disease, stage III. Baseline creatinine about 1.4 and 1.7 noted in July and August of 2020. Etiology likely nephrosclerosis. 6. Chronic atrial fibrillation, maintained on Eliquis. 7. Bradycardia associated with hyperkalemia, now improved. 8. Hypotension, most likely secondary to sepsis. Patient remains on Levophed, which is slightly lower than yesterday but still significantly high dose. PLAN: Repeat IV Lasix. Continue to avoid nephrotoxic agents and continue to hold CHRISTOPHER inhibitors. Repeat labs in a.m. Wean down Levophed as tolerated, and I will change the IV fluids to Ringer lactate secondary to recent acidosis. MMODL / IJN: [id number] /
[2020-11-04] MEDS: NOREPINEPHRINE 32 MG in SODIUM CHLORIDE 0.9% 218 ML IV SCH (17:10)
[2020-11-04] MEDS: ONDANSETRON 4 MG/2 ML VIAL IVP PRN (17:10)
[2020-11-04 17:16] LABS: Glucose,Whole Blood 92 mg/dL (75-99)
[2020-11-04] MEDS ORDERED: FUROSEMIDE 10 MG/ML 4 ML VIAL IV STA (17:24)
[2020-11-04] MEDS: IPRATROPIUM-ALBUTEROL 3 ML NEB INHALATION SCH (19:34)
--- NOTE | 2020-11-04 19:45 | PN ---
PROGRESS NOTE DATE OF SERVICE: 11/04/2020 REASON FOR FOLLOWUP: Possible sepsis. INTERVAL HISTORY: The patient is currently afebrile. The patient is more awake and alert. She is breathing comfortably. Denies having any chest pain. Occasional cough. No abdominal pain or pain to the left foot amputation site area. The patient is still requiring high-dose pressor support to maintain her blood pressure. PHYSICAL EXAMINATION: Blood pressure 105/67, pulse of 131, temperature 98.6. She is 95% on 6 L nasal cannula. General description is an elderly female lying in bed in no distress. RESPIRATORY SYSTEM: Unlabored breathing with decreased intensity of breath sounds. No wheeze. HEART: S1, S2. Regular rate and rhythm. ABDOMEN: Soft. No tenderness. Left foot is currently covered with a wound V.A.C. LABS: Blood culture so far negative. Hemoglobin is 11.9. White count jumped to 24.9. Creatinine 3.59. DIAGNOSTIC IMPRESSION AND PLAN: Patient with /sepsis which is multifactorial in this patient who did have a component of dehydration. No clinical suspicion for any pneumonia. She did have a chronic nonhealing wound to the left foot that infected. However, in view of her clinical condition, still requiring high-dose pressor support with worsening of the white count, will add daptomycin to cover for the Gram-positive while waiting for the condition to stabilize and culture to finalize. Continue supportive care. MMODL / IJN: [id number] /
[2020-11-04 20:53] LABS: Glucose,Whole Blood 101 mg/dL (75-99)
[2020-11-04] MEDS: INSULIN DETEMIR (LEVEMIR) 100 UNIT/ML SYR SQ SCH (20:55)
[2020-11-05] MEDS: NOREPINEPHRINE 32 MG in SODIUM CHLORIDE 0.9% 218 ML IV SCH ×2 (01:18→10:56)
[2020-11-05 04:36] LABS: Anisocytosis Slight; Basophils % (A) 0 %; Eosinophils % (A) 0 %; HCT 37.2 % (34.0-46.0); HGB 11.8 gm/dL (11.4-16.0); Hypochromasia Moderate; Lymphocytes # (A) 0.4 k/uL (1.0-4.8); Lymphocytes % (A) 3 %; MCH 27.1 pg (25.0-35.0); MCHC 31.6 g/dL (31.0-37.0); MCV 85.8 fL (80.0-100.0); Mean Platelet Volume 7.6; Monocytes # (A) 0.5 k/uL (0-1.0); Monocytes % (A) 3 %; Neutrophils # (A) 13.1 k/uL (1.3-7.7); Neutrophils % (A) 93 %; Platelet Count 107 k/uL (150-450); RBC 4.34 m/uL (3.80-5.40); RDW 19.2 % (11.5-15.5); WBC 14.2 k/uL (3.8-10.6)
[2020-11-05 04:58] LABS: Calcium 7.9 mg/dL (8.4-10.2); Potassium 5.1 mmol/L (3.5-5.1)
[2020-11-05] MEDS: LEVOTHYROXINE IVP 100 MCG/5 ML VIAL IV SCH (06:17)
[2020-11-05 06:28] LABS: Glucose,Whole Blood 124 mg/dL (75-99)
[2020-11-05] MEDS: INSULIN ASPART (NovoLOG) 100 UNIT/ML VIAL SQ SCH ×4 (06:28→23:39)
[2020-11-05] MEDS: IPRATROPIUM-ALBUTEROL 3 ML NEB INHALATION SCH ×4 (07:05→20:27)
[2020-11-05] MEDS: MIDODRINE 5 MG TAB PO SCH ×3 (07:57→16:49)
[2020-11-05] MEDS: polyethylene glycoL 3350 17 GM POWD.PACK PO SCH (07:57)
[2020-11-05] MEDS: APIXABAN 2.5 MG TABLET PO SCH (07:57)
[2020-11-05] MEDS ORDERED: HEPARIN SODIUM,PORCINE 5,000 UNIT/ML 1 ML VIAL IV PRN (08:03)
[2020-11-05] MEDS ORDERED: HEPARIN SOD,PORK IN 0.45% NACL 25,000 UNIT in 0.45% NACL 1 250ML.BAG IV SCH (08:15)
--- NOTE | 2020-11-05 08:55 | XR ---
EXAMINATION TYPE: XR chest 1V portable DATE OF EXAM: 11/05/2020 COMPARISON: Chest x-ray 11/04/2020 HISTORY: Shortness of breath TECHNIQUE: Single frontal view of the chest is obtained. FINDINGS: Findings are similar to prior exam. Patient is less rotated. Heart is largely obscured and may be increased in size. Bibasilar density persists, the hemidiaphragms are obscured. No evident pn eumothorax. Central vascularity and interstitium appear prominently. Aorta is dense. IMPRESSION: Correlate for congestive heart failure with pleural effusions, basilar edema versus atel ectasis, pneumonia not excluded.
[2020-11-05 09:08] LABS: INR 1.4 (<1.2)
[2020-11-05] MEDS: CEFEPIME 1 GM in SODIUM CHLORIDE 0.9% 50 ML IVPB SCH (09:12)
[2020-11-05] MEDS: NYSTATIN 100,000 UNIT/GM POWD 15 GM TOPICAL SCH ×2 (09:13→21:17)
[2020-11-05] MEDS: PANTOPRAZOLE 40 MG/10 ML VIAL IV SCH (09:13)
[2020-11-05] MEDS ORDERED: FUROSEMIDE 10 MG/ML 10 ML VIAL IV STA (10:35)
--- NOTE | 2020-11-05 10:36 | P.PN ---
Subjective Progress Note Date: 11/05/20 Principal diagnosis: Weakness, fatigue, altered mental status, sepsis, chronic wound This 80-year-old white female patient of Dr. Young, with multiple medical problems including diabetes mellitus, hypertension, chronic A. fib, morbid obesity, recurrent cellulitis of the right lower extremity, lymphedema, left foot diabetic ulcers, osteomyelitis, and history of left transmetatarsal amputation and wound VAC application on 08/24/2020. Wound cultures were positive for MSSA and Pseudomonas, and patient was receiving IV antibiotics with cefepime with a stop date of 10/05/2020. Patient was brought into the emergency department on 11/02/2020 for evaluation of fatigue, general weakness, altered mentation with onset of symptoms 5 days prior to presentation. Patient has a w ound VAC in place on her left foot. Apparently she has been more drowsy, unable to participate with therapy, and she was bradycardic and hypotensive. Her lab data showed acute on chronic kidney injury, and hyperkalemia with potassium level of 6.8, urinalysis did not show evidence of infection, admission chest x- ray showed cardiomegaly and basilar effusions. COVID 19 test was negative. Patient was very hypotensive in the emergency department with blood pressure of 66/53, EKG showed slow atrial fibrillation with a rate of 40-50 BPM. Patient has been hypothermic with a temp as low as 92F. She has been fluid resuscitated with a 3-1/2 L and IV fluid boluses, currently remains on D5W with 3 A of bicarbonate at 1:30 ML per hour, 0.9 at 10 ML per hour, and even if it is currently a 65 mics per minute, she is quite drowsy, appears to be in no acute distress, she is arousable to repeated verbal stimulation, however she is not verbally responding, she is currently on 3 L of oxygen, and her pulse ox is 93%, her temperature has improved, and is up to 97.4, current blood pressures 94/55 with a map of 68. She remains in atrial fibrillation on the monitor with a rate of 89, she has received several rounds of 50% dextrose, and regular insulin, bicarbonate IV pushes, she received 1 dose of IV Lasix 60 mg, and currently her potassium is 5.9. Nephrology is following. Patient is oliguric, making about 20-35 ML per hour, nephrology is following, antibiotics in the form of cefepime and vancomycin,, blood culture sent and pending, lactic acid is 4.2 On 11/04/2020 patient seen in follow-up in intensive care unit, she is slightly more arousable today, still quite drowsy, appears to be in no acute distress, she is currently on 4 L per high flow nasal cannula and her pulse ox is around 94%. She is on 0.9 normal saline at a rate of 20 ML per hour, she was still on D5W with 3 A of bicarbonate at 130 ML per hour, still on norepinephrine infusion at 56 mics per minute. Still hypothermic this morning with a temp of 94.4F. Current blood pressures 98/88, and patient is in A. fib, with a rate of 89-94 BPM. She remains on cefepime and vancomycin for antibiotic coverage, her blood cultures have shown no growth at the 24-hour santi. Today's labs show white blood cell count of 24, hemoglobin is 11.9, sodium is 138, potassium 5.2, BUN is 59, creatinine is 3.59, her urinalysis did not show clear evidence of infection, growing the virus PCR was negative. Today's chest x-ray showed cardiomegaly with moderate effusions and underlying atelectasis or consolidation. Possible mild pulmonary vascular congestion. On 11/06/2020 patient seen in follow-up in intensive care unit, yesterday we were notified by the nursing staff about the family's decision to make the patient hospice and they would like to make arrangements to transfer the patient home under the hospice care. Hospice has been consulted but has not evaluated the patient yet. Patient remains DO NOT RESUSCITATE, she is more awake on today's exam, she is providing some simple answers, she denies any acute distress, denies any dyspnea, she is currently on 6 L of oxygen, with pulse ox of 93-94%, she is afebrile, she is in A. fib, slightly tachycardic, with a rate of 116 BPM. Currently medical which included cefepime and daptomycin, so far blood cultures have shown no growth. Temperature has improved, no hypothermia, temp is 96.3F axillary today. Blood pressure is 86/55 with a map of 65, and patient remains on high-dose vasopressors, in the form of norepinephrine, currently infusing at 41 mics per minute. Lactate Ringer's at 75 ML per hour. His chest x-ray has been reviewed showing bibasilar densities, pleural effusions, basilar edema versus atelectasis/pneumonia. Today's labs have been reviewed. Leukocytosis is down trending, white blood cell count has improved, down to 14.2, hemoglobin is 11.8, electrolytes within normal limits, BUN is 59, creatinine is 3.7 Objective - Vital Signs Vital signs: Vital Signs Temp 96.3 F L 11/05/20 08:00 Pulse 116 H 11/05/20 09:00 Resp 20 11/05/20 09:00 BP 110/91 11/05/20 09:00 Pulse Ox 93 L 11/05/20 09:00 Intake & Output 11/04/20 11/05/20 11/05/20 18:59 06:59 18:59 Intake Total 1020 1202.219 275 Output Total 1350 1510 425 Balance -330 -307.781 -150 Weight 129.8 kg Intake: IV 270 925 225 .9 10 Cefepime 1 gm In Sodium 50 Chloride 0.9% 50 ml @ 12. 5 mls/hr IVPB Q12HR [facility] Rx#:[id number] DAPTOmycin 800 mg In 50 Sodium Chloride 0.9% 50 ml @ 100 mls/hr IVPB Q48H [facility] Rx#:[id number] Dextrose 5% in Water 1, 260 000 ml @ 130 mls/hr IV . Q8H51M [facility] with Sodium Bicarb (1 Meq/ml) 150 ml Rx#:[id number] Lactated Ringers 1,000 ml 825 225 @ 75 mls/hr IV .[id number] [facility] Rx#:[id number] Intake, IV Titration 750 277.219 50 Amount Cefepime 1 gm In Sodium 50 Chloride 0.9% 50 ml @ 12. 5 mls/hr IVPB Q12HR [facility] Rx#:[id number] Lactated Ringers 1,000 ml 525 @ 75 mls/hr IV .[id number] [facility] Rx#:[id number] Norepinephrine 32 mg In 277.219 Sodium Chloride 0.9% 218 ml @ 0.05 MCG/KG/MIN 2. 594 mls/hr IV .Q24H [facility] Rx#:[id number] Sodium Chloride 0.9% 1, 225 000 ml @ 75 mls/hr IV . [id number] [facility] Rx#:[id number] Output: Urine 1350 1510 425 Other: Voiding Method Indwelling Catheter Indwelling Catheter Indwelling Catheter - Exam GENERAL EXAM: Awake and -svvr-azi white female, on 6 L of oxygen with a pulse ox of 94%, comfortable in no apparent distress. Patient is more awake today's exam, responding appropriately, denies any acute distress HEAD: Normocephalic/atraumatic. EYES: Normal reaction of pupils, equal size. Conjunctiva pink, sclera white. NOSE: Clear with pink turbinates. THROAT: No erythema or exudates. NECK: No masses, no JVD, no thyroid enlargement, no adenopathy. CHEST: No chest wall deformity. Symmetrical expansion. LUNGS: Equal air entry with diminished breath sounds CVS: Regular rate and rhythm, normal S1 and S2, no gallops, no murmurs, no rubs ABDOMEN: Soft, nontender. No hepatosplenomegaly, normal bowel sounds, no guarding or rigidity. EXTREMITIES: No clubbing, nonpitting lower extremity edema, no cyanosis, 2+ pulses and upper and lower extremities. Left foot wound and wound VAC on and black foam, left foot toes amputated MUSCULOSKELETAL: Muscle strength and tone normal. SPINE: No scoliosis or deformity SKIN: No rashes CENTRAL NERVOUS SYSTEM: Drowsy, arousable, no focal deficits, tone is normal in all 4 extremities. - Labs CBC & Chem 7: 11/05/20 04:26 11/05/20 04:26 Labs: Abnormal Lab Results - Last 24 Hours (Table) 11/04/20 11/04/20 11/05/20 Range/Units 11:35 20:52 04:26 WBC 14.2 H (3.8-10.6) k/uL RDW 19.2 H (11.5-15.5) % Plt Count 107 L (150-450) k/uL Neutrophils # 13.1 H (1.3-7.7) k/uL Lymphocytes # 0.4 L (1.0-4.8) k/uL BUN (7-17) mg/dL Creatinine (0.52-1.04) mg/dL Glucose (74-99) mg/dL POC Glucose (mg/dL) 101 H 101 H (75-99) mg/dL Calcium (8.4-10.2) mg/dL 11/05/20 11/05/20 Range/Units 04:26 06:26 WBC (3.8-10.6) k/uL RDW (11.5-15.5) % Plt Count (150-450) k/uL Neutrophils # (1.3-7.7) k/uL Lymphocytes # (1.0-4.8) k/uL BUN 59 H (7-17) mg/dL Creatinine 3.77 H (0.52-1.04) mg/dL Glucose 129 H (74-99) mg/dL POC Glucose (mg/dL) 124 H (75-99) mg/dL Calcium 7.9 L (8.4-10.2) mg/dL Microbiology - Last 24 Hours (Table) 11/02/20 22:21 Blood Culture - Preliminary Blood No Growth after 48 hours 11/02/20 22:14 Blood Culture - Preliminary Blood No Growth after 48 hours Assessment and Plan Plan: Assessment: #1. Acute hypoxic respiratory failure related to sepsis #2. Septic shock, possibly related to left foot wound infection #2. Recent hospitalization in August with left foot wound cellulitis, osteomyelitis, gangrene, status post transmetatarsal amputation of the toes and placement of wound VAC, wound cultures positive for pseudomonas and MSSA, patient received 6 weeks with IV cefepime, with stop date of 10/05/2020 #3. Acute kidney injury #4. Chronic kidney disease stage III at baseline #5. Lactic acidosis related to septic shock #6. Diabetes mellitus type 2 #7. Hyperkalemia related to acute on chronic kidney injury, with bradycardia, improved with treatment #8. Hypertension #9. Hyperlipidemia #10. Chronic edema with chronic venous insufficiency #11. Chronic A. fib on Eliquis #12. Morbid obesity Plan: Continue antibiotics per ID service recommendations, no growth on the blood cultures thus far, still continues to be on high-dose norepinephrine, but clinically is more awake and alert, responding appropriately, FiO2 is down to 6 L, continue supportively treat the patient, chest x-ray has been reviewed showing changes consistent with fluid overload, bilateral pleural effusions, patient denies any shortness of breath, wean FiO2. Patient family has decided to proceed with hospice, and their wishes is for the patient to return home under the hospice care. Hospice textile machinery sales representative supposed to meet with the patient and the family today, start arranging process of transitioning the patient home under the hospice per family's wishes. I performed a history & physical examination of the patient and discussed their management with my nurse practitioner, Charito Keller. I reviewed the nurse practitioner's note and agree with the documented findings and plan of care. Lung sounds are positive for diminished breath sounds. The findings and the impression was discussed with the patient. I attest to the documentation by the nurse practitioner. Time with Patient: Greater than 30
--- NOTE | 2020-11-05 11:27 | P.PN ---
Progress Note - Text Progress Note Date: 11/05/20 Today, I had a phone call discussion with the patient's , Tahir, over the phone. We discussed the patient's current clinical condition and goals of care. I explained to him the guarded prognosis of his given multiple medical problems and the high requirement of vasopressors. Tahir was very realistic. He wanted his to be comfortable and is currently requesting hospice at home. salvage mend worker is involved. Time spent >16 minute
[2020-11-05 12:07] LABS: Glucose,Whole Blood 101 mg/dL (75-99)
--- NOTE | 2020-11-05 12:55 | P.PN ---
Subjective Progress Note Date: 11/05/20 Patient's overall condition did not change since yesterday. She has been requiring high doses of norepinephrine. No acute events overnight reported by nursing staff. Patient appears slightly confused today but denies any complaints or concerns. Objective - Vital Signs Vital signs: Vital Signs Temp 96.3 F L 11/05/20 08:00 Pulse 114 H 11/05/20 12:10 Resp 12 11/05/20 12:00 BP 84/64 11/05/20 12:00 Pulse Ox 94 L 11/05/20 12:00 Intake & Output 11/04/20 11/05/20 11/05/20 18:59 06:59 18:59 Intake Total 1020 1202.219 447.896 Output Total 1350 1510 543 Balance -330 -307.781 -95.104 Weight 129.8 kg Intake: IV 270 925 320 .9 10 Cefepime 1 gm In Sodium 50 Chloride 0.9% 50 ml @ 12. 5 mls/hr IVPB Q12HR JANET Rx#:[id number] DAPTOmycin 800 mg In 50 Sodium Chloride 0.9% 50 ml @ 100 mls/hr IVPB Q48H JANTE Rx#:[id number] Dextrose 5% in Water 1, 260 000 ml @ 130 mls/hr IV . Q8H51M JANET with Sodium Bicarb (1 Meq/ml) 150 ml Rx#:[id number] Lactated Ringers 1,000 ml 825 320 @ 75 mls/hr IV .[id number] [facility] Rx#:[id number] Intake, IV Titration 750 277.219 127.896 Amount Cefepime 1 gm In Sodium 50 Chloride 0.9% 50 ml @ 12. 5 mls/hr IVPB Q12HR JANET Rx#:[id number] Lactated Ringers 1,000 ml 525 @ 75 mls/hr IV .[id number] JANET Rx#:[id number] Norepinephrine 32 mg In 277.219 77.896 Sodium Chloride 0.9% 218 ml @ 0.05 MCG/KG/MIN 2. 594 mls/hr IV .Q24H JANET Rx#:[id number] Sodium Chloride 0.9% 1, 225 000 ml @ 75 mls/hr IV . [id number] JANET Rx#:[id number] Output: Urine 1350 1510 543 Other: Voiding Method Indwelling Catheter Indwelling Catheter Indwelling Catheter - Exam General: The patient is awake and alert, in no distress Eye: there is normal conjunctiva bilaterally. Neck: The neck is supple, there is no JVD. Cardiovascular: Normal S1-S2, no S3-S4, no murmurs. Respiratory: Lungs clear to auscultation bilaterally Gastrointestinal: Abdomen is soft, nontender Musculoskeletal: There is edema and anasarca up to the hip . Wound VAC in place on left foot. Both legs wrapped in Tio wrap up to the knees. Neurological:. Speech is normal. Skin: Skin is warm and dry . There is evidence of skin candidiasis in the abdominal folds. - Labs CBC & Chem 7: 11/05/20 04:26 11/05/20 04:26 Labs: Abnormal Lab Results - Last 24 Hours (Table) 11/04/20 11/05/20 11/05/20 Range/Units 20:52 04:26 04:26 WBC 14.2 H (3.8-10.6) k/uL RDW 19.2 H (11.5-15.5) % Plt Count 107 L (150-450) k/uL Neutrophils # 13.1 H (1.3-7.7) k/uL Lymphocytes # 0.4 L (1.0-4.8) k/uL PT (9.0-12.0) sec INR (<1.2) BUN 59 H (7-17) mg/dL Creatinine 3.77 H (0.52-1.04) mg/dL Glucose 129 H (74-99) mg/dL POC Glucose (mg/dL) 101 H (75-99) mg/dL Calcium 7.9 L (8.4-10.2) mg/dL 11/05/20 11/05/20 11/05/20 Range/Units 06:26 08:35 12:05 WBC (3.8-10.6) k/uL RDW (11.5-15.5) % Plt Count (150-450) k/uL Neutrophils # (1.3-7.7) k/uL Lymphocytes # (1.0-4.8) k/uL PT 14.0 H (9.0-12.0) sec INR 1.4 H (<1.2) BUN (7-17) mg/dL Creatinine (0.52-1.04) mg/dL Glucose (74-99) mg/dL POC Glucose (mg/dL) 124 H 101 H (75-99) mg/dL Calcium (8.4-10.2) mg/dL Microbiology - Last 24 Hours (Table) 11/02/20 22:21 Blood Culture - Preliminary Blood No Growth after 48 hours 11/02/20 22:14 Blood Culture - Preliminary Blood No Growth after 48 hours Assessment and Plan Assessment: This is a 80-year-old female with complex past medical history noted below who presented to the emergency room with fatigue and generalized weakness. Patient was evaluated in the ER and admitted to the hospital for further management of her medical problems noted below. 1. Severe sepsis with septic shock: Requiring norepinephrine. Also started on midodrine by ICU physician. Resuscitated appropriately with IV fluid since admission. Currently on broad-spectrum antibiotic with vancomycin and cefepime. Blood culture negative to date. Lactic acidosis resolved. Patient was hypothermic on presentation but now her temperature improved and is back to normal range. Infectious disease consulted for further evaluation. 2. Acute kidney injury: Nonoliguric. Secondary to sepsis and hypotension. Received aggressive IV fluid hydration. Nephrology following closely. 3. Hyperkalemia: Treated medically. Potassium level improved 4. Sinus bradycardia: Now resolved. Probably secondary to electrolyte disturbance. Seen and evaluated by cardiology. No further recommendations at this time. 5. Metabolic acidosis, improved 6. Chronic atrial fibrillation on anticoagulation with Eliquis. Dose adjusted by cardiology to 2.5 mg twice daily 7. 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 Wound VAC in place. Infectious disease consulted. Continue IV vancomycin for now. 8. Stage IIIB chronic kidney disease: Baseline creatinine around 1.5 9. Type 2 diabetes, blood glucose within acceptable range with current insulin dose 10. GI and DVT prophylaxis: With IV Protonix and Eliquis 11. CODE STATUS: Patient is DO NOT RESUSCITATE/DO NOT INTUBATE Plan for home with hospice tomorrow
--- NOTE | 2020-11-05 14:44 | P.PN ---
Subjective HISTORY OF PRESENTING ILLNESS This is a pleasant 80-year-old female past medical history significant for diabetes mellitus, diabetic foot ulcer status post left toe amputations with a wound VAC, chronic edema with likely chronic venous insufficiency, osteomyelitis, CKD, hypertension, hyperlipidemia, previous mildly elevated troponins with stress test from 10/2017 showing reversible apical lateral defect however opted to treat medically. She follows in the office with Dr. Oscar. We have been asked to see in consultation for bradycardia and hypotension. Patient was recently hospitalized in August secondary to diabetic foot ulcer with foot amputation. She has been going to wound clinic and apparently had been doing well up until last 3-4 days. Patient denies any recent fevers, chills, chest pain, pressure, shortness breath. Her at bedside however patient has had increased lethargy, decreased appetite and has not been eating or drinking that much in the last 3-4 days. Patient had seen a wound VAC nurse and apparently she had not looked well and therefore recommended going to emergency department. On arrival to the emergency department patient was found to be hypotensive with heart rate in the 40s in atrial fibrillation. Patient was given atropine and calcium with improvement in the heart rate of 50-60s. She does have chronic lower extremity edema which is unchanged and has been like this for years. She denies any orthopnea. No hematochezia or melena. Blood work resulted with potassium of 6.8 and patient was given repeated doses of calcium and treatment of the hyperkalemia. 11/05/20: Patient seen and examined. Patient confused however awake and answers some questions. She denies any chest pain or pressure. She states she has been doing okay. No shortness breath. Patient initially was bradycardic however now in atrial 100s to 120s. Patient has had 2800 mL of urine output in the last 24 hours. Remains on vasopressors REVIEW OF SYSTEMS At the time of my exam: CONSTITUTIONAL: Denies fever or chills. CARDIOVASCULAR: Denies chest pain, shortness of breath, orthopnea, PND or palpitations. RESPIRATORY: Denies cough. GASTROINTESTINAL: Denies abdominal pain, diarrhea, constipation, nausea or vomi ting. MUSCULOSKELETAL: Denies myalgias. NEUROLOGIC: Denies numbness, tingling or weakness. ENDOCRINE: + fatigue, no weight change, polydipsia or polyurina. GENITOURINARY: Denies burning, hematuria or urgency with micturation. HEMATOLOGIC: Denies history of anemia or bleeding. PHYSICAL EXAMINATION Blood pressure 93/59 heart rate 102 afebrile and maintaining oxygen saturation on 6 L nasal cannula. CONSTITUTIONAL: No apparent distress, chronically ill-appearing, obese, somewhat somnolent however arousable and answers questions, confused. HEENT: Head is normocephalic. Pupils are equal, round. Sclerae anicteric. Mucous membranes of the mouth are moist. No JVD. No carotid bruit. CHEST EXAMINATION: Lungs are clear to auscultation. No chest wall tenderness is noted on palpation or with deep breathing. HEART EXAMINATION: Irregularly irregular rate and rhythm. S1, S2 heard. No murmurs, gallops or rub. ABDOMEN: Soft, obese, nontender. Positive bowel sounds. EXTREMITIES: + 3+ lower extremity edema, + left foot with a wound VAC with left toe amputations. NEUROLOGIC EXAMINATION: Patient is awake ASSESSMENT 1. A. fib initially with slow ventricular rate, likely predominantly related to hyperkalemia plus plus possible hypothyroidism component plus possible med effect from metoprolol. In the last 2 days patient has been mildly tachycardia 2. Hypotension, possible component of hypovolemia plus or minus septic shock. Echo shows ejection fraction 50-55% 3. Acute kidney injury 4. Hypothyroidism 5. Status post left toe amputation with diabetic foot ulcer with osteomyelitis and wound VAC currently in place 6. History of mildly elevated troponins and abnormal stress test with possible apical reversible perfusion defect from 2019. She has been well with medical therapy. Current admission normal troponin 7. History of essential hypertension 8. Diabetes mellitus 2 9. Obesity 10. Chronic lower extremity edema, likely related to chronic venous insufficiency 11. Moderate to severe tricuspid regurgitation PLAN Patient still having mildly elevated blood pressures in the low 100s. Remains on vasopressors. Continue supportive care. Echo shows ejection fraction 50- 55%. May consider Cardizem drip if heart rates become elevated. Further workup for sepsis and acute kidney injury. Vasopressors as needed. Appears patient is having mildly improved urine output. Prognosis guarded. Objective - Vital Signs Vital signs: Vital Signs Temp 96.2 F L 11/05/20 12:00 Pulse 152 H 11/05/20 14:00 Resp 21 11/05/20 14:00 BP 93/59 11/05/20 14:00 Pulse Ox 93 L 11/05/20 14:00 Intake & Output 11/04/20 11/05/20 11/05/20 18:59 06:59 18:59 Intake Total 1020 1202.219 447.896 Output Total 1350 1510 543 Balance -330 -307.781 -95.104 Weight 129.8 kg Intake: IV 270 925 320 .9 10 Cefepime 1 gm In Sodium 50 Chloride 0.9% 50 ml @ 12. 5 mls/hr IVPB Q12HR [facility] Rx#:[id number] DAPTOmycin 800 mg In 50 Sodium Chloride 0.9% 50 ml @ 100 mls/hr IVPB Q48H [facility] Rx#:[id number] Dextrose 5% in Water 1, 260 000 ml @ 130 mls/hr IV . Q8H51M JANET with Sodium Bicarb (1 Meq/ml) 150 ml Rx#:[id number] Lactated Ringers 1,000 ml 825 320 @ 75 mls/hr IV .[id number] [facility] Rx#:[id number] Intake, IV Titration 750 277.219 127.896 Amount Cefepime 1 gm In Sodium 50 Chloride 0.9% 50 ml @ 12. 5 mls/hr IVPB Q12HR [facility] Rx#:[id number] Lactated Ringers 1,000 ml 525 @ 75 mls/hr IV .[id number] [facility] Rx#:[id number] Norepinephrine 32 mg In 277.219 77.896 Sodium Chloride 0.9% 218 ml @ 0.05 MCG/KG/MIN 2. 594 mls/hr IV .Q24H [facility] Rx#:[id number] Sodium Chloride 0.9% 1, 225 000 ml @ 75 mls/hr IV . [id number] [facility] Rx#:[id number] Output: Urine 1350 1510 543 Other: Voiding Method Indwelling Catheter Indwelling Catheter Indwelling Catheter - Labs CBC & Chem 7: 11/05/20 04:26 11/05/20 04:26 Labs: Abnormal Lab Results - Last 24 Hours (Table) 11/04/20 11/05/20 11/05/20 Range/Units 20:52 04:26 04:26 WBC 14.2 H (3.8-10.6) k/uL RDW 19.2 H (11.5-15.5) % Plt Count 107 L (150-450) k/uL Neutrophils # 13.1 H (1.3-7.7) k/uL Lymphocytes # 0.4 L (1.0-4.8) k/uL PT (9.0-12.0) sec INR (<1.2) BUN 59 H (7-17) mg/dL Creatinine 3.77 H (0.52-1.04) mg/dL Glucose 129 H (74-99) mg/dL POC Glucose (mg/dL) 101 H (75-99) mg/dL Calcium 7.9 L (8.4-10.2) mg/dL 11/05/20 11/05/20 11/05/20 Range/Units 06:26 08:35 12:05 WBC (3.8-10.6) k/uL RDW (11.5-15.5) % Plt Count (150-450) k/uL Neutrophils # (1.3-7.7) k/uL Lymphocytes # (1.0-4.8) k/uL PT 14.0 H (9.0-12.0) sec INR 1.4 H (<1.2) BUN (7-17) mg/dL Creatinine (0.52-1.04) mg/dL Glucose (74-99) mg/dL POC Glucose (mg/dL) 124 H 101 H (75-99) mg/dL Calcium (8.4-10.2) mg/dL Microbiology - Last 24 Hours (Table) 11/02/20 22:21 Blood Culture - Preliminary Blood No Growth after 48 hours 11/02/20 22:14 Blood Culture - Preliminary Blood No Growth after 48 hours
--- NOTE | 2020-11-05 15:09 | PN ---
PROGRESS NOTE Patient is seen for followup for acute kidney injury. The patient remains on Levophed. She continues to have good urine output. Serum creatinine is slightly increased. However, potassium is improved to about 5.1. There are plans for possible home hospice. PHYSICAL EXAMINATION: On examination today, blood pressure this morning was about 93/28, heart rate 120 per minute. Patient is afebrile. EXAMINATION OF THE HEART: S1, S2. EXAMINATION OF THE LUNGS: Decreased breath sounds at bases. Abdomen is soft, morbidly obese with weeping of the skin noted. Examination of lower extremities shows chronic skin changes with edema noted as well. FACILITY ENGINEER exam grossly intact. LABS: Labs show sodium 138, potassium 5.1, chloride 106, BUN 59, serum creatinine 3.7 mg/dL, hemoglobin 11.8. Calcium is 7.9. ASSESSMENT: 1. Acute kidney injury, acute tubular necrosis associated with hypotension initially oliguric, currently nonoliguric. No plans for renal replacement therapy at this point. There is consideration for possible hospice care. She remains on large doses of Levophed. 2. Septic shock, maintained on Levophed, status post IV fluids. 3. Hyperkalemia associated with acute kidney injury, currently improved. 4. Metabolic acidosis associated with renal failure and lactic acidosis, status post IV bicarb. 5. Chronic kidney disease stage 3B with baseline creatinine about 1.7-1.4 secondary to nephrosclerosis. 6. Chronic atrial fibrillation. 7. Bradycardia associated with hyperkalemia, now improved. 8. Peripheral vascular disease with recent cellulitis and gangrene, status post amputation of the toes on the left foot in August of 2020, followed by a wound VAC and outpatient IV antibiotics. PLAN: Discontinue IV fluids. Continue to try and wean down Levophed. Patient appears volume overloaded. No plans for renal replacement therapy at this time. Agree with plans for possible hospice care. MMODL / IJN: [id number] /
[2020-11-05 16:53] LABS: Glucose,Whole Blood 117 mg/dL (75-99)
[2020-11-05] MEDS ORDERED: DILTIAZEM DRIP BOLUS FROM BAG 1 MG SOLN IV ONE (17:50)
[2020-11-05] MEDS ORDERED: DILTIAZEM 125 MG in SODIUM CHLORIDE 0.9% 100 ML IV SCH (18:00)
[2020-11-05] MEDS: INSULIN DETEMIR (LEVEMIR) 100 UNIT/ML SYR SQ SCH (21:17)
[2020-11-05 21:28] LABS: Glucose,Whole Blood 108 mg/dL (75-99)
--- NOTE | 2020-11-05 22:06 | PN ---
PROGRESS NOTE DATE OF SERVICE: 11/05/2020 REASON FOR FOLLOWUP: Sepsis. INTERVAL HISTORY: The patient is currently afebrile. The patient is breathing comfortably. The patient did have however, the dose has been cut down, currently on 40 mcg compared to 50 mcg yesterday. The patient denies having any chest pain, shortness of breath or cough. No abdominal pain or diarrhea. PHYSICAL EXAMINATION: Blood pressure 91/59, pulse of 125, temperature 97.6. She is 96% on 6 L nasal cannula. General description is an elderly female lying in bed in no distress. RESPIRATORY SYSTEM: Unlabored breathing. Clear to auscultation anteriorly. HEART: S1, S2. Regular rate and rhythm. ABDOMEN: Soft. No tenderness. LABS: White count down to 14.2. Blood culture has been negative so far. DIAGNOSTIC IMPRESSION AND PLAN: Patient admitted to hospital with sepsis in this patient with a left diabetic foot amputation possible source; no other obvious focus. The patient is currently covered with cefepime and daptomycin. White count is showing a downward trend. Continue current antibiotics and monitor clinical course closely. MMODL / IJN: [id number] /
[2020-11-05 23:47] LABS: Glucose,Whole Blood 102 mg/dL (75-99)
[2020-11-06] MEDS: NOREPINEPHRINE 32 MG in SODIUM CHLORIDE 0.9% 218 ML IV SCH ×2 (00:45→07:23)
[2020-11-06 04:19] VITALS: TEMP 97.6
[2020-11-06] MEDS: INSULIN ASPART (NovoLOG) 100 UNIT/ML VIAL SQ SCH (05:43)
[2020-11-06] MEDS: MIDODRINE 5 MG TAB PO SCH (06:34)
[2020-11-06] MEDS: LEVOTHYROXINE IVP 100 MCG/5 ML VIAL IV SCH (06:34)
[2020-11-06] MEDS ORDERED: CEFEPIME 1 GM in SODIUM CHLORIDE 0.9% 50 ML IVPB SCH (09:00)
[2020-11-06] MEDS ORDERED: HYDROmorphone 0.5 MG/0.5 ML SYRINGE IVP STA (09:09)
--- NOTE | 2020-11-06 09:11 | P.DS ---
Providers Date of admission: 11/02/20 17:49 Expected date of discharge: 11/06/20 Attending physician: Nirmala Kurtz MD Consults: 11/02/20 17:49 Consult Physician Urgent Consulting Provider: Nedra Hernández Consult Reason/Comments: Acute renal failure with hyperkalemia Do you want consulting provider notified?: Yes 11/02/20 18:19 Consult Physician Urgent Consulting Provider: Farhat Garcia Consult Reason/Comments: critical care Do you want consulting provider notified?: Already Contacted 11/02/20 18:20 Consult Physician Urgent Consulting Provider: Ermias Barrios Consult Reason/Comments: Bradycardia and hypotension Do you want consulting provider notified?: Already Contacted 11/03/20 11:17 Consult Physician Routine Consulting Provider: Young Bird Consult Reason/Comments: severe sepsis Do you want consulting provider notified?: Yes Primary care physician: Jcarlos Young MD Hospital Course: Patient will be discharged home with hospice care. Goals of care were discussed with her Tahir. Below is a summary of her hospital stay. This is a 80-year-old female with complex past medical history noted below who p resented to the emergency room with fatigue and generalized weakness. Patient was evaluated in the ER and admitted to the hospital for further management of her medical problems noted below. 1. Severe sepsis with septic shock: Requiring norepinephrine. Also started on midodrine by ICU physician. Resuscitated appropriately with IV fluid since admission. broad-spectrum antibiotic with vancomycin and cefepime. Blood culture negative to date. Lactic acidosis resolved. Patient was hypothermic on presentation but now her temperature improved and is back to normal range. Infectious disease consulted for further evaluation. 2. Acute kidney injury: Nonoliguric. Secondary to sepsis and hypotension. Received aggressive IV fluid hydration. Nephrology following 3. Hyperkalemia: Treated medically. Potassium level improved 4. Sinus bradycardia: Now resolved. Probably secondary to electrolyte disturbance. Seen and evaluated by cardiology. No further recommendations at this time. 5. Metabolic acidosis, improved 6. Chronic atrial fibrillation 7. Status post left transmetatarsal amputation of the left foot with history of left foot diabetic ulcer and osteomyelitis 8. Stage IIIB chronic kidney disease 9. Type 2 diabetes Patient Condition at Discharge: Critical Plan - Discharge Summary Discharge Rx Participant: No New Discharge Prescriptions: Discontinued Apixaban [Eliquis] 5 mg PO BID #0 tab Insulin Glargine,Hum.rec.anlog [Lantus Solostar] 15 unit SQ HS Potassium Chloride 8 meq PO AC-SUPPER Metoprolol Tartrate [Lopressor] 50 mg PO BID Losartan Potassium 100 mg PO HS Insulin Aspart [NovoLOG Flexpen] 15 units SQ AC-BRKFST Insulin Aspart [NovoLOG Flexpen] 20 units SQ AC-LUNCH Insulin Aspart [NovoLOG Flexpen] 30 units SQ HS hydroCHLOROthiazide [Hydrodiuril] 25 mg PO DAILY amLODIPine [Norvasc] 10 mg PO DAILY Multivit with Calcium,Iron,Min [Women's Multivitamin] 1 tab PO DAILY Follow up Appointment(s)/Referral(s): [facility] [NON-STAFF] - As Needed Discharge Disposition: HOME WITH HOSPICE
[2020-11-06 09:29] VITALS: PULSE 105; RESP 13
[2020-11-06] MEDS: IPRATROPIUM-ALBUTEROL 3 ML NEB INHALATION SCH (09:31)
[2020-11-06] MEDS: NYSTATIN 100,000 UNIT/GM POWD 15 GM TOPICAL SCH (09:41)
[2020-11-06] MEDS: PANTOPRAZOLE 40 MG/10 ML VIAL IV SCH (09:41)
[2020-11-06] MEDS: polyethylene glycoL 3350 17 GM POWD.PACK PO SCH (09:43)
[2020-11-06 10:44] VITALS: BP 98/74
--- NOTE | 2020-11-06 11:55 | P.PN ---
Subjective Progress Note Date: 11/06/20 This 80-year-old white female patient of Dr. Young, with multiple medical problems including diabetes mellitus, hypertension, chronic A. fib, morbid obesity, recurrent cellulitis of the right lower extremity, lymphedema, left foot diabetic ulcers, osteomyelitis, and history of left transmetatarsal amp utation and wound VAC application on 08/24/2020. Wound cultures were positive for MSSA and Pseudomonas, and patient was receiving IV antibiotics with cefepime with a stop date of 10/05/2020. Patient was brought into the emergency department on 11/02/2020 for evaluation of fatigue, general weakness, altered mentation with onset of symptoms 5 days prior to presentation. Patient has a wound VAC in place on her left foot. Apparently she has been more drowsy, unable to participate with therapy, and she was bradycardic and hypotensive. Her lab data showed acute on chronic kidney injury, and hyperkalemia with potassium level of 6.8, urinalysis did not show evidence of infection, admission chest x-ray showed cardiomegaly and basilar effusions. COVID 19 test was negative. Patient was very hypotensive in the emergency department with blood pressure of 66/53, EKG showed slow atrial fibrillation with a rate of 40-50 BPM. Patient has been hypothermic with a temp as low as 92F. She has been fluid resuscitated with a 3-1/2 L and IV fluid boluses, currently remains on D5W with 3 A of bicarbonate at 1:30 ML per hour, 0.9 at 10 ML per hour, and even if it is currently a 65 mics per minute, she is quite drowsy, appears to be in no acute distress, she is arousable to repeated verbal stimulation, however she is not verbally responding, she is currently on 3 L of oxygen, and her pulse ox is 93%, her temperature has improved, and is up to 97.4, current blood pressures 94/55 with a map of 68. She remains in atrial fibrillation on the monitor with a rate of 89, she has received several rounds of 50% dextrose, and regular insulin, bicarbonate IV pushes, she received 1 dose of IV Lasix 60 mg, and currently her potassium is 5.9. Nephrology is following. Patient is oliguric, making about 20-35 ML per hour, nephrology is following, antibiotics in the form of cefepime and vancomycin,, blood culture sent and pending, lactic acid is 4.2 On 11/04/2020 patient seen in follow-up in intensive care unit, she is slightly more arousable today, still quite drowsy, appears to be in no acute distress, she is currently on 4 L per high flow nasal cannula and her pulse ox is around 94%. She is on 0.9 normal saline at a rate of 20 ML per hour, she was still on D5W with 3 A of bicarbonate at 130 ML per hour, still on norepinephrine infusion at 56 mics per minute. Still hypothermic this morning with a temp of 94.4F. Current blood pressures 98/88, and patient is in A. fib, with a rate of 89-94 BPM. She remains on cefepime and vancomycin for antibiotic coverage, her blood cultures have shown no growth at the 24-hour santi. Today's labs show white blood cell count of 24, hemoglobin is 11.9, sodium is 138, potassium 5.2, BUN is 59, creatinine is 3.59, her urinalysis did not show clear evidence of infection, growing the virus PCR was negative. Today's chest x-ray showed cardiomegaly with moderate effusions and underlying atelectasis or consolidation. Possible mild pulmonary vascular congestion. On 11/05/2020 patient seen in follow-up in intensive care unit, yesterday we were notified by the nursing staff about the family's decision to make the patient hospice and they would like to make arrangements to transfer the patient home under the hospice care. Hospice has been consulted but has not evaluated the patient yet. Patient remains DO NOT RESUSCITATE, she is more awake on today's exam, she is providing some simple answers, she denies any acute distress, denies any dyspnea, she is currently on 6 L of oxygen, with pulse ox of 93-94%, she is afebrile, she is in A. fib, slightly tachycardic, with a rate of 116 BPM. Currently medical which included cefepime and daptomycin, so far blood cultures have shown no growth. Temperature has improved, no hypothermia, temp is 96.3F axillary today. Blood pressure is 86/55 with a map of 65, and patient remains on high-dose vasopressors, in the form of norepinephrine, currently infusing at 41 mics per minute. Lactate Ringer's at 75 ML per hour. His chest x-ray has been reviewed showing bibasilar densities, pleural e ffusions, basilar edema versus atelectasis/pneumonia. Today's labs have been reviewed. Leukocytosis is down trending, white blood cell count has improved, down to 14.2, hemoglobin is 11.8, electrolytes within normal limits, BUN is 59, creatinine is 3.7 Patient is seen today 11/06/2020 in follow-up in the intensive care unit. She continues to be minimally responsive at this point. She is maintaining good O2 saturations in the 90s on 2 L/m per nasal cannula. She is on a Cardizem drip at 5 mg per hour. Norepinephrine at 86 mcg/m. 0.9 normal saline 20 ML's per hour. Blood cultures reveal no growth. She remains on bronchodilators and cefepime. The plan is to transfer the patient home via EMS to be placed in hospice today. Objective - Vital Signs Vital signs: Vital Signs Temp 97.6 F 11/06/20 04:00 Pulse 105 H 11/06/20 10:15 Resp 13 11/06/20 10:15 BP 98/74 11/06/20 10:30 Pulse Ox 93 L 11/06/20 10:15 Intake & Output 11/05/20 11/06/20 11/06/20 18:59 06:59 18:59 Intake Total 775.440 462.852 178.158 Output Total 1315 925 210 Balance -539.560 -462.148 -31.842 Weight 130.5 kg Intake: IV 520 220 80 Lactated Ringers 1,000 ml 320 @ 75 mls/hr IV .[id number] JANET Rx#:[id number] kvo .9 200 220 80 Intake, IV Titration 255.440 242.852 98.158 Amount Cefepime 1 gm In Sodium 50 Chloride 0.9% 50 ml @ 12. 5 mls/hr IVPB Q12HR JANET Rx#:[id number] Norepinephrine 32 mg In 205.440 242.852 98.158 Sodium Chloride 0.9% 218 ml @ 0.05 MCG/KG/MIN 2. 594 mls/hr IV .Q24H JANET Rx#:[id number] Output: Urine 1315 925 210 Other: Voiding Method Indwelling Catheter Indwelling Catheter Indwelling Catheter - Exam GENERAL EXAM: Obtunded, obese 80-year-old female patient, on 3 L nasal cannula, comfortable in no apparent distress. HEAD: Normocephalic. EYES: Normal reaction of pupils, equal size. NOSE: Clear with pink turbinates. THROAT: No erythema or exudates. NECK: No masses, no JVD. CHEST: No chest wall deformity. LUNGS: Equal air entry with a solar crackles. CVS: S1 and S2 normal with no audible murmur, regular rhythm. ABDOMEN: No hepatosplenomegaly, normal bowel sounds, no guarding or rigidity. SPINE: No scoliosis or deformity SKIN: No rashes CENTRAL NERVOUS SYSTEM: No focal deficits, tone is normal in all 4 extremities. EXTREMITIES: There is 2+ peripheral edema. Wound VAC to the left foot. Peripheral pulses are intact. - Labs CBC & Chem 7: 11/05/20 04:26 11/05/20 04:26 Labs: Abnormal Lab Results - Last 24 Hours (Table) 11/05/20 11/05/20 11/05/20 Range/Units 12:05 16:52 21:16 POC Glucose (mg/dL) 101 H 117 H 108 H (75-99) mg/dL 11/05/20 Range/Units 23:36 POC Glucose (mg/dL) 102 H (75-99) mg/dL Microbiology - Last 24 Hours (Table) 11/02/20 22:21 Blood Culture - Preliminary Blood No Growth after 72 hours 11/02/20 22:14 Blood Culture - Preliminary Blood No Growth after 72 hours Assessment and Plan Assessment: 1 Acute hypoxic respiratory failure secondary to sepsis 2 Septic shock suspect related to left foot wound infection 3 Recent hospitalization in August 2020 with left foot wound cellulitis osteomyelitis 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 Garcia The plan is for her to be transferred via EMS to home for hospice Norepinephrine to be discontinued at that time I, the cosigning physician, performed a history & physical examination of the patient. Lungs sounds with crackles in the bilateral posterior bases. Maintaining good O2 saturations in the 90s on 3 L/m per nasal cannula. I discussed the assessment and plan of care with my nurse practitioner, Abbi Shaw. I attest to the above note as dictated by her.
== END 2020-11-06 10:51 | disposition hospice, home (50) | DRG 871 ==
LOC: EC 13:29 → 2SICU 17:49
PROVIDERS: ADMIT Internal Medicine; ATTEND Internal Medicine
PROC: 02HV33Z Insertion of Infusion Device into Superior Vena Cava, Percutaneous Approach (ICD-10-PCS; principal; 2020-11-02)
PROC: 3E033XZ Introduction of Vasopressor into Peripheral Vein, Percutaneous Approach (ICD-10-PCS; 2020-11-02)
DX: A41.9 Sepsis, unspecified organism (principal); R65.21 Severe sepsis with septic shock; N17.0 Acute kidney failure with tubular necrosis; J96.01 Acute respiratory failure with hypoxia; E87.2 Acidosis; I48.20 Chronic atrial fibrillation, unspecified; L03.116 Cellulitis of left lower limb; M86.9 Osteomyelitis, unspecified; E11.52 Type 2 diabetes mellitus with diabetic peripheral angiopathy with gangrene; L97.526 Non-pressure chronic ulcer of other part of left foot with bone involvement without evidence of necrosis; J90 Pleural effusion, not elsewhere classified; Z68.43 Body mass index [BMI] 50.0-59.9, adult; E11.69 Type 2 diabetes mellitus with other specified complication; E11.621 Type 2 diabetes mellitus with foot ulcer; E87.5 Hyperkalemia; E86.0 Dehydration; Z51.5 Encounter for palliative care; Z66 Do not resuscitate; E66.01 Morbid (severe) obesity due to excess calories; T68.XXXA Hypothermia, initial encounter; Z96.1 Presence of intraocular lens; Z20.822 Contact with and (suspected) exposure to COVID-19; I12.9 Hypertensive chronic kidney disease with stage 1 through stage 4 chronic kidney disease, or unspecified chronic kidney disease; B95.61 Methicillin susceptible Staphylococcus aureus infection as the cause of diseases classified elsewhere; N18.32 Chronic kidney disease, stage 3b; E11.22 Type 2 diabetes mellitus with diabetic chronic kidney disease; R00.1 Bradycardia, unspecified; I25.10 Atherosclerotic heart disease of native coronary artery without angina pectoris; E03.9 Hypothyroidism, unspecified; I87.2 Venous insufficiency (chronic) (peripheral); E78.5 Hyperlipidemia, unspecified; E87.70 Fluid overload, unspecified; I07.1 Rheumatic tricuspid insufficiency; Z79.899 Other long term (current) drug therapy; Z79.01 Long term (current) use of anticoagulants; Z79.4 Long term (current) use of insulin; Z87.891 Personal history of nicotine dependence; Z89.422 Acquired absence of other left toe(s); Z90.49 Acquired absence of other specified parts of digestive tract; Z90.11 Acquired absence of right breast and nipple; Z98.41 Cataract extraction status, right eye; Z98.42 Cataract extraction status, left eye; Z98.890 Other specified postprocedural states; Z82.49 Family history of ischemic heart disease and other diseases of the circulatory system; Z88.0 Allergy status to penicillin
CPT/HCPCS: 36415; 36556; 71045; 80048; 80053; 81001; 82550; 83605; 83735; 83880; 84100; 84132; 84439; 84443; 84481; 84484; 85025; 85610; 85730; 87040; 87635; 93005; 93306; 94640; 96361; 96365; 96366; 96375; 96376; 99291